=== PATIENT | female | born 1960 | race Caucasian/White ===

== ENCOUNTER 2016-04-16 19:00 | Inpatient (IN) | payer OTHER ==
[2016-04-16] MEDS ORDERED: HYDROmorphone 1 MG/ML 1 ML SYRINGE IVP STA (19:31)
[2016-04-16] MEDS ORDERED: SODIUM CHLORIDE 0.9% 1,000 ML IV STA (19:31)
[2016-04-16] MEDS ORDERED: ONDANSETRON 4 MG/2 ML VIAL IVP STA (19:31)
--- NOTE | 2016-04-16 19:43 | ED ---
Abdominal Pain HPI - General Chief Complaint: Abdominal Pain Stated Complaint: abd pain Time Seen by Provider: 04/16/16 19:10 Source: patient, RN notes reviewed, old records reviewed Mode of arrival: wheelchair Limitations: no limitations - History of Present Illness Initial Comments: Patient is a 35-year-old female with chief complaint of epigastric abdominal pain for approximately one week. Patient reports that she's had her gallbladder removed approximately year ago and since that she does have an of abdominal hernia. Patient reports that she's had multiple sets of diarrhea and a few episodes of vomiting for the past week. She states that she also has a chronic cough. She denies any fever or chills. She states that the abdominal pain became worse today which prompted her to becomes a. She is concerned she possible problem with her hernia as she relates that the pain is directly over that area. She reports that she is a type II diabetic. She states that she is supposed to have back surgery however her primary care provider will not approve her for surgery as her blood sugars are continually running high as well as she does have a increased white blood cell count. Patient states that they are unsure why her white blood cell count is elevated. Patient denies any recent fever, chills, shortness of breath, chest pain, back pain, abdominal pain , nausea vomiting, numbness or tingling, dysuria or hematuria, constipation or diarrhea, headaches or visual changes, or any other current symptoms - Related Data Home Medications Medication Instructions Recorded Confirmed Atorvastatin [Lipitor] 40 mg PO HS 05/29/15 04/16/16 Glimepiride [Amaryl] 1 mg PO [id number] 05/29/15 04/16/16 Valsartan [Diovan] 160 mg PO QAM 05/29/15 04/16/16 metFORMIN HCL 1,000 mg PO BID 05/29/15 04/16/16 DULoxetine HCL [Cymbalta] 60 mg PO DAILY 04/16/16 04/16/16 HYDROcodone/APAP 7.5-325MG [[place] 1 tab PO TID 04/16/16 04/16/16 7.5-325] Insulin Detemir [Levemir] 30 unit SQ HS 04/16/16 04/16/16 Pantoprazole Sodium [Protonix] 40 mg PO DAILY 04/16/16 04/16/16 Allergies Allergy/AdvReac Type Severity Reaction Status Date / Time morphine Allergy severe Verified 04/16/16 19:25 vomiting, severe flushing and sweating Review of Systems ROS Statement: Those systems with pertinent positive or pertinent negative responses have been documented in the HPI. ROS Other: All systems not noted in ROS Statement are negative. Past Medical History Past Medical History: COPD, Diabetes Mellitus, Eye Disorder, GERD/Reflux, Hyperlipidemia, Hypertension, Pneumonia Additional Past Medical History / Comment(s): HX CATARACTS YOSEF. LMP 2009. SL Anemia - SEES Dr Hooper. Bronchitis. Steroids in Mar 2015. EDEMA IN FEET, R/T HEAT. History of Any Multi-Drug Resistant Organisms: None Reported Past Surgical History: Cholecystectomy, Orthopedic Surgery, Tubal Ligation Additional Past Surgical History / Comment(s): ORIF RT ANKLE. EGD, COLONOSCOPY 06/03/15. Past Anesthesia/Blood Transfusion Reactions: Postoperative Nausea & Vomiting ( PONV) Past Psychological History: No Psychological Hx Reported, Depression Smoking Status: Current every day smoker Past Alcohol Use History: None Reported Additional Past Alcohol Use History / Comment(s): Quit smoking 2014, Smoked approx 15 yrs <1ppd Past Drug Use History: None Reported - Past Family History Mother Additional Family Medical History / Comment(s): chronic anemia Father Family Medical History: Myocardial Infarction ([place]) General Exam - General Exam Comments Initial Comments: Patient is a 55-year-old female. She does not appear to be in any acute distress. Limitations: no limitations General appearance: alert, in no apparent distress Head exam: Present: atraumatic, normocephalic, normal inspection Eye exam: Present: normal appearance, PERRL, EOMI. Absent: scleral icterus, conjunctival injection, periorbital swelling ENT exam: Present: normal exam, mucous membranes moist Neck exam: Present: normal inspection. Absent: tenderness, meningismus, lymphadenopathy Respiratory exam: Present: normal lung sounds bilaterally. Absent: respiratory distress, wheezes, rales, rhonchi, stridor Cardiovascular Exam: Present: regular rate, normal rhythm, normal heart sounds. Absent: systolic murmur, diastolic murmur, rubs, gallop, clicks GI/Abdominal exam: Present: soft, tenderness (Evidence of umbilical hernia. Patient is tender over the area. No evidence of erythema. The hernia is reducible.), normal bowel sounds. Absent: distended, guarding, rebound, rigid Extremities exam: Present: normal inspection, full ROM, normal capillary refill. Absent: tenderness, pedal edema, joint swelling, calf tenderness Back exam: Present: normal inspection Neurological exam: Present: alert, oriented X3, CN II-XII intact Psychiatric exam: Present: normal affect, normal mood Skin exam: Present: warm, dry, intact, normal color. Absent: rash Course Vital Signs 04/16/16 19:19 Temperature 98.1 F Pulse Rate 100 Respiratory 20 Rate Blood Pressure 141/70 O2 Sat by Pulse 96 Oximetry Medical Decision Making - Medical Decision Making Patient is a 55-year-old female with type 2 diabetes stating that she's had abdominal pain for the past week. Patient's labs were reviewed and she has an elevated lipase of 3000, 871. Patient's amylase is 511. Patient has mainly epigastric and left sided abdominal pain. She does state it didn't radiate towards her back. Patient does have evidence of a ventral hernia however it is reducible. I discussed case with Dr. Mitchell and he indicated that she treat the patient for pancreatitis with IV hydration. Patient also reports that she' s had chronic leukocytosis for the past few months and has not been cleared for her back surgery by her primary care provider. Dr. Bailey consult to the medicine physician x-ray doesn't. They will do possible CT of the abdomen and pelvis morning pending results in the meantime hydrating with fluids and pain control. - Lab Data Result diagrams: 04/16/16 19:45 04/16/16 19:45 Lab Results 04/16/16 04/16/16 Range/Units 19:45 19:45 WBC 17.1 H (3.8-10.6) k/uL RBC 4.40 (3.80-5.40) m/uL Hgb 14.4 (11.4-16.0) gm/dL Hct 41.6 (34.0-46.0) % MCV 94.6 (80.0-100.0) fL MCH 32.7 (25.0-35.0) pg MCHC 34.6 (31.0-37.0) g/dL RDW 12.9 (11.5-15.5) % Plt Count 374 (150-450) k/uL Neutrophils % 77 % Lymphocytes % 16 % Monocytes % 3 % Eosinophils % 2 % Basophils % 1 % Neutrophils # 13.2 H (1.3-7.7) k/uL Lymphocytes # 2.8 (1.0-4.8) k/uL Monocytes # 0.5 (0-1.0) k/uL Eosinophils # 0.4 (0-0.7) k/uL Basophils # 0.1 (0-0.2) k/uL Sodium 140 (137-145) mmol/L Potassium 4.3 (3.5-5.1) mmol/L Chloride 108 H (98-107) mmol/L Carbon Dioxide 19 L (22-30) mmol/L Anion Gap 13 mmol/L BUN 38 H (7-17) mg/dL Creatinine 0.91 (0.52-1.04) mg/dL Est GFR (MDRD) Af Amer >60 (>60 ml/min/1.73 sqM) Est GFR (MDRD) Non-Af >60 (>60 ml/min/1.73 sqM) Glucose 164 H (74-99) mg/dL Calcium 9.9 (8.4-10.2) mg/dL Total Bilirubin 0.5 (0.2-1.3) mg/dL AST 16 (14-36) U/L ALT 26 (9-52) U/L Alkaline Phosphatase 90 (38-126) U/L Total Protein 7.5 (6.3-8.2) g/dL Albumin 4.2 (3.5-5.0) g/dL Amylase 511 H* (30-110) U/L Lipase 3897 H (23-300) U/L Acetone, Qual Negative (Negative) - Radiology Data Radiology results: report reviewed Heart is the upper limits of normal in size. There are chronic changes without acute definite process. No evidence of bowel instruction or free intraperitoneal air. There symptoms a small air-fluid level within the colon which could represent enteritis. Correlate with possible hepatomegaly. Disposition Clinical Impression: Pancreatitis Disposition: ADMITTED IP TO THIS HOSP Condition: Stable Referrals: Jeison Miranda DO [Primary Care Provider] - 1-2 days Time of Disposition: 20:52
[2016-04-16 20:04] LABS: Basophils # (A) 0.1 k/uL (0-0.2); Basophils % (A) 1 %; CH 32.8; CHCM 34.9; Eosinophils # (A) 0.4 k/uL (0-0.7); Eosinophils % (A) 2 %; HCT 41.6 % (34.0-46.0); HDW 2.52; HGB 14.4 gm/dL (11.4-16.0); Luc # (Auto) 0.18; Luc % (Auto) 1; Lymphocytes # (A) 2.8 k/uL (1.0-4.8); Lymphocytes % (A) 16 %; MCH 32.7 pg (25.0-35.0); MCHC 34.6 g/dL (31.0-37.0); MCV 94.6 fL (80.0-100.0); Mean Platelet Volume 7.9; Monocytes # (A) 0.5 k/uL (0-1.0); Monocytes % (A) 3 %; Neutrophils # (A) 13.2 k/uL (1.3-7.7); Neutrophils % (A) 77 %; RDW 12.9 % (11.5-15.5); WBC 17.1 k/uL (3.8-10.6); WBC (Perox) 16.33
[2016-04-16 20:14] LABS: ALT 26 U/L (9-52); AST 16 U/L (14-36); Alkaline Phosphatase 90 U/L (38-126); Anion Gap 13 mmol/L; Blood Urea Nitrogen 38 mg/dL (7-17); Calcium 9.9 mg/dL (8.4-10.2); Carbon Dioxide 19 mmol/L (22-30); Chloride 108 mmol/L (98-107); Glucose 164 mg/dL (74-99); Non-African American GFR(MDRD) >60 (>60 ml/min/1.73 sqM); Potassium 4.3 mmol/L (3.5-5.1); Sodium 140 mmol/L (137-145); Total Bilirubin 0.5 mg/dL (0.2-1.3); Total Protein 7.5 g/dL (6.3-8.2)
[2016-04-16 20:24] LABS: Amylase 511 U/L (30-110)
--- NOTE | 2016-04-16 20:45 | XR ---
EXAMINATION TYPE: XR chest 2V DATE OF EXAM: 04/16/2016 8:32 PM COMPARISON: 04/21/2015 HISTORY: 55-year-old female with abdominal pain TECHNIQUE: Frontal and lateral views FINDINGS: Heart remains upper limits of normal in size. Mild interstitial prominence likely chronic, senescent change. Some slight underpenetration of the lower lungs without definite consolidation or pleural eff usion when correlated with the lateral view. IMPRESSION: Heart at the upper limits of normal in size. There are chronic changes without definite acute process .
--- NOTE | 2016-04-16 20:48 | XR ---
EXAMINATION TYPE: XR KUB DATE OF EXAM: 04/16/2016 8:32 PM CLINICAL DATA: 55-year-old female with abdominal pain, [facility] COMPARISON: None FINDINGS: Lung bases are clear. No evidence for free intraperitoneal air. Scattered foci of colonic gas is present. Some of these show air-fluid levels suggesting liquid stool . No dilated small bowel loops or significant stool burden. No suspicious calcifications seen. Liver appears enlarged measuring up to 22 cm craniocaudal. IMPRESSION: 1. No evidence of bowel obstruction or free intraperitoneal air. 2. Symptoms small air-fluid levels within the colon could represent enteritis. 3. Correlate for possible hepatomegaly.
[2016-04-16] MEDS ORDERED: KETOROLAC 30 MG/ML 1 ML VIAL IVP STA (20:54)
[2016-04-16] MEDS ORDERED: HYDROmorphone 1 MG/ML 1 ML SYRINGE IV PRN (21:11)
[2016-04-16] MEDS ORDERED: NALOXONE 0.4 MG/ML 1 ML VIAL IV PRN (21:11)
[2016-04-16 21:20] LABS: Appearance,Urine Cloudy (Clear); Bilirubin,Urine Negative (Negative); Glucose,Urine (UA) Negative (Negative); Ketones,Urine Negative (Negative); Leukocyte Esterase,Urine Negative (Negative); Mucus,Urine Few /hpf; Nitrite,Urine Negative (Negative); PH, Urine 5.5 (5.0-8.0); Particle Count 5550; Protein,Urine 1+ (Negative); Squamous Epithelial Cell,Urine 4 /hpf (0-4); UA Billing (MACRO vs. MICRO) MICRO; Urobilinogen,Urine <2.0 mg/dL (<2.0); WBC,Urine 1 /hpf (0-5)
[2016-04-16 21:34] LABS: Glucose,Whole Blood 122 mg/dL (75-99)
[2016-04-16] MEDS: KETOROLAC 30 MG/ML 1 ML VIAL IVP PRN (22:23)
[2016-04-16] MEDS: SODIUM CHLORIDE 0.9% 1,000 ML IV SCH (22:24)
[2016-04-17] MEDS: SODIUM CHLORIDE 0.9% 1,000 ML IV SCH (05:29)
[2016-04-17] MEDS: KETOROLAC 30 MG/ML 1 ML VIAL IVP PRN ×2 (05:35→10:38)
[2016-04-17 07:01] LABS: Glucose,Whole Blood 130 mg/dL (75-99)
[2016-04-17] MEDS: INSULIN LISPRO (humaLOG) 300 UNIT/3 ML VIAL SQ SCH ×4 (07:14→20:54)
[2016-04-17] MEDS: PANTOPRAZOLE 40 MG/10 ML VIAL IV SCH (07:16)
[2016-04-17] MEDS: ENOXAPARIN 40 MG/0.4 ML SYRINGE SQ SCH (07:17)
[2016-04-17] MEDS: DULoxetine HCL 60 MG CAPSULE.DR PO SCH (07:17)
[2016-04-17] MEDS: VALSARTAN 160 MG TAB PO SCH (07:17)
[2016-04-17] MEDS ORDERED: metFORMIN 500 MG TAB PO SCH (07:30)
[2016-04-17 08:29] LABS: Basophils # (A) 0.1 k/uL (0-0.2); Basophils % (A) 1 %; CH 32.6; CHCM 33.5; Eosinophils # (A) 0.4 k/uL (0-0.7); Eosinophils % (A) 4 %; HCT 39.8 % (34.0-46.0); HDW 2.42; HGB 13.1 gm/dL (11.4-16.0); Luc # (Auto) 0.14; Luc % (Auto) 1; Lymphocytes # (A) 2.7 k/uL (1.0-4.8); Lymphocytes % (A) 29 %; MCH 32.1 pg (25.0-35.0); MCHC 32.8 g/dL (31.0-37.0); MCV 97.7 fL (80.0-100.0); Mean Platelet Volume 7.1; Monocytes # (A) 0.4 k/uL (0-1.0); Monocytes % (A) 4 %; Neutrophils # (A) 5.8 k/uL (1.3-7.7); Neutrophils % (A) 61 %; RBC 4.08 m/uL (3.80-5.40); WBC 9.4 k/uL (3.8-10.6); WBC (Perox) 9.31
[2016-04-17 08:40] LABS: Anion Gap 13 mmol/L; Blood Urea Nitrogen 36 mg/dL (7-17); Calcium 8.8 mg/dL (8.4-10.2); Carbon Dioxide 17 mmol/L (22-30); Chloride 112 mmol/L (98-107); Glucose 129 mg/dL (74-99); Non-African American GFR(MDRD) 59 (>60 ml/min/1.73 sqM); Potassium 4.5 mmol/L (3.5-5.1); Sodium 142 mmol/L (137-145)
[2016-04-17 08:53] LABS: Amylase 378 U/L (30-110)
[2016-04-17 08:56] LABS: Hemoglobin A1C 8.2 % (4.2-6.1)
[2016-04-17] MEDS: LACTATED RINGERS 1,000 ML IV SCH ×2 (11:34→17:14)
[2016-04-17] MEDS: ONDANSETRON 4 MG/2 ML VIAL IVP PRN (11:37)
[2016-04-17 11:39] LABS: Glucose,Whole Blood 132 mg/dL (75-99)
--- NOTE | 2016-04-17 13:14 | HP ---
DATE OF ADMISSION: 04/16/2016 Patient is a 55-year-old female who came in with severe epigastric abdominal pain, sharp in nature. Patient has abdominal hernia ( ). There is some problem with hernia. She came to the hospital. The patient was having episodes of nausea and vomiting. She had ( ) had a few episodes of nausea, vomiting yesterday and patient had flu like symptoms and viral gastroenteritis about a couple weeks ago. Patient had a cholecystectomy about one year ago. Patient is not an alcoholic. The patient was found to have a highly elevated amylase and lipase. Lipase being 3897. Patient is admitted with pancreatitis. Patient has elevated chloride leading to low bicarbonate of 17, because of which I changed fluids from normal saline to lactated Ringer's and patient will be n.p.o. Patient had leukocytosis which is improving, etiology of pancreatitis is not clear at this point of time. I will obtain a triglyceride level as well as EMMA testing. Patient will remain n.p.o. and patient will be on Protonix and also hydromorphone and ketorolac will be discontinued. Her nausea improved a little bit. Abdominal pain continues to be the same. Home medications include: 1. Atorvastatin. 2. Glimepiride. 3. Valsartan. 4. Metformin. 5. Duloxetine. 6. Hydrocodone. 7. Acetaminophen. 8. Levemir 30 units subcutaneous at bedtime. 9. Protonix. REVIEW OF SYSTEMS: CONSTITUTIONAL: No fever, no malaise, no fatigue. HEENT: No recent visual problems or hearing problems. Denied any sore throat. CARDIOVASCULAR: No chest pain, orthopnea, PND, no palpitations, no syncope. PULMONARY: No shortness of breath, no cough, no hemoptysis. GASTROINTESTINAL: as described in the history of present illness. NEUROLOGICAL: No headaches, no weakness, no numbness. HEMATOLOGICAL: Denies any bleeding or petechiae. GENITOURINARY: Denies any burning micturition, frequency, or urgency. MUSCULOSKELETAL/RHEUMATOLOGICAL: Denies any joint pain, swelling, or any muscle pain. ENDOCRINE: Denies any polyuria or polydipsia. The rest of the 14 point review of systems is negative. Past medical history significant for COPD, diabetes mellitus, gastroesophageal reflux disease, hyperlipidemia, hypertension, Tubal ligation surgery, cholecystectomy, orthopedic surgery in the past and some kind of orthopedic surgery in the past which is ORIF of the right ankle. SOCIAL HISTORY: Patient quit smoking in 2014, smoked for 15 years, less than 1 pack per day and denied any alcohol abuse or drug abuse. FAMILY HISTORY: Father had myocardial infarction. PHYSICAL EXAMINATION: VITAL SIGNS: Temperature 97.0, pulse 61, respiratory rate of 16, blood pressure is 116/58, saturating at 96% on room air. GENERAL: The patient is alert and oriented x3, not in any acute distress. Well developed, well nourished. HEENT: Pupils are round and equally reacting to light. EOMI. No scleral icterus. No conjunctival pallor. Normocephalic, atraumatic. No pharyngeal erythema. No thyromegaly. CARDIOVASCULAR: S1 and S2 present. No murmurs, rubs, or gallops. PULMONARY: Chest is clear to auscultation, no wheezing or crackles. ABDOMEN: Patient has very minimal epigastric abdominal tenderness. Patient has a ventral hernia. Abdomen is soft. Bowel sounds are present. Patient's abdomen is soft. No rebound or rigidity. No peritoneal signs. MUSCULOSKELETAL: No joint swelling or deformity. EXTREMITIES: No cyanosis, clubbing, or pedal edema. NEUROLOGICAL: Gross neurological examination did not reveal any focal deficits. SKIN: No rashes. LABORATORY DATA: The patient's leukocytosis improved. Chloride is elevated leading to low bicarbonate of 17. Patient will be switched to lactated Ringer's. Hemoglobin A1c of 8.2. Amylase is 378 and lipase is 3514 came down a little bit compared to yesterday. ASSESSMENT AND PLAN: 1. Pancreatitis. Etiology of pancreatitis unknown. We will obtain lipid panel tomorrow. Patient probably has idiopathic pancreatitis. We will also obtain an EMMA panel. Patient had cholecystectomy in the past. 2. Diabetes mellitus. Hold off metformin. Patient will only be on sliding scale insulin as patient is going to be n.p.o. today. 3. Possibility of gastritis. 4. Diabetes mellitus. 5. Depression. 6. Hyperlipidemia. For those mentioned chronic medical problems, will go ahead and continue her home medications. These medications will be started whenever patient can tolerate oral diet, patient will remain n.p.o. Patient's primary care physician, is Dr. Jeison Miranda. We will follow the patient from tomorrow.
[2016-04-17] MEDS ORDERED: METOCLOPRAMIDE 5 MG/ML 2 ML VIAL IVP PRN (13:27)
[2016-04-17 17:15] LABS: Glucose,Whole Blood 129 mg/dL (75-99)
[2016-04-17] MEDS: ATORVASTATIN 40 MG TAB PO SCH (20:32)
[2016-04-17 20:48] LABS: Glucose,Whole Blood 94 mg/dL (75-99)
[2016-04-18] MEDS: LACTATED RINGERS 1,000 ML IV SCH ×3 (02:57→20:24)
[2016-04-18 07:11] LABS: Glucose,Whole Blood 128 mg/dL (75-99)
[2016-04-18] MEDS: INSULIN LISPRO (humaLOG) 300 UNIT/3 ML VIAL SQ SCH ×4 (07:25→22:01)
[2016-04-18] MEDS: VALSARTAN 160 MG TAB PO SCH (08:15)
[2016-04-18] MEDS: PANTOPRAZOLE 40 MG/10 ML VIAL IV SCH (08:15)
[2016-04-18] MEDS: DULoxetine HCL 60 MG CAPSULE.DR PO SCH (08:15)
[2016-04-18] MEDS: ENOXAPARIN 40 MG/0.4 ML SYRINGE SQ SCH (08:15)
[2016-04-18] MEDS: ONDANSETRON 4 MG/2 ML VIAL IVP PRN ×2 (08:48→17:19)
[2016-04-18 09:04] LABS: Basophils # (A) 0.1 k/uL (0-0.2); Basophils % (A) 1 %; CH 32.9; CHCM 33.7; Eosinophils # (A) 0.3 k/uL (0-0.7); Eosinophils % (A) 4 %; HGB 13.2 gm/dL (11.4-16.0); Luc # (Auto) 0.16; Luc % (Auto) 2; Lymphocytes # (A) 2.3 k/uL (1.0-4.8); Lymphocytes % (A) 28 %; MCH 32.3 pg (25.0-35.0); MCV 97.9 fL (80.0-100.0); Mean Platelet Volume 7.6; Monocytes # (A) 0.4 k/uL (0-1.0); Monocytes % (A) 5 %; Neutrophils # (A) 5.2 k/uL (1.3-7.7); Neutrophils % (A) 61 %; RBC 4.09 m/uL (3.80-5.40); RDW 12.9 % (11.5-15.5); WBC 8.5 k/uL (3.8-10.6); WBC (Perox) 8.62
[2016-04-18 09:27] LABS: Amylase 187 U/L (30-110); Anion Gap 11 mmol/L; Blood Urea Nitrogen 19 mg/dL (7-17); Calcium 9.3 mg/dL (8.4-10.2); Carbon Dioxide 20 mmol/L (22-30); Chloride 112 mmol/L (98-107); Glucose 145 mg/dL (74-99); Non-African American GFR(MDRD) >60 (>60 ml/min/1.73 sqM); Potassium 4.7 mmol/L (3.5-5.1); Sodium 143 mmol/L (137-145)
[2016-04-18 11:45] LABS: Glucose,Whole Blood 132 mg/dL (75-99)
[2016-04-18] MEDS ORDERED: HYDROcodone/APAP 7.5-325MG 1 EACH TAB PO PRN (11:58)
--- NOTE | 2016-04-18 12:58 | P.PN ---
Subjective Principal diagnosis: Acute pancreatitis Patient is a 55-year-old female with medical history significant for COPD, diabetes mellitus type 2, GERD, hyperlipidemia, and hypertension, admitted with complaints of epigastric pain, nausea, and vomiting 3 days found to have evidence of acute pancreatitis. No history of prior pancreatitis. No history of alcohol. Amylase and lipase improving. Patient complains of left upper quadrant "soreness" improved from yesterday. Patient currently rates pain 6 out of 10. Patient reports that she became severely nauseated after receiving Dilaudid yesterday and is requesting an alternative medication. Denies chills, fevers, shortness of breath, chest pain, diarrhea or constipation. Objective - Vital Signs Vital signs: Vital Signs Temp 98.7 F 04/18/16 07:00 Pulse 65 04/18/16 07:00 Resp 16 04/18/16 07:00 BP 132/63 04/18/16 07:00 Pulse Ox 98 04/18/16 07:00 Intake & Output 04/17/16 04/18/16 04/18/16 18:59 06:59 18:59 Other: Voiding Method Bedside Commode # Voids 3 2 - Exam GENERAL: Pt awake and alert, well-nourished, in no acute distress. HEAD: Atraumatic, normocephalic. EYES: Pupils equal and round. Sclera anicteric, conjunctiva are normal. ENT: Oropharynx clear without exudates. Moist mucous membranes. NECK: Supple without lymphadenopathy or JVD. LUNGS: Breath sounds clear to auscultation bilaterally. No wheezes, rales, or rhonchi. HEART: Heart S1, S2, no S3 or S4. Regular rate and rhythm. No murmurs, rubs or gallops. ABDOMEN: Soft, moderate left upper quadrant tenderness, nondistended, normoactive bowel sounds. No guarding, no rebound. EXTREMITIES: Palpable peripheral pulses. No edema. No calf tenderness. NEUROLOGICAL: Pt oriented x 3. No focal deficits. Strength and sensation grossly intact. PSYCH: Normal mood, normal affect. SKIN: Warm, dry, intact. Normal turgor. No rashes or lesions. - Labs CBC & Chem 7: 04/18/16 07:54 04/18/16 07:54 Labs: Abnormal Lab Results - Last 24 Hours (Table) 04/17/16 04/18/16 04/18/16 Range/Units 17:13 07:09 07:54 Chloride 112 H (98-107) mmol/L Carbon Dioxide 20 L (22-30) mmol/L BUN 19 H (7-17) mg/dL Glucose 145 H (74-99) mg/dL POC Glucose (mg/dL) 129 H 128 H (75-99) mg/dL Amylase 187 H (30-110) U/L Lipase 1346 H (23-300) U/L 04/18/16 Range/Units 11:45 Chloride (98-107) mmol/L Carbon Dioxide (22-30) mmol/L BUN (7-17) mg/dL Glucose (74-99) mg/dL POC Glucose (mg/dL) 132 H (75-99) mg/dL Amylase (30-110) U/L Lipase (23-300) U/L Assessment and Plan Plan: Impression and plan: 1. Acute pancreatitis, etiology unknown, improving. Consult has been requested for gastroenterology, recommendations pending. EMMA panel pending. Triglyceride level pending. I'll start patient on a clear liquid diet and resume oral pain medication. Continue IV hydration. 2. Diabetes mellitus, insulin requiring, uncontrolled. Hemoglobin A1c 8.2. Continue Humalog sliding scale. 3. Hyperlipidemia. Continue Lipitor. 4. COPD without acute exacerbation. 5. GERD. Continue Protonix. 6. Hypertension. Continue Diovan. 7. Depression, stable. Continue Cymbalta. 8. Nicotine dependence. 9. History of cholecystectomy. 10. DVT prophylaxis. Continue Lovenox. 11. GI prophylaxis. Continue Protonix. 12. Repeat CBC, BMP, amylase and lipase in a.m. The above impression and plan have been discussed and directed by Dr. Miranda. Michelle LEMOS-Ascencion acting as scribe for Dr. Miranda.
[2016-04-18 17:20] LABS: Glucose,Whole Blood 152 mg/dL (75-99)
--- NOTE | 2016-04-18 18:01 | CONS ---
DATE OF CONSULTATION: 04/18/2016 REQUESTING PHYSICIAN: Dr. Jeison Miranda. REASON FOR CONSULTATION: Acute. HISTORY OF PRESENT ILLNESS: The patient is a 55-year-old pleasant lady admitted to the hospital with acute onset of severe epigastric pain associated with nausea, vomiting for the last 3 days' duration. She came into the emergency room and was noted to have elevated amylase and lipase consistent with acute pancreatitis. The patient denies ever having these symptoms in the past. No prior history of pancreatitis. She had a gallbladder surgery done approximately a year ago by Dr. Arce. Today she is on clear liquid diet, tolerating well. She still has some epigastric discomfort. She has some dry heaves this morning, but no emesis. She denies being started on any new medications recently. No recent weight loss. Long-standing history of diabetes mellitus. PAST MEDICAL HISTORY: Significant for hypertension, hyperlipidemia, diabetes mellitus and gastroesophageal reflux disease. Medications at home include: 1. Atorvastatin. 2. Glimepiride. 3. Losartan. 4. Metformin. 5. Duloxetine. 6. Hydrocodone. 7. Acetaminophen. 8. Levemir. 9. Protonix. PAST SURGICAL HISTORY: Cholecystectomy. ORIF of the right ankle. SOCIAL HISTORY: No smoking. No alcohol use. FAMILY HISTORY: Unremarkable other than [place] in her father. REVIEW OF SYSTEMS: CARDIOPULMONARY: No chest pain or shortness breath. GENITOURINARY: No dysuria or hematuria. MUSCULOSKELETAL: Unremarkable. SKIN: Unremarkable. ENDOCRINE: Unremarkable. PSYCHIATRIC: Unremarkable. NEUROLOGY: Unremarkable. ENT: Vision unremarkable. CONSTITUTIONAL: No recent weight loss. No fevers, chills or night sweats. On examination, he appears comfortable in no apparent distress. Vitals as are stable. Blood is 166/69, temperature 96.4, pulse rate 69. HEENT EXAMINATION: Unremarkable. Conjunctivae pink. Sclerae anicteric. Oral cavity, no lesions. NECK: No JVD or lymph node enlargement. Chest was clear to auscultation. HEART: Regular rate and rhythm. ABDOMEN: Soft. There was mild tenderness in the epigastric area. Bowel sounds are positive. No organomegaly. EXTREMITIES: No pedal edema. SKIN: No rashes. NEUROLOGICAL: Alert and oriented times three. No focal deficits. LABS: Amylase was ( ), lipase is 3897, today amylase is down to 187, lipase is 1346. ALT, AST, T-bili and alkaline phosphatase are within normal limits. WBC is 8.3, hemoglobin 10.2, platelets are within normal limits IMPRESSION: This is a lady who presents with acute onset of severe epigastric pain associated with nausea, vomiting of 3 days' duration and was noted to have elevated amylase and lipase consistent acute pancreatitis. This is her first episode of pancreatitis. No new medications have been started recently. She denies any alcohol use. She is status post gallbladder surgery a year ago for gallbladder dyskinesia. The patient has normal serum transaminases, which makes it unlikely we are dealing with biliary pancreatitis. At this time the etiology of pancreatitis is unclear and needs to be investigated for metabolic causes and autoimmune causes. RECOMMENDATIONS: 1. Continue with symptomatic and supportive care. 2. We can continue with clear liquid diet and repeat labs in the morning and if they are improving advance diet as tolerated. 3. Labs for fasting serum triglycerides and EMMA have already been ordered and will follow the patient closely during hospital stay. Thank you for this consultation.
[2016-04-18] MEDS: ATORVASTATIN 40 MG TAB PO SCH (20:24)
[2016-04-18 21:08] LABS: Glucose,Whole Blood 156 mg/dL (75-99)
[2016-04-19] MEDS: LACTATED RINGERS 1,000 ML IV SCH ×3 (04:09→18:40)
[2016-04-19] MEDS: VALSARTAN 160 MG TAB PO SCH (07:53)
[2016-04-19] MEDS: PANTOPRAZOLE 40 MG/10 ML VIAL IV SCH (07:53)
[2016-04-19] MEDS: ENOXAPARIN 40 MG/0.4 ML SYRINGE SQ SCH (07:53)
[2016-04-19] MEDS: DULoxetine HCL 60 MG CAPSULE.DR PO SCH (07:53)
[2016-04-19] MEDS: INSULIN LISPRO (humaLOG) 300 UNIT/3 ML VIAL SQ SCH ×4 (07:54→21:47)
[2016-04-19 07:57] LABS: Glucose,Whole Blood 148 mg/dL (75-99)
[2016-04-19 08:20] LABS: Basophils # (A) 0.1 k/uL (0-0.2); Basophils % (A) 1 %; CH 32.6; CHCM 33.4; Eosinophils # (A) 0.3 k/uL (0-0.7); Eosinophils % (A) 3 %; HCT 40.6 % (34.0-46.0); HDW 2.45; HGB 13.1 gm/dL (11.4-16.0); Luc # (Auto) 0.12; Luc % (Auto) 2; Lymphocytes # (A) 2.2 k/uL (1.0-4.8); Lymphocytes % (A) 28 %; MCH 31.6 pg (25.0-35.0); MCHC 32.2 g/dL (31.0-37.0); MCV 98.1 fL (80.0-100.0); Mean Platelet Volume 7.1; Monocytes # (A) 0.3 k/uL (0-1.0); Monocytes % (A) 4 %; Neutrophils # (A) 4.8 k/uL (1.3-7.7); Neutrophils % (A) 62 %; RBC 4.14 m/uL (3.80-5.40); RDW 12.8 % (11.5-15.5); WBC 7.7 k/uL (3.8-10.6); WBC (Perox) 8.25
[2016-04-19 08:34] LABS: Amylase 80 U/L (30-110); Anion Gap 12 mmol/L; Calcium 9.3 mg/dL (8.4-10.2); Carbon Dioxide 22 mmol/L (22-30); Chloride 111 mmol/L (98-107); Glucose 131 mg/dL (74-99); Non-African American GFR(MDRD) >60 (>60 ml/min/1.73 sqM); Sodium 145 mmol/L (137-145)
[2016-04-19 08:37] LABS: Blood Urea Nitrogen 12 mg/dL (7-17); Potassium 4.4 mmol/L (3.5-5.1)
--- NOTE | 2016-04-19 09:08 | P.PN ---
Subjective Principal diagnosis: Pancreatitis 55-year-old female admitted with idiopathic pancreatitis. Feels better today. Tolerating clear liquid diet. Lipase 461. Afebrile. EMMA screen negative. Objective - Vital Signs Vital signs: Vital Signs Temp 98.4 F 04/19/16 07:00 Pulse 61 04/19/16 07:00 Resp 18 04/19/16 07:00 BP 153/93 04/19/16 07:00 Pulse Ox 97 04/19/16 07:00 Intake & Output 04/18/16 04/19/16 04/19/16 18:59 06:59 18:59 Intake Total 350 Balance 350 Intake: Oral 350 Other: Voiding Method Bedside Commode # Voids 2 2 - Exam General appearance: The patient is alert, oriented, in no acute distress. HET: Head is normocephalic and atraumatic. Pupils are equal and reactive. Oropharynx is clear without lesions. Neck: Supple without lymphadenopathy. Trachea midline. Heart: S1 S2. Regular rate and rhythm. Lungs: No crackles or wheezes are heard. Abdomen: Soft, mild midepigastric tenderness, mildly bloated, with bowel sounds. No peritoneal signs. No palpable organomegaly or masses. Extremities: Normal skin color and turgor. No cyanosis, rash, ulceration, clubbing, or edema. Radial and pedal pulses are 2/4 bilaterally. Neurological: No focal deficits. Strength and sensation are grossly intact. - Labs CBC & Chem 7: 04/19/16 07:21 04/19/16 07:21 Labs: Abnormal Lab Results - Last 24 Hours (Table) 04/18/16 04/18/16 04/18/16 Range/Units 07:54 07:54 11:45 Chloride 112 H (98-107) mmol/L Carbon Dioxide 20 L (22-30) mmol/L BUN 19 H (7-17) mg/dL Glucose 145 H (74-99) mg/dL POC Glucose (mg/dL) 132 H (75-99) mg/dL Triglycerides 198 H (<150) mg/dL Amylase 187 H (30-110) U/L Lipase 1346 H (23-300) U/L 04/18/16 04/18/16 04/19/16 Range/Units 17:18 20:50 06:48 Chloride (98-107) mmol/L Carbon Dioxide (22-30) mmol/L BUN (7-17) mg/dL Glucose (74-99) mg/dL POC Glucose (mg/dL) 152 H 156 H 148 H (75-99) mg/dL Triglycerides (<150) mg/dL Amylase (30-110) U/L Lipase (23-300) U/L 04/19/16 Range/Units 07:21 Chloride 111 H (98-107) mmol/L Carbon Dioxide (22-30) mmol/L BUN (7-17) mg/dL Glucose 131 H (74-99) mg/dL POC Glucose (mg/dL) (75-99) mg/dL Triglycerides (<150) mg/dL Amylase (30-110) U/L Lipase 461 H (23-300) U/L Assessment and Plan (1) Acute pancreatitis Narrative/Plan: Idiopathic Status: Acute Plan: 1. Advance to low-fat diet. 2. Discharge per medicine. 3. Follow up in GI office 1-2 weeks after discharge. Assessment and plan of care discussed with Dr. Hanna
[2016-04-19 12:31] LABS: Glucose,Whole Blood 110 mg/dL (75-99)
--- NOTE | 2016-04-19 14:35 | P.PN ---
Subjective Principal diagnosis: Acute pancreatitis Patient is a 55-year-old female with medical history significant for COPD, diabetes mellitus type 2, GERD, hyperlipidemia, and hypertension, admitted with complaints of epigastric pain, nausea, and vomiting 3 days found to have evidence of acute pancreatitis. No history of prior pancreatitis. No history of alcohol. Amylase and lipase improving. Patient reports improvement of left upper quadrant pain from yesterday. Denies chills, fevers, nausea, vomiting, shortness of breath, chest pain, diarrhea or constipation. Tolerating liquid diet. Objective - Vital Signs Vital signs: Vital Signs Temp 98.4 F 04/19/16 07:00 Pulse 61 04/19/16 07:00 Resp 18 04/19/16 07:00 BP 153/93 04/19/16 07:00 Pulse Ox 97 04/19/16 07:00 Intake & Output 04/18/16 04/19/16 04/19/16 18:59 06:59 18:59 Intake Total 350 800 Balance 350 800 Intake: Oral 350 800 Other: Voiding Method Bedside Commode # Voids 2 2 - Exam GENERAL: Pt awake and alert, well-nourished, in no acute distress. HEAD: Atraumatic, normocephalic. EYES: Pupils equal and round. Sclera anicteric, conjunctiva are normal. ENT: Oropharynx clear without exudates. Moist mucous membranes. NECK: Supple without lymphadenopathy or JVD. LUNGS: Breath sounds clear to auscultation bilaterally. No wheezes, rales, or rhonchi. HEART: Heart S1, S2, no S3 or S4. Regular rate and rhythm. No murmurs, rubs or gallops. ABDOMEN: Soft, mild epigastric and left upper quadrant tenderness, nondistended , normoactive bowel sounds. No guarding, no rebound. EXTREMITIES: Palpable peripheral pulses. No edema. No calf tenderness. NEUROLOGICAL: Pt oriented x 3. No focal deficits. Strength and sensation grossly intact. PSYCH: Normal mood, normal affect. SKIN: Warm, dry, intact. Normal turgor. No rashes or lesions. - Labs CBC & Chem 7: 04/19/16 07:21 04/19/16 07:21 Labs: Abnormal Lab Results - Last 24 Hours (Table) 04/18/16 04/18/16 04/19/16 Range/Units 17:18 20:50 06:48 Chloride (98-107) mmol/L Glucose (74-99) mg/dL POC Glucose (mg/dL) 152 H 156 H 148 H (75-99) mg/dL Lipase (23-300) U/L 04/19/16 04/19/16 Range/Units 07:21 12:14 Chloride 111 H (98-107) mmol/L Glucose 131 H (74-99) mg/dL POC Glucose (mg/dL) 110 H (75-99) mg/dL Lipase 461 H (23-300) U/L Assessment and Plan Plan: Impression and plan: 1. Acute pancreatitis, idiopathic, improving. Consult has been requested for gastroenterology, recommendations noted. EMMA panel negative. Triglyceride level slightly elevated. Patient has been advanced to a low-fat diet. 2. Diabetes mellitus, insulin requiring, uncontrolled. Hemoglobin A1c 8.2. Continue Humalog sliding scale. 3. Hyperlipidemia. Continue Lipitor. 4. COPD without acute exacerbation. 5. GERD. Continue Protonix. 6. Hypertension. Continue Diovan. 7. Depression, stable. Continue Cymbalta. 8. Nicotine dependence. 9. Chronic back pain. 10. History of cholecystectomy. 11. DVT prophylaxis. Continue Lovenox. 12. GI prophylaxis. Continue Protonix. 13. Repeat CBC, BMP, amylase and lipase in a.m. Expect discharge within 24 hours pending clinical course. The above impression and plan have been discussed and directed by Dr. Miranda. Michelle BROOKS acting as scribe for Dr. Miranda.
[2016-04-19 16:37] LABS: Glucose,Whole Blood 126 mg/dL (75-99)
[2016-04-19] MEDS: ATORVASTATIN 40 MG TAB PO SCH (20:26)
[2016-04-19 21:23] LABS: Glucose,Whole Blood 146 mg/dL (75-99)
[2016-04-20 00:42] VITALS: RESP 18
[2016-04-20] MEDS: LACTATED RINGERS 1,000 ML IV SCH ×2 (02:45→10:33)
[2016-04-20 07:27] LABS: Glucose,Whole Blood 169 mg/dL (75-99)
[2016-04-20] MEDS ORDERED: PANTOPRAZOLE 40 MG TABLET PO SCH (07:30)
[2016-04-20] MEDS: VALSARTAN 160 MG TAB PO SCH (07:36)
[2016-04-20] MEDS: ENOXAPARIN 40 MG/0.4 ML SYRINGE SQ SCH (07:36)
[2016-04-20] MEDS: DULoxetine HCL 60 MG CAPSULE.DR PO SCH (07:36)
[2016-04-20] MEDS: INSULIN LISPRO (humaLOG) 300 UNIT/3 ML VIAL SQ SCH ×2 (07:36→11:23)
[2016-04-20 07:58] VITALS: BP 151/81; PULSE 67; TEMP 97.3
[2016-04-20 08:22] LABS: Basophils # (A) 0.1 k/uL (0-0.2); Basophils % (A) 1 %; Eosinophils # (A) 0.4 k/uL (0-0.7); Eosinophils % (A) 4 %; HCT 38.4 % (34.0-46.0); HDW 2.49; HGB 13.2 gm/dL (11.4-16.0); Luc # (Auto) 0.08; Luc % (Auto) 1; Lymphocytes % (A) 22 %; MCH 33.5 pg (25.0-35.0); MCHC 34.4 g/dL (31.0-37.0); MCV 97.4 fL (80.0-100.0); Mean Platelet Volume 7.7; Monocytes # (A) 0.4 k/uL (0-1.0); Monocytes % (A) 4 %; Neutrophils # (A) 6.2 k/uL (1.3-7.7); Neutrophils % (A) 68 %; RBC 3.94 m/uL (3.80-5.40); RDW 12.8 % (11.5-15.5); WBC 9.2 k/uL (3.8-10.6); WBC (Perox) 9.94
[2016-04-20 08:38] LABS: Amylase 62 U/L (30-110); Anion Gap 11 mmol/L; Blood Urea Nitrogen 14 mg/dL (7-17); Calcium 9.2 mg/dL (8.4-10.2); Carbon Dioxide 27 mmol/L (22-30); Chloride 107 mmol/L (98-107); Glucose 161 mg/dL (74-99); Non-African American GFR(MDRD) >60 (>60 ml/min/1.73 sqM); Potassium 4.4 mmol/L (3.5-5.1); Sodium 145 mmol/L (137-145)
--- NOTE | 2016-04-20 09:54 | P.PN ---
Subjective Principal diagnosis: Pancreatitis 55-year-old female admitted with idiopathic pancreatitis. Feels well. Tolerating low-fat diet. Lipase 384. Afebrile. Objective - Vital Signs Vital signs: Vital Signs Temp 97.3 F L 04/20/16 07:00 Pulse 67 04/20/16 07:00 Resp 18 04/20/16 07:00 BP 151/81 04/20/16 07:00 Pulse Ox 98 04/20/16 07:00 Intake & Output 04/19/16 04/20/16 04/20/16 18:59 06:59 18:59 Intake Total 1040 1375 Balance 1040 1375 Intake: Intake, IV Titration 1375 Amount Lactated Ringers 1,000 ml 1375 @ 125 mls/hr IV .Q8H TERRY Rx#:[id number] Oral 1040 Other: Voiding Method Bedside Commode # Voids 2 2 - Exam General appearance: The patient is alert, oriented, in no acute distress. HET: Head is normocephalic and atraumatic. Pupils are equal and reactive. Oropharynx is clear without lesions. Neck: Supple without lymphadenopathy. Trachea midline. Heart: S1 S2. Regular rate and rhythm. Lungs: No crackles or wheezes are heard. Abdomen: Soft, mild midepigastric tenderness, mildly bloated, with bowel sounds. No peritoneal signs. No palpable organomegaly or masses. Extremities: Normal skin color and turgor. No cyanosis, rash, ulceration, clubbing, or edema. Radial and pedal pulses are 2/4 bilaterally. Neurological: No focal deficits. Strength and sensation are grossly intact. - Labs CBC & Chem 7: 04/20/16 08:01 04/20/16 08:01 Labs: Abnormal Lab Results - Last 24 Hours (Table) 04/19/16 04/19/16 04/19/16 Range/Units 12:14 16:29 20:46 Glucose (74-99) mg/dL POC Glucose (mg/dL) 110 H 126 H 146 H (75-99) mg/dL Lipase (23-300) U/L 04/20/16 04/20/16 Range/Units 06:40 08:01 Glucose 161 H (74-99) mg/dL POC Glucose (mg/dL) 169 H (75-99) mg/dL Lipase 384 H (23-300) U/L Assessment and Plan (1) Acute pancreatitis Narrative/Plan: Idiopathic Status: Acute Plan: 1. Discharge per medicine. Follow up in GI office 1-2 weeks. Assessment and plan of care discussed with Dr. Hanna
[2016-04-20 11:26] LABS: Glucose,Whole Blood 141 mg/dL (75-99)
--- NOTE | 2016-04-20 13:11 | P.DS ---
Providers Date of admission: 04/16/16 21:07 Expected date of discharge: 04/20/16 Attending physician: Jeison Miranda Consults: Gastrointestinal service Primary care physician: Jeison Miranda [facility] Course: Patient is a 55-year-old female with medical history significant for COPD, diabetes mellitus type 2, GERD, hyperlipidemia, and hypertension, admitted with complaints of epigastric pain, nausea, and vomiting 3 days found to have evidence of acute pancreatitis, idiopathic, with no history of prior pancreatitis. Patient was evaluated by gastrointestinal service during her hospital stay. Patient improved with IV hydration, diet restriction, supportive treatment and pain management. Patient was felt stable for discharge to home with follow-up in the outpatient setting. Discharge diagnoses: 1. Acute pancreatitis, idiopathic, improving. EMMA panel negative. Triglyceride level slightly elevated. 2. Diabetes mellitus, insulin requiring, uncontrolled. Hemoglobin A1c 8.2. 3. Hyperlipidemia. 4. COPD without acute exacerbation. 5. GERD. 6. Hypertension. 7. Depression, stable. 8. Nicotine dependence. 9. Chronic back pain. 10. History of cholecystectomy. The above impression and plan have been discussed and directed by Dr. Miranda. Michelle BROOKS acting as scribe for Dr. Miranda. Pertinent Studies: KUB x-ray; chest x-ray Patient Condition at Discharge: Good Plan - Discharge Summary New Discharge Prescriptions: HYDROcodone/APAP 7.5-325MG [[place] 7.5-325] 1 tab PO TID PRN #30 tab PRN Reason: Pain Discharge Medication List Atorvastatin [Lipitor] 40 mg PO HS 05/29/15 [History] Glimepiride [Amaryl] 4 mg PO AC-BRKFST 05/29/15 [History] Valsartan [Diovan] 160 mg PO QAM 05/29/15 [History] metFORMIN HCL 1,000 mg PO BID 05/29/15 [History] DULoxetine HCL [Cymbalta] 60 mg PO DAILY 04/16/16 [History] Insulin Detemir [Levemir] 30 unit SQ HS 04/16/16 [History] HYDROcodone/APAP 7.5-325MG [[place] 7.5-325] 1 tab PO TID PRN #30 tab 04/20/16 [Rx ] Follow up Appointment(s)/Referral(s): Jeison Miranda DO [Primary Care Provider] - 04/25/16 3:00 pm Georgie Hanna MD [STAFF PHYSICIAN] - 05/05/16 3:00 pm Patient Instructions/Handouts: Pancreatitis (DC) Activity/Diet/Wound Care/Special Instructions: Low-fat, cardiac, diabetic diet. Diabetic folder given. No smoking, cessation information provided. Discharge Disposition: HOME SELF-CARE
== END 2016-04-20 11:42 | disposition home or self-care (01) | DRG 440 ==
LOC: EC 19:00 → 4MS4W 21:07
PROVIDERS: ADMIT Family Medicine; ATTEND Family Medicine
DX: K85.00 Idiopathic acute pancreatitis without necrosis or infection (principal); I10 Essential (primary) hypertension; E11.9 Type 2 diabetes mellitus without complications; K21.9 Gastro-esophageal reflux disease without esophagitis; E78.5 Hyperlipidemia, unspecified; F32.9 Major depressive disorder, single episode, unspecified; G89.29 Other chronic pain; M54.9 Dorsalgia, unspecified; J44.9 Chronic obstructive pulmonary disease, unspecified; K43.9 Ventral hernia without obstruction or gangrene; H26.9 Unspecified cataract; Z87.891 Personal history of nicotine dependence; Z90.49 Acquired absence of other specified parts of digestive tract; Z79.4 Long term (current) use of insulin; Z79.84 Long term (current) use of oral hypoglycemic drugs; Z79.899 Other long term (current) drug therapy
CPT/HCPCS: 36415; 71020; 74000; 80048; 80053; 81001; 82009; 82150; 83036; 83690; 84478; 85025; 86038; 96361; 96374; 96375; 99285

== ENCOUNTER → 2017-03-08 | Outpatient (CLI) | payer OTHER ==
--- NOTE | 2017-03-08 14:55 | CT ---
EXAMINATION TYPE: CT abdomen pelvis w con DATE OF EXAM: 03/08/2017 COMPARISON: NONE INDICATION: Abdominal pain and Ileus DLP: 1797.10 mGycm, Automated exposure control for dose reduction was used. CONTRAST: 80 ml mL of Visipaque 320. Study performed with Oral Contrast TECHNIQUE: Axial images were obtained from above the diaphragm to the pubic rami in the axial plane a t 5 mm thick sections. Reconstructed images are reviewed on the computer in the coronal plane. FINDINGS: Limited CT sections are obtained the lung bases. The lung bases are clear. CT ABDOMEN: There is a anterior abdominal wall hernia containing mesenteric fat and: With an opening of 5.4 cm in the supraumbilical region. A periumbilical mesenteric fat containing hernia is also pres ent. Liver: There is a 2.2 cm cyst measuring 16 Hounsfield units in the anterior medial left lobe liver. Spleen: Normal Pancreas: Normal Adrenal glands: The adrenal glands are normal. Gallbladder: Normal Kidneys: No masses are evident. No hydronephrosis is present. There is a 1.8 cm cyst measuring 20 H ounsfield units on the mid posterior lateral left kidney. Some scarring or a cyst at the superior gretchen e left kidney may be present on delayed images. Delayed images were obtained through the kidneys, wh ich remain unremarkable. Aorta: Vascular calcification is within the aorta. Inferior vena cava: Normal. CT PELVIS: Loops of bowel within the abdomen and pelvis are normal. There are loops of bowel which are incom pletely distended or lack oral contrast limiting their evaluation. Appendix: Normal as visualized. Urinary bladder: Normal. Genitourinary structures: Uterus is normal. Adnexal regions are normal. Osseous structures: No suspicious lytic or sclerotic lesions. Facet degenerative changes in the lower lumbar spine. IMPRESSIONS: 1. No acute abdominal process. 2. No changes suspicious for ileus. Contrast passes through small bowel loops to the colon. 3. Anterior abdominal wall hernia containing nonobstructed colon.
== END | disposition home or self-care (01) ==
LOC: RADCTMAIN 12:40
PROVIDERS: ATTEND Family Medicine
DX: K46.9 Unspecified abdominal hernia without obstruction or gangrene (principal)
CPT/HCPCS: 82565; 84520; 74177; 36415; Q9967

== ENCOUNTER 2017-03-28 09:29 | Day surgery (SDC) | payer OTHER ==
[2017-03-27 08:58] VITALS: BMI 37.8
[~2017-03-28 09:29] MED LIST: HEPARIN SODIUM,PORCINE 5,000 UNIT/ML 1 ML VIAL SQ ONE; LIDOCAINE 1% 20 ML VIAL (10MG/ML) FOR IV START INTRADERMA PRN; SCOPOLAMINE 1.5MG/72HR PATCH TRANSDERM ONE
--- NOTE | 2017-03-28 10:17 | P.GSHP ---
History of Present Illness H&P Date: 03/28/17 Chief Complaint: Incisional hernia This is a 56-year-old female referred from Dr. Jeison Burleson. Patient has developed an incisional hernia near her umbilicus. Patient rents today for laparoscopic robotic assistance repair. Past Medical History Past Medical History: COPD, Diabetes Mellitus, Eye Disorder, GERD/Reflux, Hyperlipidemia, Hypertension Additional Past Medical History / Comment(s): SL Anemia History of Any Multi-Drug Resistant Organisms: None Reported Past Surgical History: Cholecystectomy, Orthopedic Surgery, Tubal Ligation Additional Past Surgical History / Comment(s): ORIF RT ANKLE. EGD, COLONOSCOPY ; Cataracts Past Anesthesia/Blood Transfusion Reactions: Postoperative Nausea & Vomiting ( PONV) Smoking Status: Former smoker - Past Family History Mother Additional Family Medical History / Comment(s): chronic anemia Father Family Medical History: Myocardial Infarction ([place]) Medications and Allergies Home Medications Medication Instructions Recorded Confirmed Type Atorvastatin [Lipitor] 40 mg PO HS 05/29/15 03/27/17 History Glimepiride [Amaryl] 4 mg PO AC-BRKFST 05/29/15 03/27/17 History Valsartan [Diovan] 160 mg PO QAM 05/29/15 03/27/17 History metFORMIN HCL 1,000 mg PO BID 05/29/15 03/27/17 History DULoxetine HCL [Cymbalta] 60 mg PO DAILY 04/16/16 03/27/17 History Insulin Detemir [Levemir] 32 unit SQ HS 04/16/16 03/27/17 History HYDROcodone/APAP 7.5-325MG [[place] 1 tab PO TID PRN #30 tab 04/20/16 03/27/17 Rx 7.5-325] Prochlorperazine [Compazine] 10 mg PO Q6H PRN 03/27/17 03/27/17 History Allergies Allergy/AdvReac Type Severity Reaction Status Date / Time morphine Allergy severe Verified 03/27/17 08:45 vomiting, severe flushing and sweating Surgical - Exam - General well developed, no distress - Eyes PERRL - ENT normal pinna - Neck no masses - Respiratory normal expansion - Cardiovascular Rhythm: regular - Abdomen Abdomen: soft, non tender Hernia: incisional (10 cm incarcerated incisional hernia located near umbilicus) Assessment and Plan Assessment: Incarcerated incisional hernia. We'll perform laparoscopic robotic assistance repair.
[2017-03-28] MEDS ORDERED: DEXAMETHASONE SOD PHOSPHATE 10 MG/ML 1 ML VIAL IV ONE (10:40)
[2017-03-28] MEDS ORDERED: LIDOCAINE 1% 20 ML VIAL (10MG/ML) FOR IV START INTRADERMA ONE (10:40)
[2017-03-28] MEDS: LACTATED RINGERS 1,000 ML IV SCH (10:40)
[2017-03-28] MEDS: ONDANSETRON 4 MG/2 ML VIAL IVP ONE ×2 (10:40→12:56)
[2017-03-28 10:43] LABS: Glucose,Whole Blood 143 mg/dL (75-99)
[2017-03-28] MEDS ORDERED: fentaNYL (PF) 50 MCG/ML 2 ML AMP ONE (10:43)
[2017-03-28] MEDS ORDERED: ROCURONIUM BROMIDE 10 MG/ML 10 ML VIAL IV ONE (10:43)
[2017-03-28] MEDS ORDERED: MIDAZOLAM 2 MG/2 ML VIAL ONE (10:43)
[2017-03-28] MEDS ORDERED: HYDROmorphone (PF) 1 MG/ML ONE (10:43)
[2017-03-28] MEDS ORDERED: PROPOFOL 10 MG/ML 20 ML VIAL IV ONE (10:43)
[2017-03-28] MEDS ORDERED: LIDOCAINE 1% INJ 10MG/ML (20 ML MDV) ONE (10:43)
[2017-03-28] MEDS ORDERED: PHENYLEPHRINE-0.9% NACL SYG 1 MG/10 ML SYRINGE ONE (10:43)
[2017-03-28] MEDS ORDERED: NEOSTIGMINE 1 MG/ML 10 ML VIAL ONE (10:43)
[2017-03-28] MEDS ORDERED: GLYCOPYRROLATE 0.2 MG/ML 2 ML VIAL ONE (10:43)
[2017-03-28] MEDS ORDERED: ePHEDrine SULFATE/0.9% NACL/PF 50 MG/5 ML SYRINGE IV ONE (10:43)
[2017-03-28] MEDS ORDERED: SUCCINYLCHOLINE CHLORIDE 100 MG/5 ML SYR IV ONE (10:43)
[2017-03-28] MEDS: ceFAZolin IN SWFI 2 GM/20 ML SYRINGE IVP ONE ×2 (10:43→10:44)
[2017-03-28] MEDS ORDERED: BUPIVACAINE (PF) 0.25% 30 ML VIAL SQ ONE ×2 (10:53→11:01)
[2017-03-28] MEDS ORDERED: LACTATED RINGERS 1,000 ML IV ONE (11:46)
[2017-03-28 12:15] LABS: Glucose,Whole Blood 191 mg/dL (75-99)
[2017-03-28 12:18] VITALS: TEMP 97.8
[2017-03-28] MEDS: fentaNYL (PF) 50 MCG/ML 2 ML AMP IV PRN ×4 (12:27→12:49)
[2017-03-28 12:34] VITALS: RESP 16
[2017-03-28] MEDS ORDERED: METOCLOPRAMIDE 5 MG/ML 2 ML VIAL IVP ONE (13:08)
[2017-03-28] MEDS ORDERED: SCOPOLAMINE 1.5MG/72HR PATCH TRANSDERM ONE (13:10)
--- NOTE | 2017-03-28 13:26 | P.OP ---
Date of Procedure: 03/28/17 Preoperative Diagnosis: Incarcerated incisional hernia Postoperative Diagnosis: Incarcerated incisional hernia Procedure(s) Performed: Lysis of adhesions Laparoscopic robotic Repair of incarcerated incisional hernia Anesthesia: JESUS MANUEL Surgeon: Ricardo Arce Estimated Blood Loss (ml): 10 Pathology: none sent Condition: stable Disposition: PACU Description of Procedure: The patient was placed on the operating table in the supine position. He received general anesthesia. His abdomen was prepped and draped usual fashion. Using a 5 mm optical trocar under direct visualization the peritoneal cavity was entered in the left upper quadrant. The abdomen was then insufflated. The laparoscope was placed back into the perineal cavity. Next a 8 mm robotic trocar was placed in the left lower quadrant and a 12 mm robotic trocar was placed in the left lateral position. The original 5 mm trocar was exchanged for a 8 mm robotic trocar. The patient's placed in the left side up position. And the patient was docked to the robot. There were extensive adhesions located at the incisional hernia. The adhesions were lysed using hook cautery. Prostate 15 minutes operative time used to lyse adhesions. The incarcerated fat was then reduced. The incisional hernia was visualized. Using hook cautery the peritoneum over the incisional hernia was excised. The fascial opening was repaired using 0V LOC and O Stratus thick suture suture. Next a piece of 11 cm round ventral light ST mesh was placed into the. Cavity and secured with 2 OV lock suture. The patient was undocked the robot. The needles were retrieved. The fascia of the 12 mm trocar site was closed with 0 Ethibond suture. Skin was closed interrupted 3-0 Monocryl suture. Dermabond dressings was applied. Patient tolerated procedure well and was sent to recovery room stable condition.
[2017-03-28] MEDS ORDERED: PROMETHAZINE INJ 25 MG/ML 1 ML VIAL IVPB ONE (13:43)
[2017-03-28] MEDS: LABETALOL 5 MG/ML VIAL MDV IVP ONE ×2 (14:12→14:49)
[2017-03-28 16:13] VITALS: BP 174/72; PULSE 79
== END 2017-03-28 16:36 | disposition home or self-care (01) ==
LOC: OR 09:29
PROVIDERS: ATTEND Surgery
DX: K43.0 Incisional hernia with obstruction, without gangrene (principal); K66.0 Peritoneal adhesions (postprocedural) (postinfection); K21.9 Gastro-esophageal reflux disease without esophagitis; J44.9 Chronic obstructive pulmonary disease, unspecified; E11.9 Type 2 diabetes mellitus without complications; Z79.84 Long term (current) use of oral hypoglycemic drugs; I10 Essential (primary) hypertension; E78.5 Hyperlipidemia, unspecified; Z87.891 Personal history of nicotine dependence; Z79.899 Other long term (current) drug therapy; Z88.5 Allergy status to narcotic agent
CPT/HCPCS: 49655; S2900

== ENCOUNTER 2017-04-04 13:39 | Observation (INO) | payer OTHER ==
[2017-04-04] MEDS ORDERED: RX INFO: IV CONTRAST WAS GIVEN 1 EACH MISC MISCELLANE PRN (14:29)
[2017-04-04] MEDS ORDERED: ONDANSETRON 4 MG/2 ML VIAL IVP STA (14:29)
[2017-04-04] MEDS ORDERED: HYDROmorphone 0.5 MG/0.5 ML SYRINGE IVP STA (14:29)
[2017-04-04] MEDS ORDERED: SODIUM CHLORIDE 0.9% 1,000 ML IV STA (14:29)
--- NOTE | 2017-04-04 14:31 | ED ---
General Adult HPI <Arnie Grant - Last Filed: 04/04/17 18:16> - General Source: patient, RN notes reviewed Mode of arrival: ambulatory Limitations: no limitations <Rachelle Bell - Last Filed: 04/04/17 18:31> - General Chief complaint: Abdominal Pain Stated complaint: post op vomiting Time Seen by Provider: 04/04/17 14:23 - History of Present Illness Initial comments: 56-year-old female presents to the emergency Department chief complaint of nausea vomiting and abdominal pain. Patient has been having this pain worsening and her only surgery to Dr. Feliz to 6 but she states that she has nausea vomiting before that. She does admit to history of pancreatitis. She has been passing gas and having normal bowel movements. They were concerned due to her continued pain and discomfort so they thought that they should be seen. They deny any other symptoms at this time.Patient denies any recent fever , chills, shortness of breath, chest pain, back pain, numbness or tingling, dysuria or hematuria, constipation or diarrhea, headaches or visual changes, or any other current symptoms. (Rachelle Bell) - Related Data Home Medications Medication Instructions Recorded Confirmed Atorvastatin [Lipitor] 40 mg PO HS 05/29/15 04/04/17 Glimepiride [Amaryl] 4 mg PO AC-BRKFST 05/29/15 04/04/17 Valsartan [Diovan] 160 mg PO QAM 05/29/15 04/04/17 metFORMIN HCL 1,000 mg PO BID 05/29/15 04/04/17 DULoxetine HCL [Cymbalta] 60 mg PO DAILY 04/16/16 04/04/17 Insulin Detemir [Levemir] 32 unit SQ HS 04/16/16 04/04/17 Prochlorperazine [Compazine] 10 mg PO Q6H PRN 03/27/17 04/04/17 HYDROcodone/APAP 7.5-325MG [[place] 1 tab PO Q4H PRN 04/04/17 04/04/17 7.5] Previous Rx's Medication Instructions Recorded Docusate [Colace] 100 mg PO BID #20 capsule 03/28/17 Allergies Allergy/AdvReac Type Severity Reaction Status Date / Time morphine AdvReac severe Verified 04/04/17 14:08 vomiting, severe flushing and sweating Review of Systems ROS Other: All systems not noted in ROS Statement are negative. <Arnie Grant - Last Filed: 04/04/17 18:16> ROS Other: All systems not noted in ROS Statement are negative. <Rachelle Bell - Last Filed: 04/04/17 18:31> ROS Statement: Those systems with pertinent positive or pertinent negative responses have been documented in the HPI. Past Medical History Past Medical History: COPD, Diabetes Mellitus, Eye Disorder, GERD/Reflux, Hyperlipidemia, Hypertension Additional Past Medical History / Comment(s): SL Anemia History of Any Multi-Drug Resistant Organisms: None Reported Past Surgical History: Cholecystectomy, Hernia Repair, Orthopedic Surgery, Tubal Ligation Additional Past Surgical History / Comment(s): ORIF RT ANKLE. EGD, COLONOSCOPY ; Cataracts Past Anesthesia/Blood Transfusion Reactions: Postoperative Nausea & Vomiting ( PONV) Past Psychological History: Depression Smoking Status: Former smoker Past Alcohol Use History: None Reported Past Drug Use History: None Reported - Past Family History Mother Additional Family Medical History / Comment(s): chronic anemia Father Family Medical History: Myocardial Infarction ([place]) <Rachelle Bell - Last Filed: 04/04/17 18:31> General Exam <Arnie Grant - Last Filed: 04/04/17 18:16> Limitations: no limitations <Rachelle Bell - Last Filed: 04/04/17 18:31> - General Exam Comments Initial Comments: General: The patient is awake and alert, in no distress, and does not appear acutely ill. Eye: Pupils are equal, round and reactive to light, extra-ocular movements are intact; there is normal conjunctiva bilaterally. No signs of icterus. Ears, nose, mouth and throat: There are moist mucous membranes. Neck: The neck is supple, there is no tenderness. Cardiovascular: There is a regular rate and rhythm. No murmur, rub or gallop is appreciated. Respiratory: Lungs are clear to auscultation, respirations are non-labored, breath sounds are equal. No wheezes, stridor, rales, or rhonchi. Gastrointestinal: Well-healing incision no sign of erythema or drainage, Soft, non-distended, non-tender abdomen without masses or organomegaly noted. There is no rebound or guarding present. No CVA tenderness. Bowel sounds are unremarkable. Back: There is no tenderness to palpation in the midline. There is no obvious deformity. No rashes noted. Musculoskeletal: Normal ROM, no tenderness, There is no pedal edema. There is no calf tenderness or swelling. Sensation intact. Pulses equal bilaterally 2+. Neurological: CN II-XII intact, There are no obvious motor or sensory deficits. Coordination appears grossly intact. Speech is normal. Skin: Skin is warm and dry and no rashes or lesions are noted. Psychiatric: Cooperative, appropriate mood & affect, normal judgment. (Rachelle Bell) Course <Arnie Grant - Last Filed: 04/04/17 18:16> <Rachelle Bell - Last Filed: 04/04/17 18:31> Vital Signs 04/04/17 04/04/17 13:54 15:54 Temperature 99.2 F Pulse Rate 95 81 Respiratory 20 20 Rate Blood Pressure 139/71 147/70 O2 Sat by Pulse 98 96 Oximetry - Reevaluation(s) Reevaluation #1: 04/04/17 18:16 PA supervision, I did personally do a [id number] evaluation the patient and did discuss the findings with her and her family members. He does have nausea vomiting some abdominal pain and evidence of a seroma at the surgical site. I did discuss the case both with Dr. Miranda and Dr. Arce. Patient will be admitted for IV fluids and control the nausea vomiting (Arnie Grant) Medical Decision Making - Lab Data Result diagrams: 04/04/17 14:55 04/04/17 14:55 <Arnie Grant - Last Filed: 04/04/17 18:16> - Lab Data Result diagrams: 04/04/17 14:55 04/04/17 14:55 - Radiology Data Radiology results: report reviewed, image reviewed <Rachelle Bell - Last Filed: 04/04/17 18:31> - Medical Decision Making 56-year-old female presents emergency department with abdominal pain nausea vomiting. At this time patient's CAT scan is reviewed. This time patient continues to have nausea vomiting. We will admit the patient and have her surgeon look into the hematoma. Patient is in agreement this plan. (Rachelle Bell) - Lab Data Lab Results 02/04/04/17 04/04/17 Range/Units 14:55 14:55 14:55 WBC 14.7 H (3.8-10.6) k/uL RBC 4.43 (3.80-5.40) m/uL Hgb 13.5 (11.4-16.0) gm/dL Hct 42.1 (34.0-46.0) % MCV 95.1 (80.0-100.0) fL MCH 30.6 (25.0-35.0) pg MCHC 32.1 (31.0-37.0) g/dL RDW 12.9 (11.5-15.5) % Plt Count 429 (150-450) k/uL Neutrophils % 84 % Lymphocytes % 11 % Monocytes % 2 % Eosinophils % 1 % Basophils % 0 % Neutrophils # 12.4 H (1.3-7.7) k/uL Lymphocytes # 1.6 (1.0-4.8) k/uL Monocytes # 0.4 (0-1.0) k/uL Eosinophils # 0.2 (0-0.7) k/uL Basophils # 0.1 (0-0.2) k/uL PT (9.0-12.0) sec INR (<1.2) APTT (22.0-30.0) sec Sodium 142 (137-145) mmol/L Potassium 4.9 (3.5-5.1) mmol/L Chloride 103 (98-107) mmol/L Carbon Dioxide 24 (22-30) mmol/L Anion Gap 15 mmol/L BUN 39 H (7-17) mg/dL Creatinine 1.10 H (0.52-1.04) mg/dL Est GFR (MDRD) Af Amer >60 (>60 ml/min/1.73 sqM) Est GFR (MDRD) Non-Af 51 (>60 ml/min/1.73 sqM) Glucose 176 H (74-99) mg/dL Plasma Lactic Acid Marvel 1.1 (0.7-2.0) mmol/L Calcium 10.1 (8.4-10.2) mg/dL Total Bilirubin 0.5 (0.2-1.3) mg/dL AST 19 (14-36) U/L ALT 21 (9-52) U/L Alkaline Phosphatase 112 (38-126) U/L Total Protein 7.7 (6.3-8.2) g/dL Albumin 4.4 (3.5-5.0) g/dL Amylase 58 (30-110) U/L Lipase 74 (23-300) U/L 04/04/17 Range/Units 14:55 WBC (3.8-10.6) k/uL RBC (3.80-5.40) m/uL Hgb (11.4-16.0) gm/dL Hct (34.0-46.0) % MCV (80.0-100.0) fL MCH (25.0-35.0) pg MCHC (31.0-37.0) g/dL RDW (11.5-15.5) % Plt Count (150-450) k/uL Neutrophils % % Lymphocytes % % Monocytes % % Eosinophils % % Basophils % % Neutrophils # (1.3-7.7) k/uL Lymphocytes # (1.0-4.8) k/uL Monocytes # (0-1.0) k/uL Eosinophils # (0-0.7) k/uL Basophils # (0-0.2) k/uL PT 9.5 (9.0-12.0) sec INR 1.0 (<1.2) APTT 21.3 L (22.0-30.0) sec Sodium (137-145) mmol/L Potassium (3.5-5.1) mmol/L Chloride (98-107) mmol/L Carbon Dioxide (22-30) mmol/L Anion Gap mmol/L BUN (7-17) mg/dL Creatinine (0.52-1.04) mg/dL Est GFR (MDRD) Af Amer (>60 ml/min/1.73 sqM) Est GFR (MDRD) Non-Af (>60 ml/min/1.73 sqM) Glucose (74-99) mg/dL Plasma Lactic Acid Marvel (0.7-2.0) mmol/L Calcium (8.4-10.2) mg/dL Total Bilirubin (0.2-1.3) mg/dL AST (14-36) U/L ALT (9-52) U/L Alkaline Phosphatase (38-126) U/L Total Protein (6.3-8.2) g/dL Albumin (3.5-5.0) g/dL Amylase (30-110) U/L Lipase (23-300) U/L Disposition <Arnie Grant - Last Filed: 04/04/17 18:16> Decision Date: 04/04/17 Decision Time: 18:31 <Rachelle Bell - Last Filed: 04/04/17 18:31> Clinical Impression: Intractable nausea and vomiting, Abdominal wall hematoma, Dehydration Disposition: ADMITTED IP TO THIS [facility] Condition: Stable Referrals: Jeison Miranda DO [Primary Care Provider] - 1-2 days
[2017-04-04 15:11] LABS: Basophils # (A) 0.1 k/uL (0-0.2); Basophils % (A) 0 %; Eosinophils # (A) 0.2 k/uL (0-0.7); Eosinophils % (A) 1 %; HCT 42.1 % (34.0-46.0); HGB 13.5 gm/dL (11.4-16.0); Lymphocytes # (A) 1.6 k/uL (1.0-4.8); Lymphocytes % (A) 11 %; MCH 30.6 pg (25.0-35.0); MCHC 32.1 g/dL (31.0-37.0); MCV 95.1 fL (80.0-100.0); Mean Platelet Volume 6.9; Monocytes # (A) 0.4 k/uL (0-1.0); Monocytes % (A) 2 %; Neutrophils # (A) 12.4 k/uL (1.3-7.7); Neutrophils % (A) 84 %; Platelet Count 429 k/uL (150-450); RBC 4.43 m/uL (3.80-5.40); RDW 12.9 % (11.5-15.5); WBC 14.7 k/uL (3.8-10.6)
[2017-04-04 15:20] LABS: Prothrombin Time 9.5 sec (9.0-12.0)
[2017-04-04 15:23] LABS: ALT 21 U/L (9-52); AST 19 U/L (14-36); Albumin 4.4 g/dL (3.5-5.0); Alkaline Phosphatase 112 U/L (38-126); Amylase 58 U/L (30-110); Anion Gap 15 mmol/L; Blood Urea Nitrogen 39 mg/dL (7-17); Calcium 10.1 mg/dL (8.4-10.2); Carbon Dioxide 24 mmol/L (22-30); Chloride 103 mmol/L (98-107); Glucose 176 mg/dL (74-99); Lipase 74 U/L (23-300); Potassium 4.9 mmol/L (3.5-5.1); Sodium 142 mmol/L (137-145); Total Bilirubin 0.5 mg/dL (0.2-1.3); Total Protein 7.7 g/dL (6.3-8.2)
[2017-04-04 15:31] LABS: Partial Thromboplastin Time 21.3 sec (22.0-30.0)
--- NOTE | 2017-04-04 17:01 | CT ---
EXAMINATION TYPE: CT abdomen pelvis w con DATE OF EXAM: 04/04/2017 COMPARISON: 03/08/2017 HISTORY: Generalized abd pain, nausea and vomiting post op. CT DLP: 1718 mGycm Automated exposure control for dose reduction was used. TECHNIQUE: Helical acquisition of images was performed from the lung bases through the pelvis. CONTRAST: Performed without Oral Contrast and with IV Contrast, patient injected with 80ml mL of Visipaque 320. FINDINGS: The lung bases are clear. There is no pleural effusion. There is no pericardial effusion. There is a small hiatal hernia. There is a 2 cm cyst in the anterior left lobe of the liver. Bile cyrus ts are not dilated. Gallbladder is absent. The spleen appears normal. There is no pancreatic mass. There is no adrenal mass. Kidneys have normal size. There is a 2 cm cyst in the lateral left kidney. There is no hydronephrosis. There is no retroperitoneal adenopathy. There is atherosclerotic calcific ation in the lower abdominal aorta with luminal narrowing. There is no ascites. Bladder distends smoothly. There is no sign of a pelvic mass. I see no intestina l wall thickening. There are no dilated loops. Appendix appears normal. There is narrowing of L4-5 di sc space with sclerosis and vacuum disc. I see no focal bone destruction. There is a 4.5 cm mixed den sity mass at the umbilicus that has fluid and soft tissue density and fat density. There is also a el ongated fluid density mass involving the omentum beneath the abdominal wall. IMPRESSION: MIXED DENSITY UMBILICAL MASS COULD RELATE TO HEMATOMA OR SEROMA. THERE IS REDUCTION OF THE LARGE UMBI LICAL HERNIA COMPARED TO LAST EXAM. THERE IS A 5.6 X 1.7 CM FLUID COLLECTION ALONG THE ANTERIOR ABDOM INAL WALL THAT IS CONSISTENT WITH THE OMENTAL CHRONIC HEMATOMA OR SEROMA. STABLE LEFT RENAL CYST. STABLE HEPATIC CYST. SMALL HIATAL HERNIA. THERE IS EVIDENCE OF LOWER ABDOMINAL AORTIC STENOSIS. THIS COULD BE HEMODYNAMICALLY SIGNIFICANT STENO SIS.
[2017-04-04] MEDS ORDERED: ONDANSETRON 4 MG/2 ML VIAL IVP PRN (18:31)
[2017-04-04] MEDS ORDERED: NALOXONE 0.4 MG/ML 1 ML VIAL IV PRN (18:31)
[2017-04-04] MEDS ORDERED: METOCLOPRAMIDE 5 MG/ML 2 ML VIAL IVP STA (18:32)
[2017-04-04 18:58] LABS: Amorphous Sediment,Urine Rare /hpf; Appearance,Urine Clear (Clear); Bacteria,Urine Rare /hpf; Bilirubin,Urine Negative (Negative); Blood,Urine Negative (Negative); Color,Urine Yellow; Glucose,Urine (UA) Negative (Negative); Ketones,Urine 1+ (Negative); Leukocyte Esterase,Urine Negative (Negative); Mucus,Urine Rare /hpf; Nitrite,Urine Negative (Negative); Protein,Urine 1+ (Negative); RBC,Urine <1 /hpf (0-5); Squamous Epithelial Cell,Urine 5 /hpf (0-4); Urobilinogen,Urine <2.0 mg/dL (<2.0); WBC,Urine 3 /hpf (0-5)
[2017-04-04] MEDS: SODIUM CHLORIDE 0.9% 1,000 ML IV SCH ×2 (19:04→21:13)
[2017-04-04 19:10] LABS: Specific Gravity,Urine >1.050 (1.001-1.035)
[2017-04-04] MEDS: HYDROmorphone 0.5 MG/0.5 ML SYRINGE IVP PRN (20:14)
[2017-04-04 20:33] VITALS: BMI 38.6
[2017-04-04] MEDS ORDERED: HYDROcodone/APAP 7.5-325MG 1 EACH TAB PO PRN (20:48)
[2017-04-04] MEDS ORDERED: PROCHLORPERAZINE 10 MG TAB PO PRN (20:48)
[2017-04-04] MEDS ORDERED: METOCLOPRAMIDE 5 MG/ML 2 ML VIAL IVP PRN (20:50)
[2017-04-04] MEDS: ONDANSETRON 4 MG/2 ML VIAL IVP PRN (21:13)
[2017-04-04] MEDS: ATORVASTATIN 40 MG TAB PO SCH (22:01)
[2017-04-04] MEDS: DOCUSATE 100 MG CAP PO SCH (22:01)
[2017-04-04] MEDS: metFORMIN 500 MG TAB PO SCH (22:02)
[2017-04-04] MEDS: INSULIN DETEMIR 100 UNIT/ML 10 ML VIAL SQ SCH (22:14)
[2017-04-05] MEDS: SODIUM CHLORIDE 0.9% 1,000 ML IV SCH ×2 (04:39→14:14)
[2017-04-05 06:47] LABS: Basophils # (A) 0.1 k/uL (0-0.2); Basophils % (A) 1 %; Eosinophils # (A) 0.3 k/uL (0-0.7); Eosinophils % (A) 3 %; HCT 39.6 % (34.0-46.0); HGB 12.5 gm/dL (11.4-16.0); Lymphocytes # (A) 2.1 k/uL (1.0-4.8); Lymphocytes % (A) 22 %; MCH 29.9 pg (25.0-35.0); MCHC 31.5 g/dL (31.0-37.0); Mean Platelet Volume 7.1; Monocytes # (A) 0.5 k/uL (0-1.0); Monocytes % (A) 5 %; Neutrophils # (A) 6.7 k/uL (1.3-7.7); Neutrophils % (A) 69 %; Platelet Count 402 k/uL (150-450); RBC 4.17 m/uL (3.80-5.40); RDW 12.9 % (11.5-15.5); WBC 9.7 k/uL (3.8-10.6)
[2017-04-05 06:57] LABS: Albumin 3.7 g/dL (3.5-5.0); Anion Gap 13 mmol/L; Carbon Dioxide 25 mmol/L (22-30); Chloride 107 mmol/L (98-107); Glucose 122 mg/dL (74-99); Potassium 4.2 mmol/L (3.5-5.1); Sodium 145 mmol/L (137-145); Total Protein 6.7 g/dL (6.3-8.2)
[2017-04-05 06:58] LABS: ALT 21 U/L (9-52); AST 16 U/L (14-36); Alkaline Phosphatase 93 U/L (38-126); Blood Urea Nitrogen 30 mg/dL (7-17); Calcium 9.5 mg/dL (8.4-10.2); Total Bilirubin 0.5 mg/dL (0.2-1.3)
[2017-04-05 07:58] LABS: Glucose,Whole Blood 124 mg/dL (75-99)
--- NOTE | 2017-04-05 08:13 | P.GSCN ---
History of Present Illness Consult date: 04/05/17 Reason for Consult: Abdominal pain History of present illness: This a 56-year-old female who underwent recent laparoscopic robotic-assisted repair of a large incisional hernia. Patient states that she had significant postop pain. She was using her Levasy. She then developed nausea. Patient was admitted to the hospital. She is found have a seroma at her operative site. She states her pain is improved. Her nausea is improved. She is also wanting something to drink. Review of Systems - Constitutional Reports as per HPI Past Medical History Past Medical History: COPD, Diabetes Mellitus, GERD/Reflux, Hyperlipidemia, Hypertension Additional Past Medical History / Comment(s): SL Anemia History of Any Multi-Drug Resistant Organisms: None Reported Past Surgical History: Cholecystectomy, Hernia Repair, Orthopedic Surgery, Tubal Ligation Additional Past Surgical History / Comment(s): ORIF RT ANKLE. EGD, COLONOSCOPY ; Cataracts Past Anesthesia/Blood Transfusion Reactions: Postoperative Nausea & Vomiting ( PONV) Past Psychological History: Depression Smoking Status: Former smoker Past Alcohol Use History: None Reported Additional Past Alcohol Use History / Comment(s): Quit smoking 2014, Smoked approx 15 yrs Past Drug Use History: None Reported - Past Family History Mother Additional Family Medical History / Comment(s): chronic anemia Father Family Medical History: Myocardial Infarction ([place]) Medications and Allergies Home Medications Medication Instructions Recorded Confirmed Type Atorvastatin [Lipitor] 40 mg PO HS 05/29/15 04/04/17 History Glimepiride [Amaryl] 4 mg PO AC-BRKFST 05/29/15 04/04/17 History Valsartan [Diovan] 160 mg PO QAM 05/29/15 04/04/17 History metFORMIN HCL 1,000 mg PO BID 05/29/15 04/04/17 History DULoxetine HCL [Cymbalta] 60 mg PO DAILY 04/16/16 04/04/17 History Insulin Detemir [Levemir] 32 unit SQ HS 04/16/16 04/04/17 History Prochlorperazine [Compazine] 10 mg PO Q6H PRN 03/27/17 04/04/17 History Docusate [Colace] 100 mg PO BID #20 capsule 03/28/17 04/04/17 Rx HYDROcodone/APAP 7.5-325MG [Levasy 1 tab PO Q4H PRN 04/04/17 04/04/17 History 7.5] Allergies Allergy/AdvReac Type Severity Reaction Status Date / Time morphine AdvReac severe Verified 04/04/17 14:08 vomiting, severe flushing and sweating Surgical - Exam Vital Signs Temp Pulse Resp BP Pulse Ox 99.2 F 95 20 139/71 98 04/04/17 13:54 04/04/17 13:54 04/04/17 13:54 04/04/17 13:54 04/04/17 13:54 - General well developed, no distress - Eyes PERRL - ENT normal pinna - Neck no masses - Respiratory normal expansion - Cardiovascular Rhythm: regular - Abdomen Mild periumbilical Local tenderness. There is no rebound or guarding. Abdomen: soft Results - Labs 04/05/17 05:57 04/05/17 05:57 Abnormal Lab Results - Last 24 Hours (Table) 04/04/17 04/04/17 04/04/17 Range/Units 14:55 14:55 14:55 WBC 14.7 H (3.8-10.6) k/uL Neutrophils # 12.4 H (1.3-7.7) k/uL APTT 21.3 L (22.0-30.0) sec BUN 39 H (7-17) mg/dL Creatinine 1.10 H (0.52-1.04) mg/dL Glucose 176 H (74-99) mg/dL POC Glucose (mg/dL) (75-99) mg/dL Ur Specific [place] (1.001-1.035) Urine Protein (Negative) Urine Ketones (Negative) Ur Squamous Epith Cells (0-4) /hpf Amorphous Sediment (None) /hpf Urine Bacteria (None) /hpf Urine Mucus (None) /hpf 04/04/17 04/05/17 04/05/17 Range/Units 18:38 05:57 07:52 WBC (3.8-10.6) k/uL Neutrophils # (1.3-7.7) k/uL APTT (22.0-30.0) sec BUN 30 H (7-17) mg/dL Creatinine (0.52-1.04) mg/dL Glucose 122 H (74-99) mg/dL POC Glucose (mg/dL) 124 H (75-99) mg/dL Ur Specific [place] >1.050 H (1.001-1.035) Urine Protein 1+ H (Negative) Urine Ketones 1+ H (Negative) Ur Squamous Epith Cells 5 H (0-4) /hpf Amorphous Sediment Rare H (None) /hpf Urine Bacteria Rare H (None) /hpf Urine Mucus Rare H (None) /hpf Diabetes panel 04/04/17 04/05/17 Range/Units 14:55 05:57 Sodium 142 145 (137-145) mmol/L Potassium 4.9 4.2 (3.5-5.1) mmol/L Chloride 103 107 (98-107) mmol/L Carbon Dioxide 24 25 (22-30) mmol/L BUN 39 H 30 H (7-17) mg/dL Creatinine 1.10 H 0.99 (0.52-1.04) mg/dL Glucose 176 H 122 H (74-99) mg/dL Calcium 10.1 9.5 (8.4-10.2) mg/dL AST 19 16 (14-36) U/L ALT 21 21 (9-52) U/L Alkaline Phosphatase 112 93 (38-126) U/L Total Protein 7.7 6.7 (6.3-8.2) g/dL Albumin 4.4 3.7 (3.5-5.0) g/dL Calcium panel 04/04/17 04/05/17 Range/Units 14:55 05:57 Calcium 10.1 9.5 (8.4-10.2) mg/dL Albumin 4.4 3.7 (3.5-5.0) g/dL Pituitary panel 04/04/17 04/05/17 Range/Units 14:55 05:57 Sodium 142 145 (137-145) mmol/L Potassium 4.9 4.2 (3.5-5.1) mmol/L Chloride 103 107 (98-107) mmol/L Carbon Dioxide 24 25 (22-30) mmol/L BUN 39 H 30 H (7-17) mg/dL Creatinine 1.10 H 0.99 (0.52-1.04) mg/dL Glucose 176 H 122 H (74-99) mg/dL Calcium 10.1 9.5 (8.4-10.2) mg/dL Adrenal panel 04/04/17 04/05/17 Range/Units 14:55 05:57 Sodium 142 145 (137-145) mmol/L Potassium 4.9 4.2 (3.5-5.1) mmol/L Chloride 103 107 (98-107) mmol/L Carbon Dioxide 24 25 (22-30) mmol/L BUN 39 H 30 H (7-17) mg/dL Creatinine 1.10 H 0.99 (0.52-1.04) mg/dL Glucose 176 H 122 H (74-99) mg/dL Calcium 10.1 9.5 (8.4-10.2) mg/dL Total Bilirubin 0.5 0.5 (0.2-1.3) mg/dL AST 19 16 (14-36) U/L ALT 21 21 (9-52) U/L Alkaline Phosphatase 112 93 (38-126) U/L Total Protein 7.7 6.7 (6.3-8.2) g/dL Albumin 4.4 3.7 (3.5-5.0) g/dL - Imaging CT scan - abdomen: report reviewed (5 cm seroma located in the site of her previous incisional hernia.) Assessment and Plan Assessment: Postoperative pain. Nausea related to narcotic pain medication. The patient seroma small will be observed. We will start her on clear liquids.
[2017-04-05] MEDS: INSULIN ASPART 100 UNIT/ML 1 ML 10 ML VIAL SQ SCH ×4 (08:15→21:25)
[2017-04-05] MEDS: HYDROmorphone 0.5 MG/0.5 ML SYRINGE IVP PRN (09:01)
[2017-04-05] MEDS: VALSARTAN 160 MG TAB PO SCH (09:10)
[2017-04-05] MEDS: DULoxetine HCL 60 MG CAPSULE.DR PO SCH (09:11)
[2017-04-05] MEDS: PANTOPRAZOLE 40 MG/10 ML VIAL IV SCH (09:12)
--- NOTE | 2017-04-05 09:59 | P.HPIM ---
History of Present Illness H&P Date: 04/05/17 Chief Complaint: Nausea and vomiting 56-year-old female who presented to the emergency room with a chief complaint of nausea and vomiting. Patient underwent a laparoscopic repair of incisional hernia on 03/28/2017. She was prescribed [place] at that time for pain and states she was taking them daily for significant pain. Postoperatively , the patient has developed nausea and vomiting. She states she was given antinausea medication yesterday which has helped a little bit. She reports emesis yesterday, but no episodes this morning. She is requesting something to drink. Denies chest pain or pressure. Denies shortness of breath. Denies lightheadedness or dizziness. The patient has a history of COPD, diabetes mellitus, gastroesophageal reflux disease, hyperlipidemia, and hypertension. She also has a history of depression. She is a former smoker and quit smoking cigarettes in 2014. CT of abdomen and pelvis: 5.61.7 cm fluid collection along the anterior abdominal wall that is consistent with omental chronic hematoma or seroma. Stable left renal cyst. Stable hepatic cyst. small hiatal hernia. evidence of lower abdominal aortic stenosis. Laboratory data: WBC 14.7. Hemoglobin 13.5. Platelet count 429. Sodium 142. Potassium 4.9. BUN 39. Creatinine 1.10. GFR 51. Glucose 176. Lactic acid: 1.1 Urinalysis reveals: Clear yellow urine, specific gravity greater than 1.050, 1+ proteinuria, 1+ ketonuria, negative for nitrites or leukocyte esterase The patient was admitted to the hospital under the care of Dr. Miranda. Consultations were placed to [facility]. Review of Systems GENERAL: Patient denies fever. Denies chills. EYES: Denies blurred vision. Denies vision changes. Denies eye pain. EARS, NOSE, MOUTH, & THROAT: Denies headache. Denies sore throat. Denies ear pain. RESPIRATORY: Denies cough. Denies shortness of breath. Denies sputum production. Denies hemoptysis. CARDIOVASCULAR: Denies chest pain or pressure. Denies palpitations. Denies arrhythmias. GASTROINTESTINAL: Positive for abdominal pain. Positive for nausea and vomiting. Positive for history of GERD. Denies diarrhea. Denies constipation. Denies blood in the stool. GENITOURINARY: Denies urinary frequency. Denies burning. Denies dysuria. Denies cloudy urine. Denies blood in the urine. MUSCULOSKELETAL: Denies myalgias. Denies joint swelling. Denies decreased range of motion beyond patients baseline. INTEGUMENTARY: Denies pruitis. Denies rash. PSYCHIATRIC: Positive for history of depression. Denies suicidal or homicial ideations. ENDOCRINE: Denies weight change. Denies polydipsia. Denies polyuria. HEMATOLOGIC: Denies bleeding disorders. Past Medical History Past Medical History: COPD, Diabetes Mellitus, GERD/Reflux, Hyperlipidemia, Hypertension Additional Past Medical History / Comment(s): SL Anemia History of Any Multi-Drug Resistant Organisms: None Reported Past Surgical History: Cholecystectomy, Hernia Repair, Orthopedic Surgery, Tubal Ligation Additional Past Surgical History / Comment(s): ORIF RT ANKLE. EGD, COLONOSCOPY ; Cataracts Past Anesthesia/Blood Transfusion Reactions: Postoperative Nausea & Vomiting ( PONV) Past Psychological History: Depression Smoking Status: Former smoker Past Alcohol Use History: None Reported Additional Past Alcohol Use History / Comment(s): Quit smoking 2014, Smoked approx 15 yrs Past Drug Use History: None Reported - Past Family History Mother Additional Family Medical History / Comment(s): chronic anemia Father Family Medical History: Myocardial Infarction ([place]) Medications and Allergies Home Medications Medication Instructions Recorded Confirmed Type Atorvastatin [Lipitor] 40 mg PO HS 05/29/15 04/04/17 History Glimepiride [Amaryl] 4 mg PO AC-BRKFST 05/29/15 04/04/17 History Valsartan [Diovan] 160 mg PO QAM 05/29/15 04/04/17 History metFORMIN HCL 1,000 mg PO BID 05/29/15 04/04/17 History DULoxetine HCL [Cymbalta] 60 mg PO DAILY 04/16/16 04/04/17 History Insulin Detemir [Levemir] 32 unit SQ HS 04/16/16 04/04/17 History Prochlorperazine [Compazine] 10 mg PO Q6H PRN 03/27/17 04/04/17 History Docusate [Colace] 100 mg PO BID #20 capsule 03/28/17 04/04/17 Rx HYDROcodone/APAP 7.5-325MG [[place] 1 tab PO Q4H PRN 04/04/17 04/04/17 History 7.5] Allergies Allergy/AdvReac Type Severity Reaction Status Date / Time morphine AdvReac severe Verified 04/04/17 14:08 vomiting, severe flushing and sweating Physical Exam Vitals: Vital Signs Temp Pulse Pulse Resp BP BP BP 04/05/17 08:02 97.3 F L 88 19 170/82 04/05/17 04:00 97.9 F 89 20 151/83 04/04/17 20:18 98.9 F 85 20 154/88 04/04/17 19:19 99.2 F 81 20 151/90 04/04/17 18:34 81 20 151/90 04/04/17 15:54 81 20 147/70 04/04/17 13:54 99.2 F 95 20 139/71 Pulse Ox 04/05/17 08:02 96 04/05/17 04:00 95 04/04/17 20:18 97 04/04/17 19:19 93 L 04/04/17 18:34 93 L 04/04/17 15:54 96 04/04/17 13:54 98 Intake and Output 04/04/17 04/05/17 04/05/17 22:59 06:59 14:59 Intake Total 1100 Balance 1100 Intake: Amount of Fluid Infused ( 1100 ml) Other: # Voids 1 1 Weight 102.058 kg GENERAL: This is a 56-year-old female in no apparent distress at the time of examination. Pleasant and cooperative. HEENT: Head is atraumatic, normocephalic. Pupils are equal, round, and reactive to light. Sclerae anicteric. Conjunctivae are clear. Mucus membranes of the mouth are moist. Neck is supple. RESPIRATORY: Clear to ausculation. No wheezes, rales, or rhonchi. No use of accessory muscles. Patient maintaining oxygen saturation greater than 92%. No chest wall tenderness is noted on palpation or with deep breathing. CARDIOVASCULAR: Regular rate and rhythm. S1 and S2 noted. No systolic or diastolic murmur auscultated. No JVD noted. No S3 or S4 noted. GASTROINTESTINAL: Obese. Abdomen soft and round. hypoactive bowel sounds auscultated x 4 quadrants. Minimal tenderness upon palpation of umbilical area. INTEGUMENTARY: No cyanosis. No jaundice. No rashes noted. No cellulitis noted. EXTREMITIES: 2+ peripheral pulses. No evidence of peripheral edema. No calf tenderness noted. NEUROLOGIC: Cranial nerves II-XII intact. PSYCHIATRIC: Awake, alert, and oriented X 3. Appropriate affect. Intact judgement and insight. Results CBC & Chem 7: 04/05/17 05:57 04/05/17 05:57 Labs: Abnormal Lab Results - Last 24 Hours (Table) 04/04/17 04/04/17 04/04/17 Range/Units 14:55 14:55 14:55 WBC 14.7 H (3.8-10.6) k/uL Neutrophils # 12.4 H (1.3-7.7) k/uL APTT 21.3 L (22.0-30.0) sec BUN 39 H (7-17) mg/dL Creatinine 1.10 H (0.52-1.04) mg/dL Glucose 176 H (74-99) mg/dL POC Glucose (mg/dL) (75-99) mg/dL Ur Specific [place] (1.001-1.035) Urine Protein (Negative) Urine Ketones (Negative) Ur Squamous Epith Cells (0-4) /hpf Amorphous Sediment (None) /hpf Urine Bacteria (None) /hpf Urine Mucus (None) /hpf 04/04/17 04/05/17 04/05/17 Range/Units 18:38 05:57 07:52 WBC (3.8-10.6) k/uL Neutrophils # (1.3-7.7) k/uL APTT (22.0-30.0) sec BUN 30 H (7-17) mg/dL Creatinine (0.52-1.04) mg/dL Glucose 122 H (74-99) mg/dL POC Glucose (mg/dL) 124 H (75-99) mg/dL Ur Specific [place] >1.050 H (1.001-1.035) Urine Protein 1+ H (Negative) Urine Ketones 1+ H (Negative) Ur Squamous Epith Cells 5 H (0-4) /hpf Amorphous Sediment Rare H (None) /hpf Urine Bacteria Rare H (None) /hpf Urine Mucus Rare H (None) /hpf Thrombosis Risk Factor Assmnt - Choose All That Apply Each Factor Represents 1 point: Age 41-60 years, Obesity (BMI >25) Other Risk Factors: No Other congenital or acquired thrombophilia - If yes, enter type in comment: No Thrombosis Risk Factor Assessment Total Risk Factor Score: 2 Thrombosis Risk Factor Assessment Level: Low Risk Assessment and Plan Plan: ASSESSMENT: Intractable nausea and vomiting, likely related to narcotic pain medication and recent surgery S/P laparoscopic repair of incisional hernia on 03/28/2017 Leukocytosis, may be reactive secondary to recent surgery, no evidence of sepsis , resolved Chronic obstructive pulmonary disease, no evidence of acute exacerbation Diabetes mellitus, type II, hemoglobin A1c pending Essential hypertension Hyperlipidemia Depression, unspecified Obesity: BMI 38.6 History of nicotine dependence, in remission, patient quit smoking cigarettes in 2014 PLAN: Dr. Arce on consult. Appreciate recommendations and input Begin clear liquid diet Encourage ambulation Limit narcotics Obtain hemoglobin A1c Capillary blood glucose accu-checks AC/HS NovoLog sliding scale insulin coverage AC/HS Continue IV hydration Home meds as appropriate Monitor labs GI prophylaxis: Protonix 40 mg IV Daily DVT prophylaxis: RACHAEL hose to bilateral lower extremities Monitor vital signs and address as appropriate Discharge planning: Patient to return home when stable Further recommendations pending patient's course Anticipate discharge home tomorrow if patient remains stable Nurse practitioner note has been reviewed by physician. Signing provider agrees with the documented findings, assessment, and plan of care.
[2017-04-05] MEDS: ONDANSETRON 4 MG/2 ML VIAL IVP PRN ×2 (11:08→18:31)
[2017-04-05] MEDS: GLIMEPIRIDE 4 MG TAB PO SCH (11:23)
[2017-04-05] MEDS: DOCUSATE 100 MG CAP PO SCH ×2 (11:23→21:24)
[2017-04-05] MEDS: metFORMIN 500 MG TAB PO SCH ×2 (11:23→21:05)
[2017-04-05 11:59] LABS: Glucose,Whole Blood 136 mg/dL (75-99)
[2017-04-05 14:24] LABS: Hemoglobin A1C 7.5 % (4.0-6.0)
--- NOTE | 2017-04-05 16:30 | P.PN ---
Progress Note - Text Progress Note Date: 04/05/17 The patient is stable. Her pain is improved. The patient's postoperative seroma small. Her pain is due to the suturing of her mesh. The patient was placed on a regular diet. I will be out of town. Dr. Mark will be covering me until 04/10/2017.
[2017-04-05 17:16] LABS: Glucose,Whole Blood 111 mg/dL (75-99)
[2017-04-05 20:54] LABS: Glucose,Whole Blood 120 mg/dL (75-99)
[2017-04-05] MEDS: ATORVASTATIN 40 MG TAB PO SCH (21:24)
[2017-04-05] MEDS: INSULIN DETEMIR 100 UNIT/ML 10 ML VIAL SQ SCH (21:24)
[2017-04-06] MEDS: SODIUM CHLORIDE 0.9% 1,000 ML IV SCH ×2 (00:41→10:29)
[2017-04-06 03:56] VITALS: RESP 18
[2017-04-06 07:07] LABS: Glucose,Whole Blood 98 mg/dL (75-99)
[2017-04-06] MEDS: INSULIN ASPART 100 UNIT/ML 1 ML 10 ML VIAL SQ SCH ×2 (07:22→12:24)
[2017-04-06] MEDS: metFORMIN 500 MG TAB PO SCH (07:23)
[2017-04-06] MEDS: GLIMEPIRIDE 4 MG TAB PO SCH (08:08)
[2017-04-06 08:49] VITALS: BP 150/79
[2017-04-06] MEDS: DULoxetine HCL 60 MG CAPSULE.DR PO SCH (09:07)
[2017-04-06] MEDS: DOCUSATE 100 MG CAP PO SCH (09:07)
[2017-04-06] MEDS: PANTOPRAZOLE 40 MG/10 ML VIAL IV SCH (09:07)
[2017-04-06] MEDS: VALSARTAN 160 MG TAB PO SCH (09:08)
[2017-04-06 11:13] VITALS: PULSE 84; TEMP 97.9
--- NOTE | 2017-04-06 12:04 | P.DS ---
Providers Date of admission: 04/04/17 18:17 Expected date of discharge: 04/06/17 Attending physician: Jeison Miranda Consults: 04/04/17 18:31 Consult Physician Routine Consulting Provider: Ricardo Arce Consult Reason/Comments: abdominal hematoma Do you want consulting provider notified?: Yes Primary care physician: Jeison Miranda [facility] Course: 56-year-old female who presented to the emergency room with a chief complaint of nausea and vomiting. Patient underwent a laparoscopic repair of incisional hernia on 03/28/2017. She was prescribed [place] at that time for pain and states she was taking them daily for significant pain. Postoperatively , the patient has developed nausea and vomiting. She states she was given antinausea medication yesterday which has helped a little bit. She reports emesis yesterday, but no episodes this morning. She is requesting something to drink. Denies chest pain or pressure. Denies shortness of breath. Denies lightheadedness or dizziness. The patient has a history of COPD, diabetes mellitus, gastroesophageal reflux disease, hyperlipidemia, and hypertension. She also has a history of depression. She is a former smoker and quit smoking cigarettes in 2014. CT of abdomen and pelvis: 5.61.7 cm fluid collection along the anterior abdominal wall that is consistent with omental chronic hematoma or seroma. Stable left renal cyst. Stable hepatic cyst. small hiatal hernia. evidence of lower abdominal aortic stenosis. Laboratory data: WBC 14.7. Hemoglobin 13.5. Platelet count 429. Sodium 142. Potassium 4.9. BUN 39. Creatinine 1.10. GFR 51. Glucose 176. Lactic acid: 1.1 Urinalysis reveals: Clear yellow urine, specific gravity greater than 1.050, 1+ proteinuria, 1+ ketonuria, negative for nitrites or leukocyte esterase The patient was admitted to the hospital under the care of Dr. Miranda. Consultations were placed to [facility]. The patient received IV fluids while in the hospital. She was evaluated by Dr. Arce who states her abdominal pain may be secondary to suturing of her mesh. Seroma did not require intervention per Dr. Arce. Nausea and vomiting may be secondary to narcotics. Patient was encouraged to decrease narcotic use or avoid all together. She was tolerating a clear liquid diet and was advanced as tolerated. patient was encouraged to ambulate multiple times a day and not lay in bed. Patient has not any episodes of emesis today. She was deemed stable for discharge per Dr. Miranda. DISCHARGE DIAGNOSIS: Intractable nausea and vomiting, likely related to narcotic pain medication and recent surgery, improved S/P laparoscopic repair of incisional hernia on 03/28/2017 Leukocytosis, may be reactive secondary to recent surgery, no evidence of sepsis , resolved Chronic obstructive pulmonary disease, no evidence of acute exacerbation Diabetes mellitus, type II, hemoglobin A1c 7.5% Essential hypertension Hyperlipidemia Depression, unspecified Obesity: BMI 38.6 History of nicotine dependence, in remission, patient quit smoking cigarettes in 2014 Nurse practitioner note has been reviewed by physician. Signing provider agrees with the documented findings, assessment, and plan of care. Patient Condition at Discharge: Stable Plan - Discharge Summary New Discharge Prescriptions: Continue Valsartan [Diovan] 160 mg PO QAM Glimepiride [Amaryl] 4 mg PO AC-BRKFST Atorvastatin [Lipitor] 40 mg PO HS metFORMIN HCL 1,000 mg PO BID Insulin Detemir [Levemir] 32 unit SQ HS DULoxetine HCL [Cymbalta] 60 mg PO DAILY Prochlorperazine [Compazine] 10 mg PO Q6H PRN PRN Reason: Nausea Docusate [Colace] 100 mg PO BID #20 capsule HYDROcodone/APAP 7.5-325MG [[place] 7.5-325] 1 tab PO Q4H PRN PRN Reason: Pain Discharge Medication List Atorvastatin [Lipitor] 40 mg PO HS 05/29/15 [History] Glimepiride [Amaryl] 4 mg PO AC-BRKFST 05/29/15 [History] Valsartan [Diovan] 160 mg PO QAM 05/29/15 [History] metFORMIN HCL 1,000 mg PO BID 05/29/15 [History] DULoxetine HCL [Cymbalta] 60 mg PO DAILY 04/16/16 [History] Insulin Detemir [Levemir] 32 unit SQ HS 04/16/16 [History] Prochlorperazine [Compazine] 10 mg PO Q6H PRN 03/27/17 [History] Docusate [Colace] 100 mg PO BID #20 capsule 03/28/17 [Rx] HYDROcodone/APAP 7.5-325MG [[place] 7.5-325] 1 tab PO Q4H PRN 04/04/17 [History] Follow up Appointment(s)/Referral(s): Jeison Miranda DO [Primary Care Provider] - 1 Week Ricardo Arce MD [STAFF PHYSICIAN] - 1 Week Activity/Diet/Wound Care/Special Instructions: Advance diet slowly Decrease or completely eliminate narcotic use to decrease GI upset, constipation , nausea and vomiting Walk multiple times a day to stimulate bowels Discharge Disposition: HOME SELF-CARE
[2017-04-06 12:44] LABS: Glucose,Whole Blood 82 mg/dL (75-99)
== END 2017-04-06 16:00 | disposition home or self-care (01) ==
LOC: EC 13:39 → 6PED 18:17
PROVIDERS: ADMIT Family Medicine; ATTEND Family Medicine
DX: R11.2 Nausea with vomiting, unspecified (principal); D72.829 Elevated white blood cell count, unspecified; J44.9 Chronic obstructive pulmonary disease, unspecified; E11.9 Type 2 diabetes mellitus without complications; I10 Essential (primary) hypertension; E78.5 Hyperlipidemia, unspecified; F32.9 Major depressive disorder, single episode, unspecified; E86.0 Dehydration; E66.9 Obesity, unspecified; Z68.38 Body mass index [BMI] 38.0-38.9, adult; G89.18 Other acute postprocedural pain; Z87.891 Personal history of nicotine dependence; L76.34 Postprocedural seroma of skin and subcutaneous tissue following other procedure; R10.9 Unspecified abdominal pain; K21.9 Gastro-esophageal reflux disease without esophagitis; N28.1 Cyst of kidney, acquired; K76.89 Other specified diseases of liver; K44.9 Diaphragmatic hernia without obstruction or gangrene; I35.0 Nonrheumatic aortic (valve) stenosis; Z79.4 Long term (current) use of insulin; Z79.84 Long term (current) use of oral hypoglycemic drugs; Z79.899 Other long term (current) drug therapy; Z82.49 Family history of ischemic heart disease and other diseases of the circulatory system; Z88.5 Allergy status to narcotic agent
CPT/HCPCS: 36415; 74177; 80053; 81001; 82150; 83036; 83605; 83690; 85025; 85610; 85730; 87040; 96361; 96374; 96375; 96376; 99285

== ENCOUNTER 2017-04-21 07:59 | Day surgery (SDC) | payer OTHER ==
[2017-04-19 12:05] VITALS: BMI 36.0
[~2017-04-21 07:59] MED LIST changes: -HEPARIN SODIUM,PORCINE 5,000 UNIT/ML 1 ML VIAL SQ ONE; +LACTATED RINGERS 1,000 ML IV SCH; -SCOPOLAMINE 1.5MG/72HR PATCH TRANSDERM ONE
[2017-04-21 08:35] VITALS: RESP 16; TEMP 98.8
[2017-04-21 08:50] LABS: Glucose,Whole Blood 153 mg/dL (75-99)
[2017-04-21] MEDS ORDERED: GLYCOPYRROLATE 0.2 MG/ML 2 ML VIAL ONE (08:50)
[2017-04-21] MEDS ORDERED: ONDANSETRON 4 MG/2 ML VIAL ONE (08:50)
[2017-04-21] MEDS ORDERED: fentaNYL (PF) 50 MCG/ML 2 ML AMP ONE (08:50)
[2017-04-21] MEDS ORDERED: PROPOFOL 10 MG/ML 20 ML VIAL IV ONE (08:50)
[2017-04-21] MEDS ORDERED: LIDOCAINE 1% INJ 10MG/ML (20 ML MDV) ONE (08:50)
--- NOTE | 2017-04-21 08:55 | P.GSHP ---
History of Present Illness H&P Date: 04/21/17 Chief Complaint: Nausea, epigastric pain This a 56-year-old female sigmoid some nausea and epigastric pain. She feels today for EGD. - Constitutional Constitutional: Reports as per HPI Past Medical History Past Medical History: COPD, Diabetes Mellitus, GERD/Reflux, Hyperlipidemia, Hypertension Additional Past Medical History / Comment(s): SL Anemia History of Any Multi-Drug Resistant Organisms: None Reported Past Surgical History: Cholecystectomy, Hernia Repair, Orthopedic Surgery, Tubal Ligation Additional Past Surgical History / Comment(s): ORIF RT ANKLE. EGD, COLONOSCOPY ; Cataracts Past Anesthesia/Blood Transfusion Reactions: Postoperative Nausea & Vomiting ( PONV) Smoking Status: Former smoker - Past Family History Mother Additional Family Medical History / Comment(s): chronic anemia Father Family Medical History: Myocardial Infarction ([place]) Medications and Allergies Home Medications Medication Instructions Recorded Confirmed Type Atorvastatin [Lipitor] 40 mg PO HS 05/29/15 04/21/17 History Glimepiride [Amaryl] 4 mg PO AC-BRKFST 05/29/15 04/21/17 History Valsartan [Diovan] 160 mg PO QAM 05/29/15 04/21/17 History metFORMIN HCL 1,000 mg PO BID 05/29/15 04/21/17 History DULoxetine HCL [Cymbalta] 60 mg PO DAILY 04/16/16 04/21/17 History Insulin Detemir [Levemir] 32 unit SQ HS 04/16/16 04/21/17 History Prochlorperazine [Compazine] 10 mg PO Q6H PRN 03/27/17 04/21/17 History Docusate [Colace] 100 mg PO BID #20 capsule 03/28/17 04/21/17 Rx fentaNYL 50MCG/HR PATCH [Duragesic 1 patch TOPICAL Q3D 04/19/17 04/21/17 History 50MCG/HR] Allergies Allergy/AdvReac Type Severity Reaction Status Date / Time morphine AdvReac severe Verified 04/21/17 08:35 vomiting, severe flushing and sweating Surgical - Exam Vital Signs Temp Pulse Resp BP Pulse Ox 98.8 F 79 16 153/82 96 04/21/17 08:34 04/21/17 08:34 04/21/17 08:34 04/21/17 08:34 04/21/17 08:34 - General well developed, no distress - Eyes PERRL - ENT normal pinna - Neck no masses - Respiratory normal expansion - Cardiovascular Rhythm: regular - Abdomen Abdomen: soft, non tender Results - Labs Abnormal Lab Results - Last 24 Hours (Table) 04/21/17 Range/Units 08:48 POC Glucose (mg/dL) 153 H (75-99) mg/dL Assessment and Plan Assessment: Chronic nausea, epigastric dull pain. We'll perform EGD.
--- NOTE | 2017-04-21 09:05 | P.OP ---
Date of Procedure: 04/21/17 Preoperative Diagnosis: GERD Postoperative Diagnosis: Antral gastritis Hiatal hernia Esophagitis Procedure(s) Performed: EGD Anesthesia: MAC Surgeon: Ricardo Arce Pathology: other (Antrum, esophagus) Condition: stable Disposition: PACU Description of Procedure: The patient's placed on the endoscopy table lateral position. She received IV sedation. The gastroscope placed oropharynx passed into the esophagus and into the stomach. The scope was then placed through the pylorus. The first and second portion of the duodenum appeared normal. The scope was then brought back the antrum this. Mildly inflamed. A biopsies performed. The scope was retroflexed and the remainder stomach appeared normal. There was a sliding hiatal hernia. The GE junction was at 38 cm. The distal esophagus appeared inflamed this area is biopsied. The proximal esophagus appeared normal. Scope was withdrawn for patient.
[2017-04-21 09:32] VITALS: BP 156/70; PULSE 79
== END 2017-04-21 09:34 | disposition home or self-care (01) ==
LOC: ORWHC2ENDO 07:59
PROVIDERS: ATTEND Surgery
DX: K29.60 Other gastritis without bleeding (principal); K44.9 Diaphragmatic hernia without obstruction or gangrene; K20.0 Eosinophilic esophagitis; K21.9 Gastro-esophageal reflux disease without esophagitis; I10 Essential (primary) hypertension; E78.5 Hyperlipidemia, unspecified; J44.9 Chronic obstructive pulmonary disease, unspecified; Z87.891 Personal history of nicotine dependence; E11.9 Type 2 diabetes mellitus without complications; Z79.4 Long term (current) use of insulin; Z79.891 Long term (current) use of opiate analgesic; Z79.899 Other long term (current) drug therapy; Z88.5 Allergy status to narcotic agent
CPT/HCPCS: 88305; 43239; J2405; J2001; J3010; J2704

== ENCOUNTER 2017-05-04 07:35 | Observation (INO) | payer OTHER ==
[2017-05-03 08:33] VITALS: BMI 37.8
[~2017-05-04 07:35] MED LIST changes: +DEXAMETHASONE SOD PHOSPHATE 10 MG/ML 1 ML VIAL IV ONE; +HEPARIN SODIUM,PORCINE 5,000 UNIT/ML 1 ML VIAL SQ ONE; -LACTATED RINGERS 1,000 ML IV SCH; -LIDOCAINE 1% 20 ML VIAL (10MG/ML) FOR IV START INTRADERMA PRN; +ONDANSETRON 4 MG/2 ML VIAL IVP ONE; +ceFAZolin IN SWFI 2 GM/20 ML SYRINGE IVP ONE
[2017-05-04 08:32] LABS: Glucose,Whole Blood 159 mg/dL (75-99)
[2017-05-04] MEDS ORDERED: LIDOCAINE 1% 20 ML VIAL (10MG/ML) FOR IV START INTRADERMA ONE (08:36)
[2017-05-04] MEDS: LACTATED RINGERS 1,000 ML IV SCH (08:38)
--- NOTE | 2017-05-04 11:29 | P.GSHP ---
History of Present Illness H&P Date: 05/04/17 Chief Complaint: GERD This is a 56-year-old female for from Dr. Jeison Miranda.The patient has had long- standing problems with reflux esophagitis. The patient underwent recent EGD is found have evidence of esophagitis. Patient has been well informed on the procedure of laparoscopic Yumi fundoplication. The patient is aware the risk of the conversion to the open procedure, risk of injury to the stomach, liver and spleen. The patient is also a risk of recurrent GERD and dysphagia symptoms. The patient understands there is a postoperative diet of full liquids for 2 weeks after surgery. Past Medical History Past Medical History: COPD, Diabetes Mellitus, GERD/Reflux, Hyperlipidemia, Hypertension Additional Past Medical History / Comment(s): SL Anemia History of Any Multi-Drug Resistant Organisms: None Reported Past Surgical History: Cholecystectomy, Hernia Repair, Orthopedic Surgery, Tubal Ligation Additional Past Surgical History / Comment(s): ORIF RT ANKLE. EGD, COLONOSCOPY ; Cataracts Past Anesthesia/Blood Transfusion Reactions: Postoperative Nausea & Vomiting ( PONV) Smoking Status: Former smoker - Past Family History Mother Additional Family Medical History / Comment(s): chronic anemia Father Family Medical History: Myocardial Infarction ([place]) Medications and Allergies Home Medications Medication Instructions Recorded Confirmed Type Atorvastatin [Lipitor] 40 mg PO HS 05/29/15 05/04/17 History Glimepiride [Amaryl] 4 mg PO AC-BRKFST 05/29/15 05/04/17 History Valsartan [Diovan] 160 mg PO QAM 05/29/15 05/04/17 History metFORMIN HCL 1,000 mg PO BID 05/29/15 05/04/17 History DULoxetine HCL [Cymbalta] 60 mg PO DAILY 04/16/16 05/04/17 History Insulin Detemir [Levemir] 32 unit SQ HS 04/16/16 05/04/17 History Prochlorperazine [Compazine] 10 mg PO Q6H PRN 03/27/17 05/04/17 History Docusate [Colace] 100 mg PO BID #20 capsule 03/28/17 05/04/17 Rx fentaNYL 50MCG/HR PATCH [Duragesic 1 patch TOPICAL Q3D 04/19/17 05/04/17 History 50MCG/HR] Omeprazole 40 mg PO DAILY #60 capsule. 04/21/17 05/04/17 Rx Allergies Allergy/AdvReac Type Severity Reaction Status Date / Time morphine AdvReac severe Verified 05/04/17 08:15 vomiting, severe flushing and sweating Surgical - Exam Vital Signs Temp Pulse Resp BP Pulse Ox 97.1 F L 70 16 167/74 96 05/04/17 08:36 05/04/17 08:36 05/04/17 08:36 05/04/17 08:36 05/04/17 08:36 - General well developed, no distress - Eyes PERRL - ENT normal pinna - Neck no masses - Respiratory normal expansion - Cardiovascular Rhythm: regular - Abdomen Abdomen: soft, non tender Results - Labs Abnormal Lab Results - Last 24 Hours (Table) 05/04/17 Range/Units 08:28 POC Glucose (mg/dL) 159 H (75-99) mg/dL Assessment and Plan Assessment: GERD. We'll perform EGD.
[2017-05-04] MEDS ORDERED: ROCURONIUM BROMIDE 10 MG/ML 10 ML VIAL IV ONE (11:39)
[2017-05-04] MEDS ORDERED: LIDOCAINE 1% INJ 10MG/ML (20 ML MDV) ONE (11:39)
[2017-05-04] MEDS ORDERED: SUCCINYLCHOLINE CHLORIDE 100 MG/5 ML SYR IV ONE (11:39)
[2017-05-04] MEDS ORDERED: MIDAZOLAM 2 MG/2 ML VIAL ONE (11:39)
[2017-05-04] MEDS ORDERED: PROPOFOL 10 MG/ML 20 ML VIAL IV ONE (11:39)
[2017-05-04] MEDS ORDERED: fentaNYL (PF) 50 MCG/ML 2 ML AMP ONE (11:39)
[2017-05-04] MEDS ORDERED: GLYCOPYRROLATE 0.2 MG/ML 2 ML VIAL ONE (11:39)
[2017-05-04] MEDS ORDERED: NEOSTIGMINE 1 MG/ML 10 ML VIAL ONE (11:39)
[2017-05-04] MEDS ORDERED: BUPIVACAINE (PF) 0.25% 30 ML VIAL SQ ONE (12:13)
--- NOTE | 2017-05-04 12:40 | P.OP ---
Date of Procedure: 05/04/17 Preoperative Diagnosis: GERD Postoperative Diagnosis: GERD Procedure(s) Performed: Laparoscopic Yumi fundoplication Anesthesia: JESUS MANUEL Surgeon: Ricardo Arce Estimated Blood Loss (ml): 5 Pathology: none sent Condition: stable Disposition: PACU Description of Procedure: Lexiehe patient was placed on the operating table in the supine position. The patient received general anesthesia. And was placed in dorsal lithotomy position. The patient was prepped and draped in the usual sterile fashion. The skin incision sites were anesthetized with 1% local Xylocaine. The skin was incised in the left periumbilical area and then using a blade less 5 mm trocar under direct visualization panel cavity was entered. After adequate insufflation the laparoscope was then placed into the peritoneal cavity. Next a 5 mm trochars placed in the right epigastric position. Another 5 millimeter trocar the right lateral position. Another 5 millimeter trocar in the left lateral position a 5 mm trocar is placed in the left epigastric position. And then the initial 5 mm trocar was exchanged for a 10 mm trocar. The left lateral lobe liver was retracted. The hernia was seen. The crural defect was then dissected using the Harmonic scissors device. A 360 crural dissection was performed the esophagus stomach was reduced back into the peritoneal Cavity. The crural defect was then closed using 2-0 Ethibond suture. Next the fundus of the stomach was mobilized using the Porter scissors device. and then a 58-Urdu bougie dilator was placed oropharynx passed into the esophagus and stomach the fundal plication wrap was then performed by grasping the fundus posteriorly and bringing it around the esophagus and stomach fundoplication was then performed using 2-0 Ethibond suture. Care was taken that the fundal location rested over top of the intra-abdominal esophagus. There was no injury seen to the stomach or esophagus. The dilator was then withdrawn. The abdomen was irrigated there is no bleeding seen. The trochars were then withdrawn and then skin incision sites were closed using 3-0 Monocryl suture Steri-Strips are applied. Patient thought procedure well and sent to recovery room in stable condition.
[2017-05-04] MEDS ORDERED: D5-0.45% NACL WITH KCL 20MEQ/L 1,000 ML IV SCH (12:45)
[2017-05-04] MEDS: fentaNYL (PF) 50 MCG/ML 2 ML AMP IV PRN ×2 (13:05→13:13)
[2017-05-04] MEDS ORDERED: LABETALOL SYRINGE 5 MG/ML IVP ONE (13:05)
[2017-05-04] MEDS ORDERED: KETOROLAC 30 MG/ML 1 ML VIAL IVP ONE (13:10)
[2017-05-04] MEDS ORDERED: diphenhydrAMINE 50 MG/ML 1 ML VIAL IVP ONE (13:11)
[2017-05-04 13:42] LABS: Glucose,Whole Blood 275 mg/dL (75-99)
[2017-05-04] MEDS ORDERED: INSULIN ASPART 100 UNIT/ML 1 ML 10 ML VIAL SQ ONE (13:44)
[2017-05-04] MEDS ORDERED: diphenhydrAMINE 50 MG/ML 1 ML VIAL IVP PRN (15:17)
[2017-05-04] MEDS: ONDANSETRON 4 MG/2 ML VIAL IVP PRN ×2 (16:26→22:40)
[2017-05-04] MEDS: MORPHINE SULFATE 4 MG/ML SYRINGE IVP PRN ×2 (16:49→22:40)
[2017-05-04 17:04] LABS: Glucose,Whole Blood 232 mg/dL (75-99)
[2017-05-04 20:18] LABS: Glucose,Whole Blood 246 mg/dL (75-99)
[2017-05-04] MEDS: 0.9% NACL WITH KCL 20 MEQ/L 1,000 ML IV SCH (20:20)
[2017-05-04] MEDS ORDERED: INSULIN DETEMIR 100 UNIT/ML 10 ML VIAL SQ SCH (21:15)
[2017-05-04] MEDS: INSULIN ASPART 100 UNIT/ML 1 ML 10 ML VIAL SQ SCH (21:36)
[2017-05-04 21:51] LABS: Glucose,Whole Blood 205 mg/dL (75-99)
--- NOTE | 2017-05-05 00:09 | P.CONS ---
History of Present Illness - Reason for Consult Consult date: 05/04/17 Medical management of hypertension and diabetes type 2 - Chief Complaint Admitted for elective surgery - History of Present Illness Patient is a 56-year-old female with a known history of COPD, hypertension, diabetes type 2, GERD and hyperlipidemia was admitted to hospital for elective laparoscopic fundoplication surgery. Patient tolerated the procedure very well. Currently denied any complaints of chest pain or shortness of breath. No nausea vomiting or abdominal pain. No headache or dizziness or lightheadedness. Review of Systems Constitutional: Patient denies any fever or chills . No generalized weakness or weight loss. Abdomen: Patient denied nausea vomiting and diarrhea and abdominal pain. Cardiovascular: Patient denies any chest pain or short of breath no palpitations. Respiratory: patient denied any cough is from production. No shortness of breath Neurologic: Patient denied any numbness or tingling headache. Musculoskeletal: Patient denies any complaints of joint swelling or deformity. Skin: Negative Psychiatric: Negative Endocrine: No heat or cold intolerance. No recent weight gain. Genitourinary: No dysuria or hematuria. All other 14 point ROS negative except the above Past Medical History Past Medical History: COPD, Diabetes Mellitus, GERD/Reflux, Hyperlipidemia, Hypertension Additional Past Medical History / Comment(s): SL Anemia History of Any Multi-Drug Resistant Organisms: None Reported Past Surgical History: Cholecystectomy, Hernia Repair, Orthopedic Surgery, Tubal Ligation Additional Past Surgical History / Comment(s): ORIF RT ANKLE. EGD, COLONOSCOPY ; Cataracts Past Anesthesia/Blood Transfusion Reactions: Postoperative Nausea & Vomiting ( PONV) Smoking Status: Former smoker - Past Family History Mother Additional Family Medical History / Comment(s): chronic anemia Father Family Medical History: Myocardial Infarction ([place]) Medications and Allergies Home Medications Medication Instructions Recorded Confirmed Type Atorvastatin [Lipitor] 40 mg PO HS 05/29/15 05/04/17 History Glimepiride [Amaryl] 4 mg PO AC-BRKFST 05/29/15 05/04/17 History Valsartan [Diovan] 160 mg PO QAM 05/29/15 05/04/17 History metFORMIN HCL 1,000 mg PO BID 05/29/15 05/04/17 History DULoxetine HCL [Cymbalta] 60 mg PO DAILY 04/16/16 05/04/17 History Insulin Detemir [Levemir] 32 unit SQ HS 04/16/16 05/04/17 History Prochlorperazine [Compazine] 10 mg PO Q6H PRN 03/27/17 05/04/17 History Docusate [Colace] 100 mg PO BID #20 capsule 03/28/17 05/04/17 Rx fentaNYL 50MCG/HR PATCH [Duragesic 1 patch TOPICAL Q3D 04/19/17 05/04/17 History 50MCG/HR] Omeprazole 40 mg PO DAILY #60 capsule. 04/21/17 05/04/17 Rx Allergies Allergy/AdvReac Type Severity Reaction Status Date / Time Iodinated Contrast- Oral and AdvReac Nausea & Verified 05/04/17 14:53 IV Dye Vomiting morphine AdvReac severe Verified 05/04/17 08:15 vomiting, severe flushing and sweating Physical Exam Vitals: Vital Signs Temp Pulse Pulse Resp BP Pulse Ox 05/04/17 13:46 68 18 161/74 98 05/04/17 13:30 67 20 175/75 95 05/04/17 13:15 70 18 197/80 99 05/04/17 13:01 66 18 187/76 99 05/04/17 12:51 97.9 F 75 18 188/81 99 05/04/17 08:36 97.1 F L 70 16 167/74 96 Intake and Output 05/04/17 05/04/17 05/04/17 06:59 14:59 22:59 Intake Total 550 Output Total 10 Balance 540 Intake: IV 550 Output: Estimated Blood Loss 10 Other: Weight 99.79 kg PHYSICAL EXAMINATION: Patient is lying in the bed comfortably, no acute distress, awake alert and oriented.. HEENT: Normocephalic. Neck is supple. Pupils reactive. Nostrils clear. Oral cavity is moist. Ears reveal no drainage. Neck reveals no JVD, carotid bruits, or thyromegaly. CHEST EXAMINATION: Trachea is central. Symmetrical expansion. Lung davila clear to auscultation and percussion. CARDIAC: Normal S1, S2 with no gallops. No murmurs ABDOMEN: Soft. Bowel sounds normal. No organomegaly. No abdominal bruits. Extremities: reveal no edema. No clubbing or cyanosis Neurologically awake, alert, oriented x3 with well-coordinated movements. No focal deficits noted Skin: No rash or skin lesions. Psychiatric: Coperative. Nonsuicidal Musculoskeletal: No joint swelling or deformity. Normal range of motion. Results Labs: Abnormal Lab Results - Last 24 Hours (Table) 05/04/17 05/04/17 Range/Units 08:28 13:40 POC Glucose (mg/dL) 159 H 275 H (75-99) mg/dL Assessment and Plan Assessment: Status post Yumi fundoplication on 05/04/2017 GERD Hypertension Diabetes type 2 hyperlipidemia COPD stable Previous history of smoking History of right ankle ORIF DVT prophylaxis Plan: Patient will be continued on IV fluids and pain medications. Encourage ambulation and incentive spirometry. Patient be continued on Levemir 32 units daily at bedtime along with insulin sliding scale. We will check his B A1c level. Otherwise continue the current management and home medications and follow closely. Further conditions based on the clinical course Thank you for your consult Time with Patient: Greater than 30
[2017-05-05] MEDS: LACTATED RINGERS 1,000 ML IV SCH (04:10)
[2017-05-05] MEDS: 0.9% NACL WITH KCL 20 MEQ/L 1,000 ML IV SCH (05:23)
[2017-05-05 07:09] LABS: Glucose,Whole Blood 139 mg/dL (75-99)
[2017-05-05] MEDS ORDERED: INSULIN ASPART 100 UNIT/ML 1 ML 10 ML VIAL SQ SCH (07:30)
[2017-05-05 07:35] LABS: Basophils % (A) 0 %; Eosinophils # (A) 0.1 k/uL (0-0.7); Eosinophils % (A) 0 %; HCT 36.1 % (34.0-46.0); Lymphocytes # (A) 2.3 k/uL (1.0-4.8); Lymphocytes % (A) 18 %; MCH 30.3 pg (25.0-35.0); MCHC 33.4 g/dL (31.0-37.0); MCV 90.8 fL (80.0-100.0); Mean Platelet Volume 6.8; Monocytes # (A) 0.5 k/uL (0-1.0); Monocytes % (A) 4 %; Neutrophils # (A) 9.7 k/uL (1.3-7.7); Neutrophils % (A) 77 %; Platelet Count 352 k/uL (150-450); RBC 3.97 m/uL (3.80-5.40); RDW 13.3 % (11.5-15.5); WBC 12.7 k/uL (3.8-10.6)
[2017-05-05 07:43] VITALS: PULSE 82; RESP 14; TEMP 98.2
[2017-05-05] MEDS: INSULIN ASPART 100 UNIT/ML 1 ML 10 ML VIAL SQ SCH (07:55)
[2017-05-05 07:59] LABS: Calcium 9.4 mg/dL (8.4-10.2); Potassium 4.9 mmol/L (3.5-5.1)
--- NOTE | 2017-05-05 08:49 | P.DS ---
Providers Date of admission: 05/05/17 01:23 Expected date of discharge: 05/05/17 Attending physician: Ricardo Arce Consults: 05/04/17 12:41 Consult Physician Routine Consulting Provider: Law Quarles Consult Reason/Comments: Medical management for Dr. Miranda Do you want consulting provider notified?: Yes Primary care physician: Jeison Miranda [facility] Course: 56-year-old female admitted on an elective admission to undergo laparoscopic Yumi fundoplication for symptomatic esophageal reflux esophagitis. Patient underwent procedure on May 04. Tolerating diet. No nausea no vomiting. Was felt to be appropriate to be discharged home Impression discharge diagnosis Chronic reflux esophagitis A recent EGD showing evidence of esophagitis Postop May 04 laparoscopic Yumi fundoplication The above impression and plan of care have been discussed and directed by signing physician. Martine Echols nurse practitioner acting as scribe for signing physician. Plan - Discharge Summary Discharge Rx Participant: Yes New Discharge Prescriptions: Continue Valsartan [Diovan] 160 mg PO QAM Glimepiride [Amaryl] 4 mg PO AC-BRKFST Atorvastatin [Lipitor] 40 mg PO HS metFORMIN HCL 1,000 mg PO BID Insulin Detemir [Levemir] 32 unit SQ HS DULoxetine HCL [Cymbalta] 60 mg PO DAILY Prochlorperazine [Compazine] 10 mg PO Q6H PRN PRN Reason: Nausea Docusate [Colace] 100 mg PO BID #20 capsule fentaNYL 50MCG/HR PATCH [Duragesic 50MCG/HR] 1 patch TOPICAL Q3D Discontinued Omeprazole 40 mg PO DAILY #60 capsule.dr Discharge Medication List Atorvastatin [Lipitor] 40 mg PO HS 05/29/15 [History] Glimepiride [Amaryl] 4 mg PO AC-BRKFST 05/29/15 [History] Valsartan [Diovan] 160 mg PO QAM 05/29/15 [History] metFORMIN HCL 1,000 mg PO BID 05/29/15 [History] DULoxetine HCL [Cymbalta] 60 mg PO DAILY 04/16/16 [History] Insulin Detemir [Levemir] 32 unit SQ HS 04/16/16 [History] Prochlorperazine [Compazine] 10 mg PO Q6H PRN 03/27/17 [History] Docusate [Colace] 100 mg PO BID #20 capsule 03/28/17 [Rx] fentaNYL 50MCG/HR PATCH [Duragesic 50MCG/HR] 1 patch TOPICAL Q3D 04/19/17 [ History] Follow up Appointment(s)/Referral(s): Ricardo Arce MD [STAFF PHYSICIAN] - 1 Week Activity/Diet/Wound Care/Special Instructions: No tub bath for six weeks. Shower daily. No lifting over 10 pounds for the next 6 weeks. May use ice packs to surgical site. No driving while taking narcotic for pain. Liquid diet for 2 weeks after surgery Discharge Disposition: HOME SELF-CARE
[2017-05-05] MEDS ORDERED: ENOXAPARIN 40 MG/0.4 ML SYRINGE SQ SCH (09:00)
[2017-05-05] MEDS ORDERED: metFORMIN 500 MG TAB PO SCH (09:00)
--- NOTE | 2017-05-05 09:55 | FL ---
EXAMINATION TYPE: FL esophagus cervic/pharynx DATE OF EXAM: 05/05/2017 HISTORY: Post Yumi fundoplication one day prior. COMPARISON: NONE TECHNIQUE: A single contrast esophagram is performed utilizing barium. 47 seconds of fluoroscopy michael e was utilized with 10 images saved. FINDINGS: The esophagus shows normal motility and mild delay at the gastroesophageal junction. No evidence of hiatal hernia or stricture noted. No significant gastroesophageal reflux was seen during real time pe rformance of this study. No contrast extravasation was seen during the examination. IMPRESSION: Mild delay at the gastroesophageal junction representing postoperative edema with no alfonzo dence of stricture, hiatal hernia, or contrast extravasation to suggest leak.
[2017-05-05 10:28] VITALS: BP 154/82
--- NOTE | 2017-05-05 20:28 | PN ---
PROGRESS NOTE DATE OF SERVICE: 05/05/2017 This 56-year-old woman was admitted after Yumi fundoplication is being closely monitored. No chest pain. No palpitations. No fever. EXAM: Alert and oriented x3. Pulse 82, blood pressure 180/90, respiration 14, temperature 98.2, pulse ox 94% room air. HEENT: Conjunctivae normal. NECK: No jugular venous distention. CARDIOVASCULAR: S1, S2. RESPIRATORY: Breath sounds diminished in the bases. No rhonchi, no crackles. ABDOMEN: Soft, status post surgery. LEGS: No edema, no swelling. NERVOUS SYSTEM: No focal deficit. LAB STUDIES: WBC 12.7, other labs are noted. ASSESSMENT: 1. Status post Yumi fundoplication for gastroesophageal reflux disease. 2. Hypertension. 3. Diabetes mellitus type 2. 4. Hyperlipidemia. 5. Stable chronic obstructive pulmonary disease. 6. History of right ankle open reduction internal fixation. RECOMMENDATIONS AND DISCUSSION: I recommend to continue current management and symptomatic treatment. Incentive spirometry. Resume the home medications. Closely follow with primary physician in the outpatient setting. Further recommendations to follow. MMODL / IJN: [id number] /
== END 2017-05-05 11:30 | disposition home or self-care (01) ==
LOC: OR 07:35 → EDSTATUS 10:30 → 3SUR 12:52 → OR 05-05 01:23 → 3SUR 05-05 01:23
PROVIDERS: ADMIT Surgery; ATTEND Surgery
DX: K21.0 Gastro-esophageal reflux disease with esophagitis (principal); J44.9 Chronic obstructive pulmonary disease, unspecified; E11.9 Type 2 diabetes mellitus without complications; E78.5 Hyperlipidemia, unspecified; I10 Essential (primary) hypertension; Z87.891 Personal history of nicotine dependence; Z82.49 Family history of ischemic heart disease and other diseases of the circulatory system; Z79.899 Other long term (current) drug therapy; Z79.84 Long term (current) use of oral hypoglycemic drugs; Z79.4 Long term (current) use of insulin; Z88.5 Allergy status to narcotic agent; Z79.891 Long term (current) use of opiate analgesic
CPT/HCPCS: 43280; 80048; 85025; 74210; G0378; J2270; J1200; J1644; J1100; J2405; J1650; J3010; J1885

== ENCOUNTER → 2017-05-25 | Outpatient (CLI) | payer OTHER ==
[2017-05-25 10:23] LABS: Albumin 4.4 g/dL (3.5-5.0); Potassium 5.1 mmol/L (3.5-5.1); Total Bilirubin 0.5 mg/dL (0.2-1.3); Total Protein 7.3 g/dL (6.3-8.2)
[2017-05-25 18:26] LABS: Hemoglobin A1C 7.4 % (4.0-6.0)
== END | disposition home or self-care (01) ==
LOC: LABWHC1 09:26
PROVIDERS: ATTEND Internal Medicine Endocrinology, Diabetes & Metabolism
DX: E11.65 Type 2 diabetes mellitus with hyperglycemia (principal)
CPT/HCPCS: 36415; 80053; 80061; 82043; 82570; 83036

== ENCOUNTER → 2017-07-21 | Outpatient (CLI) | payer OTHER ==
--- NOTE | 2017-07-21 09:17 | CT ---
EXAMINATION TYPE: CT lumbar spine wo con DATE OF EXAM: 07/21/2017 7:14 AM COMPARISON: NONE HISTORY: Low back pain CT DLP: 1233.8 mGycm Automated exposure control for dose reduction was used. TECHNIQUE: Unenhanced CT of the lumbar spine was performed. Bone and soft tissue window settings are submitted as well as coronal and sagittal reconstructions. Osseous findings: There is slight (grade 1) retrolisthesis of L4 on L5. Extensive degenerative change s are seen at L4-L5 with intervertebral disc space narrowing, vacuum disc disease, endplate sclerosis , anterior osteophytes, and posterior osteophytes. Facet arthropathy is also noted at this level. The re are small marginal osteophytes with remainder the lumbar spine. No evidence of compression deformi ty. No acute fracture. There appears to be significant stenosis from atheromatous plaquing or chronic dissection flap within the nonaneurysmal infrarenal abdominal aorta on series 3 image 44. This could be further assessed with enhanced CT. L1-L2: Normal disc space height. No disc herniation protrusion or central stenosis. No facet joint arthropathy. No evidence for foraminal encroachment. L2-L3: Normal disc space height. No disc herniation protrusion or central stenosis. No facet joint arthropathy. No evidence for foraminal encroachment. L3-L4: There is a broad-based disc bulge and minimal ligamentum flavum buckling creating mild to mode rate spinal canal stenosis and bilateral mild neural foraminal narrowing. L4-L5: There are bilateral laminectomy defects and resection of the spinous process. No spinal canal stenosis, however there is moderate bilateral neural foraminal narrowing from posterior osteophytes a nd facet arthropathy. L5-S1: There is a broad-based disc bulge and bilateral laminectomy defects. Posterior disc bulge and posterior projecting osteophytes examination with facet arthropathy result in moderate bilateral neur al foraminal narrowing is seen with no spinal canal stenosis. IMPRESSION: 1. Mild spinal canal stenosis at level above the surgical site as a result of a broad-based disc bulg e at L3-L4. There is also mild neural foraminal narrowing at this level. 2. Extensive degenerative changes at L4-L5 with grade 1 retrolisthesis and posterior disc osteophyte as well as facet arthropathy creating moderate bilateral neural foraminal narrowing. 3. Broad-based disc bulge, posterior disc osteophytes and facet arthropathy creating bilateral neural foraminal narrowing L5-S1. 4. 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 Further characterization with CTA and pelvis could be performed.
== END | disposition home or self-care (01) ==
LOC: RADCTMAIN 06:51
PROVIDERS: ATTEND Specialist
DX: M99.73 Connective tissue and disc stenosis of intervertebral foramina of lumbar region (principal); M48.061 Spinal stenosis, lumbar region without neurogenic claudication; M51.26 Other intervertebral disc displacement, lumbar region; M47.816 Spondylosis without myelopathy or radiculopathy, lumbar region; M46.96 Unspecified inflammatory spondylopathy, lumbar region; I70.0 Atherosclerosis of aorta
CPT/HCPCS: 72131

== ENCOUNTER → 2017-09-12 | Outpatient (CLI) | payer OTHER ==
--- NOTE | 2017-09-12 14:57 | XR ---
EXAMINATION TYPE: XR chest 2V DATE OF EXAM: 09/12/2017 COMPARISON: 04/16/2016 HISTORY: Preoperative evaluation. TECHNIQUE: Frontal and lateral views of the chest are obtained. FINDINGS: There is no focal air space opacity, pleural effusion, or pneumothorax seen. The cardiac silhouette size is within normal limits. The osseous structures are intact. Multilevel degenerative changes of the thoracic spine are seen. IMPRESSION: No acute cardiopulmonary process.
[2017-09-12 15:18] LABS: Bacteria,Urine Rare /hpf; Mucus,Urine Rare /hpf; RBC,Urine 1 /hpf (0-5); Squamous Epithelial Cell,Urine 1 /hpf (0-4); WBC,Urine 4 /hpf (0-5)
[2017-09-12 15:23] LABS: Albumin 4.6 g/dL (3.5-5.0); Calcium 9.6 mg/dL (8.4-10.2); Potassium 5.1 mmol/L (3.5-5.1); Total Bilirubin 0.4 mg/dL (0.2-1.3); Total Protein 7.2 g/dL (6.3-8.2)
[2017-09-12 15:47] LABS: HCT 39.1 % (34.0-46.0); HGB 13.5 gm/dL (11.4-16.0); MCH 32.7 pg (25.0-35.0); MCHC 34.6 g/dL (31.0-37.0); MCV 94.6 fL (80.0-100.0); Mean Platelet Volume 7.4; Platelet Count 318 k/uL (150-450); Prothrombin Time 9.6 sec (9.0-12.0); RBC 4.14 m/uL (3.80-5.40); RDW 13.3 % (11.5-15.5); WBC 13.8 k/uL (3.8-10.6)
[2017-09-12 15:49] LABS: Partial Thromboplastin Time 21.5 sec (22.0-30.0)
[2017-09-12 16:03] LABS: Appearance,Urine Cloudy (Clear); Bilirubin,Urine Negative (Negative); Blood,Urine Negative (Negative); Color,Urine Yellow; Glucose,Urine (UA) Negative (Negative); Ketones,Urine Negative (Negative); Leukocyte Esterase,Urine Negative (Negative); Nitrite,Urine Negative (Negative); PH, Urine 5.5 (5.0-8.0); Protein,Urine 1+ (Negative); Specific Gravity,Urine 1.017 (1.001-1.035)
== END | disposition home or self-care (01) ==
LOC: RADXRMAIN 14:34
PROVIDERS: ATTEND Specialist
DX: M47.26 Other spondylosis with radiculopathy, lumbar region (principal)
CPT/HCPCS: 36415; 71046; 80053; 81001; 85027; 85610; 85730

== ENCOUNTER → 2018-05-25 | Outpatient (CLI) | payer OTHER ==
[2018-05-25 16:00] LABS: Albumin 4.3 g/dL (3.80-4.90); Albumin/Globulin Ratio 2.26 (1.60-3.17); Anion Gap 8.6 mmol/L (4.00-12.00); Calcium 9.3 mg/dL (8.7-10.3); Carbon Dioxide 25.4 mmol/L (21.6-31.8); Globulin 1.9 g/dL (1.6-3.3); LDL Cholesterol,Calculated 122.8 mg/dL (0.0-131.0); Total Bilirubin 0.3 mg/dL (0.2-1.2); Total Protein 6.2 g/dL (6.2-8.2); VLDL Calculation 34.2 mg/dL (5.00-40.00)
[2018-05-25 18:07] LABS: Hemoglobin A1C 7.3 % (4.0-6.0)
== END ==
LOC: LABWHC1 08:45
PROVIDERS: ATTEND Internal Medicine Endocrinology, Diabetes & Metabolism
DX: E11.65 Type 2 diabetes mellitus with hyperglycemia (principal)
CPT/HCPCS: 36415; 80053; 80061; 82043; 82570; 83036; 84443

== ENCOUNTER → 2018-09-14 | Outpatient (CLI) | payer OTHER ==
[2018-09-14 17:44] LABS: African American GFR (CKD) 63.2 (60.0-200.0); Albumin 4.4 g/dL (3.80-4.90); Albumin/Globulin Ratio 2.32 (1.60-3.17); Anion Gap 8.7 mmol/L (4.00-12.00); BUN/Creat Ratio 13.64 Ratio (12.00-20.00); Calcium 9.4 mg/dL (8.7-10.3); Carbon Dioxide 27.3 mmol/L (21.6-31.8); Globulin 1.9 g/dL (1.6-3.3); LDL Cholesterol,Calculated 129.6 mg/dL (0.0-131.0); Potassium 5.6 mmol/L (3.5-5.5); Total Bilirubin 0.2 mg/dL (0.2-1.2); Total Protein 6.3 g/dL (6.2-8.2); VLDL Calculation 49.4 mg/dL (5.00-40.00)
[2018-09-14 20:35] LABS: Hemoglobin A1C 8.2 % (4.0-6.0)
== END | disposition home or self-care (01) ==
LOC: LABWHC1 08:17
PROVIDERS: ATTEND Internal Medicine Endocrinology, Diabetes & Metabolism
DX: E11.65 Type 2 diabetes mellitus with hyperglycemia (principal)
CPT/HCPCS: 36415; 80053; 80061; 83036; 84443

== ENCOUNTER → 2019-02-15 | Outpatient (CLI) | payer OTHER ==
[2019-02-15 16:37] LABS: African American GFR (CKD) 70.9 (60.0-200.0); Albumin 4.2 g/dL (3.80-4.90); Albumin/Globulin Ratio 2.33 (1.60-3.17); Anion Gap 5.1 mmol/L (4.00-12.00); Calcium 9.1 mg/dL (8.7-10.3); Carbon Dioxide 27.9 mmol/L (21.6-31.8); Chol/HDL Ratio 4.14; Globulin 1.8 g/dL (1.6-3.3); LDL Cholesterol,Calculated 84.4 mg/dL (0.0-131.0); Non-African American GFR(CKD) 61.2 (60.0-200.0); Potassium 4.9 mmol/L (3.5-5.5); Total Bilirubin 0.3 mg/dL (0.2-1.2); VLDL Calculation 31.6 mg/dL (5.00-40.00)
[2019-02-15 17:02] LABS: Hemoglobin A1C 8.9 % (4.0-6.0)
== END | disposition home or self-care (01) ==
LOC: LABWHC1 08:56
PROVIDERS: ATTEND Internal Medicine Endocrinology, Diabetes & Metabolism
DX: E11.65 Type 2 diabetes mellitus with hyperglycemia (principal)
CPT/HCPCS: 36415; 80053; 80061; 82043; 82570; 83036; 84443

== ENCOUNTER → 2019-09-17 | Outpatient (CLI) | payer OTHER ==
[2019-09-17 13:34] LABS: African American GFR (CKD) 62.8 (60.0-200.0); Albumin 4.5 g/dL (3.80-4.90); Albumin/Globulin Ratio 2.14 (1.60-3.17); Anion Gap 8.3 mmol/L (4.00-12.00); BUN/Creat Ratio 36.36 Ratio (12.00-20.00); Calcium 9.5 mg/dL (8.7-10.3); Carbon Dioxide 23.7 mmol/L (21.6-31.8); Chol/HDL Ratio 4.61; Globulin 2.1 g/dL (1.6-3.3); Non-African American GFR(CKD) 54.1 (60.0-200.0); Potassium 4.6 mmol/L (3.5-5.5); Total Bilirubin 0.3 mg/dL (0.3-1.2); Total Protein 6.6 g/dL (6.2-8.2)
[2019-09-17 15:22] LABS: Hemoglobin A1C 8.1 % (4.0-6.0)
== END | disposition home or self-care (01) ==
LOC: LABWHC1 07:21
PROVIDERS: ATTEND Family Medicine
DX: I10 Essential (primary) hypertension (principal); E11.9 Type 2 diabetes mellitus without complications
CPT/HCPCS: 36415; 80053; 80061; 83036; 84439; 84443

== ENCOUNTER → 2020-03-05 | Outpatient (CLI) | payer OTHER | LOC: LABWHC1 11:50 | PROVIDERS: ATTEND Family Medicine | DX: Z03.818 Encounter for observation for suspected exposure to other biological agents ruled out (principal); Z20.822 Contact with and (suspected) exposure to COVID-19 | CPT/HCPCS: U0003; C9803; U0005 ==

== ENCOUNTER 2020-03-17 10:20 | Observation (INO) | payer OTHER ==
[2020-03-17] MEDS ORDERED: ACETAMINOPHEN TAB 325 MG TAB PO STA (10:42)
--- NOTE | 2020-03-17 10:49 | ED ---
Weakness HPI - General Chief complaint: Weakness Stated complaint: Sugar Issue, Cough Time Seen by Provider: 03/17/20 10:31 Source: patient Mode of arrival: wheelchair Limitations: physical limitation - History of Present Illness Initial comments: Patient is 59-year-old female presenting to the emergency department complaining of generalized whole-body pain, weakness. She noted that she recently went to her primary care doctor diagnosed the bilaterally infection took antibiotics for. She reported that she thinks antibiotics will cause for generalized muscle pain and weakness. Patient appeared in moderate distress. Patient was sobbing in complaining of pain all over but couldn't pinpoint any specific areas. She stated pain as a 7 on a 10 constant achy. She said nothing has helped reduce pain nothing makes the pain worse. She also reported a 2 week history of diarrhea, but no other all issues. She denied any chest pain, shortness of br eath, headache, nausea, vomiting, constipation, chills, fever, fatigue, and night sweats. - Related Data Home Medications Medication Instructions Recorded Confirmed Atorvastatin [Lipitor] 40 mg PO HS 05/29/15 03/17/20 metFORMIN HCL 1,000 mg PO AC-BID 05/29/15 03/17/20 DULoxetine HCL [Cymbalta] 60 mg PO DAILY 04/16/16 03/17/20 Insulin Detemir [Levemir Flextouch] 54 units SQ HS 03/17/20 03/17/20 Losartan Potassium [Cozaar] 100 mg PO DAILY 03/17/20 03/17/20 Allergies Allergy/AdvReac Type Severity Reaction Status Date / Time Iodinated Contrast Media AdvReac Nausea & Verified 03/17/20 11:34 [Iodinated Contrast- Oral Vomiting and IV Dye] morphine AdvReac severe Verified 03/17/20 11:34 vomiting, severe flushing and sweating Review of Systems ROS Statement: Those systems with pertinent positive or pertinent negative responses have been documented in the HPI. ROS Other: All systems not noted in ROS Statement are negative. Past Medical History Past Medical History: COPD, Diabetes Mellitus, GERD/Reflux, Hyperlipidemia, Hypertension Additional Past Medical History / Comment(s): SL Anemia History of Any Multi-Drug Resistant Organisms: None Reported Past Surgical History: Cholecystectomy, Hernia Repair, Orthopedic Surgery, Tubal Ligation Additional Past Surgical History / Comment(s): ORIF RT ANKLE. EGD, COLONOSCOPY; Cataracts Past Anesthesia/Blood Transfusion Reactions: Postoperative Nausea & Vomiting (PONV) Past Psychological History: Depression Smoking Status: Never smoker Past Alcohol Use History: None Reported Past Drug Use History: None Reported - Past Family History Mother Additional Family Medical History / Comment(s): chronic anemia Father Family Medical History: Myocardial Infarction ([place]) General Exam Limitations: physical limitation General appearance: alert, in no apparent distress Head exam: Present: atraumatic, normocephalic, normal inspection Eye exam: Present: normal appearance, PERRL, EOMI. Absent: scleral icterus, conjunctival injection, periorbital swelling ENT exam: Present: normal exam, mucous membranes moist, TM's normal bilaterally Neck exam: Present: normal inspection. Absent: tenderness, meningismus, lymphadenopathy Respiratory exam: Present: normal lung sounds bilaterally. Absent: respiratory distress, wheezes, rales, rhonchi, stridor Cardiovascular Exam: Present: regular rate, normal rhythm, normal heart sounds. Absent: systolic murmur, diastolic murmur, rubs, gallop, clicks GI/Abdominal exam: Present: soft, normal bowel sounds. Absent: distended, tende rness, guarding, rebound, rigid Extremities exam: Present: normal inspection, full ROM, tenderness (Over alglucerase shoulders hips knees calves, reaction was not proportional to pressure of palpation), normal capillary refill. Absent: pedal edema, joint swelling, calf tenderness Back exam: Present: normal inspection Neurological exam: Present: alert, oriented X3, CN II-XII intact Psychiatric exam: Present: anxious, other (Patient was sobbing in bed, patient had moments of clarity without crying all trying to think of answers to exam and interview questions.) Skin exam: Present: warm, dry, intact, normal color. Absent: rash Course Vital Signs 03/17/20 03/17/20 03/17/20 10:25 11:28 12:50 Temperature 99.2 F 98.5 F Pulse Rate 100 88 74 Respiratory 20 18 18 Rate Blood Pressure 199/78 127/56 167/91 O2 Sat by Pulse 99 98 97 Oximetry Medical Decision Making - Medical Decision Making 59-year-old female complaining of generalized total body aches and weakness. Upon reevaluation patient noted that she was feeling much better, after receiving fluids and some Tylenol. Discussed case with Dr. Lora. Lactic acid 3.4 white blood cells 15.0 rest of labs are grossly normal. Follow- up lactic acid dropped to 2.2. Patient was a little dry started an IV with 1 L bolus of normal saline History Of the Dr. Lora - Lab Data Result diagrams: 03/17/20 10:55 03/17/20 10:55 Lab Results 03/17/20 03/17/20 03/17/20 Range/Units 10:55 10:55 10:55 WBC 15.0 H (3.8-10.6) k/uL RBC 4.78 (3.80-5.40) m/uL Hgb 15.3 (11.4-16.0) gm/dL Hct 45.3 (34.0-46.0) % MCV 94.8 (80.0-100.0) fL MCH 32.1 (25.0-35.0) pg MCHC 33.9 (31.0-37.0) g/dL RDW 13.1 (11.5-15.5) % Plt Count 383 (150-450) k/uL MPV 7.7 Neutrophils % 72 % Lymphocytes % 20 % Monocytes % 4 % Eosinophils % 2 % Basophils % 1 % Neutrophils # 10.8 H (1.3-7.7) k/uL Lymphocytes # 3.0 (1.0-4.8) k/uL Monocytes # 0.5 (0-1.0) k/uL Eosinophils # 0.4 (0-0.7) k/uL Basophils # 0.2 (0-0.2) k/uL Sodium 138 (137-145) mmol/L Potassium 4.7 (3.5-5.1) mmol/L Chloride 105 (98-107) mmol/L Carbon Dioxide 19 L (22-30) mmol/L Anion Gap 14 mmol/L BUN 22 H (7-17) mg/dL Creatinine 1.18 H (0.52-1.04) mg/dL Est GFR (CKD-EPI)AfAm 58 (>60 ml/min/1.73 sqM) Est GFR (CKD-EPI)NonAf 50 (>60 ml/min/1.73 sqM) Glucose 234 H (74-99) mg/dL Lactic Ac Sepsis Rflx Plasma Lactic Acid Marvel 3.4 H* (0.7-2.0) mmol/L Calcium 10.2 (8.4-10.2) mg/dL Total Bilirubin 0.8 (0.2-1.3) mg/dL AST 28 (14-36) U/L ALT 22 (4-34) U/L Alkaline Phosphatase 98 (38-126) U/L Total Protein 7.5 (6.3-8.2) g/dL Albumin 4.5 (3.5-5.0) g/dL Urine Color Urine Appearance (Clear) Urine pH (5.0-8.0) Ur Specific [place] (1.001-1.035) Urine Protein (Negative) Urine Glucose (UA) (Negative) Urine Ketones (Negative) Urine Blood (Negative) Urine Nitrite (Negative) Urine Bilirubin (Negative) Urine Urobilinogen (<2.0) mg/dL Ur Leukocyte Esterase (Negative) Urine RBC (0-5) /hpf Urine WBC (0-5) /hpf Ur Squamous Epith Cells (0-4) /hpf Urine Bacteria (None) /hpf Hyaline Casts (0-2) /lpf Urine Mucus (None) /hpf 03/17/20 03/17/20 03/17/20 Range/Units 11:23 11:24 12:51 WBC (3.8-10.6) k/uL RBC (3.80-5.40) m/uL Hgb (11.4-16.0) gm/dL Hct (34.0-46.0) % MCV (80.0-100.0) fL MCH (25.0-35.0) pg MCHC (31.0-37.0) g/dL RDW (11.5-15.5) % Plt Count (150-450) k/uL MPV Neutrophils % % Lymphocytes % % Monocytes % % Eosinophils % % Basophils % % Neutrophils # (1.3-7.7) k/uL Lymphocytes # (1.0-4.8) k/uL Monocytes # (0-1.0) k/uL Eosinophils # (0-0.7) k/uL Basophils # (0-0.2) k/uL Sodium (137-145) mmol/L Potassium (3.5-5.1) mmol/L Chloride (98-107) mmol/L Carbon Dioxide (22-30) mmol/L Anion Gap mmol/L BUN (7-17) mg/dL Creatinine (0.52-1.04) mg/dL Est GFR (CKD-EPI)AfAm (>60 ml/min/1.73 sqM) Est GFR (CKD-EPI)NonAf (>60 ml/min/1.73 sqM) Glucose (74-99) mg/dL Lactic Ac Sepsis Rflx Y Plasma Lactic Acid Marvel 2.2 H* (0.7-2.0) mmol/L Calcium (8.4-10.2) mg/dL Total Bilirubin (0.2-1.3) mg/dL AST (14-36) U/L ALT (4-34) U/L Alkaline Phosphatase (38-126) U/L Total Protein (6.3-8.2) g/dL Albumin (3.5-5.0) g/dL Urine Color Yellow Urine Appearance Cloudy H (Clear) Urine pH 5.5 (5.0-8.0) Ur Specific [place] 1.028 (1.001-1.035) Urine Protein 2+ H (Negative) Urine Glucose (UA) Negative (Negative) Urine Ketones Trace H (Negative) Urine Blood Negative (Negative) Urine Nitrite Negative (Negative) Urine Bilirubin Negative (Negative) Urine Urobilinogen 3.0 (<2.0) mg/dL Ur Leukocyte Esterase Trace H (Negative) Urine RBC 1 (0-5) /hpf Urine WBC 4 (0-5) /hpf Ur Squamous Epith Cells 14 H (0-4) /hpf Urine Bacteria Rare H (None) /hpf Hyaline Casts 49 H (0-2) /lpf Urine Mucus Occasional H (None) /hpf - EKG Data -: EKG Interpreted by Tn EKG shows normal: sinus rhythm Rate: normal EKG Comments: 91 bpm, VT interval 148 ms, QRS duration 146 ms, QT/QTc 406/499 ms, PRT axes 63/-41/26 Normal sinus rhythm, left axis deviation, right bundle branch block - Radiology Data Radiology results: report reviewed, image reviewed Scattered senescent parenchymal changes noted. Hyperinflation compatible COPD. No evidence for infiltrate. No evidence for atelectasis. Heart size is stable mediastinal structures are stable and grossly unremarkable. No evidence for sore prominence. No evidence for acute pulmonary disease. Disposition Clinical Impression: Weakness, Malaise Disposition: ADMITTED IP TO THIS [facility] Condition: Stable Instructions (If sedation given, give patient instructions): Dehydration (ED), Weakness (ED) Additional Instructions: Please return to the Emergency Department if symptoms worsen or any other concerns. Case discussed with Dr. Lora it was decided to admit patient to hospital. Is patient prescribed a controlled substance at d/c from ED?: No Referrals: Jeison Miranda DO [Primary Care Provider] - 1-2 days Decision Time: 14:07
[2020-03-17 11:05] LABS: Basophils # (A) 0.2 k/uL (0-0.2); Basophils % (A) 1 %; Eosinophils # (A) 0.4 k/uL (0-0.7); Eosinophils % (A) 2 %; HCT 45.3 % (34.0-46.0); HGB 15.3 gm/dL (11.4-16.0); Lymphocytes % (A) 20 %; MCH 32.1 pg (25.0-35.0); MCHC 33.9 g/dL (31.0-37.0); MCV 94.8 fL (80.0-100.0); Mean Platelet Volume 7.7; Monocytes # (A) 0.5 k/uL (0-1.0); Monocytes % (A) 4 %; Neutrophils # (A) 10.8 k/uL (1.3-7.7); Neutrophils % (A) 72 %; Platelet Count 383 k/uL (150-450); RBC 4.78 m/uL (3.80-5.40); RDW 13.1 % (11.5-15.5)
[2020-03-17 11:16] LABS: Albumin 4.5 g/dL (3.5-5.0); Calcium 10.2 mg/dL (8.4-10.2); Potassium 4.7 mmol/L (3.5-5.1); Total Bilirubin 0.8 mg/dL (0.2-1.3); Total Protein 7.5 g/dL (6.3-8.2)
--- NOTE | 2020-03-17 11:16 | XR ---
EXAMINATION TYPE: XR chest 2V DATE OF EXAM: 03/17/2020 COMPARISON: 09/12/2017 HISTORY: Shortness of breath TECHNIQUE: Frontal and lateral views of the chest are obtained. FINDINGS: Scattered senescent parenchymal changes noted. Hyperinflation compatible with COPD. No evidence for infiltrate. No evidence for atelectasis. Heart size is stable. Mediastinal structures are stable and grossly unremarkable. No evidence for hilar prominence. Degenerative changes dorsal spine. IMPRESSION: 1. No evidence for acute pulmonary disease.
[2020-03-17 11:39] LABS: Appearance,Urine Cloudy (Clear); Bacteria,Urine Rare /hpf; Bilirubin,Urine Negative (Negative); Blood,Urine Negative (Negative); Color,Urine Yellow; Glucose,Urine (UA) Negative (Negative); Hyaline Casts,Urine 49 /lpf (0-2); Ketones,Urine Trace (Negative); Leukocyte Esterase,Urine Trace (Negative); Mucus,Urine Occasional /hpf; Nitrite,Urine Negative (Negative); PH, Urine 5.5 (5.0-8.0); Protein,Urine 2+ (Negative); RBC,Urine 1 /hpf (0-5); Specific Gravity,Urine 1.028 (1.001-1.035); Squamous Epithelial Cell,Urine 14 /hpf (0-4); WBC,Urine 4 /hpf (0-5)
[2020-03-17] MEDS ORDERED: ACETAMINOPHEN TAB 325 MG TAB PO PRN (14:08)
[2020-03-17] MEDS ORDERED: traMADol 50 MG TAB PO PRN (14:08)
[2020-03-17] MEDS ORDERED: ONDANSETRON 4 MG/2 ML VIAL IVP PRN (14:08)
[2020-03-17] MEDS ORDERED: LORazepam 2 MG/ML INJ IV PRN (14:08)
[2020-03-17] MEDS ORDERED: NALOXONE 0.4 MG/ML 1 ML VIAL IV PRN (14:08)
[2020-03-17 14:45] LABS: Creatine Kinase 135 U/L (30-135)
[2020-03-17 14:57] LABS: Creatine Kinase MB 2.2 ng/mL (0.0-2.4); Troponin I <0.012 ng/mL (0.000-0.034)
[2020-03-17] MEDS: SODIUM CHLORIDE 0.9% 1,000 ML IV SCH (15:09)
[2020-03-17 17:03] LABS: Glucose,Whole Blood 170 mg/dL (75-99)
[2020-03-17] MEDS: DULoxetine HCL 60 MG CAPSULE.DR PO SCH (17:58)
[2020-03-17] MEDS: INSULIN ASPART (NovoLOG) 100 UNIT/ML VIAL SQ SCH ×2 (17:58→20:20)
[2020-03-17 19:30] LABS: Glucose,Whole Blood 198 mg/dL (75-99)
[2020-03-17] MEDS: INSULIN DETEMIR (LEVEMIR) 100 UNIT/ML SYR SQ SCH (20:20)
[2020-03-17] MEDS: ATORVASTATIN 40 MG TAB PO SCH (20:21)
[2020-03-18 04:38] LABS: Basophils # (A) 0.1 k/uL (0-0.2); Basophils % (A) 1 %; Eosinophils # (A) 0.5 k/uL (0-0.7); Eosinophils % (A) 5 %; HCT 39.4 % (34.0-46.0); HGB 13.3 gm/dL (11.4-16.0); Lymphocytes # (A) 2.9 k/uL (1.0-4.8); Lymphocytes % (A) 29 %; MCH 32.3 pg (25.0-35.0); MCHC 33.7 g/dL (31.0-37.0); MCV 95.8 fL (80.0-100.0); Mean Platelet Volume 7.4; Monocytes # (A) 0.6 k/uL (0-1.0); Monocytes % (A) 6 %; Neutrophils # (A) 5.9 k/uL (1.3-7.7); Neutrophils % (A) 59 %; Platelet Count 292 k/uL (150-450); RBC 4.11 m/uL (3.80-5.40)
[2020-03-18] MEDS: SODIUM CHLORIDE 0.9% 1,000 ML IV SCH ×2 (05:15→21:59)
[2020-03-18 07:05] LABS: Glucose,Whole Blood 79 mg/dL (75-99)
[2020-03-18] MEDS: INSULIN ASPART (NovoLOG) 100 UNIT/ML VIAL SQ SCH ×4 (07:37→20:17)
[2020-03-18] MEDS: DULoxetine HCL 60 MG CAPSULE.DR PO SCH (08:36)
[2020-03-18 09:56] LABS: Anion Gap 13.9 mmol/L (4.00-12.00); BUN/Creat Ratio 24.44 Ratio (12.00-20.00); Carbon Dioxide 25.1 mmol/L (21.6-31.8); Potassium 3.9 mmol/L (3.5-5.5)
[2020-03-18 11:42] LABS: Glucose,Whole Blood 195 mg/dL (75-99)
--- NOTE | 2020-03-18 13:14 | P.HPIM ---
History of Present Illness Patient is a very pleasant 59-year-old female came to the emergency department with complaints of generalized weakness. Patient denied any dysuria fever patient the was taking antibiotics for for some infection. She had a chest x-r ay which did not show any significant abnormality years bit abnormal but not really impressive for UTI and it's a contaminated urine sample and patient doesn't have any symptoms of urinary tract infection. She and is negative for cold with 19. Patient main complaint is generalized weakness and fatigue because of which obtained a TSH. Patient the appears to be bit winded but clinically patient doesn't have any pulmonary edema or COPD because of which are not up repeat a chest x-ray today. Patient admits to severe depression patient takes Cymbalta for depression. Patient fatigue and the generalized weakness appears to be secondary to major depression. Patient has significant life events and lost 4 family members in less than a month and it appears to be undergoing bereavement. Patient is tearful. Review of Systems REVIEW OF SYSTEMS: CONSTITUTIONAL: As mentioned in HPI HEENT: No recent visual problems or hearing problems. Denied any sore throat. CARDIOVASCULAR: No chest pain, orthopnea, PND, no palpitations, no syncope. PULMONARY: No shortness of breath, no cough, no hemoptysis. GASTROINTESTINAL: No diarrhea, no nausea, no vomiting, no abdominal pain. NEUROLOGICAL: No headaches, no weakness, no numbness. HEMATOLOGICAL: Denies any bleeding or petechiae. GENITOURINARY: Denies any burning micturition, frequency, or urgency. MUSCULOSKELETAL/RHEUMATOLOGICAL: Denies any joint pain, swelling, or any muscle pain. ENDOCRINE: Denies any polyuria or polydipsia. The rest of the 14-point review of systems is negative. Past Medical History Past Medical History: Chest Pain / Angina, COPD, Diabetes Mellitus, GERD/Reflux, Hyperlipidemia, Hypertension Additional Past Medical History / Comment(s): Recent bilateral ear infections treated with ABX, pt states she was treated in past for blood infection with home IV antibiotics, IDDM type II, neuropathy bilateral legs/feet, bronchitis, slight anemia, pancreatitis, chronic low back pain, murmur, frequent diarrhea. History of Any Multi-Drug Resistant Organisms: None Reported Past Surgical History: Adenoidectomy, Back Surgery, Cholecystectomy, Hernia Repair, Orthopedic Surgery, Tonsillectomy, Tubal Ligation Additional Past Surgical History / Comment(s): EGD, colonoscopy, lap zulema fundoplasty, incisional hernia repair, multiple bilateral foot surgeries for "pressure pelts", low back surgery x2, ORIF R ankle, bilateral cataract removals/lens implants. Past Anesthesia/Blood Transfusion Reactions: Postoperative Nausea & Vomiting (PONV) Smoking Status: Former smoker - Past Family History Mother Family Medical History: Blood Disorder Additional Family Medical History / Comment(s): Mother had chronic anemia Father Family Medical History: Myocardial Infarction ([place]) Additional Family Medical History / Comment(s): Father of a HI at the age of 54 yrs Medications and Allergies Home Medications Medication Instructions Recorded Confirmed Type Atorvastatin [Lipitor] 40 mg PO HS 05/29/15 03/17/20 History metFORMIN HCL 1,000 mg PO AC-BID 05/29/15 03/17/20 History DULoxetine HCL [Cymbalta] 60 mg PO DAILY 04/16/16 03/17/20 History Insulin Detemir [Levemir Flextouch] 54 units SQ HS 03/17/20 03/17/20 History Losartan Potassium [Cozaar] 100 mg PO DAILY 03/17/20 03/17/20 History Allergies Allergy/AdvReac Type Severity Reaction Status Date / Time Iodinated Contrast Media AdvReac Nausea & Verified 03/17/20 11:34 [Iodinated Contrast- Oral Vomiting and IV Dye] morphine AdvReac severe Verified 03/17/20 11:34 vomiting, severe flushing and sweating Physical Exam Vitals: Vital Signs Temp Pulse Pulse Resp BP BP Pulse Ox 03/18/20 07:47 98 F 74 16 140/72 95 03/18/20 01:10 98.2 F 65 16 142/72 97 03/17/20 20:00 98.3 F 73 16 152/83 96 03/17/20 15:10 87 18 142/81 96 03/17/20 14:10 82 18 173/81 96 Intake and Output 03/17/20 03/18/20 03/18/20 22:59 06:59 14:59 Intake Total 1140 Balance 1140 Intake: Intake, IV Titration 150 Amount Sodium Chloride 0.9% 1, 150 000 ml @ 75 mls/hr IV . [id number] TERRY Rx#:[id number] Oral 990 Other: Voiding Method Toilet Toilet # Voids 1 2 PHYSICAL EXAMINATION: GENERAL: The patient is alert and oriented x3, not in any acute distress. Well developed, well nourished. HEENT: Pupils are round and equally reacting to light. EOMI. No scleral icterus. No conjunctival pallor. Normocephalic, atraumatic. No pharyngeal erythema. No thyromegaly. CARDIOVASCULAR: S1 and S2 present. No murmurs, rubs, or gallops. PULMONARY: Chest is clear to auscultation, no wheezing or crackles. ABDOMEN: Soft, nontender, nondistended, normoactive bowel sounds. No palpable organomegaly. MUSCULOSKELETAL: No joint swelling or deformity. EXTREMITIES: No cyanosis, clubbing, or pedal edema. NEUROLOGICAL: Gross neurological examination did not reveal any focal deficits. SKIN: No rashes. Results CBC & Chem 7: 03/18/20 04:04 03/18/20 04:04 Labs: Abnormal Lab Results - Last 24 Hours (Table) 03/17/20 03/17/20 03/17/20 Range/Units 12:51 17:00 19:28 Anion Gap (4.00-12.00) mmol/L BUN/Creatinine Ratio (12.00-20.00) Ratio POC Glucose (mg/dL) 170 H 198 H (75-99) mg/dL Plasma Lactic Acid Marvel 2.2 H* (0.7-2.0) mmol/L 03/18/20 03/18/20 Range/Units 04:04 11:40 Anion Gap 13.90 H (4.00-12.00) mmol/L BUN/Creatinine Ratio 24.44 H (12.00-20.00) Ratio POC Glucose (mg/dL) 195 H (75-99) mg/dL Plasma Lactic Acid Marvel (0.7-2.0) mmol/L Thrombosis Risk Factor Assmnt - Choose All That Apply Any of the Below Risk Factors Present?: Yes Each Factor Represents 1 point: Abnormal pulmonary function (COPD), Obesity (BMI >25) Other Risk Factors: Yes Each Risk Factor Represents 2 Points: Age 61-74 years Other congenital or acquired thrombophilia - If yes, enter type in comment: No Thrombosis Risk Factor Assessment Total Risk Factor Score: 4 Thrombosis Risk Factor Assessment Level: Moderate Risk Assessment and Plan Plan: -Fatigue and generalized weakness: Probably secondary to depression psychiatry will be consulted patient home medication of Cymbalta will be resumed. Patient is not anemic no evidence of infection TSH within normal limits. Patient was bit dehydrated on admission although was receiving IV fluids with improvement of her serum creatinine. Patient had leukocytosis which appeared to be reactive which improved now. Patient probably can be discharged tomorrow after psychiatry evaluation. Patient will not need any antibiotics. -Type 2 diabetes mellitus next and #2 gastroesophageal reflux disease -Hypertension -COPD without any acute exacerbation -DVT prophylaxis early ambulation
[2020-03-18 13:39] VITALS: BMI 35.2
--- NOTE | 2020-03-18 13:39 | P.CN ---
Psychiatric Consult - . Consult date: 03/18/20 Consult:: 03/18/20 13:32 IDENTIFYING DATA: This patient is a 59-year-old female who is currently lives with her kids and grandchildren in a house and is currently unemployed and being supported by her family. REASON FOR REFERRAL: Psychiatry was consulted for depression/stress HISTORY OF PRESENT ILLNESS: The patient presented to the hospital with complaints of generalized body pain and weakness. As per ER report she stated that she's been taking antibiotic and believes that that may have caused her pain and weakness. She was claiming in the ER that nothing was helping to reduce her pain. Patient was admitted medically for dehydration and weakness. Nursing interpretation states that patient has been endorsing several stressors including several recent deaths in the family however has not been endorsing ram icidal thoughts. Patient was seen at the side of the bed sitting in the chair and agreeable to speak to communications writer. She was for the most part fairly cooperative with communications writer and attempting to answer questions appropriately that she could. She states that she has been dealing with several stressors recently including the of 4 people in her family in the past 2-1/2 months. She states that she misses them a lot. She spoke about the stress of taking care of "5 people in the house" and states that "it was a combination of everything" that made her feel stressed enough to come to the hospital. She claims that she is dealing with anxiety. She states that her mood has been depressed mildly however states that she has been on Cymbalta and being treated for depression for 10 years. She states that she sleeps approximately 4-5 hours a night. Claims that her blood sugars and blood pressure were "out of whack". At this time patient denies any suicidal or homical ideations, intent or plan. Patient denies any auditory, visual hallucinations and denies any paranoia or delusions. Patients admits to using no recreational drugs or cigarettes. She states that she wants to live for her family and because she is taoist and believes in God. PAST PSYCHIATRIC HISTORY: Patient has a a history of depression. She is currently on 60 mg of Cymbalta daily for mood. She denies any history of psychiatric hospitalizations. Patient denies any psychiatric outpatient follow- up. Patient denies any history of suicide attempts in the past. PAST MEDICAL HISTORY: Hyperlipidemia, diabetes mellitus, hypertension, COPD, GERD. ALLERGIES: as per EMR. CHEMICAL DEPENDENCY HISTORY: as per HPI. FAMILY PSYCHIATRIC/SUBSTANCE USE HISTORY: denies SOCIAL HISTORY: Patient was born and raised in [facility] and states that she completed up to the 11th grade in school and then dropped out to have her children. 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 She denies any legal history. MENTAL STATUS EXAM: General Appearance: Patient appears to be overweight, stated age is alert, directable, and cooperative. Patient appears to have fair hygiene and grooming wearing hospital gown with fair eye contact. Behavior: Patient is calmly lying in bed without any agitated behavior. Speech: Patient's speech is fluent and nonpressured. Mood/Affect: Patient reports their mood is "depressed", affect is congruent Suicidality/Homicidality: Patient denies having any suicidal or homicidal ideation intent or plan. Perceptions: Patient denies any visual hallucinations and denies any auditory hallucinations Though content/process: There is no evidence of any delusional thought content and thought process is linear and goal-directed. Memory and concentration: AOX3, grossly intact for the purposes of this session. Can spell "WORLD" backwards Judgment and insight: Fair IMPRESSIONS: Major depressive disorder, mild PLAN: -At this time patient DOES NOT meet criteria for inpatient psychiatric admission. -Would recommend the following medication changes/additions: Patient was agreeable to have her Cymbalta increased to 90 mg and this will be switched to nighttime dosing as she claims that it could help her more with sleep. Offered patient melatonin however she declined at this time. -easement worker to provide patient with outpatient mental health/psychiatry resources for appropriate follow up upon discharge. I informed patient that she would benefit greatly from engaging in individual therapy to help with stress m anagement and grief. -Communicated plan to patient's nurse -Psychiatry will sign off at this time -Please contact with any questions.
[2020-03-18 16:50] LABS: Glucose,Whole Blood 173 mg/dL (75-99)
[2020-03-18 19:48] LABS: Glucose,Whole Blood 195 mg/dL (75-99)
[2020-03-18] MEDS: ATORVASTATIN 40 MG TAB PO SCH (20:17)
[2020-03-18] MEDS: INSULIN DETEMIR (LEVEMIR) 100 UNIT/ML SYR SQ SCH (20:18)
[2020-03-18] MEDS ORDERED: DULoxetine HCL 30 MG CAPSULE.DR PO SCH (21:00)
[2020-03-19 07:28] LABS: Glucose,Whole Blood 97 mg/dL (75-99)
[2020-03-19 07:42] VITALS: BP 157/80; PULSE 67; RESP 16; TEMP 98.3
[2020-03-19] MEDS: INSULIN ASPART (NovoLOG) 100 UNIT/ML VIAL SQ SCH (07:42)
[2020-03-19] MEDS ORDERED: LOSARTAN 50 MG TAB PO SCH (09:00)
[2020-03-19 09:30] LABS: African American GFR (CKD) 70.4 (60.0-200.0); Anion Gap 4.9 mmol/L (4.00-12.00); Calcium 8.8 mg/dL (8.7-10.3); Carbon Dioxide 26.1 mmol/L (21.6-31.8); Non-African American GFR(CKD) 60.8 (60.0-200.0); Potassium 4.3 mmol/L (3.5-5.5)
--- NOTE | 2020-03-19 13:43 | P.DS ---
Providers Date of admission: 03/17/20 14:21 Expected date of discharge: 03/19/20 Attending physician: Jeison Miranda Consults: 03/18/20 10:53 Consult Physician Routine Consulting Provider: Sourav Ceballos Consult Reason/Comments: depression/stress Do you want consulting provider notified?: Yes Primary care physician: Jeison Miranda [facility] Course: Final Diagnoses: Fatigue accompanied by generalized weakness secondary to depression and dehydration, in a patient with history of depression. Anxiety Acute renal failure secondary to dehydration, resolved with IV fluid hydration Leukocytosis, suspected to be reactive, resolved Diabetes mellitus type 2 Gastroesophageal reflux disease Hypertension COPD, stable Obesity, BMI 35.2 This is 59-year-old female admitted with fatigue, accompanied by generalized weakness secondary to depression and mild dehydration. Evaluated by psychiatry, recommending Cymbalta be increased. Significant clinical improvement. Provide patient with outpatient mental health/psychiatry resources for appropriate follow up. Cleared by psychiatry for discharge. Patient will be discharged home in a stable condition with guarded prognosis. The impression and plan of care has been dictated as directed. : I performed a history and examination of this patient, discussed the same with the dictator. I agree with the dictator's note ,documented as a scribe. Any additional findings or plans will be noted. Patient Condition at Discharge: Stable Plan - Discharge Summary Discharge Rx Participant: No New Discharge Prescriptions: New DULoxetine HCL [Cymbalta] 90 mg PO HS #90 capsule.dr Lakhani Atorvastatin [Lipitor] 40 mg PO HS metFORMIN HCL 1,000 mg PO AC-BID Losartan Potassium [Cozaar] 100 mg PO DAILY Insulin Detemir [Levemir Flextouch] 54 units SQ HS Discontinued DULoxetine HCL [Cymbalta] 60 mg PO DAILY Discharge Medication List Atorvastatin [Lipitor] 40 mg PO HS 05/29/15 [History] metFORMIN HCL 1,000 mg PO AC-BID 05/29/15 [History] Insulin Detemir [Levemir Flextouch] 54 units SQ HS 03/17/20 [History] Losartan Potassium [Cozaar] 100 mg PO DAILY 03/17/20 [History] DULoxetine HCL [Cymbalta] 90 mg PO HS #90 capsule. 03/19/20 [Rx] Follow up Appointment(s)/Referral(s): [facility], Psychiatry [Other] - 1 Week Jeison Miranda DO [Primary Care Provider] - 03/23/20 11:20 am (will be seen by Chanelle LEMOS) Patient Instructions/Handouts: Dehydration (ED), Weakness (ED) Activity/Diet/Wound Care/Special Instructions: Provide patient with outpatient mental health/psychiatry resources for appropriate follow up upon discharge.
== END 2020-03-19 11:35 ==
LOC: EC 10:20 → 6NMEDSUR 14:21
PROVIDERS: ADMIT Family Medicine; ATTEND Family Medicine
DX: E86.0 Dehydration (principal); N17.9 Acute kidney failure, unspecified; F32.9 Major depressive disorder, single episode, unspecified; E11.42 Type 2 diabetes mellitus with diabetic polyneuropathy; E78.5 Hyperlipidemia, unspecified; I10 Essential (primary) hypertension; J44.9 Chronic obstructive pulmonary disease, unspecified; K21.9 Gastro-esophageal reflux disease without esophagitis; D72.829 Elevated white blood cell count, unspecified; F41.9 Anxiety disorder, unspecified; E66.9 Obesity, unspecified; Z68.35 Body mass index [BMI] 35.0-35.9, adult; R53.81 Other malaise; D64.9 Anemia, unspecified; M54.5 Low back pain; G89.29 Other chronic pain; Z79.899 Other long term (current) drug therapy; Z79.4 Long term (current) use of insulin; Z88.5 Allergy status to narcotic agent; Z91.041 Radiographic dye allergy status; Z87.19 Personal history of other diseases of the digestive system; Z90.49 Acquired absence of other specified parts of digestive tract; Z98.51 Tubal ligation status; Z20.828 Contact with and (suspected) exposure to other viral communicable diseases; Z86.19 Personal history of other infectious and parasitic diseases; Z96.1 Presence of intraocular lens; Z98.42 Cataract extraction status, left eye; Z98.41 Cataract extraction status, right eye; Z87.891 Personal history of nicotine dependence; Z82.49 Family history of ischemic heart disease and other diseases of the circulatory system; Z83.2 Family history of diseases of the blood and blood-forming organs and certain disorders involving the immune mechanism
CPT/HCPCS: 96360; 99285; 36415; 93005; 97530; 97162; 97166; 80053; 80048 ×2; 82550; 82553; 83605; 84443; 84484; 85025 ×2; 86140; 81001; 87040; 87635; 71046; G0378 ×3

== ENCOUNTER 2020-09-28 09:53 | Inpatient (IN) | payer OTHER ==
[2020-09-28] MEDS ORDERED: diphenhydrAMINE 50 MG/ML 1 ML VIAL IVP STA (10:36)
[2020-09-28] MEDS ORDERED: METOCLOPRAMIDE 5 MG/ML 2 ML VIAL IVP STA (10:36)
[2020-09-28] MEDS ORDERED: SODIUM CHLORIDE 0.9% 1,000 ML IV STA (10:36)
--- NOTE | 2020-09-28 10:38 | ED ---
General Adult HPI - General Chief complaint: Nausea/Vomiting/Diarrhea Stated complaint: Nausea/weak Time Seen by Provider: 09/28/20 10:05 Source: patient, EMS Mode of arrival: EMS Limitations: no limitations - History of Present Illness Initial comments: 60-year-old female with a past medical history of diabetes mellitus, GERD, hyperlipidemia, hypertension, COPD resents to the emergency room for a chief complaint of nausea vomiting. Patient reports that she has had nausea vomiting since Monday. Patient states she has also been weak and lightheaded when standing. She had 2 days of diarrhea. She has not had any fevers. She has not any abdominal pain or chest pain.Patient has no other complaints at this time including shortness of breath, chest pain, abdominal pain,headache, or visual changes. - Related Data Home Medications Medication Instructions Recorded Confirmed Atorvastatin [Lipitor] 40 mg PO HS 05/29/15 09/28/20 metFORMIN HCL [Glucophage] 1,000 mg PO AC-BID 05/29/15 09/28/20 Insulin Detemir [Levemir Flextouch] 54 units SQ HS 03/17/20 09/28/20 Losartan Potassium [Cozaar] 100 mg PO DAILY 03/17/20 09/28/20 glipiZIDE [Glucotrol] 10 mg PO AC-BID 09/28/20 09/28/20 Previous Rx's Medication Instructions Recorded DULoxetine HCL [Cymbalta] 90 mg PO HS #90 capsule. 03/19/20 Allergies Allergy/AdvReac Type Severity Reaction Status Date / Time Iodinated Contrast Media AdvReac Nausea & Verified 09/28/20 12:24 [Iodinated Contrast- Oral Vomiting and IV Dye] morphine AdvReac severe Verified 09/28/20 12:24 vomiting, severe flushing and sweating Review of Systems ROS Statement: Those systems with pertinent positive or pertinent negative responses have been documented in the HPI. ROS Other: All systems not noted in ROS Statement are negative. Past Medical History Past Medical History: Chest Pain / Angina, COPD, Diabetes Mellitus, GERD/Reflux, Hyperlipidemia, Hypertension Additional Past Medical History / Comment(s): Recent bilateral ear infections treated with ABX, pt states she was treated in past for blood infection with home IV antibiotics, IDDM type II, neuropathy bilateral legs/feet, bronchitis, slight anemia, pancreatitis, chronic low back pain, murmur, frequent diarrhea. History of Any Multi-Drug Resistant Organisms: None Reported Past Surgical History: Adenoidectomy, Back Surgery, Cholecystectomy, Hernia Repair, Orthopedic Surgery, Tonsillectomy, Tubal Ligation Additional Past Surgical History / Comment(s): EGD, colonoscopy, lap zulema fundoplasty, incisional hernia repair, multiple bilateral foot surgeries for "pressure pelts", low back surgery x2, ORIF R ankle, bilateral cataract removals/lens implants. Past Anesthesia/Blood Transfusion Reactions: Postoperative Nausea & Vomiting (PONV) Past Psychological History: Depression Smoking Status: Former smoker Past Alcohol Use History: None Reported Past Drug Use History: None Reported - Past Family History Mother Family Medical History: Blood Disorder Additional Family Medical History / Comment(s): Mother had chronic anemia Father Family Medical History: Myocardial Infarction (HI) Additional Family Medical History / Comment(s): Father of a HI at the age of 54 yrs General Exam Limitations: no limitations General appearance: alert, in no apparent distress Head exam: Present: atraumatic, normocephalic, normal inspection Eye exam: Present: normal appearance, PERRL, EOMI. Absent: scleral icterus, conjunctival injection, periorbital swelling ENT exam: Present: normal exam Neck exam: Present: normal inspection, full ROM. Absent: tenderness, meningis mus, lymphadenopathy Respiratory exam: Present: normal lung sounds bilaterally. Absent: respiratory distress, wheezes, rales, rhonchi, stridor Cardiovascular Exam: Present: regular rate, normal rhythm, normal heart sounds. Absent: systolic murmur, diastolic murmur, rubs, gallop, clicks GI/Abdominal exam: Present: soft, normal bowel sounds. Absent: distended, tenderness, guarding, rebound, rigid Neurological exam: Present: alert Course Vital Signs 09/28/20 09/28/20 09/28/20 09:55 11:10 12:00 Temperature 97.3 F L 98.5 F Pulse Rate 77 85 85 Pulse Rate [ Pulse Oximetery ] Respiratory 18 20 20 Rate Blood Pressure 169/89 176/89 167/63 Blood Pressure [Left Arm Sitting] Blood Pressure [Left Arm Supine] O2 Sat by Pulse 99 99 99 Oximetry 09/28/20 09/28/20 09/28/20 12:43 13:25 13:26 Temperature Pulse Rate 74 Pulse Rate [ 77 86 Pulse Oximetery ] Respiratory 20 18 18 Rate Blood Pressure 164/63 Blood Pressure 162/65 [Left Arm Sitting] Blood Pressure 158/70 [Left Arm Supine] O2 Sat by Pulse 100 95 100 Oximetry Medical Decision Making - Medical Decision Making Vitals are stable. HPI and physical exam as documented. Laboratory evaluation does show leukocytosis which could be from vomiting. CMP unremarkable. Urinalysis does show 2+ ketones likely related to dehydration. EKG is nonischemic with a right bundle similar to previous EKG. Chest x-ray shows no acute process or pneumonia. I did attempt to ambulate patient and she states that the room started spinning and she got dizzy. States this has been ongoing on and off. Therefore CT brain was ordered. This showed no acute cranial hemorrhage midline shift or herniation. However there are a couple separate areas of hypodensity in the posterior left cerebellum measuring up to 1.7 centimeters. Underlying masses or subacute infarcts or possible with the latter being favored. MRI recommended. Case was discussed with Dr. Miranda, will admit patient. Will have neurology see. - Lab Data Result diagrams: 09/28/20 10:49 09/28/20 10:49 Lab Results 09/28/20 09/28/20 09/28/20 Range/Units 10:49 10:49 10:49 WBC 15.4 H (3.8-10.6) k/uL RBC 4.51 (3.80-5.40) m/uL Hgb 15.2 (11.4-16.0) gm/dL Hct 44.3 (34.0-46.0) % MCV 98.1 (80.0-100.0) fL MCH 33.7 (25.0-35.0) pg MCHC 34.4 (31.0-37.0) g/dL RDW 13.2 (11.5-15.5) % Plt Count 475 H (150-450) k/uL MPV 7.9 Neutrophils % 77 % Lymphocytes % 17 % Monocytes % 4 % Eosinophils % 1 % Basophils % 0 % Neutrophils # 11.9 H (1.3-7.7) k/uL Lymphocytes # 2.6 (1.0-4.8) k/uL Monocytes # 0.7 (0-1.0) k/uL Eosinophils # 0.1 (0-0.7) k/uL Basophils # 0.1 (0-0.2) k/uL Sodium 141 (137-145) mmol/L Potassium 4.4 (3.5-5.1) mmol/L Chloride 106 (98-107) mmol/L Carbon Dioxide 20 L (22-30) mmol/L Anion Gap 15 mmol/L BUN 31 H (7-17) mg/dL Creatinine 1.09 H (0.52-1.04) mg/dL Est GFR (CKD-EPI)AfAm 63 (>60 ml/min/1.73 sqM) Est GFR (CKD-EPI)NonAf 55 (>60 ml/min/1.73 sqM) Glucose 208 H (74-99) mg/dL Plasma Lactic Acid Marvel (0.7-2.0) mmol/L Calcium 9.9 (8.4-10.2) mg/dL Total Bilirubin 0.6 (0.2-1.3) mg/dL AST 24 (14-36) U/L ALT 17 (4-34) U/L Alkaline Phosphatase 110 (38-126) U/L Troponin I (0.000-0.034) ng/mL Total Protein 7.2 (6.3-8.2) g/dL Albumin 4.5 (3.5-5.0) g/dL Amylase 78 (30-110) U/L Lipase 95 (23-300) U/L Urine Color Yellow Urine Appearance Cloudy H (Clear) Urine pH 6.0 (5.0-8.0) Ur Specific [place] 1.027 (1.001-1.035) Urine Protein 2+ H (Negative) Urine Glucose (UA) Negative (Negative) Urine Ketones 2+ H (Negative) Urine Blood Trace H (Negative) Urine Nitrite Negative (Negative) Urine Bilirubin Negative (Negative) Urine Urobilinogen 2.0 (<2.0) mg/dL Ur Leukocyte Esterase Trace H (Negative) Urine RBC 1 (0-5) /hpf Urine WBC 2 (0-5) /hpf Ur Squamous Epith Cells 4 (0-4) /hpf Urine Bacteria Rare H (None) /hpf Hyaline Casts 3 H (0-2) /lpf Urine Mucus Occasional H (None) /hpf 09/28/20 09/28/20 Range/Units 10:49 10:49 WBC (3.8-10.6) k/uL RBC (3.80-5.40) m/uL Hgb (11.4-16.0) gm/dL Hct (34.0-46.0) % MCV (80.0-100.0) fL MCH (25.0-35.0) pg MCHC (31.0-37.0) g/dL RDW (11.5-15.5) % Plt Count (150-450) k/uL MPV Neutrophils % % Lymphocytes % % Monocytes % % Eosinophils % % Basophils % % Neutrophils # (1.3-7.7) k/uL Lymphocytes # (1.0-4.8) k/uL Monocytes # (0-1.0) k/uL Eosinophils # (0-0.7) k/uL Basophils # (0-0.2) k/uL Sodium (137-145) mmol/L Potassium (3.5-5.1) mmol/L Chloride (98-107) mmol/L Carbon Dioxide (22-30) mmol/L Anion Gap mmol/L BUN (7-17) mg/dL Creatinine (0.52-1.04) mg/dL Est GFR (CKD-EPI)AfAm (>60 ml/min/1.73 sqM) Est GFR (CKD-EPI)NonAf (>60 ml/min/1.73 sqM) Glucose (74-99) mg/dL Plasma Lactic Acid Marvel 1.8 (0.7-2.0) mmol/L Calcium (8.4-10.2) mg/dL Total Bilirubin (0.2-1.3) mg/dL AST (14-36) U/L ALT (4-34) U/L Alkaline Phosphatase (38-126) U/L Troponin I <0.012 (0.000-0.034) ng/mL Total Protein (6.3-8.2) g/dL Albumin (3.5-5.0) g/dL Amylase (30-110) U/L Lipase (23-300) U/L Urine Color Urine Appearance (Clear) Urine pH (5.0-8.0) Ur Specific [place] (1.001-1.035) Urine Protein (Negative) Urine Glucose (UA) (Negative) Urine Ketones (Negative) Urine Blood (Negative) Urine Nitrite (Negative) Urine Bilirubin (Negative) Urine Urobilinogen (<2.0) mg/dL Ur Leukocyte Esterase (Negative) Urine RBC (0-5) /hpf Urine WBC (0-5) /hpf Ur Squamous Epith Cells (0-4) /hpf Urine Bacteria (None) /hpf Hyaline Casts (0-2) /lpf Urine Mucus (None) /hpf Disposition Clinical Impression: Weakness, Malaise, Intractable nausea and vomiting, Dizziness Disposition: ADMITTED IP TO THIS HOSP Is patient prescribed a controlled substance at d/c from ED?: No Referrals: Jeison Miranda DO [Primary Care Provider] - 1-2 days Time of Disposition: 14:19
[2020-09-28 11:15] LABS: Basophils # (A) 0.1 k/uL (0-0.2); Basophils % (A) 0 %; Eosinophils # (A) 0.1 k/uL (0-0.7); Eosinophils % (A) 1 %; HCT 44.3 % (34.0-46.0); HGB 15.2 gm/dL (11.4-16.0); Lymphocytes # (A) 2.6 k/uL (1.0-4.8); Lymphocytes % (A) 17 %; MCH 33.7 pg (25.0-35.0); MCHC 34.4 g/dL (31.0-37.0); MCV 98.1 fL (80.0-100.0); Mean Platelet Volume 7.9; Monocytes # (A) 0.7 k/uL (0-1.0); Monocytes % (A) 4 %; Neutrophils # (A) 11.9 k/uL (1.3-7.7); Neutrophils % (A) 77 %; Platelet Count 475 k/uL (150-450); RBC 4.51 m/uL (3.80-5.40); RDW 13.2 % (11.5-15.5); WBC 15.4 k/uL (3.8-10.6)
[2020-09-28 11:33] LABS: Albumin 4.5 g/dL (3.5-5.0); Calcium 9.9 mg/dL (8.4-10.2); Potassium 4.4 mmol/L (3.5-5.1); Total Bilirubin 0.6 mg/dL (0.2-1.3); Total Protein 7.2 g/dL (6.3-8.2)
[2020-09-28 11:42] LABS: Appearance,Urine Cloudy (Clear); Bacteria,Urine Rare /hpf; Bilirubin,Urine Negative (Negative); Blood,Urine Trace (Negative); Color,Urine Yellow; Glucose,Urine (UA) Negative (Negative); Hyaline Casts,Urine 3 /lpf (0-2); Ketones,Urine 2+ (Negative); Leukocyte Esterase,Urine Trace (Negative); Mucus,Urine Occasional /hpf; Nitrite,Urine Negative (Negative); Protein,Urine 2+ (Negative); RBC,Urine 1 /hpf (0-5); Specific Gravity,Urine 1.027 (1.001-1.035); Squamous Epithelial Cell,Urine 4 /hpf (0-4); WBC,Urine 2 /hpf (0-5)
--- NOTE | 2020-09-28 11:45 | XR ---
EXAMINATION TYPE: XR chest 2V DATE OF EXAM: 09/28/2020 COMPARISON: 03/17/2020 INDICATION: Abdomen pain, vomiting TECHNIQUE: Frontal and lateral views of the chest are obtained. FINDINGS: The heart size is normal. The pulmonary vasculature is normal. The lungs are clear. IMPRESSION: 1. No acute pulmonary process.
--- NOTE | 2020-09-28 13:48 | CT ---
EXAMINATION TYPE: CT brain wo con DATE OF EXAM: 09/28/2020 COMPARISON: None HISTORY: 60-year-old female Headache TECHNIQUE: Examination was done in axial plane without intravenous contrast. Coronal and sagittal r econstructions performed. CT DLP: 1094.4 mGycm Automated exposure control for dose reduction was used. FINDINGS: 1.7 and 1.5 cm separate areas of hypodensity within the posterior left cerebellum, axial image 11 and 6. No ventricular effacement or definite midline shift. Evidence for acute intracranial hemorrhage, mass effect, midline shift, or extra-axial fluid collecti on. No hydrocephalus. No effacement of basal subarachnoid cisterns. Rightward nasal septal deviation. Mild mucosal thickening left maxillary sinus and bilateral ethmoid air cells. Small amount of fluid within the left mastoid air cells. Orbits and globes are intact. IMPRESSION: 1. A couple separate areas of hypodensity in the posterior left cerebellum measuring up to 1.7 cm. Un derlying masses or subacute infarcts are possible, the latter being favored. MRI brain without and wi th contrast follow-up recommended. 2. No acute intracranial hemorrhage, midline shift, or herniation.
[2020-09-28] MEDS ORDERED: ONDANSETRON 4 MG/2 ML VIAL IVP PRN (14:20)
[2020-09-28] MEDS ORDERED: NALOXONE 0.4 MG/ML 1 ML VIAL IV PRN (14:20)
[2020-09-28] MEDS ORDERED: ASPIRIN 81 MG PO STA (17:16)
[2020-09-28 17:36] LABS: Glucose,Whole Blood 195 mg/dL (75-99)
[2020-09-28] MEDS: INSULIN ASPART (NovoLOG) 100 UNIT/ML VIAL SQ SCH ×2 (17:38→20:44)
[2020-09-28] MEDS: glipiZIDE 10 MG TAB PO SCH (17:38)
[2020-09-28] MEDS: ATORVASTATIN 40 MG TAB PO SCH (17:38)
[2020-09-28] MEDS: CLOPIDOGREL 75 MG TAB PO SCH (17:38)
--- NOTE | 2020-09-28 19:43 | P.CNNES ---
History of Present Illness Consult date: 09/28/20 Requesting physician: Kwame Eddy Reason for Consult: Dizziness, subacute infarcts versus cerebellar masses. History of Present Illness: Patient is a 60-year-old right-handed female came to the hospital this morning at 9:50 AM by ambulance for persistent nausea vomiting and generalized weakness. As per EMS flow sheet when they arrived, patient was alert and oriented 4 leaning forward with the couch supporting her. Patient has mentioned that she has been feeling sick and weak since the evening of of last week (09/24/2020) with nausea vomiting within the last day and a half. Patient has not been able to eat or take her medications since the vomiting started. Patient felt as if she wanted to vomit during the transport. Denied any chest pain or shortness of breath. Patient's blood pressure at the scene was 159/87, pulse rate 111, respiration 18 saturation 98%. GCS 15. Patient denies any history of head or neck trauma. Denies any slurred speech or facial droop. She feels her balance is off. When she gets up, she starts feeling shaky, couldn't get dressed this morning therefore has to call the ambulance. She does not see chiropractors. Shee has not gone to hairdressers. Patient states she has history of low back surgery 4 years ago and after the surgery she developed stomach infection with severe nausea and vomiting that lasted for a few weeks. Patient felt she was having recurrence of the same stomach infection, therefore did not seek medical attention for so many days. She sometimes sees black dots in the vision. No visual loss. Patient does have mild headache but not too bad. She feels weak all over. No numbness tingling or diplopia. Patient does not take any antiplatelet medication. She has smoked half pack per day for 20 years, quit 3 years ago. She has diabetes for 5-6 years also has hypertension and hyperlipidemia. No previously of strokes TIA. Patient's vital signs on arrival blood pressure 169/89, pulse rate 77 temperature 97.3. Patient underwent computed tomography scan of the head, which revealed a couple separate areas of hypodensity in the posterior left cerebellum measuring up to 1.7 cm. Underlying masses or subacute infarcts are possible, later being favored. MRI brain with and without contrast follow-up recommended. No acute intracranial hemorrhage midline shift or herniation. Chest x-ray showed no acute pulmonary process. Patient's blood test showed WBC 15.4 hemoglobin 15.2, platelets 475. Electrolytes are normal, BUN 31 creatinine 1.09. Hepatic panel normal. Troponin negative, UA shows 2+ protein, 2+ ketones. Nitrite negative. Patient's last hemoglobin A1c 8.1 on 09/17/2019. Review of Systems As above in detail. Denies any double vision or loss of vision. Denies any chest pain or shortness of breath. She feels generalized weak. Complains of nausea vomiting. No diarrhea. No fever or chills. No cough. Past Medical History Past Medical History: Chest Pain / Angina, COPD, Diabetes Mellitus, GERD/Reflux, Hyperlipidemia, Hypertension Additional Past Medical History / Comment(s): Recent bilateral ear infections treated with ABX, pt states she was treated in past for blood infection with home IV antibiotics, IDDM type II, neuropathy bilateral legs/feet, bronchitis, slight anemia, pancreatitis, chronic low back pain, murmur, frequent diarrhea. History of Any Multi-Drug Resistant Organisms: None Reported Past Surgical History: Adenoidectomy, Back Surgery, Cholecystectomy, Hernia Repair, Orthopedic Surgery, Tonsillectomy, Tubal Ligation Additional Past Surgical History / Comment(s): EGD, colonoscopy, lap zulema fundoplasty, incisional hernia repair, multiple bilateral foot surgeries for "pressure pelts", low back surgery x2, ORIF R ankle, bilateral cataract removals/lens implants. Past Anesthesia/Blood Transfusion Reactions: Postoperative Nausea & Vomiting (PONV) Past Psychological History: Depression Smoking Status: Former smoker Past Alcohol Use History: None Reported Past Drug Use History: None Reported - Past Family History Mother Family Medical History: Blood Disorder Additional Family Medical History / Comment(s): Mother had chronic anemia Father Family Medical History: Myocardial Infarction (PR) Additional Family Medical History / Comment(s): Father of a PR at the age of 54 yrs Medications and Allergies Home Medications Medication Instructions Recorded Confirmed Type Atorvastatin [Lipitor] 40 mg PO HS 05/29/15 09/28/20 History metFORMIN HCL [Glucophage] 1,000 mg PO AC-BID 05/29/15 09/28/20 History Insulin Detemir [Levemir Flextouch] 54 units SQ HS 03/17/20 09/28/20 History Losartan Potassium [Cozaar] 100 mg PO DAILY 03/17/20 09/28/20 History DULoxetine HCL [Cymbalta] 90 mg PO HS #90 capsule. 03/19/20 09/28/20 Rx glipiZIDE [Glucotrol] 10 mg PO AC-BID 09/28/20 09/28/20 History Allergies Allergy/AdvReac Type Severity Reaction Status Date / Time Iodinated Contrast Media AdvReac Nausea & Verified 09/28/20 12:24 [Iodinated Contrast- Oral Vomiting and IV Dye] morphine AdvReac severe Verified 09/28/20 12:24 vomiting, severe flushing and sweating Physical Examination - Vital Signs Vital Signs: Vital Signs Temp Pulse Pulse Resp BP BP BP 09/28/20 14:25 98.7 F 92 18 176/89 09/28/20 13:26 86 18 162/65 09/28/20 13:25 77 18 158/70 09/28/20 12:43 74 20 164/63 09/28/20 12:00 98.5 F 85 20 167/63 09/28/20 11:10 85 20 176/89 09/28/20 09:55 97.3 F L 77 18 169/89 Pulse Ox 09/28/20 14:25 98 09/28/20 13:26 100 09/28/20 13:25 95 09/28/20 12:43 100 09/28/20 12:00 99 09/28/20 11:10 99 09/28/20 09:55 99 Intake and Output 09/28/20 09/28/20 09/28/20 06:59 14:59 22:59 Other: Weight 95.254 kg Patient is an late middle aged female, who appears to be in slight distress, has a bucket present in front of her. She is not vomiting at this time. States feeling better with Zofran. Patient is alert awake oriented to time place and person. Speech and language functions are normal. Attention, concentration and fund of knowledge is adequate. No aphasia or dysarthria. On cranial examination, pupils are equal, round and reacting to light, visual davila are full on confrontation, extraocular muscles are intact with no nystagmus. Face is symmetric, tongue protrudes to the midline. Palatal elevation and sensation normal, hearing and shoulder shrug normal, facial sensation normal. On muscle strength testing, there is no pronator drift and the strength is nor mal in arms and legs distally and proximally. Deep tendon reflexes are 2 in the upper limbs, 1 in the lower limbs and plantars downgoing bilaterally. Sensory to touch is equal with no neglect on double simultaneous stimulation. Cerebellar function showed no ataxia for [id number]-[id number] testing, although patient is shaky for gsxfsn-rr-wcnz bilaterally left more than right. No dysdiadochokinesia. Tone and bulk of muscles normal. No definitive ataxia for womk-ip-fret testing. Gait not checked. On general examination, there is no carotid bruit or murmur, S1-S2 audible. Abdomen is soft nontender. Chest is clear. Peripheral pulses are present. No edema. Results - Laboratory Findings CBC and BMP: 09/28/20 10:49 09/28/20 10:49 Abnormal Lab Findings: Abnormal Labs 09/28/20 09/28/20 09/28/20 10:49 10:49 10:49 WBC 15.4 H Plt Count 475 H Neutrophils # 11.9 H Carbon Dioxide 20 L BUN 31 H Creatinine 1.09 H Glucose 208 H Urine Appearance Cloudy H Urine Protein 2+ H Urine Ketones 2+ H Urine Blood Trace H Ur Leukocyte Esterase Trace H Urine Bacteria Rare H Hyaline Casts 3 H Urine Mucus Occasional H Assessment and Plan Assessment: * Acute ischemic stroke, involving the left cerebellum. Exact cause is uncertain. Possible atherothrombosis with artery to distal embolism, much less likely vertebral dissection. * Hypertension * Hyperlipidemia * Diabetes * Obesity * X tobacco use * Iodinated contrast media ALLERGY. Plan: * Patient will undergo MRI of the brain, MRA of the head to evaluate for CVA, rule out mass, or other structural abnormality. Patient has ALLERGY to iodinated dye, gets very serious reactions. We will hold off on MRI with contrast and MRA of the carotids at this time. * Carotid Doppler * 2-D echo with bubble study * Fasting a.m. lipid panel and hemoglobin A1c * Patient to be started on dual antiplatelet medication with aspirin 81 mg and Plavix 75 mg for 21 days, then maintain on aspirin 81 mg daily indefinitely. Patient was not on any antiplatelet medication at home prior to arrival. * Telemetry monitoring, rule out arrhythmia. * Continue neuro checks. * Please report any changes in neuro status. * Continues Zofran as needed for nausea. * We will follow.
[2020-09-28 20:40] LABS: Glucose,Whole Blood 214 mg/dL (75-99)
[2020-09-28] MEDS: DULoxetine HCL 30 MG CAPSULE.DR PO SCH (20:45)
--- NOTE | 2020-09-28 23:40 | US ---
EXAMINATION TYPE: US carotid duplex BILAT DATE OF EXAM: 09/28/2020 COMPARISON: CT brain. CLINICAL HISTORY: CVA. CVA per order. Smoker. EXAM MEASUREMENTS: RIGHT: Peak Systolic Velocity (PSV) cm/sec ----- Right CCA: 88.4 ----- Right ICA: 166.1 ----- Right ECA: 187.6 ICA/CCA ratio: 1.9 RIGHT: End Diastole cm/sec ----- Right CCA: 19.8 ----- Right ICA: 32.3 ----- Right ECA: 20.3 LEFT: Peak Systolic Velocity (PSV) cm/sec ----- Left CCA: 83.2 ----- Left ICA: 90.1 ----- Left ECA: 170.8 ICA/CCA ratio: 1.1 LEFT: End Diastole cm/sec ----- Left CCA: 18.5 ----- Left ICA: 24.1 ----- Left ECA: 26.9 VERTEBRALS (direction of flow): Right Vertebral: Antegrade Left Vertebral: Antegrade Rhythm: Normal Intimal thickening seen bilaterally. Right distal ICA dives quickly posterior. Elevated velocity with in right ICA, right ECA, and left ECA. IMPRESSION: There is antegrade flow in the vertebral arteries. There is elevated velocity in the right internal c arotid arteries suggestive of 50-70% stenosis. There is estimated 25% stenosis in the left internal c arotid artery. NASCET criteria was used in interpretation of this exam? Criteria for Assigning % of Stenosis / Diameter reduction (Estimation based on the indirect measurements of the internal carotid artery velocities (ICA PSV). 1. Normal (no stenosis)=ICA PSV < 125 cm/s: ratio < 2.0: ICA EDV<40 cm/s. 2. Less than 50% stenosis=ICA PSV < 125 cm/s: ratio < 2.0: ICA EDV<40 cm/s. 3. 50 to 69% stenosis=ICA PSV of 125 to 230 cm/s: ration 2.0 ? 4.0: ICA EDV 40-100 cm/s. 4. Greater than 70% stenosis to near occlusion= ICA PSV > 230 cm/s: ratio > 4.0: ICA EDV > 100 cm/s. 5. Near occlusion= ICA PSV velocities may be low or undetectable: variable ratio and ICA EDV. 6. Total occlusion=unable to detect flow.
[2020-09-29 03:25] LABS: Hemoglobin A1C 7.6 % (4.0-6.0)
[2020-09-29 06:03] LABS: Glucose,Whole Blood 181 mg/dL (75-99)
[2020-09-29] MEDS: INSULIN ASPART (NovoLOG) 100 UNIT/ML VIAL SQ SCH ×4 (06:23→20:35)
[2020-09-29] MEDS: glipiZIDE 10 MG TAB PO SCH ×2 (06:23→17:10)
[2020-09-29] MEDS: ASPIRIN 81 MG PO SCH (07:56)
[2020-09-29] MEDS: LOSARTAN 50 MG TAB PO SCH (07:56)
[2020-09-29] MEDS: CLOPIDOGREL 75 MG TAB PO SCH (07:56)
--- NOTE | 2020-09-29 09:15 | MR ---
EXAMINATION TYPE: MR angio head wo con DATE OF EXAM: 09/29/2020 COMPARISON: None HISTORY: Acute stroke, Weakness CONTRAST: None TECHNIQUE: Multiplanar multiecho imaging on a 3.0 Lindsay magnet is performed through the [place]. 3-D mxyi-ni-ciiltf imaging is performed. Source images are reviewed on the computer in the axi al plane. Reconstructed images rotating on the computer are reviewed. FINDINGS: The internal carotid arteries bifurcate normally into A1 and M1 segments. The A2 segments are normal. Middle cerebral artery branches are normal. Anterior communicating artery is patent. The right posterior communicating artery is small but patent. The left posterior communicating artery is small but patent. Vertebrobasilar arteries within the bggwm-ys-vegn are normal. Posterior cerebral vasculature is norm al. No suspicious aneurysm or aneurysmal dilatation is evident. No obstructions are identified. No significant flow-limiting stenosis is evident. IMPRESSIONS: 1. NORMAL MRA [place].
--- NOTE | 2020-09-29 09:20 | MR ---
MR brain without contrast HISTORY: Acute stroke, weakness, headache Multiplanar multisequence imaging through the brain correlated to CT brain 09/28/2020 Fast brain protocol was utilized due to patient's claustrophobia Multiple foci of restricted diffusion are present within the left cerebellar hemisphere, there is silver e corresponding intermediate signal on T1, increased signal on T2-weighted sequences and inversion re covery sequences, findings corresponding to CT finding. Hyperintensity also present and inversion rec overy T2-weighted sequences within the johnathan. Inflammatory changes are present in the bilateral mastoi d air cells. Scattered hyperintensities are present on inversion recovery and T2-weighted sequences w ithin the periventricular, pericallosal and subcortical white matter, approximately 5-10 lesions are present. Cortical atrophy is noted. No evident hemorrhage or hydrocephalus. There are normal vascular flow voids. The orbits show symmetric appearance. Some mild inflammatory change present within the m axillary sinuses, ethmoid air cells. IMPRESSION: Findings compatible subacute infarcts left cerebellar hemisphere. Sinus disease, correlat e for mastoiditis. Age-related changes of atrophy and probable chronic small vessel ischemia.
--- NOTE | 2020-09-29 09:57 | ECHOF ---
Referral Reason:CVA MEASUREMENTS -------- HEIGHT: 162.6 cm WEIGHT: 87.1 kg BP: 189/75 RVIDd: 2.0 cm (< 3.3) IVSd: 1.4 cm (0.6 - 1.1) LVIDd: 2.9 cm (3.9 - 5.3) LVPWd: 1.7 cm (0.6 - 1.1) IVSs: 2.0 cm LVIDs: 1.3 cm LVPWs: 2.1 cm LAESV Index (A-L): 16.54 ml/m Ao Diam: 3.3 cm (2.0 - 3.7) AV Cusp: 1.6 cm (1.5 - 2.6) LA Diam: 2.3 cm (2.7 - 3.8) MV EXCURSION: 11.106 mm (> 18.000) MV EF SLOPE: 62 mm/s (70 - 150) EPSS: 0.8 cm MV E Tenzin: 0.66 m/s MV DecT: 207 ms MV A Tenzin: 0.85 m/s MV E/A Ratio: 0.77 AR PHT: 1225 ms RAP: 5.00 mmHg RVSP: 17.27 mmHg FINDINGS -------- This was a technically good study. The left ventricular size is normal. There is severe concentric left ventricular hypertrophy. Ove rall left ventricular systolic function is normal with, an EF between 55 - 60 %. The diastolic fill ing pattern is normal for the age of the patient 11.05. The right ventricle is normal in size. The left atrial size is normal. Normal LA size by volume 22+/-6 ml/m2. The right atrial size is normal. Contrast study was performed with 2 iv injections of 8 ccs of agitated normal saline, at rest, and wi th cough. Interatrial and interventricular septum intact. The aortic valve is trileaflet and appears structurally normal. There is mild aortic regurgitation. The mitral valve is normal. There is trace mitral regurgitation. The tricuspid valve appears structurally normal. Trace tricuspid regurgitation present. Right clark tricular systolic pressure is normal at < 35 mmHg. There is no pulmonic regurgitation present. The aortic root size is normal. Normal inferior vena cava with normal inspiratory collapse consistent with estimated right atrial pre ssure of 5 mmHg. There is no pericardial effusion. CONCLUSIONS -------- 1. The left ventricular size is normal. 2. There is severe concentric left ventricular hypertrophy. 3. Overall left ventricular systolic function is normal with, an EF between 55 - 60 %. 4. The diastolic filling pattern is normal for the age of the patient 11.05 5. Contrast study was performed with 2 iv injections of 8 ccs of agitated normal saline, at rest, and with cough. 6. Interatrial and interventricular septum intact. 7. There is mild aortic regurgitation. 8. There is trace mitral regurgitation. 9. Trace tricuspid regurgitation present. 10. There is no pericardial effusion. [employer]ASS TECHNICIAN: Gretchen Shankar RDCS
[2020-09-29 11:44] LABS: Glucose,Whole Blood 142 mg/dL (75-99)
[2020-09-29 12:37] LABS: Chol/HDL Ratio 4.29; LDL Cholesterol,Calculated 65.6 mg/dL (0.0-131.0); VLDL Calculation 26.4 mg/dL (5.00-40.00)
--- NOTE | 2020-09-29 16:20 | P.HPIM ---
History of Present Illness H&P Date: 09/29/20 This is a 60-year-old female with past medical history of angina, COPD, diabetes mellitus, hypertension, prior nicotine dependence, obesity by into the hospital via EMS related to ongoing nausea, vomiting and diarrhea worsening since accompanied by increasing fatigue weakness, exertional li ghtheadedness/dizziness and diaphoresis. Denies abdominal pain. Reports she has been unable to take her medications secondary to significant nausea and vomiting. Denies fevers or chills. No congestion. Denies headache or focal deficits. Denies facial droop.denied difficulty speaking .GCS score on admission 15. Denies any chest pain, palpitations or shortness of breath. No further diarrhea since admission. Brain CT reported a couple separate areas of hypodensity in the posterior left cerebellum measuring up to 1.7 cm. Underlying masses or subacute infarcts are possible, later being favored, No acute intracranial hemorrhage midline shift or herniation. MRI pending. Chest x-ray reported no acute pulmonary process. Carotid Doppler reported elevated velocity in the right internal carotid artery suggestive of 50-70% stenosis, estimated 25% stenosis in the left internal carotid artery WBC 15.4 hemoglobin 15.2, platelets 475. Electrolytes WNL, BUN 31 creatinine 1.09. Hemoglobin A1c 7.6. Troponin negative, UA shows 2+ protein, 2+ ketones. Review of Systems ROS Statement: Those systems with pertinent positive or pertinent negative responses have been documented in the HPI. ROS Other: All systems not noted in ROS Statement are negative. Past Medical History Past Medical History: Chest Pain / Angina, COPD, Diabetes Mellitus, GERD/Reflux, Hyperlipidemia, Hypertension Additional Past Medical History / Comment(s): Recent bilateral ear infections treated with ABX, pt states she was treated in past for blood infection with home IV antibiotics, IDDM type II, neuropathy bilateral legs/feet, bronchitis, slight anemia, pancreatitis, chronic low back pain, murmur, frequent diarrhea. History of Any Multi-Drug Resistant Organisms: None Reported Past Surgical History: Adenoidectomy, Back Surgery, Cholecystectomy, Hernia Repair, Orthopedic Surgery, Tonsillectomy, Tubal Ligation Additional Past Surgical History / Comment(s): EGD, colonoscopy, lap zulema fund oplasty, incisional hernia repair, multiple bilateral foot surgeries for "pressure pelts", low back surgery x2, ORIF R ankle, bilateral cataract removals/lens implants. Past Anesthesia/Blood Transfusion Reactions: Postoperative Nausea & Vomiting (PONV) Past Psychological History: Depression Smoking Status: Former smoker Past Alcohol Use History: None Reported Past Drug Use History: None Reported - Past Family History Mother Family Medical History: Blood Disorder Additional Family Medical History / Comment(s): Mother had chronic anemia Father Family Medical History: Myocardial Infarction ([place]) Additional Family Medical History / Comment(s): Father of a PR at the age of 54 yrs Medications and Allergies Home Medications Medication Instructions Recorded Confirmed Type Atorvastatin [Lipitor] 40 mg PO HS 05/29/15 09/28/20 History metFORMIN HCL [Glucophage] 1,000 mg PO AC-BID 05/29/15 09/28/20 History Insulin Detemir [Levemir Flextouch] 54 units SQ HS 03/17/20 09/28/20 History Losartan Potassium [Cozaar] 100 mg PO DAILY 03/17/20 09/28/20 History DULoxetine HCL [Cymbalta] 90 mg PO HS #90 capsule. 03/19/20 09/28/20 Rx glipiZIDE [Glucotrol] 10 mg PO AC-BID 09/28/20 09/28/20 History Allergies Allergy/AdvReac Type Severity Reaction Status Date / Time Iodinated Contrast Media AdvReac Nausea & Verified 09/28/20 12:24 [Iodinated Contrast- Oral Vomiting and IV Dye] morphine AdvReac severe Verified 09/28/20 12:24 vomiting, severe flushing and sweating Physical Exam Vitals: Vital Signs Temp Pulse Pulse Resp BP BP BP 09/29/20 08:00 98.0 F 93 18 09/29/20 04:00 97.7 F 88 18 09/29/20 00:00 85 18 09/28/20 19:56 99.1 F 88 18 09/28/20 18:11 97.7 F 87 20 09/28/20 17:40 98.2 F 77 18 158/62 09/28/20 16:04 84 20 165/86 09/28/20 14:25 98.7 F 92 18 176/89 09/28/20 13:26 86 18 162/65 09/28/20 13:25 77 18 158/70 09/28/20 12:43 74 20 164/63 09/28/20 12:00 98.5 F 85 20 167/63 09/28/20 11:10 85 20 176/89 BP Pulse Ox 09/29/20 08:00 150/83 96 09/29/20 04:00 189/75 96 09/29/20 00:00 188/84 95 09/28/20 19:56 149/83 97 09/28/20 18:11 165/81 94 L 09/28/20 17:40 97 09/28/20 16:04 96 09/28/20 14:25 98 09/28/20 13:26 100 09/28/20 13:25 95 09/28/20 12:43 100 09/28/20 12:00 99 09/28/20 11:10 99 Intake and Output 09/28/20 09/29/20 09/29/20 22:59 06:59 14:59 Intake Total 240 Balance 240 Intake: Oral 240 Other: # Voids 1 1 Weight 95.254 kg 87.5 kg PHYSICAL EXAMINATION: GENERAL: The patient is alert and oriented x3, no acute distress. Well developed, well nourished. HEENT: Pupils are round and equally reacting to light. EOMI. No scleral icterus. No conjunctival pallor. Normocephalic, atraumatic. No pharyngeal erythema. No thyromegaly. CARDIOVASCULAR: S1 and S2 present. No murmurs, rubs, or gallops. PULMONARY: Chest is clear to auscultation, no wheezing or crackles. ABDOMEN: Soft, nontender, nondistended, normoactive bowel sounds. No palpable organomegaly. EXTREMITIES: No cyanosis, clubbing, or pedal edema. NEUROLOGICAL: Gross neurological examination did not reveal any focal deficits. Strength and sensation grossly intact SKIN: No rashes. Results CBC & Chem 7: 09/28/20 10:49 09/28/20 10:49 Labs: Abnormal Lab Results - Last 24 Hours (Table) 09/28/20 09/28/20 09/28/20 Range/Units 10:49 10:49 10:49 WBC 15.4 H (3.8-10.6) k/uL Plt Count 475 H (150-450) k/uL Neutrophils # 11.9 H (1.3-7.7) k/uL Carbon Dioxide 20 L (22-30) mmol/L BUN 31 H (7-17) mg/dL Creatinine 1.09 H (0.52-1.04) mg/dL Glucose 208 H (74-99) mg/dL POC Glucose (mg/dL) (75-99) mg/dL Hemoglobin A1c (4.0-6.0) % Urine Appearance Cloudy H (Clear) Urine Protein 2+ H (Negative) Urine Ketones 2+ H (Negative) Urine Blood Trace H (Negative) Ur Leukocyte Esterase Trace H (Negative) Urine Bacteria Rare H (None) /hpf Hyaline Casts 3 H (0-2) /lpf Urine Mucus Occasional H (None) /hpf 09/28/20 09/28/20 09/28/20 Range/Units 10:49 17:25 20:39 WBC (3.8-10.6) k/uL Plt Count (150-450) k/uL Neutrophils # (1.3-7.7) k/uL Carbon Dioxide (22-30) mmol/L BUN (7-17) mg/dL Creatinine (0.52-1.04) mg/dL Glucose (74-99) mg/dL POC Glucose (mg/dL) 195 H 214 H (75-99) mg/dL Hemoglobin A1c 7.6 H (4.0-6.0) % Urine Appearance (Clear) Urine Protein (Negative) Urine Ketones (Negative) Urine Blood (Negative) Ur Leukocyte Esterase (Negative) Urine Bacteria (None) /hpf Hyaline Casts (0-2) /lpf Urine Mucus (None) /hpf 09/29/20 Range/Units 06:02 WBC (3.8-10.6) k/uL Plt Count (150-450) k/uL Neutrophils # (1.3-7.7) k/uL Carbon Dioxide (22-30) mmol/L BUN (7-17) mg/dL Creatinine (0.52-1.04) mg/dL Glucose (74-99) mg/dL POC Glucose (mg/dL) 181 H (75-99) mg/dL Hemoglobin A1c (4.0-6.0) % Urine Appearance (Clear) Urine Protein (Negative) Urine Ketones (Negative) Urine Blood (Negative) Ur Leukocyte Esterase (Negative) Urine Bacteria (None) /hpf Hyaline Casts (0-2) /lpf Urine Mucus (None) /hpf Thrombosis Risk Factor Assmnt - Choose All That Apply Each Risk Factor Represents 2 Points: Age 61-74 years Thrombosis Risk Factor Assessment Total Risk Factor Score: 2 Thrombosis Risk Factor Assessment Level: Low Risk Assessment and Plan Assessment: 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 Continue on dual antiplatelet tx. Neurology workup in progress- scheduled for MRI, MRA 2-D echo. Vascular surgery consulted regarding carotid artery stenosis.Follow closely with neurology. Prognosis guarded given multiple complex medical issues. The impression and plan of care has been dictated as directed. : I performed a history and examination of this patient, discussed the same with the dictator. I agree with the dictator's note ,documented as a scribe. Any ad ditional findings or plans will be noted.
[2020-09-29 16:34] LABS: Glucose,Whole Blood 155 mg/dL (75-99)
--- NOTE | 2020-09-29 18:17 | P.GSCN ---
History of Present Illness Consult date: 09/29/20 History of present illness: Patient is a 60-year-old right-handed female admitted to the hospital for persistent nausea vomiting and generalized weakness. Patient states feeling weak and sick since last week. States the nausea vomiting has been ongoing over the last couple of days. Currently she is feeling better and denies any slurred speech or unilateral weakness. She feels her balance is off when she gets up and feels like she is going to fall over. Per family she has fallen a couple times over the last couple of months. Patient states she has history of low back surgery 4 years ago and since that time she has pain with ambulation after 50 or so feet. Usually the discomfort stems from her back and extends down the posterior aspect of her leg. She sometimes sees black dots in the vision but denies any visual loss. Patient does have mild headaches and usually has a lump which she calls a stress lump. Review of Systems All systems: negative (for what is mentioned in the HPI or PMH) Past Medical History Past Medical History: Chest Pain / Angina, COPD, Diabetes Mellitus, GERD/Reflux, Hyperlipidemia, Hypertension Additional Past Medical History / Comment(s): Recent bilateral ear infections treated with ABX, pt states she was treated in past for blood infection with home IV antibiotics, IDDM type II, neuropathy bilateral legs/feet, bronchitis, slight anemia, pancreatitis, chronic low back pain, murmur, frequent diarrhea. History of Any Multi-Drug Resistant Organisms: None Reported Past Surgical History: Adenoidectomy, Back Surgery, Cholecystectomy, Hernia Repair, Orthopedic Surgery, Tonsillectomy, Tubal Ligation Additional Past Surgical History / Comment(s): EGD, colonoscopy, lap zulema fundoplasty, incisional hernia repair, multiple bilateral foot surgeries for "pressure pelts", low back surgery x2, ORIF R ankle, bilateral cataract removals/lens implants. Past Anesthesia/Blood Transfusion Reactions: Postoperative Nausea & Vomiting (PONV) Past Psychological History: Depression Smoking Status: Former smoker Past Alcohol Use History: None Reported Past Drug Use History: None Reported - Past Family History Mother Family Medical History: Blood Disorder Additional Family Medical History / Comment(s): Mother had chronic anemia Father Family Medical History: Myocardial Infarction ([place]) Additional Family Medical History / Comment(s): Father of a [place] at the age of 54 yrs Medications and Allergies Home Medications Medication Instructions Recorded Confirmed Type Atorvastatin [Lipitor] 40 mg PO HS 05/29/15 09/28/20 History metFORMIN HCL [Glucophage] 1,000 mg PO AC-BID 05/29/15 09/28/20 History Insulin Detemir [Levemir Flextouch] 54 units SQ HS 03/17/20 09/28/20 History Losartan Potassium [Cozaar] 100 mg PO DAILY 03/17/20 09/28/20 History DULoxetine HCL [Cymbalta] 90 mg PO HS #90 capsule. 03/19/20 09/28/20 Rx glipiZIDE [Glucotrol] 10 mg PO AC-BID 09/28/20 09/28/20 History Allergies Allergy/AdvReac Type Severity Reaction Status Date / Time Iodinated Contrast Media AdvReac Nausea & Verified 09/28/20 12:24 [Iodinated Contrast- Oral Vomiting and IV Dye] morphine AdvReac severe Verified 09/28/20 12:24 vomiting, severe flushing and sweating Surgical - Exam Vital Signs Temp Pulse Resp BP Pulse Ox 97.3 F L 77 18 169/89 99 09/28/20 09:55 09/28/20 09:55 09/28/20 09:55 09/28/20 09:55 09/28/20 09:55 palpable dp,pt and popliteal pulses bilaterally. good capillary refill. no wounds - General well developed, well nourished, no distress - Eyes PERRL, normal ocular movement - ENT normal pinna, normal nares - Neck no masses, no lymphadectomy - Respiratory normal expansion, normal respiratory effort - Cardiovascular Rhythm: regular - Abdomen Abdomen: soft, non tender - Neurologic normal sensation - Psychiatric oriented to time, oriented to person, oriented to place, speech is normal Results - Labs 09/28/20 10:49 09/28/20 10:49 Abnormal Lab Results - Last 24 Hours (Table) 09/28/20 09/28/20 09/28/20 Range/Units 10:49 10:49 20:39 POC Glucose (mg/dL) 214 H (75-99) mg/dL Hemoglobin A1c 7.6 H (4.0-6.0) % HDL Cholesterol 28.0 L (40.0-60.0) mg/dL 09/29/20 09/29/20 09/29/20 Range/Units 06:02 11:43 16:33 POC Glucose (mg/dL) 181 H 142 H 155 H (75-99) mg/dL Hemoglobin A1c (4.0-6.0) % HDL Cholesterol (40.0-60.0) mg/dL Diabetes panel 09/28/20 09/28/20 Range/Units 10:49 10:49 Hemoglobin A1c 7.6 H (4.0-6.0) % Triglycerides 132.0 (0.0-149.0) mg/dL HDL Cholesterol 28.0 L (40.0-60.0) mg/dL Assessment and Plan Assessment: 1. Acute infarct within cerebellum 2. Right Internal Carotid stenosis 50-69% 3. Type II Diabetes 4. GERD 5. HTN 6. Hyperlipidemia Plan: Reviewed carotid doppler with patient and family. No surgical intervention at t his time. Recommend antiplatelet and statin. Discussed with neurology and carotid disease is unlikely causing patients symptoms but due to the degree of stenosis seen she will need follow up as outp atient. Thank you for the consultation and if there are any questions please contact us.
[2020-09-29 20:29] LABS: Glucose,Whole Blood 221 mg/dL (75-99)
[2020-09-29] MEDS: DULoxetine HCL 30 MG CAPSULE.DR PO SCH (20:35)
[2020-09-29] MEDS: ATORVASTATIN 40 MG TAB PO SCH (20:35)
[2020-09-30 06:33] LABS: Glucose,Whole Blood 188 mg/dL (75-99)
[2020-09-30] MEDS: glipiZIDE 10 MG TAB PO SCH (06:44)
[2020-09-30] MEDS: INSULIN ASPART (NovoLOG) 100 UNIT/ML VIAL SQ SCH ×2 (06:44→11:45)
[2020-09-30 08:22] LABS: Basophils # (A) 0.2 k/uL (0-0.2); Basophils % (A) 1 %; Eosinophils # (A) 0.6 k/uL (0-0.7); Eosinophils % (A) 4 %; HCT 46.5 % (34.0-46.0); HGB 15.6 gm/dL (11.4-16.0); Lymphocytes # (A) 2.7 k/uL (1.0-4.8); Lymphocytes % (A) 20 %; MCH 33.3 pg (25.0-35.0); MCHC 33.4 g/dL (31.0-37.0); MCV 99.5 fL (80.0-100.0); Monocytes # (A) 0.6 k/uL (0-1.0); Monocytes % (A) 5 %; Neutrophils # (A) 9.3 k/uL (1.3-7.7); Neutrophils % (A) 69 %; Platelet Count 379 k/uL (150-450); RBC 4.67 m/uL (3.80-5.40); RDW 12.4 % (11.5-15.5); WBC 13.5 k/uL (3.8-10.6)
[2020-09-30 08:33] LABS: Calcium 9.5 mg/dL (8.4-10.2); Potassium 4.1 mmol/L (3.5-5.1)
[2020-09-30] MEDS: ASPIRIN 81 MG PO SCH (08:50)
[2020-09-30] MEDS: CLOPIDOGREL 75 MG TAB PO SCH (08:50)
[2020-09-30] MEDS: LOSARTAN 50 MG TAB PO SCH (08:50)
[2020-09-30 09:03] VITALS: RESP 18
--- NOTE | 2020-09-30 10:11 | P.PN ---
Subjective Progress Note Date: 09/29/20 Patient was seen for a follow-up. Patient is a left-handed female. Patient states, she is feeling much better. Offers no new complaints. Her nausea vomiting has improved. Her dizziness has also improved. Balance also better. Telemetry monitoring showing sinus rhythm with some PVCs. No atrial fibri llation. Objective - Vital Signs Vital signs: Vital Signs Temp 98.2 F 09/29/20 16:00 Pulse 69 09/29/20 16:00 Resp 18 09/29/20 16:00 BP 176/77 09/29/20 16:00 Pulse Ox 95 09/29/20 16:00 Intake & Output 09/28/20 09/29/20 09/29/20 18:59 06:59 18:59 Intake Total 480 Balance 480 Weight 95.254 kg 87.5 kg Intake: Oral 480 Other: # Voids 1 1 - Exam Patient's mental status, speech and language functions are normal. Cranial nerves revealed slightly unequal palpebral fissure, with left-sided larger, which patient states is her baseline. Patient was born with "lazy eye". Muscle strength is normal. Cranial nerves otherwise normal. Patient still has some ataxia/tremulousness for peqjxi-ah-ldey testing on the left side. - Labs CBC & Chem 7: 09/30/20 07:36 09/30/20 07:36 Labs: Abnormal Lab Results - Last 24 Hours (Table) 09/28/20 09/28/20 09/28/20 Range/Units 10:49 10:49 20:39 POC Glucose (mg/dL) 214 H (75-99) mg/dL Hemoglobin A1c 7.6 H (4.0-6.0) % HDL Cholesterol 28.0 L (40.0-60.0) mg/dL 09/29/20 09/29/20 09/29/20 Range/Units 06:02 11:43 16:33 POC Glucose (mg/dL) 181 H 142 H 155 H (75-99) mg/dL Hemoglobin A1c (4.0-6.0) % HDL Cholesterol (40.0-60.0) mg/dL Assessment and Plan Assessment: * Acute ischemic stroke, involving the left cerebellum. Exact cause is uncertain. Possible atherothrombosis with artery to distal embolism, much less likely vertebral dissection. Rule out cardiac cause. * Hypertension * Hyperlipidemia * Diabetes * Obesity * X tobacco use * Iodinated contrast media ALLERGY. Plan: * MRI of the brain showed findings compatible with subacute infarcts left cerebellar hemisphere. Sinus disease, correlate for mastoiditis. Age related changes of atrophy and probable chronic small vessel ischemia. * MRA of [place] is normal. No aneurysm. * Carotid Doppler revealed antegrade flow in the vertebral arteries. There is elevated velocity in the right ICA suggestive of 50-70% stenosis. There is estimated 25% stenosis in the left ICA. * 2-D echo with bubble study revealed normal left-ventricular size. Severe concentric LVH. EF is between 55-60%. Agitated saline documented no interatrial or interventricular septal defect. * Fasting a.m. lipid panel with cholesterol 120, LDL 65.6, HDL 28, triglycerides 132. Continue Lipitor 40 mg. Lipids are well controlled. * Hemoglobin A1c 7.6. Tried to optimize diabetes to A1c <7.0. * Continue dual antiplatelet medication with aspirin 81 mg and Plavix 75 mg for 21 days, then maintain on aspirin 81 mg daily indefinitely. Patient was not on any antiplatelet medication at home prior to arrival. * Telemetry monitoring, showed sinus rhythm, no A. fib. * Vascular surgery seen the patient, recommending medical management. * Optimize control of blood pressure at this time. * PT OT, especially for left upper extremity.
[2020-09-30 11:09] LABS: Glucose,Whole Blood 202 mg/dL (75-99)
[2020-09-30 11:17] VITALS: BP 144/76; PULSE 68; TEMP 98
--- NOTE | 2020-09-30 12:39 | P.PN ---
Subjective Progress Note Date: 09/30/20 Principal diagnosis: Carotid stenosis Patient is seen and examined sitting up at the bedside. No acute changes through the night. She denies any focal deficits. Plan is for discharge home today. Objective - Vital Signs Vital signs: Vital Signs Temp 98.5 F 09/30/20 08:00 Pulse 92 09/30/20 08:00 Resp 18 09/30/20 08:00 BP 132/85 09/30/20 08:00 Pulse Ox 96 09/30/20 08:00 Intake & Output 09/29/20 09/30/20 09/30/20 18:59 06:59 18:59 Intake Total 480 550 400 Balance 480 550 400 Weight 87.5 kg Intake: Oral 480 550 400 Other: # Voids 1 2 - Exam General appearance: The patient is alert, oriented, in no acute distress. HET: Head is normocephalic and atraumatic. Pupils are equal and reactive. Oropharynx is clear without lesions. Neck: Supple without lymphadenopathy. Trachea midline. Heart: S1 S2. Regular rate and rhythm. Lungs: Clear to auscultation. Extremities: Normal skin color and turgor. No pedal edema. Neurological: No focal deficits. Strength and sensation are grossly intact. - Labs CBC & Chem 7: 09/30/20 07:36 09/30/20 07:36 Labs: Abnormal Lab Results - Last 24 Hours (Table) 09/28/20 09/29/20 09/29/20 Range/Units 10:49 11:43 16:33 WBC (3.8-10.6) k/uL Hct (34.0-46.0) % Neutrophils # (1.3-7.7) k/uL BUN (7-17) mg/dL Glucose (74-99) mg/dL POC Glucose (mg/dL) 142 H 155 H (75-99) mg/dL HDL Cholesterol 28.0 L (40.0-60.0) mg/dL 09/29/20 09/30/20 09/30/20 Range/Units 20:29 06:32 07:36 WBC 13.5 H (3.8-10.6) k/uL Hct 46.5 H (34.0-46.0) % Neutrophils # 9.3 H (1.3-7.7) k/uL BUN (7-17) mg/dL Glucose (74-99) mg/dL POC Glucose (mg/dL) 221 H 188 H (75-99) mg/dL HDL Cholesterol (40.0-60.0) mg/dL 09/30/20 Range/Units 07:36 WBC (3.8-10.6) k/uL Hct (34.0-46.0) % Neutrophils # (1.3-7.7) k/uL BUN 22 H (7-17) mg/dL Glucose 192 H (74-99) mg/dL POC Glucose (mg/dL) (75-99) mg/dL HDL Cholesterol (40.0-60.0) mg/dL Assessment and Plan Assessment: 1. Acute infarct within cerebellum 2. Right internal carotid stenosis 50-69% 3. Type 2 diabetes 4. GERD 5. Hypertension 6. Hyperlipidemia Plan: No plans on surgical intervention at this time. Continue antiplatelet and statin therapy. Care was discussed with neurology and carotid disease unlikely causing patient symptoms but due to degree of stenosis patient will follow up as an outpatient with Dr. Robertson. Patient is cleared for discharge from vascular surgery. Thank you for this consultation and allowing us take part in the plan of care of your patient during her hospital stay. The impression and plan of care has been dictated as directed. Dr. Allen I performed a history and examination of this patient, discussed the same with the dictator. I agree with the dictator's note ,documented as a scribe. Any additional findings or plans will be noted.
--- NOTE | 2020-09-30 13:06 | P.DS ---
Providers Date of admission: 09/28/20 13:59 Expected date of discharge: 09/30/20 Attending physician: Jeison Miranda Consults: 09/28/20 14:20 Consult Physician Routine Consulting Provider: Will Schuler Consult Reason/Comments: Dizziness, subacute infarcts versus cerebellar masses Do you want consulting provider notified?: Yes 09/29/20 14:30 Consult Physician Routine Consulting Provider: Ruben Desai Consult Reason/Comments: carotid stenosis Do you want consulting provider notified?: Yes Primary care physician: Jeison Miranda Hospital Course: Final Diagnoses: Acute left cerebellar ischemic CVA, etiology unclear. Right internal carotid artery stenosis Acute renal failure secondary to dehydration, resolved with IV fluid hydration Leukocytosis, suspected to be reactive Diabetes mellitus type 2, uncontrolled, hyperglycemic, hemoglobin A1c 7.6 Gastroesophageal reflux disease Hypertension Hyperlipidemia COPD, stable Obesity, BMI 33.1 Anxiety, depression Former nicotine dependence Hospital course:This is a 60-year-old female with past medical history of angina, COPD, diabetes mellitus, hypertension, prior nicotine dependence, obesity by into the hospital via EMS related to ongoing nausea, vomiting and diarrhea worsening since accompanied by increasing fatigue weakness, exertional lightheadedness/dizziness and diaphoresis. Denies abdominal pain. Rep orts she has been unable to take her medications secondary to significant nausea and vomiting. Denies fevers or chills. No congestion. Denies headache or focal deficits. Denies facial droop.denied difficulty speaking .GCS score on admission 15. Denies any chest pain, palpitations or shortness of breath. No further diarrhea since admission. Brain CT reported a couple separate areas of hypodensity in the posterior left cerebellum measuring up to 1.7 cm. Underlying masses or subacute infarcts are possible, later being favored, No acute intracranial hemorrhage midline shift or herniation. MRI pending. Chest x-ray reported no acute pulmonary process. Carotid Doppler reported elevated velocity in the right internal carotid artery suggestive of 50-70% stenosis, estimated 25% stenosis in the left internal carotid artery WBC 15.4 hemoglobin 15.2, platelets 475. Electrolytes WNL, BUN 31 creatinine 1.09. Hemoglobin A1c 7.6.Troponin negative, UA shows 2+ protein, 2+ ketones. Evaluated by neurology. Neuro workup completed ;MRA of [place] normal. MRI of the brain reported findings compatible with subacute infarcts left cerebellar hemisphere. 2-D echo post study reported normal LV size, severe concentric LVH, EF between 55-60%, intra-atrial and intraventricular septum intact.Evaluated by vascular surgery regarding carotid stenosis with no surgical intervention recommended at this time, further follow-up outpatient recommended. Due to the degree of stenosis, not felt to have caused patient's symptoms as per vascular and neurology. Maintained on dual antiplatelet in addition to statin. Tight blood sugar control. Cleared by both neurology and vascular surgery for discharge. Patient will be discharged home in stable condition with guarded prognosis. The impression and plan of care has been dictated as directed. : I performed a history and examination of this patient, discussed the same with the dictator. I agree with the dictator's note ,documented as a scribe. Any additional findings or plans will be noted. Patient Condition at Discharge: Stable Plan - Discharge Summary Discharge Rx Participant: No New Discharge Prescriptions: New Clopidogrel [Plavix] 75 mg PO DAILY #21 tab Aspirin EC [Ecotrin Low Dose] 81 mg PO DAILY #30 tab Pantoprazole Sodium [Protonix] 40 mg PO DAILY #30 tablet. Continue Atorvastatin [Lipitor] 40 mg PO HS metFORMIN HCL [Glucophage] 1,000 mg PO AC-BID Losartan Potassium [Cozaar] 100 mg PO DAILY Insulin Detemir [Levemir Flextouch] 54 units SQ HS DULoxetine HCL [Cymbalta] 90 mg PO HS #90 capsule. glipiZIDE [Glucotrol] 10 mg PO AC-BID Discharge Medication List Atorvastatin [Lipitor] 40 mg PO HS 05/29/15 [History] metFORMIN HCL [Glucophage] 1,000 mg PO AC-BID 05/29/15 [History] Insulin Detemir [Levemir Flextouch] 54 units SQ HS 03/17/20 [History] Losartan Potassium [Cozaar] 100 mg PO DAILY 03/17/20 [History] DULoxetine HCL [Cymbalta] 90 mg PO HS #90 capsule. 03/19/20 [Rx] glipiZIDE [Glucotrol] 10 mg PO AC-BID 09/28/20 [History] Aspirin EC [Ecotrin Low Dose] 81 mg PO DAILY #30 tab 09/30/20 [Rx] Clopidogrel [Plavix] 75 mg PO DAILY #21 tab 09/30/20 [Rx] Pantoprazole Sodium [Protonix] 40 mg PO DAILY #30 tablet. 09/30/20 [Rx] Follow up Appointment(s)/Referral(s): Jeison Miranda DO [Primary Care Provider] - 3 Days Tim Robertson DO [STAFF PHYSICIAN] - 2 Weeks Activity/Diet/Wound Care/Special Instructions: Talk to Dr. Miranda at your follow up appointment regarding setting up outpatient physical and occupational therapy PT/OT Consistent carb diet
--- NOTE | 2020-09-30 15:06 | XR ---
EXAMINATION TYPE: XR chest 2V DATE OF EXAM: 09/30/2020 COMPARISON: 09/28/2020 INDICATION: Worsening cough TECHNIQUE: Frontal and lateral views of the chest are obtained. FINDINGS: The heart size is normal. The pulmonary vasculature is normal. The lungs are clear. IMPRESSION: 1. No acute pulmonary process.
== END 2020-09-30 16:03 | disposition home or self-care (01) | DRG 65 ==
LOC: EC 09:53 → 3SCARD 13:59
PROVIDERS: ADMIT Family Medicine; ATTEND Family Medicine
DX: I63.342 Cerebral infarction due to thrombosis of left cerebellar artery (principal); N17.9 Acute kidney failure, unspecified; E11.65 Type 2 diabetes mellitus with hyperglycemia; K21.9 Gastro-esophageal reflux disease without esophagitis; E78.5 Hyperlipidemia, unspecified; I10 Essential (primary) hypertension; J44.9 Chronic obstructive pulmonary disease, unspecified; Z79.4 Long term (current) use of insulin; Z87.891 Personal history of nicotine dependence; F32.9 Major depressive disorder, single episode, unspecified; E86.0 Dehydration; Z96.1 Presence of intraocular lens; Z82.49 Family history of ischemic heart disease and other diseases of the circulatory system; I65.21 Occlusion and stenosis of right carotid artery; E66.9 Obesity, unspecified; Z68.33 Body mass index [BMI] 33.0-33.9, adult; F41.9 Anxiety disorder, unspecified; Z91.041 Radiographic dye allergy status; Z79.899 Other long term (current) drug therapy; I49.3 Ventricular premature depolarization; D72.829 Elevated white blood cell count, unspecified; E11.41 Type 2 diabetes mellitus with diabetic mononeuropathy
CPT/HCPCS: 36415; 70450; 70544; 70551; 71046; 80048; 80053; 80061; 81001; 82150; 83036; 83605; 83690; 84484; 85025; 93005; 93306; 93880; 96361; 96374; 96375; 99285

== ENCOUNTER 2020-11-07 10:55 | Emergency (ER) | payer OTHER ==
[2020-11-07 11:10] VITALS: TEMP 98
--- NOTE | 2020-11-07 11:53 | ED ---
General Adult HPI - General Chief complaint: Dizziness Stated complaint: recent stroke, dizziness Time Seen by Provider: 11/07/20 11:35 Source: patient, RN notes reviewed Mode of arrival: ambulatory Limitations: no limitations - History of Present Illness Initial comments: 60-year-old female with a past medical history of COPD, diabetes mellitus, GERD, hyperlipidemia, hypertension presents to the emergency room for a chief complaint of dizziness. Patient reports that she became dizzy last night. States that it persisted through today. Patient states she is nauseous as well. Patient recently was diagnosed with subacute cerebellar infarcts and admitted to the hospital. Patient reports that she has felt fine since being home but has had some slight dizziness on and off. Patient states that this time the dizziness worsens with movement and getting up. She also has a slight headache. Patient has no other complaints at this time including shortness of breath, chest pain, abdominal pain, vomiting, or visual changes. - Related Data Home Medications Medication Instructions Recorded Confirmed Atorvastatin [Lipitor] 40 mg PO HS 05/29/15 11/07/20 metFORMIN HCL [Glucophage] 1,000 mg PO AC-BID 05/29/15 11/07/20 Insulin Detemir [Levemir Flextouch 48 units SQ HS 03/17/20 11/07/20 Pen] glipiZIDE [Glucotrol] 10 mg PO AC-BID 09/28/20 11/07/20 Previous Rx's Medication Instructions Recorded DULoxetine HCL [Cymbalta] 90 mg PO HS #90 capsule. 03/19/20 Aspirin EC [Ecotrin Low Dose] 81 mg PO DAILY #30 tab 09/30/20 Losartan Potassium [Cozaar] 100 mg PO DAILY #30 tab 09/30/20 Meclizine [Antivert] 25 mg PO TID PRN #20 tab 11/07/20 Allergies Allergy/AdvReac Type Severity Reaction Status Date / Time Iodinated Contrast Media AdvReac Nausea & Verified 11/07/20 12:46 [Iodinated Contrast- Oral Vomiting and IV Dye] morphine AdvReac severe Verified 11/07/20 12:46 vomiting, severe flushing and sweating Review of Systems ROS Statement: Those systems with pertinent positive or pertinent negative responses have been documented in the HPI. ROS Other: All systems not noted in ROS Statement are negative. Past Medical History Past Medical History: Chest Pain / Angina, COPD, Diabetes Mellitus, GERD/Reflux, Hyperlipidemia, Hypertension Additional Past Medical History / Comment(s): Recent bilateral ear infections treated with ABX, pt states she was treated in past for blood infection with home IV antibiotics, IDDM type II, neuropathy bilateral legs/feet, bronchitis, slight anemia, pancreatitis, chronic low back pain, murmur, frequent diarrhea. History of Any Multi-Drug Resistant Organisms: None Reported Past Surgical History: Adenoidectomy, Back Surgery, Cholecystectomy, Hernia Repair, Orthopedic Surgery, Tonsillectomy, Tubal Ligation Additional Past Surgical History / Comment(s): EGD, colonoscopy, lap zulema fundoplasty, incisional hernia repair, multiple bilateral foot surgeries for "pressure pelts", low back surgery x2, ORIF R ankle, bilateral cataract lita vals/lens implants. Past Anesthesia/Blood Transfusion Reactions: Postoperative Nausea & Vomiting (PONV) Past Psychological History: Depression Smoking Status: Former smoker Past Alcohol Use History: None Reported Past Drug Use History: None Reported - Past Family History Mother Family Medical History: Blood Disorder Additional Family Medical History / Comment(s): Mother had chronic anemia Father Family Medical History: Myocardial Infarction ([place]) Additional Family Medical History / Comment(s): Father of a [place] at the age of 54 yrs General Exam Limitations: no limitations General appearance: alert, in no apparent distress Head exam: Present: atraumatic Eye exam: Present: normal appearance, PERRL, EOMI. Absent: scleral icterus, conjunctival injection ENT exam: Present: normal exam, mucous membranes moist Neck exam: Present: normal inspection, full ROM. Absent: tenderness Respiratory exam: Present: normal lung sounds bilaterally. Absent: respiratory distress, wheezes Cardiovascular Exam: Present: regular rate, normal rhythm, normal heart sounds GI/Abdominal exam: Present: soft, normal bowel sounds. Absent: distended, tenderness Neurological exam: Present: alert, oriented X3 Expanded Patient oriented to: Present: person, place, time Speech: Present: fluid speech Cranial nerves: EOM's Intact: Normal, Gag Reflex: Normal, Tongue Deviation: Normal, Nystagmus: Normal, Facial Sensation: Normal Cerebellar function: Finger to Nose: Normal, Heel to Smith: Normal Upper motor neuron: Shalom Neglect: Normal, Pronator Drift: Normal Sensory exam: Upper Extremity Light Touch: Normal, Upper Extremity Pin Prick: Normal, Lower Extremity Light Touch: Normal, Lower Extremity Pin Prick: Normal Motor strength exam: RUE: 5, LUE: 5, RLE: 5, LLE: 5 Eye Response: (4) open spontaneously Motor Response: (6) obeys commands Verbal Response: (5) oriented [place] Total: 15 Course Vital Signs 11/07/20 11:08 Temperature 98 F Pulse Rate 72 Respiratory 22 Rate Blood Pressure 165/95 O2 Sat by Pulse 98 Oximetry Medical Decision Making - Medical Decision Making Patient was recently admitted for subacute infarcts in the left cerebellar hemisphere. She did have carotid tenderness but was evaluated by vascular surgery surgical intervention not currently recommended. Patient started on Plavix and aspirin. Discharge home. 60-year-old female presents for dizziness. Patient states it started last night. Patient is stable upon arrival. NIH is 0. No focal neurologic def icits. However she is stumbling with walking. Therefore workup was initiated.Labs were unremarkable. Chest x-ray showed mild cardiomegaly without focal infiltrate or virgilio pulmonary edema. There is mild interstitial prominence that could reflect early developing vascular congestion. However pat ient does not have any shortness of breath chest pain or edema and does not clinically fit. CT brain shows no acute intracranial hemorrhage, midline shift, or mass effect. There is a slightly enlarged low attenuating lesion right frontal deep white matter that is probably related to remote lacunar infarct. Difference in size could be related to technique. Patient does not have any focal neurologic deficits. There is also low attenuating lesions in the posterior left cerebellum that could be related to remote infarct however no significant change since prior study. On previous admission patient had undergone MRI/MRA. Patient was given Antivert as her symptoms are worsening with movement. After Antivert given she had resolution of symptoms. She had no dizziness at all. She could ambulate with a normal gait, no ataxia. At this time patient can be discharged home with a likely benign vertiginous cause of dizziness she will be given Antivert. If she has any worsening symptoms she will need to return to the emergency room immediately. - Lab Data Result diagrams: 11/07/20 12:28 11/07/20 12:28 Lab Results 11/07/20 11/07/20 11/07/20 Range/Units 12:28 12:28 12:28 WBC 14.2 H (3.8-10.6) k/uL RBC 4.40 (3.80-5.40) m/uL Hgb 14.3 (11.4-16.0) gm/dL Hct 43.3 (34.0-46.0) % MCV 98.4 (80.0-100.0) fL MCH 32.5 (25.0-35.0) pg MCHC 33.0 (31.0-37.0) g/dL RDW 12.8 (11.5-15.5) % Plt Count 384 (150-450) k/uL MPV 7.9 Neutrophils % 75 % Lymphocytes % 18 % Monocytes % 4 % Eosinophils % 3 % Basophils % 1 % Neutrophils # 10.6 H (1.3-7.7) k/uL Lymphocytes # 2.5 (1.0-4.8) k/uL Monocytes # 0.5 (0-1.0) k/uL Eosinophils # 0.4 (0-0.7) k/uL Basophils # 0.1 (0-0.2) k/uL PT 9.6 (9.0-12.0) sec INR 0.9 (<1.2) APTT 21.6 L (22.0-30.0) sec Sodium 140 (137-145) mmol/L Potassium 4.2 (3.5-5.1) mmol/L Chloride 104 (98-107) mmol/L Carbon Dioxide 27 (22-30) mmol/L Anion Gap 9 mmol/L BUN 24 H (7-17) mg/dL Creatinine 1.08 H (0.52-1.04) mg/dL Est GFR (CKD-EPI)AfAm 64 (>60 ml/min/1.73 sqM) Est GFR (CKD-EPI)NonAf 55 (>60 ml/min/1.73 sqM) Glucose 155 H (74-99) mg/dL Calcium 9.7 (8.4-10.2) mg/dL Total Bilirubin 0.5 (0.2-1.3) mg/dL AST 23 (14-36) U/L ALT 17 (4-34) U/L Alkaline Phosphatase 97 (38-126) U/L Troponin I (0.000-0.034) ng/mL Total Protein 6.8 (6.3-8.2) g/dL Albumin 4.0 (3.5-5.0) g/dL 11/07/20 Range/Units 12:28 WBC (3.8-10.6) k/uL RBC (3.80-5.40) m/uL Hgb (11.4-16.0) gm/dL Hct (34.0-46.0) % MCV (80.0-100.0) fL MCH (25.0-35.0) pg MCHC (31.0-37.0) g/dL RDW (11.5-15.5) % Plt Count (150-450) k/uL MPV Neutrophils % % Lymphocytes % % Monocytes % % Eosinophils % % Basophils % % Neutrophils # (1.3-7.7) k/uL Lymphocytes # (1.0-4.8) k/uL Monocytes # (0-1.0) k/uL Eosinophils # (0-0.7) k/uL Basophils # (0-0.2) k/uL PT (9.0-12.0) sec INR (<1.2) APTT (22.0-30.0) sec Sodium (137-145) mmol/L Potassium (3.5-5.1) mmol/L Chloride (98-107) mmol/L Carbon Dioxide (22-30) mmol/L Anion Gap mmol/L BUN (7-17) mg/dL Creatinine (0.52-1.04) mg/dL Est GFR (CKD-EPI)AfAm (>60 ml/min/1.73 sqM) Est GFR (CKD-EPI)NonAf (>60 ml/min/1.73 sqM) Glucose (74-99) mg/dL Calcium (8.4-10.2) mg/dL Total Bilirubin (0.2-1.3) mg/dL AST (14-36) U/L ALT (4-34) U/L Alkaline Phosphatase (38-126) U/L Troponin I <0.012 (0.000-0.034) ng/mL Total Protein (6.3-8.2) g/dL Albumin (3.5-5.0) g/dL Disposition Clinical Impression: Dizziness Disposition: HOME SELF-CARE Condition: Good Instructions (If sedation given, give patient instructions): Dizziness (ED) Additional Instructions: Please take medication as directed. Follow up with your doctor in 1-2 days. Return to the ER for any worsening symptoms. Prescriptions: Meclizine [Antivert] 25 mg PO TID PRN #20 tab PRN Reason: dizziness Is patient prescribed a controlled substance at d/c from ED?: No Referrals: Jeison Miranda DO [Primary Care Provider] - 1-2 days Time of Disposition: 15:36
[2020-11-07] MEDS ORDERED: MECLIZINE 12.5 MG TAB PO STA (12:16)
[2020-11-07] MEDS ORDERED: SODIUM CHLORIDE 0.9% 1,000 ML IV STA (12:16)
[2020-11-07 12:54] LABS: Basophils # (A) 0.1 k/uL (0-0.2); Basophils % (A) 1 %; Eosinophils # (A) 0.4 k/uL (0-0.7); Eosinophils % (A) 3 %; HCT 43.3 % (34.0-46.0); HGB 14.3 gm/dL (11.4-16.0); Lymphocytes # (A) 2.5 k/uL (1.0-4.8); Lymphocytes % (A) 18 %; MCH 32.5 pg (25.0-35.0); MCV 98.4 fL (80.0-100.0); Mean Platelet Volume 7.9; Monocytes # (A) 0.5 k/uL (0-1.0); Monocytes % (A) 4 %; Neutrophils # (A) 10.6 k/uL (1.3-7.7); Neutrophils % (A) 75 %; Platelet Count 384 k/uL (150-450); RDW 12.8 % (11.5-15.5); WBC 14.2 k/uL (3.8-10.6)
[2020-11-07 13:05] LABS: Calcium 9.7 mg/dL (8.4-10.2); Potassium 4.2 mmol/L (3.5-5.1); Total Bilirubin 0.5 mg/dL (0.2-1.3); Total Protein 6.8 g/dL (6.3-8.2)
[2020-11-07 13:10] LABS: INR 0.9 (<1.2); Prothrombin Time 9.6 sec (9.0-12.0)
[2020-11-07 13:13] LABS: Partial Thromboplastin Time 21.6 sec (22.0-30.0)
--- NOTE | 2020-11-07 13:43 | CT ---
EXAMINATION TYPE: CT brain wo con DATE OF EXAM: 11/07/2020 COMPARISON: 09/28/2020 HISTORY: Neuro deficits TECHNIQUE: CT scan of the head performed without contrast CT DLP: 1094.4 mGycm Automated exposure control for dose reduction was used. FINDINGS: No acute intracranial hemorrhage midline shift or mass effect. Fuller-white matter differentiation is p reserved. CSF spaces and ventricles are normal in configuration. Tiny low-attenuation the right front al white matter slightly enlarged and likely represents remote lacunar infarct. Focal low attenuation is again demonstrated in the left cerebellum. Atherosclerotic calcifications are seen in the intracr anial internal carotid arteries and vertebral arteries. No acute orbital, soft tissue or osseous abno rmality. Paranasal sinuses and mastoid air cells are well aerated. IMPRESSION: NO ACUTE INTRACRANIAL HEMORRHAGE, MIDLINE SHIFT OR MASS EFFECT. SLIGHTLY ENLARGED LOW ATTENUATING LESION IN THE RIGHT FRONTAL DEEP WHITE MATTER MEASURING 0.5 CM PREV IOUSLY 0.4 CM, DIFFERENCE IN SIZE COULD BE RELATED TO TECHNIQUE, THIS IS PROBABLY RELATED TO A REMOTE LACUNAR INFARCT. LOW ATTENUATING LESIONS IN THE POSTERIOR LEFT CEREBELLUM COULD BE RELATED TO REMOTE INFARCTION PERHAP S AN UNDERLYING MASS. NO SIGNIFICANT CHANGE SINCE PRIOR STUDY.
--- NOTE | 2020-11-07 14:04 | XR ---
EXAMINATION TYPE: XR chest 2V DATE OF EXAM: 11/07/2020 COMPARISON: 09/30/2020 HISTORY: 60-year-old female confusion, altered mental status, headache and dizziness TECHNIQUE: AP and lateral views FINDINGS: Heart is mildly enlarged. Interstitial prominence. No virgilio consolidation or pleural effusion. IMPRESSION: Mild cardiomegaly. Mild interstitial prominence could reflect early developing mild pulmonary vascula r congestion. No focal infiltrate or virgilio pulmonary edema.
[2020-11-07] MEDS ORDERED: ACETAMINOPHEN TAB 500 MG TAB PO STA (14:18)
--- NOTE | 2020-11-07 14:40 | CT ---
EXAMINATION TYPE: CT angio head neck DATE OF EXAM: 11/07/2020 COMPARISON: None HISTORY: Weakness and dizziness CT DLP: 712.5 mGycm Automated exposure control for dose reduction was used. CONTRAST: Performed with IV Contrast, patient injected with 65 mL of Isovue 370. Images obtained from the aortic arch to the vertex of the brain with IV contrast. There are 3-D post processed images. There is normal branching pattern of the great vessels on the aortic arch. There is bilateral arteria l flow in the subclavian arteries. There is arterial flow in the common internal and external carotid arteries bilaterally. There is wide patency of the carotid artery bifurcations. There is arterial fl ow in both vertebral arteries. There is no evidence of carotid or vertebral artery aneurysm or dissec tion. There is no mass effect. There is no evidence of intracranial aneurysm or neovascularity. There is arterial flow in the anteri or middle and posterior cerebral arteries. There is normal enhancement of the venous sinuses. There i s no evidence of intracranial arterial stenosis. There is no mass effect. There is normal enhancement of the venous sinuses. IMPRESSION: Negative CT angiogram of the neck. Negative CT angiogram of the brain.
[2020-11-07 15:56] VITALS: BP 132/76; PULSE 90; RESP 18
== END 2020-11-07 15:55 | disposition home or self-care (01) ==
LOC: EC 10:55
DX: R42 Dizziness and giddiness (principal); I11.9 Hypertensive heart disease without heart failure; E11.40 Type 2 diabetes mellitus with diabetic neuropathy, unspecified; J44.9 Chronic obstructive pulmonary disease, unspecified; K21.9 Gastro-esophageal reflux disease without esophagitis; E78.5 Hyperlipidemia, unspecified; F32.9 Major depressive disorder, single episode, unspecified; Z79.4 Long term (current) use of insulin; Z79.82 Long term (current) use of aspirin; Z88.5 Allergy status to narcotic agent; Z90.89 Acquired absence of other organs; Z98.51 Tubal ligation status; Z87.891 Personal history of nicotine dependence; Z90.49 Acquired absence of other specified parts of digestive tract
CPT/HCPCS: 99284; 96360; 36415; 93005; 80053; 84484; 85025; 85610; 85730; 71046; 70496; 70450; 70498; Q9967

== ENCOUNTER → 2021-02-22 | Outpatient (CLI) | payer OTHER ==
[2021-02-22 15:28] LABS: ALT 18 U/L (8-44); AST 18 U/L (13-35); Albumin 4.2 g/dL (3.8-4.9); Albumin/Globulin Ratio 1.73 (1.60-3.17); Alkaline Phosphatase 96 U/L (41-126); BUN/Creat Ratio 18.17 Ratio (12.00-20.00); Blood Urea Nitrogen 19.8 mg/dL (9.0-27.0); Calcium 9.7 mg/dL (8.7-10.3); Chloride 103 mmol/L (96-109); Globulin 2.4 g/dL (1.6-3.3); Glucose 215 mg/dL (70-110); LDL Cholesterol,Calculated 151.2 mg/dL (0.0-131.0); Non-African American GFR(CKD) 54.4 (60.0-200.0); Potassium 4.5 mmol/L (3.5-5.5); Sodium 140 mmol/L (135-145); Total Protein 6.6 g/dL (6.2-8.2)
== END | disposition home or self-care (01) ==
LOC: LABWHC1 09:12
PROVIDERS: ATTEND Internal Medicine Endocrinology, Diabetes & Metabolism
DX: E11.65 Type 2 diabetes mellitus with hyperglycemia (principal)
CPT/HCPCS: 36415; 80053; 80061; 82043; 82570; 83036; 84443

== ENCOUNTER 2021-03-23 15:42 | Emergency (ER) | payer OTHER ==
[2021-03-23 16:08] VITALS: RESP 20
--- NOTE | 2021-03-23 17:17 | ED ---
General Adult HPI - General Chief complaint: Upper Respiratory Infection Stated complaint: Covid+ Time Seen by Provider: 03/23/21 17:00 Source: patient Mode of arrival: ambulatory Limitations: no limitations - History of Present Illness Initial comments: 60-year-old female with a past medical history of COPD, diabetes mellitus, hyperlipidemia, hypertension presents to the emergency room for antibody infusion. Patient states she had it at home positive Covid test this morning. Patient states she has had symptoms for one week. Patient states she has a cough congestion and body aches. She denies shortness of breath or chest pain. Patient is not vaccinated for Covid and would like antibody infusion.Patient has no other complaints at this time including shortness of breath, chest pain, abdominal pain, nausea or vomiting, headache, or visual changes. - Related Data Home Medications Medication Instructions Recorded Confirmed Atorvastatin [Lipitor] 40 mg PO HS 05/29/15 11/07/20 metFORMIN HCL [Glucophage] 1,000 mg PO AC-BID 05/29/15 11/07/20 Insulin Detemir [Levemir Flextouch 48 units SQ HS 03/17/20 11/07/20 Pen] glipiZIDE [Glucotrol] 10 mg PO AC-BID 09/28/20 11/07/20 Previous Rx's Medication Instructions Recorded DULoxetine HCL [Cymbalta] 90 mg PO HS #90 capsule. 03/19/20 Aspirin EC [Ecotrin Low Dose] 81 mg PO DAILY #30 tab 09/30/20 Losartan Potassium [Cozaar] 100 mg PO DAILY #30 tab 09/30/20 Meclizine [Antivert] 25 mg PO TID PRN #20 tab 11/07/20 Dexamethasone [Decadron] 6 mg PO DAILY #6 tablet 03/23/21 Allergies Allergy/AdvReac Type Severity Reaction Status Date / Time Iodinated Contrast Media AdvReac Nausea & Verified 03/23/21 16:05 [Iodinated Contrast- Oral Vomiting and IV Dye] morphine AdvReac severe Verified 03/23/21 16:05 vomiting, severe flushing and sweating Review of Systems ROS Statement: Those systems with pertinent positive or pertinent negative responses have been documented in the HPI. ROS Other: All systems not noted in ROS Statement are negative. Past Medical History Past Medical History: Chest Pain / Angina, COPD, Diabetes Mellitus, GERD/Reflux, Hyperlipidemia, Hypertension Additional Past Medical History / Comment(s): Recent bilateral ear infections treated with ABX, pt states she was treated in past for blood infection with home IV antibiotics, IDDM type II, neuropathy bilateral legs/feet, bronchitis, slight anemia, pancreatitis, chronic low back pain, murmur, frequent diarrhea. History of Any Multi-Drug Resistant Organisms: None Reported Past Surgical History: Adenoidectomy, Back Surgery, Cholecystectomy, Hernia Repair, Orthopedic Surgery, Tonsillectomy, Tubal Ligation Additional Past Surgical History / Comment(s): EGD, colonoscopy, lap zulema fundoplasty, incisional hernia repair, multiple bilateral foot surgeries for "pressure pelts", low back surgery x2, ORIF R ankle, bilateral cataract removals/lens implants. Past Anesthesia/Blood Transfusion Reactions: Postoperative Nausea & Vomiting (PONV) Past Psychological History: Depression Smoking Status: Former smoker Past Alcohol Use History: None Reported Past Drug Use History: None Reported - Past Family History Mother Family Medical History: Blood Disorder Additional Family Medical History / Comment(s): Mother had chronic anemia Father Family Medical History: Myocardial Infarction ([place]) Additional Family Medical History / Comment(s): Father of a [place] at the age of 54 yrs General Exam Limitations: no limitations General appearance: alert, in no apparent distress Head exam: Present: atraumatic Eye exam: Present: normal appearance, PERRL, EOMI. Absent: scleral icterus, conjunctival injection ENT exam: Present: normal exam, mucous membranes moist Neck exam: Present: normal inspection, full ROM. Absent: tenderness Respiratory exam: Present: normal lung sounds bilaterally, wheezes (mild bilat). Absent: respiratory distress Cardiovascular Exam: Present: regular rate, normal rhythm, normal heart sounds GI/Abdominal exam: Present: soft, normal bowel sounds. Absent: distended, tenderness Course Vital Signs 03/23/21 16:05 Temperature 97.4 F L Pulse Rate 72 Respiratory 20 Rate Blood Pressure 178/81 O2 Sat by Pulse 98 Oximetry Medical Decision Making - Medical Decision Making Vitals are stable. Patient is well-appearing. She is 98% on room air. She did test positive for COVID-19. She does qualify for antibody infusion given she is on vaccinated with multiple medical problems including diabetes, cardiovascular disease, and COPD. We will also start patient on Decadron given mild COPD exacerbation. At this time patient is stable for outpatient follow-up. She will return here for any worsening symptoms. - Lab Data Lab Results 03/23/21 Range/Units 16:00 Coronavirus (PCR) Detected A (Not Detectd) Disposition Clinical Impression: COVID Disposition: HOME SELF-CARE Condition: Good Instructions (If sedation given, give patient instructions): Coronavirus Disease 2019 (COVID-19) Additional Instructions: Please take vitamin C, D, and zinc [id number]. Follow-up with your doctor. Return here for any worsening symptoms such as shortness of breath. Prescriptions: Dexamethasone [Decadron] 6 mg PO DAILY #6 tablet Is patient prescribed a controlled substance at d/c from ED?: No Referrals: Jeison Miranda DO [Primary Care Provider] - 1-2 days Time of Disposition: 17:16
[2021-03-23] MEDS ORDERED: DEXAMETHASONE SOD PHOSPHATE 10 MG/ML 1 ML VIAL IVP STA (17:30)
[2021-03-23] MEDS ORDERED: SOTROVIMAB (EUA) 500 MG in SODIUM CHLORIDE 0.9% 100 ML IVPB ONE (17:45)
[2021-03-23] MEDS ORDERED: SODIUM CHLORIDE 0.9% 50 ML IVPB ONE (18:30)
[2021-03-23 19:36] VITALS: BP 165/84; PULSE 74; TEMP 97.7
== END 2021-03-23 19:37 | disposition home or self-care (01) ==
LOC: EC 15:42
DX: U07.1 COVID-19 (principal); J44.9 Chronic obstructive pulmonary disease, unspecified; E11.9 Type 2 diabetes mellitus without complications; E78.5 Hyperlipidemia, unspecified; I10 Essential (primary) hypertension; K21.9 Gastro-esophageal reflux disease without esophagitis; F32.A Depression, unspecified; Z79.84 Long term (current) use of oral hypoglycemic drugs; Z79.4 Long term (current) use of insulin; Z79.82 Long term (current) use of aspirin; Z88.5 Allergy status to narcotic agent; Z90.49 Acquired absence of other specified parts of digestive tract; Z98.51 Tubal ligation status; Z87.891 Personal history of nicotine dependence
CPT/HCPCS: 87635; 96374; 99283

== ENCOUNTER → 2021-07-09 | Outpatient (CLI) | payer OTHER ==
[2021-07-09 15:21] LABS: ALT 20 U/L (8-44); AST 19 U/L (13-35); African American GFR (CKD) 55.1 (60.0-200.0); Albumin 4.1 g/dL (3.8-4.9); Alkaline Phosphatase 105 U/L (41-126); BUN/Creat Ratio 18.02 Ratio (12.00-20.00); Blood Urea Nitrogen 21.8 mg/dL (9.0-27.0); Calcium 9.3 mg/dL (8.7-10.3); Carbon Dioxide 24.6 mmol/L (20.0-27.5); Chloride 106 mmol/L (96-109); Chol/HDL Ratio 4.55 Ratio; Globulin 2.4 g/dL (1.6-3.3); Glucose 199 mg/dL (70-110); LDL Cholesterol,Calculated 94.5 mg/dL (0.0-131.0); Non-African American GFR(CKD) 47.6 (60.0-200.0); Potassium 5.2 mmol/L (3.5-5.5); Sodium 141 mmol/L (135-145); Total Protein 6.6 g/dL (6.2-8.2)
== END | disposition home or self-care (01) ==
LOC: LABWHC1 08:13
PROVIDERS: ATTEND Internal Medicine Endocrinology, Diabetes & Metabolism
DX: E11.65 Type 2 diabetes mellitus with hyperglycemia (principal)
CPT/HCPCS: 36415; 80053; 80061; 82043; 82570; 83036; 84443

== ENCOUNTER 2021-09-10 16:04 | Inpatient (IN) | payer OTHER ==
[2021-09-10] MEDS ORDERED: SODIUM CHLORIDE 0.9% 1,000 ML IV STA (18:10)
[2021-09-10 18:47] LABS: Basophils # (A) 0.1 k/uL (0-0.2); Basophils % (A) 1 %; Eosinophils # (A) 0.7 k/uL (0-0.7); Eosinophils % (A) 6 %; HCT 40.4 % (34.0-46.0); HGB 12.9 gm/dL (11.4-16.0); Lymphocytes # (A) 2.8 k/uL (1.0-4.8); Lymphocytes % (A) 23 %; MCHC 31.9 g/dL (31.0-37.0); MCV 97.1 fL (80.0-100.0); Mean Platelet Volume 7.9; Monocytes # (A) 0.6 k/uL (0-1.0); Monocytes % (A) 5 %; Neutrophils # (A) 7.8 k/uL (1.3-7.7); Neutrophils % (A) 64 %; Platelet Count 340 k/uL (150-450); RBC 4.17 m/uL (3.80-5.40); RDW 13.2 % (11.5-15.5); WBC 12.2 k/uL (3.8-10.6)
--- NOTE | 2021-09-10 18:49 | XR ---
EXAMINATION TYPE: XR chest 2V DATE OF EXAM: 09/10/2021 COMPARISON: 11/07/2020 HISTORY: Altered mental status TECHNIQUE: FINDINGS: Heart and mediastinum are normal. Lungs are clear. Diaphragm is normal. Bony thorax is inta ct. IMPRESSION: Normal chest. No change.
[2021-09-10 18:58] LABS: Albumin 4.1 g/dL (3.5-5.0); Calcium 9.6 mg/dL (8.4-10.2); Potassium 4.5 mmol/L (3.5-5.1); Total Bilirubin 0.3 mg/dL (0.2-1.3); Total Protein 6.7 g/dL (6.3-8.2)
[2021-09-10 19:03] LABS: INR 0.8 (<1.2); Prothrombin Time 9.5 sec (9.0-12.0)
[2021-09-10 19:12] LABS: Partial Thromboplastin Time 21.3 sec (22.0-30.0)
--- NOTE | 2021-09-10 19:29 | CT ---
EXAMINATION TYPE: CT brain wo con DATE OF EXAM: 09/10/2021 COMPARISON: 11/07/2020 HISTORY: general weakness, vomiting CT DLP: 1054.4 mGycm Automated exposure control for dose reduction was used. Ventricles and sulci appear fairly normal. There is no mass effect or midline shift. No evidence of i ntracranial hemorrhage. Calvarium is intact. No evidence of cerebral edema. There is hypodensity left cerebellar hemisphere involving sharma and white matter. IMPRESSION: Old left cerebellar hemisphere infarct without change. No acute intracranial abnormality.
[2021-09-10] MEDS ORDERED: NALOXONE 0.4 MG/ML 1 ML VIAL IV PRN (20:44)
--- NOTE | 2021-09-10 20:44 | ED ---
General Adult HPI - General Chief complaint: Headache Stated complaint: headache, stroke symptoms 1 wk ago Time Seen by Provider: 09/10/21 17:12 Source: patient Mode of arrival: ambulatory Limitations: no limitations - History of Present Illness Initial comments: 61-year-old female with past medical history of COPD, diabetes, cerebellar stroke presents to the emergency department with dizziness and headache since Monday. Patient reports that she has the same symptoms are brought her into the emergency department last year she was diagnosed with a cerebellar stroke. Reports 2 dizziness upon standing and a posterior headache. Headache is not present at this time. No fevers. No head trauma. No neck pain. Admits nausea without vomiting. Patient was supposed to follow up for carotid studies and see a neurologist however reports that she never did. No other alleviating, precipitating or modifying factors - Related Data Home Medications Medication Instructions Recorded Confirmed Atorvastatin [Lipitor] 40 mg PO HS 05/29/15 09/10/21 metFORMIN HCL [Glucophage] 1,000 mg PO AC-BID 05/29/15 09/10/21 Insulin Detemir [Levemir Flextouch 58 units SQ HS 03/17/20 09/10/21 Pen] glipiZIDE [Glucotrol] 10 mg PO AC-BID 09/28/20 09/10/21 Albuterol Inhaler [Ventolin Hfa 2 puff INHALATION RT-Q4H PRN 03/23/21 09/10/21 Inhaler] DULoxetine HCL [Cymbalta] 60 mg PO DAILY 03/23/21 09/10/21 Baclofen 10 mg PO BID PRN 09/10/21 09/10/21 Previous Rx's Medication Instructions Recorded Losartan Potassium [Cozaar] 100 mg PO DAILY #30 tab 09/30/20 Aspirin 325 mg PO DAILY tab 09/14/21 Clopidogrel [Plavix] 75 mg PO DAILY tab 09/14/21 Meclizine [Antivert] 12.5 mg PO TID PRN tab 09/14/21 Allergies Allergy/AdvReac Type Severity Reaction Status Date / Time Iodinated Contrast Media AdvReac Nausea & Verified 09/10/21 20:38 [Iodinated Contrast- Oral Vomiting and IV Dye] morphine AdvReac severe Verified 09/10/21 20:38 vomiting, severe flushing and sweating Review of Systems ROS Statement: Those systems with pertinent positive or pertinent negative responses have been documented in the HPI. ROS Other: All systems not noted in ROS Statement are negative. Past Medical History Past Medical History: Chest Pain / Angina, COPD, Diabetes Mellitus, GERD/Reflux, Hyperlipidemia, Hypertension Additional Past Medical History / Comment(s): Recent bilateral ear infections treated with ABX, pt states she was treated in past for blood infection with home IV antibiotics, IDDM type II, neuropathy bilateral legs/feet, bronchitis, slight anemia, pancreatitis, chronic low back pain, murmur, frequent diarrhea. History of Any Multi-Drug Resistant Organisms: None Reported Past Surgical History: Adenoidectomy, Back Surgery, Cholecystectomy, Hernia Repair, Orthopedic Surgery, Tonsillectomy, Tubal Ligation Additional Past Surgical History / Comment(s): EGD, colonoscopy, lap zulema f undoplasty, incisional hernia repair, multiple bilateral foot surgeries for "pressure pelts", low back surgery x2, ORIF R ankle, bilateral cataract removals/lens implants. Past Anesthesia/Blood Transfusion Reactions: Postoperative Nausea & Vomiting (PONV) Past Psychological History: Depression Smoking Status: Former smoker Past Alcohol Use History: None Reported Past Drug Use History: None Reported - Past Family History Mother Family Medical History: Blood Disorder Additional Family Medical History / Comment(s): Mother had chronic anemia Father Family Medical History: Myocardial Infarction ([facility]) Additional Family Medical History / Comment(s): Father of a [facility] at the age of 54 yrs General Exam Limitations: no limitations General appearance: alert, in no apparent distress Head exam: Present: atraumatic, normocephalic, normal inspection Eye exam: Present: normal appearance, PERRL, EOMI. Absent: scleral icterus, conjunctival injection, periorbital swelling ENT exam: Present: normal exam, mucous membranes moist Neck exam: Present: normal inspection. Absent: tenderness, meningismus, lymphadenopathy Respiratory exam: Present: normal lung sounds bilaterally. Absent: respiratory distress, wheezes, rales, rhonchi, stridor Cardiovascular Exam: Present: regular rate, normal rhythm, normal heart sounds. Absent: systolic murmur, diastolic murmur, rubs, gallop, clicks GI/Abdominal exam: Present: soft, normal bowel sounds. Absent: distended, tenderness, guarding, rebound, rigid Extremities exam: Present: normal inspection, full ROM, normal capillary refill, other (finger to nose is symmetric). Absent: tenderness, pedal edema, joint swelling, calf tenderness Back exam: Present: normal inspection Neurological exam: Present: alert, oriented X3, CN II-XII intact Psychiatric exam: Present: normal affect, normal mood Skin exam: Present: warm, dry, intact, normal color. Absent: rash Course Vital Signs 09/10/21 09/10/21 09/10/21 16:30 20:56 21:00 Temperature 98.3 F 97.9 F Pulse Rate 68 61 Pulse Rate [ 64 Pulse Oximetery ] Respiratory 20 16 18 Rate Blood Pressure 164/97 165/78 Blood Pressure 179/94 [Left Arm] O2 Sat by Pulse 96 97 99 Oximetry Medical Decision Making - Medical Decision Making Upon arrival patient was placed into room 3. There are history and physical exam was performed. IV access was established. Laboratory studies were conducted and reviewed. I did perform a CT of the patient's brain without contrast as the patient does have an iodine contrast ALLERGY. CT does demonstrate old left cerebellar hemisphere infarct without acute abnormality. I did discuss this with Dr. Garcia. As the patient does have vertigo concerning for posterior stroke with history of, I will admit for neurology consultation. Patient agreed to this plan was taken before in stable condition - Lab Data Result diagrams: 09/13/21 07:18 09/13/21 07:18 Lab Results 09/10/21 09/10/21 09/10/21 Range/Units 18:29 18:29 18:29 WBC 12.2 H (3.8-10.6) k/uL RBC 4.17 (3.80-5.40) m/uL Hgb 12.9 (11.4-16.0) gm/dL Hct 40.4 (34.0-46.0) % MCV 97.1 (80.0-100.0) fL MCH 31.0 (25.0-35.0) pg MCHC 31.9 (31.0-37.0) g/dL RDW 13.2 (11.5-15.5) % Plt Count 340 (150-450) k/uL MPV 7.9 Neutrophils % 64 % Lymphocytes % 23 % Monocytes % 5 % Eosinophils % 6 % Basophils % 1 % Neutrophils # 7.8 H (1.3-7.7) k/uL Lymphocytes # 2.8 (1.0-4.8) k/uL Monocytes # 0.6 (0-1.0) k/uL Eosinophils # 0.7 (0-0.7) k/uL Basophils # 0.1 (0-0.2) k/uL PT 9.5 (9.0-12.0) sec INR 0.8 (<1.2) APTT 21.3 L (22.0-30.0) sec Sodium 137 (137-145) mmol/L Potassium 4.5 (3.5-5.1) mmol/L Chloride 105 (98-107) mmol/L Carbon Dioxide 24 (22-30) mmol/L Anion Gap 8 mmol/L BUN 33 H (7-17) mg/dL Creatinine 1.11 H (0.52-1.04) mg/dL Est GFR (CKD-EPI)AfAm 61 (>60 ml/min/1.73 sqM) Est GFR (CKD-EPI)NonAf 53 (>60 ml/min/1.73 sqM) Glucose 349 H (74-99) mg/dL POC Glucose (mg/dL) (70-110) mg/dL POC Glu Litigation Examiner ID Estimated Ave Glu mg/dL Hemoglobin A1c (0.0-6.0) % Calcium 9.6 (8.4-10.2) mg/dL Total Bilirubin 0.3 (0.2-1.3) mg/dL AST 21 (14-36) U/L ALT 18 (4-34) U/L Alkaline Phosphatase 88 (38-126) U/L Troponin I (0.000-0.034) ng/mL Total Protein 6.7 (6.3-8.2) g/dL Albumin 4.1 (3.5-5.0) g/dL Triglycerides (0.00-149.00) mg/dL Cholesterol (0.00-200.00) mg/dL LDL Cholesterol, Calc (0.0-131.0) mg/dL VLDL Cholesterol, Calc (5.00-40.00) mg/dL HDL Cholesterol (40.00-60.00) mg/dL Cholesterol/HDL Ratio Ratio Vitamin B12 (200.0-944.0) pg/mL Folate (4.40-31.00) ng/mL 09/10/21 09/10/21 09/11/21 Range/Units 18:29 21:00 06:31 WBC (3.8-10.6) k/uL RBC (3.80-5.40) m/uL Hgb (11.4-16.0) gm/dL Hct (34.0-46.0) % MCV (80.0-100.0) fL MCH (25.0-35.0) pg MCHC (31.0-37.0) g/dL RDW (11.5-15.5) % Plt Count (150-450) k/uL MPV Neutrophils % % Lymphocytes % % Monocytes % % Eosinophils % % Basophils % % Neutrophils # (1.3-7.7) k/uL Lymphocytes # (1.0-4.8) k/uL Monocytes # (0-1.0) k/uL Eosinophils # (0-0.7) k/uL Basophils # (0-0.2) k/uL PT (9.0-12.0) sec INR (<1.2) APTT (22.0-30.0) sec Sodium (137-145) mmol/L Potassium (3.5-5.1) mmol/L Chloride (98-107) mmol/L Carbon Dioxide (22-30) mmol/L Anion Gap mmol/L BUN (7-17) mg/dL Creatinine (0.52-1.04) mg/dL Est GFR (CKD-EPI)AfAm (>60 ml/min/1.73 sqM) Est GFR (CKD-EPI)NonAf (>60 ml/min/1.73 sqM) Glucose (74-99) mg/dL POC Glucose (mg/dL) 254 H 139 H (70-110) mg/dL POC Glu Litigation Examiner ID Winnie Gina Kenisha Brewer [address] Glu mg/dL Hemoglobin A1c (0.0-6.0) % Calcium (8.4-10.2) mg/dL Total Bilirubin (0.2-1.3) mg/dL AST (14-36) U/L ALT (4-34) U/L Alkaline Phosphatase (38-126) U/L Troponin I <0.012 (0.000-0.034) ng/mL Total Protein (6.3-8.2) g/dL Albumin (3.5-5.0) g/dL Triglycerides (0.00-149.00) mg/dL Cholesterol (0.00-200.00) mg/dL LDL Cholesterol, Calc (0.0-131.0) mg/dL VLDL Cholesterol, Calc (5.00-40.00) mg/dL HDL Cholesterol (40.00-60.00) mg/dL Cholesterol/HDL Ratio Ratio Vitamin B12 (200.0-944.0) pg/mL Folate (4.40-31.00) ng/mL 09/11/21 09/11/21 09/11/21 Range/Units 07:34 07:34 07:34 WBC 11.8 H (3.8-10.6) k/uL RBC 4.60 (3.80-5.40) m/uL Hgb 14.8 (11.4-16.0) gm/dL Hct 45.8 (34.0-46.0) % MCV 99.5 (80.0-100.0) fL MCH 32.2 (25.0-35.0) pg MCHC 32.4 (31.0-37.0) g/dL RDW 13.5 (11.5-15.5) % Plt Count 342 (150-450) k/uL MPV 7.8 Neutrophils % 63 % Lymphocytes % 23 % Monocytes % 4 % Eosinophils % 7 % Basophils % 1 % Neutrophils # 7.4 (1.3-7.7) k/uL Lymphocytes # 2.7 (1.0-4.8) k/uL Monocytes # 0.5 (0-1.0) k/uL Eosinophils # 0.8 H (0-0.7) k/uL Basophils # 0.1 (0-0.2) k/uL PT (9.0-12.0) sec INR (<1.2) APTT (22.0-30.0) sec Sodium 143 (137-145) mmol/L Potassium 4.2 (3.5-5.1) mmol/L Chloride 110 H (98-107) mmol/L Carbon Dioxide 22 (22-30) mmol/L Anion Gap 11 mmol/L BUN 29 H (7-17) mg/dL Creatinine 0.95 (0.52-1.04) mg/dL Est GFR (CKD-EPI)AfAm 74 (>60 ml/min/1.73 sqM) Est GFR (CKD-EPI)NonAf 64 (>60 ml/min/1.73 sqM) Glucose 187 H (74-99) mg/dL POC Glucose (mg/dL) (70-110) mg/dL POC Glu Litigation Examiner ID Estimated Ave Glu mg/dL 234 Hemoglobin A1c 9.8 H (0.0-6.0) % Calcium 9.6 (8.4-10.2) mg/dL Total Bilirubin (0.2-1.3) mg/dL AST (14-36) U/L ALT (4-34) U/L Alkaline Phosphatase (38-126) U/L Troponin I (0.000-0.034) ng/mL Total Protein (6.3-8.2) g/dL Albumin (3.5-5.0) g/dL Triglycerides (0.00-149.00) mg/dL Cholesterol (0.00-200.00) mg/dL LDL Cholesterol, Calc (0.0-131.0) mg/dL VLDL Cholesterol, Calc (5.00-40.00) mg/dL HDL Cholesterol (40.00-60.00) mg/dL Cholesterol/HDL Ratio Ratio Vitamin B12 (200.0-944.0) pg/mL Folate (4.40-31.00) ng/mL 09/11/21 09/11/21 09/11/21 Range/Units 07:34 11:51 16:38 WBC (3.8-10.6) k/uL RBC (3.80-5.40) m/uL Hgb (11.4-16.0) gm/dL Hct (34.0-46.0) % MCV (80.0-100.0) fL MCH (25.0-35.0) pg MCHC (31.0-37.0) g/dL RDW (11.5-15.5) % Plt Count (150-450) k/uL MPV Neutrophils % % Lymphocytes % % Monocytes % % Eosinophils % % Basophils % % Neutrophils # (1.3-7.7) k/uL Lymphocytes # (1.0-4.8) k/uL Monocytes # (0-1.0) k/uL Eosinophils # (0-0.7) k/uL Basophils # (0-0.2) k/uL PT (9.0-12.0) sec INR (<1.2) APTT (22.0-30.0) sec Sodium (137-145) mmol/L Potassium (3.5-5.1) mmol/L Chloride (98-107) mmol/L Carbon Dioxide (22-30) mmol/L Anion Gap mmol/L BUN (7-17) mg/dL Creatinine (0.52-1.04) mg/dL Est GFR (CKD-EPI)AfAm (>60 ml/min/1.73 sqM) Est GFR (CKD-EPI)NonAf (>60 ml/min/1.73 sqM) Glucose (74-99) mg/dL POC Glucose (mg/dL) 138 H 188 H (70-110) mg/dL POC Glu Litigation Examiner TEJA Hughes, Gala Hughes, Gala [address] Glu mg/dL Hemoglobin A1c (0.0-6.0) % Calcium (8.4-10.2) mg/dL Total Bilirubin (0.2-1.3) mg/dL AST (14-36) U/L ALT (4-34) U/L Alkaline Phosphatase (38-126) U/L Troponin I (0.000-0.034) ng/mL Total Protein (6.3-8.2) g/dL Albumin (3.5-5.0) g/dL Triglycerides 228.00 H (0.00-149.00) mg/dL Cholesterol 188.00 (0.00-200.00) mg/dL LDL Cholesterol, Calc 109.3 (0.0-131.0) mg/dL VLDL Cholesterol, Calc 45.60 H (5.00-40.00) mg/dL HDL Cholesterol 33.10 L (40.00-60.00) mg/dL Cholesterol/HDL Ratio 5.68 Ratio Vitamin B12 (200.0-944.0) pg/mL Folate (4.40-31.00) ng/mL 09/11/21 09/12/21 09/12/21 Range/Units 20:28 06:36 11:49 WBC (3.8-10.6) k/uL RBC (3.80-5.40) m/uL Hgb (11.4-16.0) gm/dL Hct (34.0-46.0) % MCV (80.0-100.0) fL MCH (25.0-35.0) pg MCHC (31.0-37.0) g/dL RDW (11.5-15.5) % Plt Count (150-450) k/uL MPV Neutrophils % % Lymphocytes % % Monocytes % % Eosinophils % % Basophils % % Neutrophils # (1.3-7.7) k/uL Lymphocytes # (1.0-4.8) k/uL Monocytes # (0-1.0) k/uL Eosinophils # (0-0.7) k/uL Basophils # (0-0.2) k/uL PT (9.0-12.0) sec INR (<1.2) APTT (22.0-30.0) sec Sodium (137-145) mmol/L Potassium (3.5-5.1) mmol/L Chloride (98-107) mmol/L Carbon Dioxide (22-30) mmol/L Anion Gap mmol/L BUN (7-17) mg/dL Creatinine (0.52-1.04) mg/dL Est GFR (CKD-EPI)AfAm (>60 ml/min/1.73 sqM) Est GFR (CKD-EPI)NonAf (>60 ml/min/1.73 sqM) Glucose (74-99) mg/dL POC Glucose (mg/dL) 164 H 128 H 143 H (70-110) mg/dL POC Glu Litigation Examiner Willis Cornejo, Beatriz Da Silva [address] Glu mg/dL Hemoglobin A1c (0.0-6.0) % Calcium (8.4-10.2) mg/dL Total Bilirubin (0.2-1.3) mg/dL AST (14-36) U/L ALT (4-34) U/L Alkaline Phosphatase (38-126) U/L Troponin I (0.000-0.034) ng/mL Total Protein (6.3-8.2) g/dL Albumin (3.5-5.0) g/dL Triglycerides (0.00-149.00) mg/dL Cholesterol (0.00-200.00) mg/dL LDL Cholesterol, Calc (0.0-131.0) mg/dL VLDL Cholesterol, Calc (5.00-40.00) mg/dL HDL Cholesterol (40.00-60.00) mg/dL Cholesterol/HDL Ratio Ratio Vitamin B12 (200.0-944.0) pg/mL Folate (4.40-31.00) ng/mL 09/12/21 09/12/21 09/13/21 Range/Units 16:45 20:19 06:19 WBC (3.8-10.6) k/uL RBC (3.80-5.40) m/uL Hgb (11.4-16.0) gm/dL Hct (34.0-46.0) % MCV (80.0-100.0) fL MCH (25.0-35.0) pg MCHC (31.0-37.0) g/dL RDW (11.5-15.5) % Plt Count (150-450) k/uL MPV Neutrophils % % Lymphocytes % % Monocytes % % Eosinophils % % Basophils % % Neutrophils # (1.3-7.7) k/uL Lymphocytes # (1.0-4.8) k/uL Monocytes # (0-1.0) k/uL Eosinophils # (0-0.7) k/uL Basophils # (0-0.2) k/uL PT (9.0-12.0) sec INR (<1.2) APTT (22.0-30.0) sec Sodium (137-145) mmol/L Potassium (3.5-5.1) mmol/L Chloride (98-107) mmol/L Carbon Dioxide (22-30) mmol/L Anion Gap mmol/L BUN (7-17) mg/dL Creatinine (0.52-1.04) mg/dL Est GFR (CKD-EPI)AfAm (>60 ml/min/1.73 sqM) Est GFR (CKD-EPI)NonAf (>60 ml/min/1.73 sqM) Glucose (74-99) mg/dL POC Glucose (mg/dL) 125 H 263 H 121 H (70-110) mg/dL POC Glu Litigation Examiner ID Trey, Yoly Sampson, Sadie Reddy [address] Glu mg/dL Hemoglobin A1c (0.0-6.0) % Calcium (8.4-10.2) mg/dL Total Bilirubin (0.2-1.3) mg/dL AST (14-36) U/L ALT (4-34) U/L Alkaline Phosphatase (38-126) U/L Troponin I (0.000-0.034) ng/mL Total Protein (6.3-8.2) g/dL Albumin (3.5-5.0) g/dL Triglycerides (0.00-149.00) mg/dL Cholesterol (0.00-200.00) mg/dL LDL Cholesterol, Calc (0.0-131.0) mg/dL VLDL Cholesterol, Calc (5.00-40.00) mg/dL HDL Cholesterol (40.00-60.00) mg/dL Cholesterol/HDL Ratio Ratio Vitamin B12 (200.0-944.0) pg/mL Folate (4.40-31.00) ng/mL 09/13/21 09/13/21 09/13/21 Range/Units 07:18 07:18 07:18 WBC 9.6 (3.8-10.6) k/uL RBC 4.75 (3.80-5.40) m/uL Hgb 14.7 (11.4-16.0) gm/dL Hct 46.7 H (34.0-46.0) % MCV 98.3 (80.0-100.0) fL MCH 31.0 (25.0-35.0) pg MCHC 31.6 (31.0-37.0) g/dL RDW 13.1 (11.5-15.5) % Plt Count 337 (150-450) k/uL MPV 7.6 Neutrophils % 66 % Lymphocytes % 23 % Monocytes % 5 % Eosinophils % 4 % Basophils % 1 % Neutrophils # 6.4 (1.3-7.7) k/uL Lymphocytes # 2.2 (1.0-4.8) k/uL Monocytes # 0.5 (0-1.0) k/uL Eosinophils # 0.4 (0-0.7) k/uL Basophils # 0.1 (0-0.2) k/uL PT (9.0-12.0) sec INR (<1.2) APTT (22.0-30.0) sec Sodium 140 (137-145) mmol/L Potassium 4.2 (3.5-5.1) mmol/L Chloride 108 H (98-107) mmol/L Carbon Dioxide 26 (22-30) mmol/L Anion Gap 6 mmol/L BUN 21 H (7-17) mg/dL Creatinine 0.96 (0.52-1.04) mg/dL Est GFR (CKD-EPI)AfAm 73 (>60 ml/min/1.73 sqM) Est GFR (CKD-EPI)NonAf 63 (>60 ml/min/1.73 sqM) Glucose 117 H (74-99) mg/dL POC Glucose (mg/dL) (70-110) mg/dL POC Glu Litigation Examiner ID Estimated Ave Glu mg/dL Hemoglobin A1c (0.0-6.0) % Calcium 8.9 (8.4-10.2) mg/dL Total Bilirubin (0.2-1.3) mg/dL AST (14-36) U/L ALT (4-34) U/L Alkaline Phosphatase (38-126) U/L Troponin I (0.000-0.034) ng/mL Total Protein (6.3-8.2) g/dL Albumin (3.5-5.0) g/dL Triglycerides (0.00-149.00) mg/dL Cholesterol (0.00-200.00) mg/dL LDL Cholesterol, Calc (0.0-131.0) mg/dL VLDL Cholesterol, Calc (5.00-40.00) mg/dL HDL Cholesterol (40.00-60.00) mg/dL Cholesterol/HDL Ratio Ratio Vitamin B12 263.0 (200.0-944.0) pg/mL Folate (4.40-31.00) ng/mL 09/13/21 09/13/21 09/13/21 Range/Units 07:18 11:33 16:54 WBC (3.8-10.6) k/uL RBC (3.80-5.40) m/uL Hgb (11.4-16.0) gm/dL Hct (34.0-46.0) % MCV (80.0-100.0) fL MCH (25.0-35.0) pg MCHC (31.0-37.0) g/dL RDW (11.5-15.5) % Plt Count (150-450) k/uL MPV Neutrophils % % Lymphocytes % % Monocytes % % Eosinophils % % Basophils % % Neutrophils # (1.3-7.7) k/uL Lymphocytes # (1.0-4.8) k/uL Monocytes # (0-1.0) k/uL Eosinophils # (0-0.7) k/uL Basophils # (0-0.2) k/uL PT (9.0-12.0) sec INR (<1.2) APTT (22.0-30.0) sec Sodium (137-145) mmol/L Potassium (3.5-5.1) mmol/L Chloride (98-107) mmol/L Carbon Dioxide (22-30) mmol/L Anion Gap mmol/L BUN (7-17) mg/dL Creatinine (0.52-1.04) mg/dL Est GFR (CKD-EPI)AfAm (>60 ml/min/1.73 sqM) Est GFR (CKD-EPI)NonAf (>60 ml/min/1.73 sqM) Glucose (74-99) mg/dL POC Glucose (mg/dL) 228 H 157 H (70-110) mg/dL POC Glu Litigation Examiner Mami Weber Katie [address] Glu mg/dL Hemoglobin A1c (0.0-6.0) % Calcium (8.4-10.2) mg/dL Total Bilirubin (0.2-1.3) mg/dL AST (14-36) U/L ALT (4-34) U/L Alkaline Phosphatase (38-126) U/L Troponin I (0.000-0.034) ng/mL Total Protein (6.3-8.2) g/dL Albumin (3.5-5.0) g/dL Triglycerides (0.00-149.00) mg/dL Cholesterol (0.00-200.00) mg/dL LDL Cholesterol, Calc (0.0-131.0) mg/dL VLDL Cholesterol, Calc (5.00-40.00) mg/dL HDL Cholesterol (40.00-60.00) mg/dL Cholesterol/HDL Ratio Ratio Vitamin B12 (200.0-944.0) pg/mL Folate 17.50 (4.40-31.00) ng/mL 09/13/21 09/14/21 Range/Units 19:52 06:10 WBC (3.8-10.6) k/uL RBC (3.80-5.40) m/uL Hgb (11.4-16.0) gm/dL Hct (34.0-46.0) % MCV (80.0-100.0) fL MCH (25.0-35.0) pg MCHC (31.0-37.0) g/dL RDW (11.5-15.5) % Plt Count (150-450) k/uL MPV Neutrophils % % Lymphocytes % % Monocytes % % Eosinophils % % Basophils % % Neutrophils # (1.3-7.7) k/uL Lymphocytes # (1.0-4.8) k/uL Monocytes # (0-1.0) k/uL Eosinophils # (0-0.7) k/uL Basophils # (0-0.2) k/uL PT (9.0-12.0) sec INR (<1.2) APTT (22.0-30.0) sec Sodium (137-145) mmol/L Potassium (3.5-5.1) mmol/L Chloride (98-107) mmol/L Carbon Dioxide (22-30) mmol/L Anion Gap mmol/L BUN (7-17) mg/dL Creatinine (0.52-1.04) mg/dL Est GFR (CKD-EPI)AfAm (>60 ml/min/1.73 sqM) Est GFR (CKD-EPI)NonAf (>60 ml/min/1.73 sqM) Glucose (74-99) mg/dL POC Glucose (mg/dL) 187 H 79 (70-110) mg/dL POC Glu Litigation Examiner Amelia Vargas Isabelle [address] Glu mg/dL Hemoglobin A1c (0.0-6.0) % Calcium (8.4-10.2) mg/dL Total Bilirubin (0.2-1.3) mg/dL AST (14-36) U/L ALT (4-34) U/L Alkaline Phosphatase (38-126) U/L Troponin I (0.000-0.034) ng/mL Total Protein (6.3-8.2) g/dL Albumin (3.5-5.0) g/dL Triglycerides (0.00-149.00) mg/dL Cholesterol (0.00-200.00) mg/dL LDL Cholesterol, Calc (0.0-131.0) mg/dL VLDL Cholesterol, Calc (5.00-40.00) mg/dL HDL Cholesterol (40.00-60.00) mg/dL Cholesterol/HDL Ratio Ratio Vitamin B12 (200.0-944.0) pg/mL Folate (4.40-31.00) ng/mL Disposition Clinical Impression: Vertigo Disposition: ADMITTED IP TO THIS [facility] Condition: Stable Is patient prescribed a controlled substance at d/c from ED?: No Time of Disposition: 20:43 Decision to Admit Reason: Admit from EC Decision Date: 09/10/21 Decision Time: 20:43
[2021-09-10] MEDS ORDERED: ASPIRIN 325 MG TAB PO STA (20:47)
[2021-09-10] MEDS ORDERED: ALBUTEROL NEBULIZED 2.5 MG/3 ML INHALATION PRN (20:48)
[2021-09-10 21:01] LABS: Glucose,Whole Blood 254 mg/dL (70-110)
[2021-09-10] MEDS: INSULIN ASPART (NovoLOG) 100 UNIT/ML VIAL SQ SCH (21:12)
[2021-09-10] MEDS: ATORVASTATIN 40 MG TAB PO SCH (21:12)
[2021-09-10] MEDS: INSULIN DETEMIR (LEVEMIR) 100 UNIT/ML SYR SQ SCH (21:30)
[2021-09-10] MEDS: BACLOFEN 10 MG TAB PO PRN (22:09)
[2021-09-11 06:32] LABS: Glucose,Whole Blood 139 mg/dL (70-110)
[2021-09-11] MEDS: glipiZIDE 10 MG TAB PO SCH ×2 (06:36→16:47)
[2021-09-11] MEDS: metFORMIN 500 MG TAB PO SCH ×2 (06:36→16:47)
[2021-09-11] MEDS: INSULIN ASPART (NovoLOG) 100 UNIT/ML VIAL SQ SCH ×4 (06:36→21:51)
[2021-09-11 07:52] LABS: Basophils # (A) 0.1 k/uL (0-0.2); Basophils % (A) 1 %; Eosinophils # (A) 0.8 k/uL (0-0.7); Eosinophils % (A) 7 %; HCT 45.8 % (34.0-46.0); HGB 14.8 gm/dL (11.4-16.0); Lymphocytes # (A) 2.7 k/uL (1.0-4.8); Lymphocytes % (A) 23 %; MCH 32.2 pg (25.0-35.0); MCHC 32.4 g/dL (31.0-37.0); MCV 99.5 fL (80.0-100.0); Mean Platelet Volume 7.8; Monocytes # (A) 0.5 k/uL (0-1.0); Monocytes % (A) 4 %; Neutrophils # (A) 7.4 k/uL (1.3-7.7); Neutrophils % (A) 63 %; Platelet Count 342 k/uL (150-450); RDW 13.5 % (11.5-15.5); WBC 11.8 k/uL (3.8-10.6)
[2021-09-11 08:12] LABS: Calcium 9.6 mg/dL (8.4-10.2); Potassium 4.2 mmol/L (3.5-5.1)
[2021-09-11] MEDS: ASPIRIN 325 MG TAB PO SCH (08:59)
[2021-09-11] MEDS: LOSARTAN 50 MG TAB PO SCH (08:59)
[2021-09-11] MEDS: DULoxetine HCL 60 MG CAPSULE.DR PO SCH (08:59)
[2021-09-11] MEDS: BACLOFEN 10 MG TAB PO PRN ×2 (09:10→23:28)
[2021-09-11] MEDS ORDERED: MECLIZINE 12.5 MG TAB PO PRN (10:32)
--- NOTE | 2021-09-11 10:34 | P.CNNES ---
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 Patient noticed that she's been having dizziness since this past Monday where she was at [employer] and felt off and felt like she was almost about to pass out because of her dizziness but she did not. She delivered dizziness is at rest and with position. She did have nausea. She denies any ringing in the ears or hearing loss. Denies any recent fevers or coughs. She feels her entire body feels generalized weak. Denies any focal weakness. But she does fe el her left side is more painful recently. Patient is on ASA 81mg daily at home as well as Lipitor 40 mg daily at bedtime. Patient does not follow up with a neurologist as an outpatient. Patient had a stroke over the left cerebellar region in September 2020 and she was evaluated by Dr. Schuler. Please refer to his notes for further details. Some other workup in our facility consisted of: CT of the head is reported as old left cerebellar hemispheric infarct without change. No acute intracranial abnormality. Patient sugar on initial presentation is 349 creatinine is 1.10 but then the creatinine that has improved. Otherwise rest of the chemistry panel as the normal Patient did not get that CT angiography of the head and neck since the patient has contrast by done per the ED team. No IV TPA since last normal has been at least 5 days out and the risk outweighed the benefit. Review of Systems Review of system: The 12 point system was reviewed and apparent positive and negative per HPI. Past Medical History Past Medical History: Chest Pain / Angina, COPD, Diabetes Mellitus, GERD/Reflux, Hyperlipidemia, Hypertension Additional Past Medical History / Comment(s): Recent bilateral ear infections treated with ABX, pt states she was treated in past for blood infection with home IV antibiotics, IDDM type II, neuropathy bilateral legs/feet, bronchitis, slight anemia, pancreatitis, chronic low back pain, murmur, frequent diarrhea. History of Any Multi-Drug Resistant Organisms: None Reported Past Surgical History: Adenoidectomy, Back Surgery, Cholecystectomy, Hernia Repair, Orthopedic Surgery, Tonsillectomy, Tubal Ligation Additional Past Surgical History / Comment(s): EGD, colonoscopy, lap zulema fundoplasty, incisional hernia repair, multiple bilateral foot surgeries for "pressure pelts", low back surgery x2, ORIF R ankle, bilateral cataract removals/lens implants. Past Anesthesia/Blood Transfusion Reactions: Postoperative Nausea & Vomiting (PONV) Past Psychological History: Depression Smoking Status: Former smoker Past Alcohol Use History: None Reported Past Drug Use History: None Reported - Past Family History Mother Family Medical History: Blood Disorder Additional Family Medical History / Comment(s): Mother had chronic anemia Father Family Medical History: Myocardial Infarction ([place]) Additional Family Medical History / Comment(s): Father of a [place] at the age of 54 yrs Medications and Allergies Home Medications Medication Instructions Recorded Confirmed Type Atorvastatin [Lipitor] 40 mg PO HS 05/29/15 09/10/21 History metFORMIN HCL [Glucophage] 1,000 mg PO AC-BID 05/29/15 09/10/21 History Insulin Detemir [Levemir Flextouch 58 units SQ HS 03/17/20 09/10/21 History Pen] glipiZIDE [Glucotrol] 10 mg PO AC-BID 09/28/20 09/10/21 History Losartan Potassium [Cozaar] 100 mg PO DAILY #30 tab 09/30/20 09/10/21 Rx Albuterol Inhaler [Ventolin Hfa 2 puff INHALATION RT-Q4H PRN 03/23/21 09/10/21 History Inhaler] DULoxetine HCL [Cymbalta] 60 mg PO DAILY 03/23/21 09/10/21 History Baclofen 10 mg PO BID PRN 09/10/21 09/10/21 History Allergies Allergy/AdvReac Type Severity Reaction Status Date / Time Iodinated Contrast Media AdvReac Nausea & Verified 09/10/21 20:38 [Iodinated Contrast- Oral Vomiting and IV Dye] morphine AdvReac severe Verified 09/10/21 20:38 vomiting, severe flushing and sweating Physical Examination - Vital Signs Vital Signs: Vital Signs Temp Pulse Pulse Resp BP BP Pulse Ox 09/11/21 08:00 98.0 F 59 L 18 196/75 99 09/11/21 03:14 97.8 F 75 20 178/91 99 07/22/22 23:35 98.1 F 50 L 16 162/85 97 09/10/21 22:07 97.9 F 64 18 179/94 97 09/10/21 21:00 61 18 165/78 99 09/10/21 20:56 97.9 F 64 16 179/94 97 09/10/21 16:30 98.3 F 68 20 164/97 96 Intake and Output 09/10/21 09/11/21 09/11/21 22:59 06:59 14:59 Intake Total 250 Output Total 0 Balance 250 Intake: Oral 250 Output: Stool 0 Other: Voiding Method Toilet Toilet # Voids 1 Weight 91.626 kg GENERAL: The patient is lying in bed and is not in acute distress. Is very anxious and in tears. CHEST: The heart rate is regular rate rhythm. No murmurs to auscultation. No carotid bruit bilaterally. LUNG: Clear to auscultation bilaterally no wheezing noted throughout. Not labored breathing. ABDOMEN/GI: Bowel sounds present in all 4 quadrants. No tenderness to palpation throughout. NEUROLOGICAL: Higher mental function: The patient is awake, alert, oriented to self, place and time. Patient is following commands. No aphasia and no neglect. Cranial nerves: The pupils are round, equal and reactive to light. Has ptosis over the right eye (stated old). Visual davila are full to confrontation throughout. Extraocular movement is intact no nystagmus is noted. Facial sensation is normal to touch throughout. The facial strength is normal throughout. Hearing is normal bilaterally to hand rub. Tongue is midline and moved [id number] without any difficulty. No dysarthria is noted. Shoulder shrug is normal bilaterally. Motor: Gait is normal. The strength is hard to assess individual muscles because felt left forearm extension is 4+ but limited because of pain. Patient feels left side if pain to touch. Normal tone and bulk. Has some tremor at rest and with action on uppers. Cerebellum: Normal finger to nose bilaterally. Sensation: Sensation is normal to touch throughout. Reflexes (right/left): 2+ throughout. Plantars are mute bilaterally. Results - Laboratory Findings CBC and BMP: 09/11/21 07:34 09/11/21 07:34 Abnormal Lab Findings: Abnormal Labs 09/10/21 09/10/21 09/10/21 18:29 18:29 18:29 WBC 12.2 H Neutrophils # 7.8 H Eosinophils # APTT 21.3 L Chloride BUN 33 H Creatinine 1.11 H Glucose 349 H POC Glucose (mg/dL) 09/10/21 09/11/21 09/11/21 21:00 06:31 07:34 WBC 11.8 H Neutrophils # Eosinophils # 0.8 H APTT Chloride BUN Creatinine Glucose POC Glucose (mg/dL) 254 H 139 H 09/11/21 07:34 WBC Neutrophils # Eosinophils # APTT Chloride 110 H BUN 29 H Creatinine Glucose 187 H POC Glucose (mg/dL) Assessment and Plan Assessment: Acute vertigo, nausea (since this past Monday). Rule out new posterior circulation stroke. History of left cerebellar stroke (09/2020) Diabetes mellitus Hypertension and seems uncontrolled Diabetic neuropathy X tobacco use Plan: I ordered MRI of the brain and MRA of the head. I also ordered carotid duplex Patient was started on aspirin 325 daily in the ED (was on home ASA 81mg daily). I also added Plavix 75mg daily. Continue Lipitor 40 mg daily at bedtime Ordered 2-D echo, lipid panel, hemoglobin A1c. Placed on antivert 12.5mg 1 tab tid PRN. And zofran 4mg every 6 hours PRN. Continue neuro checks On cardiac monitoring Consulted PT and OT For DVT prophylaxis I started the patient on subcu heparin 5000 units every 12 hours We'll defer the rest of the medical measure the primary team The plan is discussed with patient's nurse. Thank you for the consultation. Salvador Kong M.D. [facility] Time with Patient: Greater than 30
[2021-09-11] MEDS: CLOPIDOGREL 75 MG TAB PO SCH (11:10)
[2021-09-11] MEDS: HEPARIN SODIUM,PORCINE/PF 5,000 UNIT/0.5 ML SYRINGE SQ SCH ×2 (11:10→20:05)
--- NOTE | 2021-09-11 11:32 | US ---
EXAMINATION TYPE: US carotid duplex BILAT DATE OF EXAM: 09/11/2021 COMPARISON: CTA 11/07/20 CLINICAL HISTORY: stroke. EXAM MEASUREMENTS: RIGHT: Peak Systolic Velocity (PSV) cm/sec ----- Right CCA: 75.5 ----- Right ICA: 110.4 ----- Right ECA: 130.7 ICA/CCA ratio: 1.5 RIGHT: End Diastole cm/sec ----- Right CCA: 12.9 ----- Right ICA: 30.7 ----- Right ECA: 16.6 LEFT: Peak Systolic Velocity (PSV) cm/sec ----- Left CCA: 73.3 ----- Left ICA: 123.9 ----- Left ECA: 129.8 ICA/CCA ratio: 1.7 LEFT: End Diastole cm/sec ----- Left CCA: 15.0 ----- Left ICA: 39.2 ----- Left ECA: 21.5 VERTEBRALS (direction of flow): Right Vertebral: Antegrade Left Vertebral: Antegrade Rhythm: Normal No plaque seen bilaterally IMPRESSION: No ultrasound evidence of hemodynamically significant carotid artery stenosis bilaterall y.
[2021-09-11 11:53] LABS: Glucose,Whole Blood 138 mg/dL (70-110)
[2021-09-11] MEDS: ONDANSETRON 4 MG/2 ML VIAL IVP PRN (14:04)
[2021-09-11 16:39] LABS: Glucose,Whole Blood 188 mg/dL (70-110)
[2021-09-11 17:16] LABS: Chol/HDL Ratio 5.68 Ratio; LDL Cholesterol,Calculated 109.3 mg/dL (0.0-131.0)
[2021-09-11] MEDS: hydrALAZINE HCL 20 MG/ML 1 ML VIAL IVP PRN (20:04)
[2021-09-11] MEDS: ATORVASTATIN 40 MG TAB PO SCH (20:05)
[2021-09-11] MEDS: INSULIN DETEMIR (LEVEMIR) 100 UNIT/ML SYR SQ SCH (20:05)
[2021-09-11 20:30] LABS: Glucose,Whole Blood 164 mg/dL (70-110)
[2021-09-12] MEDS: hydrALAZINE HCL 20 MG/ML 1 ML VIAL IVP PRN ×2 (03:03→12:04)
[2021-09-12 06:38] LABS: Glucose,Whole Blood 128 mg/dL (70-110)
[2021-09-12] MEDS: metFORMIN 500 MG TAB PO SCH ×2 (06:38→17:58)
[2021-09-12] MEDS: glipiZIDE 10 MG TAB PO SCH ×2 (06:38→17:58)
[2021-09-12] MEDS: INSULIN ASPART (NovoLOG) 100 UNIT/ML VIAL SQ SCH ×4 (06:39→20:31)
[2021-09-12] MEDS: CLOPIDOGREL 75 MG TAB PO SCH (10:31)
[2021-09-12] MEDS: ASPIRIN 325 MG TAB PO SCH (10:31)
[2021-09-12] MEDS: HEPARIN SODIUM,PORCINE/PF 5,000 UNIT/0.5 ML SYRINGE SQ SCH ×2 (10:32→20:03)
[2021-09-12] MEDS: LOSARTAN 50 MG TAB PO SCH (10:32)
[2021-09-12] MEDS: DULoxetine HCL 60 MG CAPSULE.DR PO SCH (10:32)
[2021-09-12] MEDS: BACLOFEN 10 MG TAB PO PRN (10:56)
--- NOTE | 2021-09-12 11:27 | CA ---
Transthoracic Echo Report Name: Laura Nicole Age: 61 Gender: F : 1960 Exam Date: 09/11/2021 14:41 Exam Location: [place] [facility] Ht (in): 64 Wt (lb): 202 Ordering Physician: Salvador Kong MD Attending/Referring Phys: Classified Ad Clerk Nata Combs RDCS Procedure CPT: Indications: stroke Cardiac Hx: Technical Quality: Fair Contrast 1: Total Dose (mL): Contrast 2: Total Dose (mL): MEASUREMENTS (Male / Female) Normal Values 2D ECHO LV Diastolic Diameter PLAX 4.4 cm 4.2 - 5.9 / 3.9 - 5.3 cm LV Systolic Diameter PLAX 2.9 cm IVS Diastolic Thickness 1.4 cm 0.6 - 1.0 / 0.6 - 0.9 cm LVPW Diastolic Thickness 1.3 cm 0.6 - 1.0 / 0.6 - 0.9 cm LV Relative Wall Thickness 0.6 RV Internal Dim ED PLAX 3.4 cm LA Volume 31.5 cm??? 18 - 58 / 22 - 52 cm??? M-MODE Aortic Root Diameter MM 2.9 cm LA Systolic Diameter MM 3.0 cm LA Ao Ratio MM 1.1 AV Cusp Separation MM 1.9 cm DOPPLER AV Peak Velocity 148.7 cm/s AV Peak Gradient 8.8 mmHg AI Peak Velocity 438.7 cm/s AI Peak Gradient 77.0 mmHg AI Pressure Half Time 456.9 ms MV Area PHT 2.7 cm??? Mitral E Point Velocity 46.1 cm/s Mitral A Point Velocity 99.9 cm/s Mitral E to A Ratio 0.5 MV Deceleration Time 280.3 ms TR Peak Velocity 264.2 cm/s TR Peak Gradient 27.9 mmHg Right Ventricular Systolic Press 32.2 mmHg FINDINGS Left Ventricle Moderately increased left ventricular wall thickness. Normal left ventricular systolic function with no obvious regional wall motion abnormalities. Left ventricular ejection fraction is estimated at 55-60 %. Right Ventricle Mild right ventricular dilatation. Right ventricular systolic pressure within normal limits. Right Atrium Normal right atrial size. Left Atrium Normal left atrial size. No evidence for an atrial septal defect. Mitral Valve Mild mitral regurgitation. Aortic Valve Mild aortic regurgitation. Tricuspid Valve Mild tricuspid regurgitation. Pulmonic Valve Structurally normal pulmonic valve. Pericardium No pericardial effusion. Aorta Normal size aortic root and proximal ascending aorta. CONCLUSIONS Normal LV systolic function Mild mitral regurgitation Mild aortic regurgitation Previewed by: Dr. Kristopher Hanna MD (Electronically Signed) Final Date: 12 September 2021 11:26
[2021-09-12 11:53] LABS: Glucose,Whole Blood 143 mg/dL (70-110)
[2021-09-12] MEDS: ACETAMINOPHEN TAB 325 MG TAB PO PRN (12:03)
--- NOTE | 2021-09-12 14:18 | P.PN ---
Subjective Progress Note Date: 09/12/21 Patient seen at bedside and she continues about the same. She continues to have some dizziness. She said that she could not get MRI yesterday because she was very nauseous. Objective - Vital Signs Vital signs: Vital Signs Temp 98.2 F 09/12/21 10:04 Pulse 78 09/12/21 10:04 Resp 14 09/12/21 10:04 BP 158/77 09/12/21 10:04 Pulse Ox 98 09/12/21 10:04 FiO2 Intake & Output 09/11/21 09/12/21 09/12/21 18:59 06:59 18:59 Intake Total 250 Balance 250 Intake: Oral 250 Other: Voiding Method Toilet Toilet # Voids 1 1 - Exam GENERAL: The patient is lying in bed and is not in acute distress. Is very anxious and in tears. NEUROLOGICAL: Higher mental function: The patient is awake, alert, oriented to self, place and time. Patient is following commands. No aphasia and no neglect. Cranial nerves: The pupils are round, equal and reactive to light. Has ptosis over the right eye (stated old). Visual davila are full to confrontation throughout. Extraocular movement is intact no nystagmus is noted. Facial sensation is normal to touch throughout. The facial strength is normal throughout. Hearing is normal bilaterally to hand rub. Tongue is midline and moved [id number] without any difficulty. No dysarthria is noted. Shoulder shrug is normal bilaterally. Motor: Gait is deferred. The strength is hard to assess individual muscles because felt left forearm extension is 4+ but limited because of pain. Patient feels left side if pain to touch. Normal tone and bulk. Has some tremor at rest and with action on uppers. Cerebellum: Normal finger to nose bilaterally. Sensation: Sensation is normal to touch throughout. Reflexes (right/left): 2+ throughout. Plantars are mute bilaterally. Some other workup in our facility consisted of: Lipid panel is triglyceride of 228, cholesterol is 188 at LDLs 109 and HDL is 33. Hemoglobin A1c is 9.8 CT of the head is reported as old left cerebellar hemispheric infarct without change. No acute intracranial abnormality. Carotid duplex was reported as no ultrasound evidence for hemodynamically significant carotid stenosis bilaterally. The echo was reported as normal left ventricle systolic function. Normal left atrial size. No evidence for atrial septal defect. - Labs CBC & Chem 7: 09/11/21 07:34 09/11/21 07:34 Labs: Abnormal Lab Results - Last 24 Hours (Table) 09/11/21 09/11/21 09/11/21 Range/Units 07:34 07:34 16:38 POC Glucose (mg/dL) 188 H (70-110) mg/dL Hemoglobin A1c 9.8 H (0.0-6.0) % Triglycerides 228.00 H (0.00-149.00) mg/dL VLDL Cholesterol, Calc 45.60 H (5.00-40.00) mg/dL HDL Cholesterol 33.10 L (40.00-60.00) mg/dL 09/11/21 09/12/21 09/12/21 Range/Units 20:28 06:36 11:49 POC Glucose (mg/dL) 164 H 128 H 143 H (70-110) mg/dL Hemoglobin A1c (0.0-6.0) % Triglycerides (0.00-149.00) mg/dL VLDL Cholesterol, Calc (5.00-40.00) mg/dL HDL Cholesterol (40.00-60.00) mg/dL Assessment and Plan Assessment: Acute vertigo, nausea (since this past Monday). Rule out new posterior circulation stroke. History of left cerebellar stroke (09/2020) Uncontrolled Diabetes mellitus (HbA1c 9.8) Dyslipidemia Hypertension and seems uncontrolled Diabetic neuropathy X tobacco use Plan: Pending MRI of the brain and MRA of the head. Continue Aspirin 325mg daily (was on home ASA 81mg daily) and started her on Pl avix 75mg daily. Continue Lipitor 40 mg daily at bedtime Placed on antivert 12.5mg 1 tab tid PRN. And zofran 4mg every 6 hours PRN. Continue neuro checks On cardiac monitoring Consulted PT and OT For DVT prophylaxis: on subcu heparin 5000 units every 12 hours We'll defer the rest of the medical measure the primary team The plan is discussed with patient's nurse. Dr. Schuler will start neurology service tomorrow Roro Kong M.D. [facility] Time with Patient: Less than 30
[2021-09-12 16:46] LABS: Glucose,Whole Blood 125 mg/dL (70-110)
--- NOTE | 2021-09-12 19:54 | P.HPIM ---
History of Present Illness H&P Date: 09/11/21 Chief Complaint: Headache/stroke symptoms 61-year-old female with past medical history of COPD, diabetes, cerebellar stroke presents to the emergency department with dizziness and headache since Monday. Patient reports that she has the same symptoms are brought her into the emergency department last year she was diagnosed with a cerebellar stroke. Reports 2 dizziness upon standing and a posterior headache. Headache is not present at this time. No fevers. No head trauma. No neck pain. Admits nausea without vomiting. Patient was supposed to follow up for carotid studies and see a neurologist however reports that she never did. No other alleviating, precipitating or modifying factors CT of the head is reported as old left cerebellar hemispheric infarct without change. No acute intracranial abnormality. Patient sugar on initial presentation is 349 creatinine is 1.10 but then the creatinine that has improved. Otherwise rest of the chemistry panel as the n ormal Patient did not get that CT angiography of the head and neck since the patient has contrast by done per the ED team. No IV TPA since last normal has been at least 5 days out and the risk outweighed the benefit. Review of Systems REVIEW OF SYSTEMS: CONSTITUTIONAL: No fever, no malaise, no fatigue. HEENT: No recent visual problems or hearing problems. Denied any sore throat. CARDIOVASCULAR: No chest pain, orthopnea, PND, no palpitations, no syncope. PULMONARY: No shortness of breath, no cough, no hemoptysis. GASTROINTESTINAL: No diarrhea, no nausea, no vomiting, no abdominal pain. NEUROLOGICAL: No headaches, no weakness, no numbness. HEMATOLOGICAL: Denies any bleeding or petechiae. GENITOURINARY: Denies any burning micturition, frequency, or urgency. MUSCULOSKELETAL/RHEUMATOLOGICAL: Denies any joint pain, swelling, or any muscle pain. ENDOCRINE: Denies any polyuria or polydipsia. The rest of the 14-point review of systems is negative. Past Medical History Past Medical History: Chest Pain / Angina, COPD, Diabetes Mellitus, GERD/Reflux, Hyperlipidemia, Hypertension Additional Past Medical History / Comment(s): Recent bilateral ear infections treated with ABX, pt states she was treated in past for blood infection with home IV antibiotics, IDDM type II, neuropathy bilateral legs/feet, bronchitis, slight anemia, pancreatitis, chronic low back pain, murmur, frequent diarrhea. History of Any Multi-Drug Resistant Organisms: None Reported Past Surgical History: Adenoidectomy, Back Surgery, Cholecystectomy, Hernia Repair, Orthopedic Surgery, Tonsillectomy, Tubal Ligation Additional Past Surgical History / Comment(s): EGD, colonoscopy, lap zulema fundoplasty, incisional hernia repair, multiple bilateral foot surgeries for "pressure pelts", low back surgery x2, ORIF R ankle, bilateral cataract removals/lens implants. Past Anesthesia/Blood Transfusion Reactions: Postoperative Nausea & Vomiting (PONV) Past Psychological History: Depression Smoking Status: Former smoker Past Alcohol Use History: None Reported Past Drug Use History: None Reported - Past Family History Mother Family Medical History: Blood Disorder Additional Family Medical History / Comment(s): Mother had chronic anemia Father Family Medical History: Myocardial Infarction ([place]) Additional Family Medical History / Comment(s): Father of a [place] at the age of 54 yrs Medications and Allergies Home Medications Medication Instructions Recorded Confirmed Type Atorvastatin [Lipitor] 40 mg PO HS 05/29/15 09/10/21 History metFORMIN HCL [Glucophage] 1,000 mg PO AC-BID 05/29/15 09/10/21 History Insulin Detemir [Levemir Flextouch 58 units SQ HS 03/17/20 09/10/21 History Pen] glipiZIDE [Glucotrol] 10 mg PO AC-BID 09/28/20 09/10/21 History Losartan Potassium [Cozaar] 100 mg PO DAILY #30 tab 09/30/20 09/10/21 Rx Albuterol Inhaler [Ventolin Hfa 2 puff INHALATION RT-Q4H PRN 03/23/21 09/10/21 History Inhaler] DULoxetine HCL [Cymbalta] 60 mg PO DAILY 03/23/21 09/10/21 History Baclofen 10 mg PO BID PRN 09/10/21 09/10/21 History Allergies Allergy/AdvReac Type Severity Reaction Status Date / Time Iodinated Contrast Media AdvReac Nausea & Verified 09/10/21 20:38 [Iodinated Contrast- Oral Vomiting and IV Dye] morphine AdvReac severe Verified 09/10/21 20:38 vomiting, severe flushing and sweating Physical Exam Vitals: Vital Signs Temp Pulse Pulse Resp BP BP Pulse Ox 09/11/21 08:00 98.0 F 59 L 18 196/75 99 09/11/21 03:14 97.8 F 75 20 178/91 99 09/10/21 23:35 98.1 F 50 L 16 162/85 97 09/10/21 22:07 97.9 F 64 18 179/94 97 09/10/21 21:00 61 18 165/78 99 09/10/21 20:56 97.9 F 64 16 179/94 97 09/10/21 16:30 98.3 F 68 20 164/97 96 Intake and Output 09/10/21 09/11/21 09/11/21 22:59 06:59 14:59 Intake Total 250 Output Total 0 Balance 250 Intake: Oral 250 Output: Stool 0 Other: Voiding Method Toilet Toilet # Voids 1 Weight 91.626 kg General appearance: Present: average body habitus, cooperative, no acute distress Eyes: Present: anicteric sclerae, EOMI, PERRLA, normal appearance Neck: Present: normal ROM. Absent: lymphadenopathy, rigidity, thyromegaly Carotids: negative: bruit present Thyroid: bilateral: normal size, negative: enlarged, nodule Respiratory: bilateral: CTA, negative: rales, rhonchi, wheezing Cardiovascular: regular; normal: S1, S2 Abnormal Heart Sounds: Absent: systolic murmur, diastolic murmur Gastrointestinal: normal bowel sounds, soft. Absent: distended, organomegaly, tenderness Genitourinary Comment(s): deferred Integumentary: Present: normal turgor. Absent: jaundiced, rash, ulcer Neurologic: Present: CNII-XII intact. Absent: focal deficits Musculoskeletal: Present: gait normal, strength equal bilaterally Results CBC & Chem 7: 09/11/21 07:34 09/11/21 07:34 Labs: Abnormal Lab Results - Last 24 Hours (Table) 09/10/21 09/10/21 09/10/21 Range/Units 18:29 18:29 18:29 WBC 12.2 H (3.8-10.6) k/uL Neutrophils # 7.8 H (1.3-7.7) k/uL Eosinophils # (0-0.7) k/uL APTT 21.3 L (22.0-30.0) sec Chloride (98-107) mmol/L BUN 33 H (7-17) mg/dL Creatinine 1.11 H (0.52-1.04) mg/dL Glucose 349 H (74-99) mg/dL POC Glucose (mg/dL) (70-110) mg/dL 09/10/21 09/11/21 09/11/21 Range/Units 21:00 06:31 07:34 WBC 11.8 H (3.8-10.6) k/uL Neutrophils # (1.3-7.7) k/uL Eosinophils # 0.8 H (0-0.7) k/uL APTT (22.0-30.0) sec Chloride (98-107) mmol/L BUN (7-17) mg/dL Creatinine (0.52-1.04) mg/dL Glucose (74-99) mg/dL POC Glucose (mg/dL) 254 H 139 H (70-110) mg/dL 09/11/21 Range/Units 07:34 WBC (3.8-10.6) k/uL Neutrophils # (1.3-7.7) k/uL Eosinophils # (0-0.7) k/uL APTT (22.0-30.0) sec Chloride 110 H (98-107) mmol/L BUN 29 H (7-17) mg/dL Creatinine (0.52-1.04) mg/dL Glucose 187 H (74-99) mg/dL POC Glucose (mg/dL) (70-110) mg/dL Thrombosis Risk Factor Assmnt - Choose All That Apply Each Factor Represents 1 point: Obesity (BMI >25) Each Risk Factor Represents 2 Points: Age 61-74 years Other congenital or acquired thrombophilia - If yes, enter type in comment: No Thrombosis Risk Factor Assessment Total Risk Factor Score: 3 Thrombosis Risk Factor Assessment Level: Moderate Risk Assessment and Plan Assessment: 1. Acute vertigo; rule out posterior circulation CVA - Patient does have history of acute cerebellar stroke in September 2020 - Patient is being evaluated by urology and is recommended MRI of the brain along with MRA of head and neck - Patient isn't placed on aspirin and Plavix 75 mg daily; Lipitor 40 mg daily at bedtime - Neuro checks every 4 hours 2. Acute vertigo; possible benign positional - Patient remains on Antivert 12.5 mg 3 times a day when necessary; Zofran 4 mg every 6 hours when necessary 3. Uncontrolled diabetes mellitus; last A1c was 9.8; patient has been placed on glipizide 10 mg by mouth twice a day along with Levemir 58 units subcu daily at bedtime, metformin thousand milligrams by mouth twice a day 4. Uncontrolled hypertension; losartan 100 mg daily; we will add IV hydralazine to be used when necessary and make further adjustments accordingly 5. Hyperlipidemia; Lipitor 40 mg by mouth daily at bedtime DVT prophylaxis; SCDs/subcu heparin CODE STATUS; full code
--- NOTE | 2021-09-12 19:59 | P.PN ---
Subjective Progress Note Date: 09/12/21 Principal diagnosis: Acute vertigo; rule out posterior circulation CVA Uncontrolled hypertension Uncontrolled diabetes mellitus 61-year-old female with past medical history of COPD, diabetes, cerebellar stroke presents to the emergency department with dizziness and headache since Monday. Patient reports that she has the same symptoms are brought her into the emergency department last year she was diagnosed with a cerebellar stroke. Reports 2 dizziness upon standing and a posterior headache. Headache is not present at this time. No fevers. No head trauma. No neck pain. Admits nausea without vomiting. Patient was supposed to follow up for carotid studies and see a neurologist however reports that she never did. No other alleviating, prec ipitating or modifying factors CT of the head is reported as old left cerebellar hemispheric infarct without change. No acute intracranial abnormality. Patient sugar on initial presentation is 349 creatinine is 1.10 but then the creatinine that has improved. Otherwise rest of the chemistry panel as the normal Patient did not get that CT angiography of the head and neck since the patient has contrast by done per the ED team. No IV TPA since last normal has been at least 5 days out and the risk outweighed the benefit. 09/12/2021 Patient is seen and evaluated in room at bedside; continues to have dizziness; was unable to complete MRI yesterday because of nausea Vital signs are reviewed and are and revealing. Blood pressure 158/76 Patient remains on aspirin 325 mg daily which has been escalated from home dose of 81 mg daily prior neurology recommendations; continue with Plavix 75 mg daily; Lipitor 40 mg by mouth daily at bedtime Patient remains on neuro checks; MRI of the brain and MRA head and neck is still pending - PT/OT consulted and await recommendations Objective - Vital Signs Vital signs: Vital Signs Temp 98.0 F 09/12/21 11:59 Pulse 74 09/12/21 11:59 Resp 14 09/12/21 11:59 BP 183/87 09/12/21 11:59 Pulse Ox 98 09/12/21 11:59 FiO2 Intake & Output 09/11/21 09/12/21 09/12/21 18:59 06:59 18:59 Intake Total 250 Balance 250 Intake: Oral 250 Other: Voiding Method Toilet Toilet # Voids 1 1 1 - Exam General appearance: Present: average body habitus, cooperative, no acute distress Eyes: Present: anicteric sclerae, EOMI, PERRLA, normal appearance Neck: Present: normal ROM. Absent: lymphadenopathy, rigidity, thyromegaly Carotids: negative: bruit present Thyroid: bilateral: normal size, negative: enlarged, nodule Respiratory: bilateral: CTA, negative: rales, rhonchi, wheezing Cardiovascular: regular; normal: S1, S2 Abnormal Heart Sounds: Absent: systolic murmur, diastolic murmur Gastrointestinal: normal bowel sounds, soft. Absent: distended, organomegaly, tenderness Genitourinary Comment(s): deferred Integumentary: Present: normal turgor. Absent: jaundiced, rash, ulcer Neurologic: Present: CNII-XII intact. Absent: focal deficits Musculoskeletal: Present: gait normal, strength equal bilaterally - Labs CBC & Chem 7: 09/11/21 07:34 09/11/21 07:34 Labs: Abnormal Lab Results - Last 24 Hours (Table) 09/11/21 09/11/21 09/11/21 Range/Units 07:34 07:34 16:38 POC Glucose (mg/dL) 188 H (70-110) mg/dL Hemoglobin A1c 9.8 H (0.0-6.0) % Triglycerides 228.00 H (0.00-149.00) mg/dL VLDL Cholesterol, Calc 45.60 H (5.00-40.00) mg/dL HDL Cholesterol 33.10 L (40.00-60.00) mg/dL 09/11/21 09/12/21 09/12/21 Range/Units 20:28 06:36 11:49 POC Glucose (mg/dL) 164 H 128 H 143 H (70-110) mg/dL Hemoglobin A1c (0.0-6.0) % Triglycerides (0.00-149.00) mg/dL VLDL Cholesterol, Calc (5.00-40.00) mg/dL HDL Cholesterol (40.00-60.00) mg/dL Assessment and Plan Assessment: 1. Acute vertigo; rule out posterior circulation CVA - Patient does have history of acute cerebellar stroke in September 2020 - Patient is being evaluated by urology and is recommended MRI of the brain along with MRA of head and neck - Patient isn't placed on aspirin and Plavix 75 mg daily; Lipitor 40 mg daily at bedtime - Neuro checks every 4 hours 2. Acute vertigo; possible benign positional - Patient remains on Antivert 12.5 mg 3 times a day when necessary; Zofran 4 mg every 6 hours when necessary 3. Uncontrolled diabetes mellitus; last A1c was 9.8; patient has been placed on glipizide 10 mg by mouth twice a day along with Levemir 58 units subcu daily at bedtime, metformin thousand milligrams by mouth twice a day 4. Uncontrolled hypertension; losartan 100 mg daily; we will add IV hydralazine to be used when necessary and make further adjustments accordingly 5. Hyperlipidemia; Lipitor 40 mg by mouth daily at bedtime DVT prophylaxis; SCDs/subcu heparin CODE STATUS; full code
[2021-09-12] MEDS: ATORVASTATIN 40 MG TAB PO SCH (20:03)
[2021-09-12 20:21] LABS: Glucose,Whole Blood 263 mg/dL (70-110)
[2021-09-12] MEDS: INSULIN DETEMIR (LEVEMIR) 100 UNIT/ML SYR SQ SCH (20:31)
[2021-09-12] MEDS: ONDANSETRON 4 MG/2 ML VIAL IVP PRN (22:33)
[2021-09-13] MEDS: metFORMIN 500 MG TAB PO SCH ×2 (04:33→19:02)
[2021-09-13 06:20] LABS: Glucose,Whole Blood 121 mg/dL (70-110)
[2021-09-13] MEDS: INSULIN ASPART (NovoLOG) 100 UNIT/ML VIAL SQ SCH ×4 (06:28→21:01)
[2021-09-13] MEDS: glipiZIDE 10 MG TAB PO SCH ×2 (06:30→19:02)
[2021-09-13 07:43] LABS: Basophils # (A) 0.1 k/uL (0-0.2); Basophils % (A) 1 %; Eosinophils # (A) 0.4 k/uL (0-0.7); Eosinophils % (A) 4 %; HCT 46.7 % (34.0-46.0); HGB 14.7 gm/dL (11.4-16.0); Lymphocytes # (A) 2.2 k/uL (1.0-4.8); Lymphocytes % (A) 23 %; MCHC 31.6 g/dL (31.0-37.0); MCV 98.3 fL (80.0-100.0); Mean Platelet Volume 7.6; Monocytes # (A) 0.5 k/uL (0-1.0); Monocytes % (A) 5 %; Neutrophils # (A) 6.4 k/uL (1.3-7.7); Neutrophils % (A) 66 %; Platelet Count 337 k/uL (150-450); RBC 4.75 m/uL (3.80-5.40); RDW 13.1 % (11.5-15.5); WBC 9.6 k/uL (3.8-10.6)
[2021-09-13 07:53] LABS: Calcium 8.9 mg/dL (8.4-10.2); Potassium 4.2 mmol/L (3.5-5.1)
[2021-09-13] MEDS: HEPARIN SODIUM,PORCINE/PF 5,000 UNIT/0.5 ML SYRINGE SQ SCH ×2 (10:38→21:03)
[2021-09-13] MEDS: DULoxetine HCL 60 MG CAPSULE.DR PO SCH (10:38)
[2021-09-13] MEDS: CLOPIDOGREL 75 MG TAB PO SCH (10:38)
[2021-09-13] MEDS: LOSARTAN 50 MG TAB PO SCH (10:38)
[2021-09-13] MEDS: ASPIRIN 325 MG TAB PO SCH (10:38)
[2021-09-13 11:32] VITALS: BMI 33.5
[2021-09-13 11:35] LABS: Glucose,Whole Blood 228 mg/dL (70-110)
[2021-09-13] MEDS: BACLOFEN 10 MG TAB PO PRN (13:56)
[2021-09-13] MEDS: ONDANSETRON 4 MG/2 ML VIAL IVP PRN (15:40)
--- NOTE | 2021-09-13 16:47 | MR ---
EXAMINATION TYPE: MR angio head wo con DATE OF EXAM: 09/13/2021 COMPARISON: MRI 09/29/2020 HISTORY: Vertigo, stroke TECHNIQUE: Time of flight images focusing on the [place] were performed without contrast. Th ree-dimensional reconstructions performed on an alternate workstation and FINDINGS: No significant interval change. Left vertebral artery is dominant. Anterior and posterior c irculation are patent. No evident aneurysm, dissection, stenosis, or embolus. Fenestration is noted o f the left A1 segment, stable IMPRESSION: No significant interval change. No abnormality evident to account for patient's symptoms.
[2021-09-13 16:55] LABS: Glucose,Whole Blood 157 mg/dL (70-110)
--- NOTE | 2021-09-13 17:23 | MR ---
EXAMINATION TYPE: MR brain wo con DATE OF EXAM: 09/13/2021 5:09 PM COMPARISON: MR brain 09/29/2020 CT brain 09/10/2021. CLINICAL INDICATION:Female, 61 years old with history of stroke. vertigo.; TECHNIQUE: Multi planar, multi sequence imaging was performed through the brain including: T1, T2, Di ffusion weighted imaging, and gradient echo imaging. No gadolinium was given. FINDINGS: The sharma-white junctions, ventricular system, and cisterns appear unremarkable. Old left cerebellar i nfarct scattered high T2 signal. Subtle areas of high T2 signal intensity are seen within the deep wh ite matter. Midline structures show no abnormality. Diffusion-weighted imaging shows no evidence of r estricted diffusion. The bone marrow signal is within normal limits. The paranasal sinuses demonstrate Mild mucosal thicke cole. The lenses are not in the globes. IMPRESSION: 1. No evidence of intracranial mass or acute/subacute infarct. 2. Old left cerebellar injury along with Nonspecific white matter changes, likely secondary to small vessel ischemic disease.
--- NOTE | 2021-09-13 18:00 | P.PN ---
Subjective Progress Note Date: 09/13/21 Patient was initially seen by Dr. Salvador Kong. Please refer to his note for details. Patient is a 61-year-old female, known to me from previous admission to the hospital in September 2020,, who came because of cephalgia, generalized weakness, and also recurrent episodes of vertigo, lasting for about 10-15 minutes. Patient was not very clear about the frequency and duration of vertigo. Patient claims that her blood pressure was running high, but nods much better. The vertigo was occurring not in relation to body position. Could happen while she is just sitting. Patient has history of posterior circulation stroke. Patient taking aspirin 81 mg daily regularly. Patient states the vertigo has resolved. She feels better. Patient has history of tobacco use, quit 4 years ago. I reviewed patient's computed tomography scan of the head which revealed no paranasal sinus disease, and EAC was clear. Objective - Vital Signs Vital signs: Vital Signs Temp 98.2 F 09/13/21 12:27 Pulse 78 09/13/21 13:58 Resp 18 09/13/21 12:27 BP 125/85 09/13/21 12:27 Pulse Ox 96 09/13/21 12:27 FiO2 Intake & Output 09/12/21 09/13/21 09/13/21 18:59 06:59 18:59 Intake Total 360 350 Output Total 0 0 Balance 360 350 Weight 88.7 kg 88.7 kg Intake: Oral 360 350 Output: Stool 0 0 Other: Voiding Method Toilet Toilet Toilet # Voids 1 1 1 - Exam Patient's mental status, speech and language functions are normal. No aphasia or dysarthria. 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 Visual davila are full. Face is symmetric and tongue protrudes the midline. Muscle strength is normal in the arms and legs. No ataxia although patient is tremulous for [id number] testing bilaterally. No ataxia of the lower extremities. - Labs CBC & Chem 7: 09/13/21 07:18 09/13/21 07:18 Labs: Abnormal Lab Results - Last 24 Hours (Table) 09/12/21 09/12/21 09/13/21 Range/Units 16:45 20:19 06:19 Hct (34.0-46.0) % Chloride (98-107) mmol/L BUN (7-17) mg/dL Glucose (74-99) mg/dL POC Glucose (mg/dL) 125 H 263 H 121 H (70-110) mg/dL 09/13/21 09/13/21 09/13/21 Range/Units 07:18 07:18 11:33 Hct 46.7 H (34.0-46.0) % Chloride 108 H (98-107) mmol/L BUN 21 H (7-17) mg/dL Glucose 117 H (74-99) mg/dL POC Glucose (mg/dL) 228 H (70-110) mg/dL Assessment and Plan Assessment: * Cephalgia, generalized weakness and recurrent episodes of vertigo with nausea. Unclear cause. Rule out peripheral versus central cause. Patient believes her symptoms for almost like last year when she suffered from stroke. TIA definitely in the differential. Patient has multiple vascular risk factors. * History of left cerebellar CVA(09/2020) * Hypertension * Diabetes, poorly controlled * Diabetic neuropathy * Dyslipidemia * X tobacco use Plan: * Await MRI of the brain, MRA head. * Continue Aspirin 325mg daily (was on home ASA 81mg daily) and started her on Plavix 75mg daily. * Placed on antivert 12.5mg 1 tab tid PRN. And zofran 4mg every 6 hours PRN. * Carotid Doppler revealed no significant stenosis of either ICA. Antegrade flow in both vertebral arteries. * 2-D echo revealed normal left ventricular systolic function, with the EF 55- 60%. Mild MR, AR. Normal left atrial size. No evidence of ASD. * Hemoglobin A1c 9.8. Recommend optimize control of diabetes to target A1c <7.0. * Optimize control of blood pressure to target <130/80 * Lipid panel with cholesterol 188, LDL 109, HDL 33 triglycerides 228. Continue Lipitor 40 mg. * On cardiac monitoring * Consulted PT and OT * For DVT prophylaxis: on subcu heparin 5000 units every 12 hours * We'll defer the rest of the medical measure the primary team. Addendum 5:30 PM: MRI of the brain revealed no evidence of intracranial mass or acute/subacute infarct. Old left cerebellar injury along with nonspecific white matter changes, likely secondary to small vessel ischemic disease. I personally r mercediewed MRI of the brain, agree with the findings. No acute ischemic stroke. MRA of the brain showed no significant interval change. No intracranial stenosis. Recommend aggressive control of all stroke risk factors as mentioned above. Suggest continuing aspirin 81 mg daily and Plavix 75 mg daily for 21 days, then stop aspirin and continue Plavix 75 mg. Check B12, folate. Neurologically clear for discharge. Suggest patient follow-up with Dr. Kong as outpatient in 2-4 weeks.
[2021-09-13 19:54] LABS: Glucose,Whole Blood 187 mg/dL (70-110)
[2021-09-13] MEDS: INSULIN DETEMIR (LEVEMIR) 100 UNIT/ML SYR SQ SCH (21:03)
[2021-09-13] MEDS: ATORVASTATIN 40 MG TAB PO SCH (21:03)
[2021-09-14] MEDS: metFORMIN 500 MG TAB PO SCH (04:29)
[2021-09-14 06:12] LABS: Glucose,Whole Blood 79 mg/dL (70-110)
[2021-09-14] MEDS: INSULIN ASPART (NovoLOG) 100 UNIT/ML VIAL SQ SCH (06:15)
[2021-09-14] MEDS: glipiZIDE 10 MG TAB PO SCH (06:28)
[2021-09-14] MEDS: ACETAMINOPHEN TAB 325 MG TAB PO PRN (09:38)
[2021-09-14] MEDS: ASPIRIN 325 MG TAB PO SCH (09:38)
[2021-09-14] MEDS: LOSARTAN 50 MG TAB PO SCH (09:38)
[2021-09-14] MEDS: DULoxetine HCL 60 MG CAPSULE.DR PO SCH (09:38)
[2021-09-14] MEDS: CLOPIDOGREL 75 MG TAB PO SCH (09:38)
[2021-09-14] MEDS: HEPARIN SODIUM,PORCINE/PF 5,000 UNIT/0.5 ML SYRINGE SQ SCH (09:39)
[2021-09-14] MEDS: BACLOFEN 10 MG TAB PO PRN (09:42)
[2021-09-14 09:51] VITALS: BP 145/69; PULSE 79; RESP 16; TEMP 98.4
[2021-09-14 11:50] LABS: Glucose,Whole Blood 185 mg/dL (70-110)
[2021-09-14] MEDS ORDERED: CYANOCOBALAMIN 1,000 MCG/ML 1 ML VIAL IM ONE (13:30)
[2021-09-15] MEDS ORDERED: CYANOCOBALAMIN 500 MCG TAB PO SCH (09:00)
--- NOTE | 2021-11-17 18:31 | P.PN ---
Subjective Progress Note Date: 09/13/21 Patient seen with TIA she's feeling better today she has no headache she's seen currently by neurology . Patient Awaits MRI Denies Any Fever. Objective - Vital Signs Vital signs: Vital Signs Temp 98.3 F 09/13/21 23:43 Pulse 80 09/13/21 23:43 Resp 16 09/13/21 23:43 BP 118/65 09/13/21 23:43 Pulse Ox 96 09/13/21 23:43 FiO2 Intake & Output 09/13/21 09/13/21 09/14/21 06:59 18:59 06:59 Intake Total 360 350 240 Output Total 0 0 Balance 360 350 240 Weight 88.7 kg 88.7 kg Intake: Oral 360 350 240 Output: Stool 0 0 Other: Voiding Method Toilet Toilet Toilet # Voids 1 1 1 - Exam GENERAL: This is a 61-year-old in no apparent distress at the time of examination. Pleasant and cooperative. HEENT: Head is atraumatic, normocephalic. Pupils are equal, round, and reactive to light. Sclerae anicteric. Conjunctivae are clear. Mucus membranes of the mouth are moist. Neck is supple. RESPIRATORY: Clear to auscultation. No wheezes, rales, or rhonchi. No use of accessory muscles. Patient maintaining oxygen saturation greater than 92%. No chest wall tenderness is noted on palpation or with deep breathing. CARDIOVASCULAR: Regular rate and rhythm. S1 and S2 noted. No systolic or diastolic murmur auscultated. No JVD noted. No S3 or S4 noted. GASTROINTESTINAL: No distention noted. Abdomen soft and round. Normal active bowel sounds auscultated x 4 quadrants. No pain or tenderness noted upon palpation. INTEGUMENTARY: No cyanosis. No jaundice. No rashes noted. No cellulitis noted. EXTREMITIES: 2+ peripheral pulses. No evidence of peripheral edema. No calf tenderness noted. NEUROLOGIC: Cranial nerves II-XII intact. PSYCHIATRIC: Awake, alert, and oriented X 3. Appropriate affect. Intact judgement and insight. - Labs CBC & Chem 7: 09/13/21 07:18 09/13/21 07:18 Labs: Abnormal Lab Results - Last 24 Hours (Table) 09/13/21 09/13/21 09/13/21 Range/Units 06:19 07:18 07:18 Hct 46.7 H (34.0-46.0) % Chloride 108 H (98-107) mmol/L BUN 21 H (7-17) mg/dL Glucose 117 H (74-99) mg/dL POC Glucose (mg/dL) 121 H (70-110) mg/dL 09/13/21 09/13/21 09/13/21 Range/Units 11:33 16:54 19:52 Hct (34.0-46.0) % Chloride (98-107) mmol/L BUN (7-17) mg/dL Glucose (74-99) mg/dL POC Glucose (mg/dL) 228 H 157 H 187 H (70-110) mg/dL Assessment and Plan (1) Acute ischemic stroke Status: Acute Code(s): I63.9 - CEREBRAL INFARCTION, UNSPECIFIED SNOMED Co de(s): 995422291 (2) Dehydration Status: Acute Code(s): E86.0 - DEHYDRATION SNOMED Code(s): 22647800 (3) Dizziness Status: Acute Code(s): R42 - DIZZINESS AND GIDDINESS SNOMED Code(s): 658954780 (4) Malaise Status: Acute Code(s): R53.81 - OTHER MALAISE SNOMED Code(s): 343247717 Plan: Plan is to undergo neurological testing including an MRI.
--- NOTE | 2021-11-17 18:34 | P.DS ---
Providers Date of admission: 09/14/21 07:16 Expected date of discharge: 09/14/21 Attending physician: Jeison Miranda Consults: 09/10/21 20:44 Consult Physician Urgent Consulting Provider: Salvador Kong Consult Reason/Comments: acute vertiginous symptoms, hx cerebellar stroke Do you want consulting provider notified?: Yes Primary care physician: Jeison Miranda - Discharge Diagnosis(es) (1) TIA (transient ischemic attack) Status: Acute (2) Vertigo Status: Acute (3) Dizziness Status: Acute Hospital Course: Patient was admitted and seen by neurology services Dr. Whitten acute hemorrhagic or ischemic stroke was ruled out there was evidence of old stroke. MRI was stable for discharge. Patient Condition at Discharge: Stable Plan - Discharge Summary Discharge Rx Participant: Yes New Discharge Prescriptions: New Meclizine [Antivert] 12.5 mg PO TID PRN tab PRN Reason: Vertigo Aspirin 325 mg PO DAILY tab Clopidogrel [Plavix] 75 mg PO DAILY tab Continue Atorvastatin [Lipitor] 40 mg PO HS metFORMIN HCL [Glucophage] 1,000 mg PO AC-BID Insulin Detemir [Levemir Flextouch Pen] 58 units SQ HS glipiZIDE [Glucotrol] 10 mg PO AC-BID Losartan Potassium [Cozaar] 100 mg PO DAILY #30 tab Albuterol Inhaler [Ventolin Hfa Inhaler] 2 puff INHALATION RT-Q4H PRN PRN Reason: Shortness Of Breath DULoxetine HCL [Cymbalta] 60 mg PO DAILY Baclofen 10 mg PO BID PRN PRN Reason: Muscle Pain Discharge Medication List Atorvastatin [Lipitor] 40 mg PO HS 05/29/15 [History] metFORMIN HCL [Glucophage] 1,000 mg PO AC-BID 05/29/15 [History] Insulin Detemir [Levemir Flextouch Pen] 58 units SQ HS 03/17/20 [History] glipiZIDE [Glucotrol] 10 mg PO AC-BID 09/28/20 [History] Losartan Potassium [Cozaar] 100 mg PO DAILY #30 tab 09/30/20 [Rx] Albuterol Inhaler [Ventolin Hfa Inhaler] 2 puff INHALATION RT-Q4H PRN 03/23/21 [History] DULoxetine HCL [Cymbalta] 60 mg PO DAILY 03/23/21 [History] Baclofen 10 mg PO BID PRN 09/10/21 [History] Aspirin 325 mg PO DAILY tab 09/14/21 [Rx] Clopidogrel [Plavix] 75 mg PO DAILY tab 09/14/21 [Rx] Meclizine [Antivert] 12.5 mg PO TID PRN tab 09/14/21 [Rx] Follow up Appointment(s)/Referral(s): Jeison Miranda DO [Primary Care Provider] - 09/23/21 3:20 pm Salvador Kong MD [STAFF PHYSICIAN] - 2 Weeks ([id number] [place], [place] [phone] (Neurology)) Patient Instructions/Handouts: Transient Ischemic Attack (DC), Vertigo (DC) Discharge Disposition: HOME SELF-CARE
== END 2021-09-14 12:56 | disposition home or self-care (01) | DRG 69 ==
LOC: EC 16:04 → 3SCARD 20:44 → OBSVTOIN 09-14 07:16
PROVIDERS: ADMIT Family Medicine; ATTEND Family Medicine
DX: G45.9 Transient cerebral ischemic attack, unspecified (principal); R42 Dizziness and giddiness; E11.65 Type 2 diabetes mellitus with hyperglycemia; E11.40 Type 2 diabetes mellitus with diabetic neuropathy, unspecified; E78.5 Hyperlipidemia, unspecified; F32.A Depression, unspecified; E53.8 Deficiency of other specified B group vitamins; I10 Essential (primary) hypertension; I49.1 Atrial premature depolarization; I45.4 Nonspecific intraventricular block; R00.0 Tachycardia, unspecified; I49.3 Ventricular premature depolarization; J44.9 Chronic obstructive pulmonary disease, unspecified; G89.29 Other chronic pain; M54.50 Low back pain, unspecified; E66.9 Obesity, unspecified; Z96.1 Presence of intraocular lens; Z28.310 Unvaccinated for COVID-19; Z71.3 Dietary counseling and surveillance; Z68.33 Body mass index [BMI] 33.0-33.9, adult; Z87.891 Personal history of nicotine dependence; Z91.041 Radiographic dye allergy status; Z88.6 Allergy status to analgesic agent; Z86.19 Personal history of other infectious and parasitic diseases; Z79.4 Long term (current) use of insulin; Z79.84 Long term (current) use of oral hypoglycemic drugs; Z79.02 Long term (current) use of antithrombotics/antiplatelets; Z79.82 Long term (current) use of aspirin; Z79.899 Other long term (current) drug therapy; Z82.41 Family history of sudden cardiac death; Z82.49 Family history of ischemic heart disease and other diseases of the circulatory system
CPT/HCPCS: 36415; 70450; 70544; 70551; 71046; 80048; 80053; 80061; 82607; 82746; 83036; 84484; 85025; 85610; 85730; 93306; 93880; 99285

== ENCOUNTER → 2021-10-29 | Outpatient (CLI) | payer OTHER ==
[2021-10-29 15:15] LABS: ALT 32 U/L (8-44); AST 28 U/L (13-35); African American GFR (CKD) 54.1 (60.0-200.0); Albumin 4.4 g/dL (3.8-4.9); Albumin/Globulin Ratio 1.54 (1.60-3.17); Alkaline Phosphatase 92 U/L (41-126); BUN/Creat Ratio 12.68 Ratio (12.00-20.00); Blood Urea Nitrogen 15.6 mg/dL (9.0-27.0); Calcium 9.5 mg/dL (8.7-10.3); Carbon Dioxide 25.8 mmol/L (20.0-27.5); Chloride 105 mmol/L (96-109); Chol/HDL Ratio 5.58 Ratio; Globulin 2.8 g/dL (1.6-3.3); Glucose 136 mg/dL (70-110); LDL Cholesterol,Calculated 139.7 mg/dL (0.0-131.0); Non-African American GFR(CKD) 46.6 (60.0-200.0); Potassium 5.3 mmol/L (3.5-5.5); Sodium 142 mmol/L (135-145); Total Protein 7.2 g/dL (6.2-8.2)
== END | disposition home or self-care (01) ==
LOC: LABWHC1 08:29
PROVIDERS: ATTEND Internal Medicine Endocrinology, Diabetes & Metabolism
DX: E11.65 Type 2 diabetes mellitus with hyperglycemia (principal)
CPT/HCPCS: 36415; 80053; 80061; 82043; 82570; 83036; 84443

== ENCOUNTER → 2021-12-24 | Outpatient (CLI) | payer OTHER ==
[2021-12-24 18:11] LABS: Calcium 9.4 mg/dL (8.7-10.3); Magnesium 1.9 mg/dL (1.5-2.4); Potassium 4.5 mmol/L (3.5-5.5); Vitamin B12 >2000.0 pg/mL (200.0-944.0)
== END | disposition home or self-care (01) ==
LOC: LABWHC1 13:38
PROVIDERS: ATTEND Psychiatry & Neurology Neurology
DX: M62.838 Other muscle spasm (principal)
CPT/HCPCS: 36415; 82310; 82607; 83735; 84100; 84132

== ENCOUNTER → 2022-02-11 | Outpatient (CLI) | payer OTHER ==
[2022-02-11 15:35] LABS: ALT 18 U/L (8-44); AST 16 U/L (13-35); African American GFR (CKD) 47.9 (60.0-200.0); Albumin 4.3 g/dL (3.8-4.9); Albumin/Globulin Ratio 1.84 (1.60-3.17); Alkaline Phosphatase 118 U/L (41-126); BUN/Creat Ratio 24.63 Ratio (12.00-20.00); Blood Urea Nitrogen 33.5 mg/dL (9.0-27.0); Calcium 9.4 mg/dL (8.7-10.3); Carbon Dioxide 22.9 mmol/L (20.0-27.5); Chloride 108 mmol/L (96-109); Globulin 2.4 g/dL (1.6-3.3); Glucose 219 mg/dL (70-110); LDL Cholesterol,Calculated 108.4 mg/dL (0.0-131.0); Non-African American GFR(CKD) 41.3 (60.0-200.0); Potassium 5.2 mmol/L (3.5-5.5); Sodium 141 mmol/L (135-145); Total Bilirubin <0.15 mg/dL (0.30-1.20); Total Protein 6.7 g/dL (6.2-8.2)
== END | disposition home or self-care (01) ==
LOC: LABWHC1 08:21
PROVIDERS: ATTEND Internal Medicine Endocrinology, Diabetes & Metabolism
DX: E11.65 Type 2 diabetes mellitus with hyperglycemia (principal)
CPT/HCPCS: 36415; 80053; 80061; 82043; 82570; 83036; 84443

== ENCOUNTER → 2022-05-13 | Outpatient (CLI) | payer OTHER ==
[2022-05-13 19:01] LABS: ALT 23 U/L (8-44); AST 20 U/L (13-35); African American GFR (CKD) 50.6 (60.0-200.0); Albumin 4.4 g/dL (3.8-4.9); Albumin/Globulin Ratio 1.57 (1.60-3.17); Alkaline Phosphatase 116 U/L (41-126); BUN/Creat Ratio 19.62 Ratio (12.00-20.00); Blood Urea Nitrogen 25.5 mg/dL (9.0-27.0); Calcium 9.5 mg/dL (8.7-10.3); Carbon Dioxide 20.3 mmol/L (20.0-27.5); Chloride 108 mmol/L (96-109); Globulin 2.8 g/dL (1.6-3.3); Glucose 167 mg/dL (70-110); LDL Cholesterol,Calculated 87.2 mg/dL (0.0-131.0); Non-African American GFR(CKD) 43.6 (60.0-200.0); Potassium 5.7 mmol/L (3.5-5.5); Sodium 140 mmol/L (135-145); Total Bilirubin <0.15 mg/dL (0.30-1.20); Total Protein 7.2 g/dL (6.2-8.2)
== END | disposition home or self-care (01) ==
LOC: LABWHC1 08:09
PROVIDERS: ATTEND Internal Medicine Endocrinology, Diabetes & Metabolism
DX: E11.65 Type 2 diabetes mellitus with hyperglycemia (principal)
CPT/HCPCS: 36415; 80053; 80061; 82043; 82570; 83036; 84443

== ENCOUNTER 2022-08-29 09:49 | Observation (INO) | payer OTHER ==
[2022-08-29] MEDS ORDERED: SODIUM CHLORIDE 0.9% 500 ML 500 ML IV STA (10:15)
[2022-08-29] MEDS ORDERED: LORazepam 2 MG/ML INJ IV STA ×2 (10:15→12:38)
--- NOTE | 2022-08-29 10:20 | ED ---
General Adult HPI - General Chief complaint: Recheck/Abnormal Lab/Rx Stated complaint: hypertension, headache Time Seen by Provider: 08/29/22 10:00 Source: patient, RN notes reviewed, old records reviewed Mode of arrival: ambulatory Limitations: no limitations - History of Present Illness Initial comments: This is a 62-year-old patient. Patient complaining that her blood pressure has been elevated all weekend and she also has significant frontal headache. Patient states she's also under quite a bit of stress at home and she is tearful throughout her whole interview. Patient denies numbness weakness. Patient is chest pain palpitations difficulty breathing first breath. Patient has any recent fever chills or cough per patient denies any abdominal pain patient is any back pain patient denies any nausea vomiting diarrhea. - Related Data Home Medications Medication Instructions Recorded Confirmed Atorvastatin [Lipitor] 40 mg PO HS 05/29/15 08/29/22 metFORMIN HCL [Glucophage] 1,000 mg PO AC-BID 05/29/15 08/29/22 Insulin Detemir [Levemir Flextouch 50 units SQ HS 03/17/20 08/29/22 Pen] glipiZIDE [Glucotrol] 10 mg PO AC-BID 09/28/20 08/29/22 DULoxetine HCL [Cymbalta] 60 mg PO DAILY 03/23/21 08/29/22 Previous Rx's Medication Instructions Recorded Losartan Potassium [Cozaar] 100 mg PO DAILY #30 tab 09/30/20 Clopidogrel [Plavix] 75 mg PO DAILY tab 09/14/21 Allergies Allergy/AdvReac Type Severity Reaction Status Date / Time Iodinated Contrast Media AdvReac Nausea & Verified 08/29/22 14:21 [Iodinated Contrast- Oral Vomiting and IV Dye] morphine AdvReac severe Verified 08/29/22 14:21 vomiting, severe flushing and sweating Review of Systems ROS Statement: Those systems with pertinent positive or pertinent negative responses have been documented in the HPI. ROS Other: All systems not noted in ROS Statement are negative. Past Medical History Past Medical History: Chest Pain / Angina, COPD, Diabetes Mellitus, GERD/Reflux, Hyperlipidemia, Hypertension Additional Past Medical History / Comment(s): Recent bilateral ear infections treated with ABX, pt states she was treated in past for blood infection with home IV antibiotics, IDDM type II, neuropathy bilateral legs/feet, bronchitis, slight anemia, pancreatitis, chronic low back pain, murmur, frequent diarrhea. History of Any Multi-Drug Resistant Organisms: None Reported Past Surgical History: Adenoidectomy, Back Surgery, Cholecystectomy, Hernia Repair, Orthopedic Surgery, Tonsillectomy, Tubal Ligation Additional Past Surgical History / Comment(s): EGD, colonoscopy, lap zulema fundoplasty, incisional hernia repair, multiple bilateral foot surgeries for "pressure pelts", low back surgery x2, ORIF R ankle, bilateral cataract removals/lens implants. Past Anesthesia/Blood Transfusion Reactions: Postoperative Nausea & Vomiting (PONV) Past Psychological History: Depression Smoking Status: Former smoker Past Alcohol Use History: None Reported Past Drug Use History: None Reported - Past Family History Mother Family Medical History: Blood Disorder Additional Family Medical History / Comment(s): Mother had chronic anemia Father Family Medical History: Myocardial Infarction (OR) Additional Family Medical History / Comment(s): Father of a OR at the age of 54 yrs General Exam - General Exam Comments Initial Comments: GENERAL: Patient is well-developed and well-nourished. Patient is nontoxic and well- hydrated and is in mild distress. ENT: Neck is soft and supple. No significant lymphadenopathy is noted. Oropharynx is clear. Moist mucous membranes. Neck has full range of motion without eliciting any pain. EYES: The sclera were anicteric and conjunctiva were pink and moist. Extraocular movements were intact and pupils were equal round and reactive to light. Eyelids were unremarkable. PULMONARY: Unlabored respirations. Good breath sounds bilaterally. No audible rales rhonchi or wheezing was noted. CARDIOVASCULAR: There is a regular rate and rhythm without any murmurs gallops or rubs. ABDOMEN: Soft and nontender with normal bowel sounds. SKIN: Skin is clear with no lesions or rashes and otherwise unremarkable. NEUROLOGIC: Patient is alert and oriented x3. Cranial nerves II through XII are grossly intact. Motor and sensory are also intact. Normal speech, volume and content. Symmetrical smile. MUSCULOSKELETAL: Normal extremities with adequate strength and full range of motion. LYMPHATICS: No significant lymphadenopathy is noted PSYCHIATRIC: Normal psychiatric evaluation. Limitations: no limitations Course Vital Signs 08/29/22 08/29/22 08/29/22 10:00 10:55 11:43 Temperature 98 F Pulse Rate 81 67 Pulse Rate [ 100 Apical] Respiratory 20 19 Rate Blood Pressure 169/113 188/78 O2 Sat by Pulse 99 Oximetry 08/29/22 08/29/22 08/29/22 11:50 12:20 12:30 Temperature Pulse Rate 72 78 80 Pulse Rate [ Apical] Respiratory 10 L 12 8 L Rate Blood Pressure 188/78 O2 Sat by Pulse Oximetry 08/29/22 08/29/22 08/29/22 12:40 12:50 13:00 Temperature Pulse Rate 75 70 68 Pulse Rate [ Apical] Respiratory 16 11 L 16 Rate Blood Pressure 177/74 O2 Sat by Pulse Oximetry 08/29/22 08/29/22 08/29/22 13:10 13:20 13:30 Temperature Pulse Rate 72 63 71 Pulse Rate [ Apical] Respiratory 23 15 Rate Blood Pressure 166/80 O2 Sat by Pulse Oximetry 08/29/22 08/29/22 08/29/22 13:40 13:50 14:00 Temperature Pulse Rate 70 67 69 Pulse Rate [ Apical] Respiratory 24 22 12 Rate Blood Pressure 178/81 O2 Sat by Pulse Oximetry 08/29/22 08/29/22 08/29/22 14:10 14:20 14:30 Temperature Pulse Rate 70 67 70 Pulse Rate [ Apical] Respiratory 19 19 12 Rate Blood Pressure 170/79 153/63 153/63 O2 Sat by Pulse Oximetry 08/29/22 08/29/22 14:40 15:00 Temperature Pulse Rate 77 Pulse Rate [ Apical] Respiratory 27 H Rate Blood Pressure 152/57 120/61 O2 Sat by Pulse Oximetry Medical Decision Making - Medical Decision Making EKG was reviewed by myself shows a sinus rhythm at 74 bpm NV interval 272 QRS is under 57 QT intervals 429 QTC is 457. Patient's right bundle branch block. Was pt. sent in by a medical professional or institution (, PA, CEREAL SUPERVISOR, urgent care, hospital, or care home...) When possible be specific @ -No Did you speak to anyone other than the patient for history (EMS, parent, family, police, friend...)? What history was obtained from this source @ -No Did you review nursing and triage notes (agree or disagree)? Why? @ -I reviewed and agree with nursing and triage notes Were old charts reviewed (outside hosp., previous admission, EMS record, old EKG, old radiological studies, urgent care reports/EKG's, care home records)? Report findings @ -No old charts were reviewed Differential Diagnosis (chest pain, altered mental status, abdominal pain women, abdominal pain men, vaginal bleeding, weakness, fever, dyspnea, syncope, headache, dizziness, GI bleed, back pain, seizure, CVA, palpatations, mental health, musculoskeletal)? @ -Differential Headache: Migraine, tension, cluster, carbon monoxide, central venous thrombosis, pension karma temporal arteritis, acute closure glaucoma, intercranial hemorrhage, mast oiditis, sinusitis, head injury, this is not meant to be an all-inclusive list. EKG interpreted by me (3pts min.). @ -As above X-rays interpreted by me (1pt min.). @ -Chest x-ray Shows no acute abnormality CT interpreted by me (1pt min.). @ -CT of the brain shows no acute abnormality U/S interpreted by me (1pt. min.). @ -None done What testing was considered but not performed or refused? (CT, X-rays, U/S, labs)? Why? @ -None What meds were considered but not given or refused? Why? @ -None Did you discuss the management of the patient with other professionals (professionals i.e. , PA, CEREAL SUPERVISOR, lab, RT, psych nurse, social contact worker, urban renewal manager, teacher, [place] police officer, shoe caser)? Give summary @ -No Was smoking cessation discussed for >3mins.? @ -No Was critical care preformed (if so, how long)? @ -No Were there social determinants of health that impacted care today? How? (Homelessness, low income, unemployed, alcoholism, drug addiction, transportation, low edu. Level, literacy, decrease access to med. care, residential, rehab)? @ -No Was there de-escalation of care discussed even if they declined (Discuss DNR or withdrawal of care, Hospice)? DNR status @ -No What co-morbidities impacted this encounter? (DM, HTN, Smoking, COPD, CAD, Cancer, CVA, ARF, Chemo, Hep., AIDS, mental health diagnosis, sleep apnea, morbid obesity)? @ -None Was patient admitted / discharged? Hospital course, mention meds given and route, prescriptions, significant lab abnormalities, going to [place] and other pertinent info. @ -Patient was given Ativan for relaxation because she was very anxious. Patient was also given hydralazine patient had a CAT scan of the brain showed no acute normalities chest x-ray showed no acute abnormality. Patient was given Toradol and Tylenol for headache reexamine the patient on 3 different occasions she was improving each time and the last time I saw her she was having almost no headache and her blood pressure was down. Patient denies any chest pain difficulty breathing. Patient was still very upset about having to go home and deal with some of the anxiety around the house and she will follow-up with Dr. Miranda in the near future. Patient got up to go home and she was so weak she didn't feel so she can be safe going home so I Dr. Willam Quarles he agreed to admit the patient admitted the patient wrote admitting orders Undiagnosed new problem with uncertain prognosis? @ -No Drug Therapy requiring intensive monitoring for toxicity (Heparin, Nitro, Insulin, Cardizem)? @ -No Were any procedures done? @ -No Diagnosis/symptom? @ -Hypertensive urgency Acute, or Chronic, or Acute on Chronic? @ -Acute Uncomplicated (without systemic symptoms) or Complicated (systemic symptoms)? @ -Complicated Side effects of treatment? @ -No Exacerbation, Progression, or Severe Exacerbation? @ -No Poses a threat to life or bodily function? How? (Chest pain, [place], [place], pneumonia, PE, COPD, DKA, ARF, appy, cholecystitis, CVA, Diverticulitis, Homicidal, Suicidal, threat to staff... and all critical care pts) @ -No Diagnosis/symptom? @ -Anxiety Acute, or Chronic, or Acute on Chronic? @ -Acute Uncomplicated (without systemic symptoms) or Complicated (systemic symptoms)? @ -Uncomplicated Side effects of treatment? @ -none Exacerbation, Progression, or Severe Exacerbation] @ -no Poses a threat to life or bodily function? @ -no Diagnosis/symptom? @ -Generalized weakness Acute, or Chronic, or Acute on Chronic? @ -Acute Uncomplicated (without systemic symptoms) or Complicated (systemic symptoms)? @ -Complicated Side effects of treatment? @ -none Exacerbation, Progression, or Severe Exacerbation] @ -no Poses a threat to life or bodily function? @ -no - Lab Data Result diagrams: 08/29/22 11:35 08/29/22 11:35 Lab Results 08/29/22 08/29/22 08/29/22 Range/Units 11:35 11:35 11:35 WBC 11.7 H (3.8-10.6) k/uL RBC 4.83 (3.80-5.40) m/uL Hgb 15.3 (11.4-16.0) gm/dL Hct 46.4 H (34.0-46.0) % MCV 96.2 (80.0-100.0) fL MCH 31.6 (25.0-35.0) pg MCHC 32.9 (31.0-37.0) g/dL RDW 13.3 (11.5-15.5) % Plt Count 380 (150-450) k/uL MPV 7.7 Neutrophils % 72 % Lymphocytes % 19 % Monocytes % 4 % Eosinophils % 4 % Basophils % 1 % Neutrophils # 8.4 H (1.3-7.7) k/uL Lymphocytes # 2.3 (1.0-4.8) k/uL Monocytes # 0.4 (0-1.0) k/uL Eosinophils # 0.4 (0-0.7) k/uL Basophils # 0.1 (0-0.2) k/uL PT 9.6 (9.0-12.0) sec INR 0.9 (<1.2) APTT 22.1 (22.0-30.0) sec Sodium 143 (137-145) mmol/L Potassium 4.3 (3.5-5.1) mmol/L Chloride 110 H (98-107) mmol/L Carbon Dioxide 20 L (22-30) mmol/L Anion Gap 13 mmol/L BUN 24 H (7-17) mg/dL Creatinine 1.06 H (0.52-1.04) mg/dL Est GFR (CKD-EPI)AfAm 64 (>60 ml/min/1.73 sqM) Est GFR (CKD-EPI)NonAf 56 (>60 ml/min/1.73 sqM) Glucose 180 H (74-99) mg/dL Calcium 9.4 (8.4-10.2) mg/dL Magnesium 1.9 (1.6-2.3) mg/dL Total Bilirubin 0.5 (0.2-1.3) mg/dL AST 26 (14-36) U/L ALT 27 (4-34) U/L Alkaline Phosphatase 105 (38-126) U/L Troponin I (0.000-0.034) ng/mL Total Protein 7.6 (6.3-8.2) g/dL Albumin 4.5 (3.5-5.0) g/dL 08/29/22 Range/Units 11:35 WBC (3.8-10.6) k/uL RBC (3.80-5.40) m/uL Hgb (11.4-16.0) gm/dL Hct (34.0-46.0) % MCV (80.0-100.0) fL MCH (25.0-35.0) pg MCHC (31.0-37.0) g/dL RDW (11.5-15.5) % Plt Count (150-450) k/uL MPV Neutrophils % % Lymphocytes % % Monocytes % % Eosinophils % % Basophils % % Neutrophils # (1.3-7.7) k/uL Lymphocytes # (1.0-4.8) k/uL Monocytes # (0-1.0) k/uL Eosinophils # (0-0.7) k/uL Basophils # (0-0.2) k/uL PT (9.0-12.0) sec INR (<1.2) APTT (22.0-30.0) sec Sodium (137-145) mmol/L Potassium (3.5-5.1) mmol/L Chloride (98-107) mmol/L Carbon Dioxide (22-30) mmol/L Anion Gap mmol/L BUN (7-17) mg/dL Creatinine (0.52-1.04) mg/dL Est GFR (CKD-EPI)AfAm (>60 ml/min/1.73 sqM) Est GFR (CKD-EPI)NonAf (>60 ml/min/1.73 sqM) Glucose (74-99) mg/dL Calcium (8.4-10.2) mg/dL Magnesium (1.6-2.3) mg/dL Total Bilirubin (0.2-1.3) mg/dL AST (14-36) U/L ALT (4-34) U/L Alkaline Phosphatase (38-126) U/L Troponin I <0.012 (0.000-0.034) ng/mL Total Protein (6.3-8.2) g/dL Albumin (3.5-5.0) g/dL Disposition Clinical Impression: Hypertensive urgency, Anxiety, Weakness Disposition: ADMITTED IP TO THIS HOSP Referrals: Jeison Miranda DO [Primary Care Provider] - 1-2 days Time of Disposition: 14:30
[2022-08-29 11:46] LABS: Basophils # (A) 0.1 k/uL (0-0.2); Basophils % (A) 1 %; Eosinophils # (A) 0.4 k/uL (0-0.7); Eosinophils % (A) 4 %; HCT 46.4 % (34.0-46.0); HGB 15.3 gm/dL (11.4-16.0); Lymphocytes # (A) 2.3 k/uL (1.0-4.8); Lymphocytes % (A) 19 %; MCH 31.6 pg (25.0-35.0); MCHC 32.9 g/dL (31.0-37.0); MCV 96.2 fL (80.0-100.0); Mean Platelet Volume 7.7; Monocytes # (A) 0.4 k/uL (0-1.0); Monocytes % (A) 4 %; Neutrophils # (A) 8.4 k/uL (1.3-7.7); Neutrophils % (A) 72 %; Platelet Count 380 k/uL (150-450); RBC 4.83 m/uL (3.80-5.40); RDW 13.3 % (11.5-15.5); WBC 11.7 k/uL (3.8-10.6)
--- NOTE | 2022-08-29 12:08 | CT ---
EXAMINATION TYPE: CT brain wo con DATE OF EXAM: 08/29/2022 COMPARISON: 09/10/2021 HISTORY: Hypertension with headache CT DLP: 1099.[address] of the brain was performed. The ventricles, basal cisterns and sulci overlying the cerebral convexities demonstrate mild enlargem ent. There is no evidence for intracranial hemorrhage or sulcal effacement. There is decreased attenuation about the periventricular white matter and deep white matter of both c erebral hemispheres, compatible with chronic small vessel ischemia. Differential diagnosis does inclu de demyelination. No mass effects are seen.No midline shift. Osseous calvarium is intact. If symptoms persist consider MRI. IMPRESSION: 1. Age related atrophic and chronic small vessel ischemic change without acute intracranial process s een at this time.
[2022-08-29 12:15] LABS: INR 0.9 (<1.2); Partial Thromboplastin Time 22.1 sec (22.0-30.0); Prothrombin Time 9.6 sec (9.0-12.0)
[2022-08-29 12:25] LABS: ALT 27 U/L (4-34); AST 26 U/L (14-36); African American GFR (CKD) 64 (>60 ml/min/1.73 sqM); Albumin 4.5 g/dL (3.5-5.0); Alkaline Phosphatase 105 U/L (38-126); Anion Gap 13 mmol/L; Blood Urea Nitrogen 24 mg/dL (7-17); Calcium 9.4 mg/dL (8.4-10.2); Carbon Dioxide 20 mmol/L (22-30); Chloride 110 mmol/L (98-107); Glucose 180 mg/dL (74-99); Magnesium 1.9 mg/dL (1.6-2.3); Non-African American GFR(CKD) 56 (>60 ml/min/1.73 sqM); Potassium 4.3 mmol/L (3.5-5.1); Sodium 143 mmol/L (137-145); Total Bilirubin 0.5 mg/dL (0.2-1.3); Total Protein 7.6 g/dL (6.3-8.2)
--- NOTE | 2022-08-29 12:28 | XR ---
EXAMINATION TYPE: XR chest 2V DATE OF EXAM: 08/29/2022 12:24 PM COMPARISON: Chest radiographs from 09/10/2021 TECHNIQUE: XR chest 2V Frontal and lateral views of the chest. CLINICAL INDICATION:Female, 62 years old with history of Chest Pain; FINDINGS: Lungs/Pleura: There is no evidence of pleural effusion, focal consolidation, or pneumothorax. Pulmonary vascularity: Unremarkable. Heart/mediastinum: Cardiomediastinal silhouette is unremarkable. Musculoskeletal: No acute osseous pathology. IMPRESSION: No acute cardiopulmonary disease/process.
[2022-08-29] MEDS ORDERED: ONDANSETRON 4 MG/2 ML VIAL IVP STA (12:33)
[2022-08-29] MEDS ORDERED: hydrALAZINE HCL 20 MG/ML 1 ML VIAL IVP STA (13:07)
[2022-08-29] MEDS ORDERED: KETOROLAC 15 MG/ML 1 ML VIAL IVP STA (13:07)
[2022-08-29] MEDS ORDERED: ACETAMINOPHEN TAB 500 MG TAB PO STA (13:07)
[2022-08-29] MEDS ORDERED: SODIUM CHLORIDE 0.9% 1,000 ML IV ONE (15:40)
[2022-08-29 20:31] LABS: Appearance,Urine Clear (Clear); Bilirubin,Urine Negative (Negative); Blood,Urine Negative (Negative); Color,Urine Yellow; Glucose,Urine (UA) Negative (Negative); Ketones,Urine Negative (Negative); Leukocyte Esterase,Urine Negative (Negative); Mucus,Urine Rare /hpf; Nitrite,Urine Negative (Negative); PH, Urine 5.5 (5.0-8.0); Protein,Urine 3+ (Negative); RBC,Urine 1 /hpf (0-5); Specific Gravity,Urine 1.022 (1.001-1.035); Squamous Epithelial Cell,Urine 4 /hpf (0-4); Urobilinogen,Urine <2.0 mg/dL (<2.0); WBC,Urine 1 /hpf (0-5)
[2022-08-29] MEDS ORDERED: ALPRAZolam 0.5 MG TAB PO PRN (22:58)
[2022-08-29] MEDS ORDERED: ATORVASTATIN 40 MG TAB PO SCH (23:00)
[2022-08-29] MEDS ORDERED: INSULIN DETEMIR (LEVEMIR) 100 UNIT/ML SYR SQ SCH (23:00)
[2022-08-29 23:40] LABS: Glucose,Whole Blood 285 mg/dL (70-110)
[2022-08-29] MEDS: glipiZIDE 10 MG TAB PO SCH (23:40)
[2022-08-29] MEDS: metFORMIN 500 MG TAB PO SCH (23:40)
[2022-08-30] MEDS ORDERED: ACETAMINOPHEN TAB 325 MG TAB PO PRN (06:52)
[2022-08-30] MEDS: glipiZIDE 10 MG TAB PO SCH ×2 (08:12→18:01)
[2022-08-30] MEDS: metFORMIN 500 MG TAB PO SCH ×2 (08:12→18:01)
[2022-08-30] MEDS ORDERED: LOSARTAN 50 MG TAB PO SCH (09:00)
[2022-08-30] MEDS ORDERED: DULoxetine HCL 60 MG CAPSULE.DR PO SCH (09:00)
[2022-08-30] MEDS ORDERED: CLOPIDOGREL 75 MG TAB PO SCH (09:00)
[2022-08-30] MEDS ORDERED: busPIRone HCl 5 MG TAB PO SCH (09:00)
[2022-08-30 10:36] VITALS: RESP 16
[2022-08-30 11:21] LABS: Glucose,Whole Blood 135 mg/dL (70-110)
[2022-08-30] MEDS ORDERED: amLODIPine 5 MG TAB PO SCH (11:43)
[2022-08-30 14:20] VITALS: PULSE 78
[2022-08-30] MEDS ORDERED: hydrALAZINE HCL 25 MG TAB PO SCH (14:30)
--- NOTE | 2022-08-30 14:37 | P.HPIM ---
History of Present Illness H&P Date: 08/30/22 Chief Complaint: High blood pressure, anxiety, stress This is a 62-year-old female with past medical history significant for anxiety,angina, COPD, diabetes mellitus, hypertension, prior nicotine dependence, obesity and multiple other medical issues presented to the ER with complaints of headache, high blood pressure, a lot of stress at home and multiple other medical issues. Denies chest pain, palpitations or shortness of breath. Denies nausea, vomiting or diarrhea. Denies abdominal pain. Reports that her kids with her grandchildren and their dogs are living at her house and it's causing her enormous stress. Reports her stress was so severe, she has no energy. Received Ativan, Tylenol and Toradol in the ER. Brain CT reported no acute abnormalities. Chest x-ray reported no acute abnormalities. This morning, headache has resolved, hypertensive with systolic blood pressure reported in the 200s currently down to the 170s. Headache resolved. Review of Systems ROS Statement: Those systems with pertinent positive or pertinent negative responses have been documented in the HPI. ROS Other: All systems not noted in ROS Statement are negative. Past Medical History Past Medical History: Chest Pain / Angina, COPD, Diabetes Mellitus, GERD/Reflux, Hyperlipidemia, Hypertension Additional Past Medical History / Comment(s): Recent bilateral ear infections treated with ABX, pt states she was treated in past for blood infection with home IV antibiotics, IDDM type II, neuropathy bilateral legs/feet, bronchitis, slight anemia, pancreatitis, chronic low back pain, murmur, frequent diarrhea. History of Any Multi-Drug Resistant Organisms: None Reported Past Surgical History: Adenoidectomy, Back Surgery, Cholecystectomy, Hernia Repair, Orthopedic Surgery, Tonsillectomy, Tubal Ligation Additional Past Surgical History / Comment(s): EGD, colonoscopy, lap zulema fundoplasty, incisional hernia repair, multiple bilateral foot surgeries for "pressure pelts", low back surgery x2, ORIF R ankle, bilateral cataract removals/lens implants. Past Anesthesia/Blood Transfusion Reactions: Postoperative Nausea & Vomiting (PONV) Smoking Status: Former smoker - Past Family History Mother Family Medical History: Blood Disorder Additional Family Medical History / Comment(s): Mother had chronic anemia Father Family Medical History: Myocardial Infarction (ND) Additional Family Medical History / Comment(s): Father of a ND at the age of 54 yrs Medications and Allergies Home Medications Medication Instructions Recorded Confirmed Type Atorvastatin [Lipitor] 40 mg PO HS 05/29/15 08/29/22 History metFORMIN HCL [Glucophage] 1,000 mg PO AC-BID 05/29/15 08/29/22 History Insulin Detemir [Levemir Flextouch 50 units SQ HS 03/17/20 08/29/22 History Pen] glipiZIDE [Glucotrol] 10 mg PO AC-BID 09/28/20 08/29/22 History Losartan Potassium [Cozaar] 100 mg PO DAILY #30 tab 09/30/20 08/29/22 Rx DULoxetine HCL [Cymbalta] 60 mg PO DAILY 03/23/21 08/29/22 History Clopidogrel [Plavix] 75 mg PO DAILY tab 09/14/21 08/29/22 Rx busPIRone HCl [Buspar] 5 mg PO BID #28 tab 08/30/22 Rx Allergies Allergy/AdvReac Type Severity Reaction Status Date / Time Iodinated Contrast Media AdvReac Nausea & Verified 08/29/22 14:21 [Iodinated Contrast- Oral Vomiting and IV Dye] morphine AdvReac severe Verified 08/29/22 14:21 vomiting, severe flushing and sweating Physical Exam Vitals: Vital Signs Temp Pulse Pulse Resp BP BP Pulse Ox 08/30/22 08:00 81 16 08/30/22 06:22 97.9 F 78 12 189/83 98 08/30/22 02:00 98.1 F 63 16 151/62 98 08/29/22 21:10 80 16 149/65 08/29/22 21:00 86 24 08/29/22 20:50 73 17 08/29/22 20:40 85 21 170/85 08/29/22 20:30 78 20 08/29/22 20:20 78 15 08/29/22 20:10 71 19 160/66 08/29/22 20:00 70 12 08/29/22 19:50 80 15 08/29/22 19:40 71 19 182/90 08/29/22 19:37 99.0 F 08/29/22 19:30 69 19 179/71 08/29/22 19:20 73 18 08/29/22 19:10 79 10 L 179/71 08/29/22 19:00 75 11 L 08/29/22 18:50 70 17 08/29/22 18:40 71 16 183/72 08/29/22 18:30 67 12 08/29/22 18:20 68 12 08/29/22 18:10 89 24 167/66 08/29/22 18:00 64 18 08/29/22 17:50 75 12 08/29/22 17:40 83 18 188/115 08/29/22 17:30 74 18 08/29/22 17:20 77 15 08/29/22 17:10 84 25 H 171/73 08/29/22 17:00 76 22 08/29/22 16:50 80 15 08/29/22 15:10 146/58 08/29/22 15:00 120/81 08/29/22 14:40 77 27 H 152/57 08/29/22 14:30 70 12 153/63 08/29/22 14:20 67 19 153/63 Intake and Output 08/29/22 08/30/22 08/30/22 22:59 06:59 14:59 Intake Total 750 Balance 750 Intake: Intake, IV Titration 750 Amount Sodium Chloride 0.9% 1, 750 000 ml @ 75 mls/hr IV . [id number] ONE Rx#:[id number] Other: Voiding Method Bedpan Toilet # Voids 1 Weight 86.183 kg GENERAL: This is a 62-year-old , alert and oriented 3 with significant stress, anxiety, crying, sitting up at bedside. HEENT: Head is atraumatic, normocephalic. Pupils are equal, round, and reactive to light. Sclerae anicteric. Conjunctivae are clear. Mucus membranes of the mouth are moist. Neck is supple. RESPIRATORY: Clear to auscultation. No wheezes, rales, or rhonchi. No use of accessory muscles. Patient maintaining oxygen saturation greater than 92%. No chest wall tenderness is noted on palpation or with deep breathing. CARDIOVASCULAR: Regular rate and rhythm. S1 and S2 noted. No systolic or diastolic murmur auscultated. No JVD noted. No S3 or S4 noted. GASTROINTESTINAL: No distention noted. Abdomen soft and round. Normal active bowel sounds auscultated x 4 quadrants. No pain or tenderness noted upon palpation. INTEGUMENTARY: No cyanosis. No jaundice. No rashes noted. No cellulitis noted. EXTREMITIES: 2+ peripheral pulses. No evidence of peripheral edema. No calf tenderness noted. NEUROLOGIC: Cranial nerves II-XII intact. Results CBC & Chem 7: 08/29/22 11:35 08/29/22 11:35 Labs: Abnormal Lab Results - Last 24 Hours (Table) 08/29/22 08/29/22 08/30/22 Range/Units 19:42 23:39 11:19 POC Glucose (mg/dL) 285 H 135 H (70-110) mg/dL Urine Protein 3+ H (Negative) Urine Mucus Rare H (None) /hpf Assessment and Plan Assessment: Hypertensive urgency, in a patient with high stress and anxiety History of CVA, left cerebellar ischemic Diabetes mellitus type 2, uncontrolled, hyperglycemic, hemoglobin A1c 7.6 Gastroesophageal reflux disease Hypertension Hyperlipidemia COPD, stable Obesity, BMI 33.1 Anxiety, depression Former nicotine dependence Plan: Continue on current medication regime ,monitoring and symptomatic t reatment. Antihypertensives further adjusted, BuSpar added to med regimen. Patient does not wish to follow with the counselor outpatient, therefore patient has been advised to follow in clinic with PCP for weekly counseling. Discharge planning in progress for later this afternoon pending blood pressure, anxiety better controlled, in a stable condition with guarded prognosis. The impression and plan of care has been dictated as directed. : I performed a history and examination of this patient, discussed the same with the dictator. I agree with the dictator's note ,documented as a scribe. Any additional findings or plans will be noted.
[2022-08-30 15:00] VITALS: TEMP 97.5
[2022-08-30 16:19] VITALS: BP 162/84
== END 2022-08-30 18:37 | disposition home or self-care (01) ==
LOC: EC 09:49 → 6NMEDSUR 15:41 → 1SOBS 08-30 05:43
PROVIDERS: ADMIT Family Medicine; ATTEND Family Medicine
DX: I16.0 Hypertensive urgency (principal); J44.9 Chronic obstructive pulmonary disease, unspecified; E11.65 Type 2 diabetes mellitus with hyperglycemia; K21.9 Gastro-esophageal reflux disease without esophagitis; E78.5 Hyperlipidemia, unspecified; I10 Essential (primary) hypertension; E11.40 Type 2 diabetes mellitus with diabetic neuropathy, unspecified; I45.10 Unspecified right bundle-branch block; F41.9 Anxiety disorder, unspecified; E66.9 Obesity, unspecified; D64.9 Anemia, unspecified; M54.50 Low back pain, unspecified; G89.29 Other chronic pain; F32.A Depression, unspecified; Z87.891 Personal history of nicotine dependence; Z90.49 Acquired absence of other specified parts of digestive tract; Z98.51 Tubal ligation status; Z79.899 Other long term (current) drug therapy; Z79.84 Long term (current) use of oral hypoglycemic drugs; Z79.4 Long term (current) use of insulin; Z79.02 Long term (current) use of antithrombotics/antiplatelets; Z88.5 Allergy status to narcotic agent; Z91.041 Radiographic dye allergy status; Z98.42 Cataract extraction status, left eye; Z98.41 Cataract extraction status, right eye; Z96.1 Presence of intraocular lens; Z82.49 Family history of ischemic heart disease and other diseases of the circulatory system; Z83.2 Family history of diseases of the blood and blood-forming organs and certain disorders involving the immune mechanism; Z68.33 Body mass index [BMI] 33.0-33.9, adult
CPT/HCPCS: 96361 ×2; 96376; 96374; 96375; 99285; 36415; 93005; 80053; 83735; 84484; 85025; 85610; 85730; 81001; 71046; 70450; G0378 ×2; J2060; J0360; J2405; J1885

== ENCOUNTER → 2022-10-03 | Outpatient (CLI) | payer OTHER ==
[2022-10-03 15:27] LABS: ALT 20 U/L (8-44); AST 16 U/L (13-35); Albumin 4.5 d/dL (3.8-4.9); Albumin/Globulin Ratio 1.88 Ratio (1.60-3.17); Alkaline Phosphatase 106 U/L (41-126); BUN/Creat Ratio 25.71 Ratio (12.00-20.00); Calcium 9.1 mg/dL (8.7-10.3); Carbon Dioxide 20.7 mmol/L (21.6-31.8); Chloride 111 mmol/L (96-109); Chol/HDL Ratio 5.03 Ratio; Globulin 2.4 d/dL (1.6-3.3); Glucose 235 mg/dL (70-110); LDL Cholesterol,Calculated 103.4 mg/dL (0.0-131.0); Potassium 4.8 mmol/L (3.5-5.5); Sodium 143 mmol/L (135-145); Total Bilirubin <0.2 mg/dL (0.3-1.2); Total Protein 6.9 d/dL (6.2-8.2)
== END | disposition home or self-care (01) ==
LOC: LABWHC1 07:36
PROVIDERS: ATTEND Internal Medicine Endocrinology, Diabetes & Metabolism
DX: E11.65 Type 2 diabetes mellitus with hyperglycemia (principal)
CPT/HCPCS: 36415; 80053; 80061; 82043; 82570; 83036; 84443

== ENCOUNTER → 2023-05-29 | Outpatient (CLI) | payer OTHER ==
[2023-05-29 11:19] LABS: ALT 35 U/L (8-44); AST 34 U/L (13-35); Albumin 4.1 g/dL (3.8-4.9); Albumin/Globulin Ratio 1.71 Ratio (1.60-3.17); Alkaline Phosphatase 100 U/L (41-126); BUN/Creat Ratio 12.17 Ratio (12.00-20.00); Blood Urea Nitrogen 14.6 mg/dL (9.0-27.0); Calcium 9.1 mg/dL (8.7-10.3); Carbon Dioxide 21.4 mmol/L (21.6-31.8); Chloride 108 mmol/L (96-109); Chol/HDL Ratio 4.21 Ratio; Globulin 2.4 g/dL (1.6-3.3); Glucose 137 mg/dL (70-110); LDL Cholesterol,Calculated 124.7 mg/dL (0.0-131.0); Potassium 4.6 mmol/L (3.5-5.5); Sodium 140 mmol/L (135-145); Total Bilirubin 0.3 mg/dL (0.3-1.2); Total Protein 6.5 g/dL (6.2-8.2)
== END | disposition home or self-care (01) ==
LOC: LABWHC1 08:07
PROVIDERS: ATTEND Internal Medicine Endocrinology, Diabetes & Metabolism
DX: E11.65 Type 2 diabetes mellitus with hyperglycemia (principal)
CPT/HCPCS: 36415; 80053; 80061; 82043; 82570; 83036; 84443

== ENCOUNTER → 2023-07-26 | Outpatient (CLI) | payer OTHER ==
--- NOTE | 2023-07-26 12:10 | XR ---
EXAMINATION TYPE: XR lumbar spine 3V DATE OF EXAM: 07/26/2023 Comparison: 09/03/2009 Clinical History: 63-year-old female R52 PAIN Findings: 5 lumbar type vertebral bodies. L4-L5 posterior and interbody lumbar fusion with laminectomy. Moderat e degenerative disc disease above the fusion at L3-L4 with grade 1 retrolisthesis, both progressed fr om 2009. Vertebral body heights are preserved. Impression: 1. Status post L4-L5 posterior and interbody fusion with laminectomy. 2. Moderate degenerative disc disease and grade 1 retrolisthesis above the fusion at L3-L4, both new from 2009.
== END | disposition home or self-care (01) ==
LOC: RADXRMAIN 10:31
PROVIDERS: ATTEND Family Medicine
DX: M51.36 Other intervertebral disc degeneration, lumbar region (principal); M43.16 Spondylolisthesis, lumbar region
CPT/HCPCS: 72100

== ENCOUNTER → 2024-02-19 | Outpatient (CLI) | payer OTHER ==
[2024-02-19 15:47] LABS: ALT 16 U/L (8-44); AST 20 U/L (13-35); Albumin 4.3 g/dL (3.8-4.9); Albumin/Globulin Ratio 1.59 Ratio (1.60-3.17); Alkaline Phosphatase 113 U/L (41-126); BUN/Creat Ratio 12.93 Ratio (12.00-20.00); Blood Urea Nitrogen 18.1 mg/dL (9.0-27.0); Calcium 9.6 mg/dL (8.7-10.3); Chloride 102 mmol/L (96-109); Chol/HDL Ratio 5.06 Ratio; Globulin 2.7 g/dL (1.6-3.3); Glucose 374 mg/dL (70-110); LDL Cholesterol,Calculated 128.7 mg/dL (0.0-131.0); Potassium 4.9 mmol/L (3.5-5.5); Sodium 137 mmol/L (135-145); Total Bilirubin 0.4 mg/dL (0.3-1.2)
[2024-02-19 19:49] LABS: Microalbumin Creatinine Ratio >1329 mg/g Cr (0-30)
== END | disposition home or self-care (01) ==
LOC: LABWHC1 08:23
PROVIDERS: ATTEND Internal Medicine Endocrinology, Diabetes & Metabolism
DX: E11.65 Type 2 diabetes mellitus with hyperglycemia (principal)
CPT/HCPCS: 36415; 80053; 80061; 82043; 82570; 83036; 84443

== ENCOUNTER → 2024-05-07 | Outpatient (CLI) | payer OTHER ==
[2024-05-07 15:43] LABS: Basophils # (A) 0.15 X 10*3/uL (0.00-0.10); Basophils % (A) 1.3 %; Eosinophils % (A) 3.4 %; HCT 45.7 % (37.2-46.3); HGB 14.5 g/dL (12.0-15.0); Lymphocytes # (A) 1.89 X 10*3/uL (0.90-5.00); Lymphocytes % (A) 16.3 %; MCH 31.3 pg (27.0-32.0); MCHC 31.7 g/dL (32.0-37.0); MCV 98.5 FL (80.0-97.0); Mean Platelet Volume 10.4 FL (9.5-12.2); Monocytes # (A) 0.65 X 10*3/uL (0.20-1.00); Monocytes % (A) 5.6 %; NRBC Per 100 WBC 0 X 10*3/uL (0.00-0.01); Neutrophils # (A) 8.47 X 10*3/uL (1.80-7.70); Neutrophils % (A) 73.1 %; Platelet Count 393 X 10*3/uL (140-440); RBC 4.64 X 10*6/uL (4.10-5.20); RDW 13.1 % (11.5-14.5)
[2024-05-07 16:21] LABS: Anion Gap 11.3 mmol/L (4.00-12.00); Carbon Dioxide 24.7 mmol/L (21.6-31.8); Potassium 4.5 mmol/L (3.5-5.5)
== END | disposition home or self-care (01) ==
LOC: LABWHC1 08:10
PROVIDERS: ATTEND Orthopaedic Surgery
DX: Z01.818 Encounter for other preprocedural examination (principal); I45.10 Unspecified right bundle-branch block; I51.89 Other ill-defined heart diseases; I51.7 Cardiomegaly; R94.31 Abnormal electrocardiogram [ECG] [EKG]
CPT/HCPCS: 80051; 85025; 93005

== ENCOUNTER 2024-05-23 11:27 | Day surgery (SDC) | payer OTHER ==
[2024-05-20 14:39] VITALS: BMI 32.5
--- NOTE | 2024-05-22 14:01 | HP ---
HISTORY AND PHYSICAL DATE OF SURGERY: 05/23/2024. HISTORY OF PRESENT ILLNESS: Laura Nicole is a 63-year-old patient seen with progressive left knee pain. After treatment options were discussed, she elected to proceed with left knee arthroscopy. Consent was obtained. PAST MEDICAL HISTORY: Hypertension, insulin-dependent diabetes, hyperlipidemia. PAST SURGICAL HISTORY: Ankle surgery, herniorrhaphy. DAILY MEDICATIONS: 1. Atorvastatin. 2. Farxiga. 3. Glipizide. 4. Lantus insulin. 5. Losartan. ALLERGIES: None. SOCIAL HISTORY: She denies tobacco use. PHYSICAL EVALUATION OF THE LEFT KNEE: Her range of motion is -1/2 to 110 degrees. She has tenderness along the medial and lateral joint lines with positive medial Bridger's. Ligaments stable. Hip rotation without pain. Distal neurovascular exam is intact. IMAGING STUDIES: Radiographs of the left knee revealed moderate medial compartment osteoarthritis. MRI of left knee revealed a complex medial meniscal tear along with a Pepper cyst. IMPRESSION: 1. Internal derangement of left knee with medial meniscal tear. 2. Hypertension. 3. Hyperlipidemia. 4. Insulin-dependent diabetes. PLAN: Left knee arthroscopy with partial medial meniscectomy and debridement. MMODL / IJN: [id number] /
[~2024-05-23 11:27] MED LIST changes: -DEXAMETHASONE SOD PHOSPHATE 10 MG/ML 1 ML VIAL IV ONE; -HEPARIN SODIUM,PORCINE 5,000 UNIT/ML 1 ML VIAL SQ ONE; +LACTATED RINGERS 1,000 ML IV SCH; +LIDOCAINE 1% (10MG/ML) FOR IV START INTRADERMA PRN; -ONDANSETRON 4 MG/2 ML VIAL IVP ONE; -ceFAZolin IN SWFI 2 GM/20 ML SYRINGE IVP ONE; +droPERidol 2.5 MG/ML VIAL IVP ONE; +fentaNYL (PF) 50 MCG/ML 2 ML AMP IV PRN
[2024-05-23] MEDS: IV FLUID CONTINUATION 1,000 ML IV ONE (11:41)
[2024-05-23 11:56] VITALS: TEMP 98.9
[2024-05-23 12:06] LABS: Glucose,Whole Blood 109 mg/dL (70-110)
[2024-05-23] MEDS: ONDANSETRON 4 MG/2 ML VIAL IVP ONE (12:11)
[2024-05-23] MEDS: DEXAMETHASONE SOD PHOSPHATE 4 MG/ML 1 ML VIAL IV ONE (12:11)
[2024-05-23] MEDS ORDERED: fentaNYL (PF) 50 MCG/ML 2 ML AMP ONE (12:34)
[2024-05-23] MEDS ORDERED: LIDOCAINE 1% INJ 10MG/ML (20 ML MDV) ONE (12:34)
[2024-05-23] MEDS ORDERED: PHENYLEPHRINE 10 MG/ML VIAL ONE (12:34)
[2024-05-23] MEDS ORDERED: SUCCINYLCHOLINE CHLORIDE 200 MG/10 ML VIAL IV ONE (12:34)
[2024-05-23] MEDS ORDERED: GLYCOPYRROLATE 0.2 MG/ML 2 ML VIAL ONE (12:34)
[2024-05-23] MEDS ORDERED: LIDOCAINE 4% LTA KIT (4 ML) TOPICAL ONE (12:34)
[2024-05-23] MEDS ORDERED: PROPOFOL 10 MG/ML 20 ML VIAL IV ONE (12:34)
[2024-05-23] MEDS ORDERED: MIDAZOLAM 2 MG/2 ML VIAL ONE (12:34)
[2024-05-23] MEDS ORDERED: HYDROmorphone (PF) 1 MG/ML ONE (12:34)
[2024-05-23] MEDS ORDERED: diphenhydrAMINE 50 MG/ML 1 ML VIAL ONE (12:34)
[2024-05-23] MEDS: BUPIVACAINE (PF) 0.25% 30 ML VIAL SQ ONE ×2 (12:49→13:02)
--- NOTE | 2024-05-23 13:42 | P.OP ---
Date of Procedure: 05/23/24 Preoperative Diagnosis: Internal derangement left knee Postoperative Diagnosis: 1. Tear medial and lateral meniscus left knee 2. Grade IV chondromalacia femoral sulcus left knee 3. Reactive synovitis medial, lateral and suprapatellar compartments left knee Procedure(s) Performed: 1. Arthroscopic partial medial and lateral meniscectomy left knee 2. Arthroscopic microfracture femoral sulcus left knee 3. Arthroscopic partial synovectomy medial, lateral and suprapatellar compartments left knee Anesthesia: GETA, local Surgeon: Yony Ayala Estimated Blood Loss (ml): 5 Pathology: none sent Condition: stable Disposition: PACU Indications for Procedure: 63-year-old patient seen with progressive left knee pain. After having treatment options discussed, she elected to proceed with arthroscopy. Operative Findings: See description of procedure Description of Procedure: Patient was taken to the operative suite. Patient underwent a general anesthetic by the department of anesthesia. Patient was given preoperative antibiotics. The left lower extremity was placed in a well-padded arthroscopic leg theodore. The left leg was prepped and draped in the normal sterile orthopedic fashion. A lateral parapatellar and suprapatellar incision was made. Trochars were inserted. Arthroscopy was initiated. Suprapatellar pouch revealed diffuse thick reactive synovitis. The patellofemoral joint appeared to articulate congruently. There was grade I chondromalacia patella and 1 area of grade III/IV chondromalacia of the femoral sulcus medially with some osteochondral flap tears present. The scope was guided into the medial gutter. No loose bodies or plica were identified. The scope was then guided into the medial compartment. A medial parapatellar incision was made. Trocar inserted followed by probe. There was a complex tear involving the posterior horn medial meniscus which extended to the mid body area. There were grade I chondromalacia changes medial compartment without tears. There was some thick reactive synovitis anteriorly. I performed a partial medial meniscectomy getting down to stable meniscal tissue. I performed a partial synovectomy decompressing the thick reactive synovitis. The residual meniscus was stable. There was good decompression of the synovitis. Scope and probe were then guided into the intercondylar notch. Cruciates were identified, probed and found to be stable. The scope and probe were then guided into lateral compartment. There was a radial tear along the anterior horn lateral meniscus. There were grade I chondromalacia changes lateral compartment with no tears. There was some thick reactive synovitis anteriorly. I performed a partial lateral meniscectomy getting down to stable meniscal tissue. I performed a partial synovectomy decompressing that reactive synovitis. The residual meniscus was stable. There was good decompression of the synovitis. The scope was in guided back into the suprapatellar compartment. I reduced a motorized shaver into the suprapatellar compartment. I debrided some piecemeal fragments of meniscus that I encountered. I performed a partial synovectomy. I now performed a chondroplasty of the medial femoral sulcus getting down to stable osteochondral tissue. I did note an area of grade IV chondromalacia involving the femoral sulcus with exposed bone measuring less than a centimeter. I introduced a microfracture awl and I performed a microfracture to that area of exposed bone penetrating the bone with resultant bleeding at the microfracture site. The residual osteochondral surface was now probed and was found to be stable. I now took 1 more look around the entire knee, no residual debris. Instruments were now removed from the joint. The joint was infiltrated with .25% Marcaine. Steri-Strips were applied to the portal sites. Sterile dressings were applied. The patient was placed into a RACHAEL hose. No tourniquet was utilized. The patient was awakened, transferred to a bed and taken to recovery stable satisfactory condition.
[2024-05-23] MEDS: HYDROcodone/APAP 5-325MG 1 EACH TAB PO STA (14:27)
[2024-05-23 14:39] VITALS: RESP 18
[2024-05-23 15:12] VITALS: BP 139/64; PULSE 74
== END 2024-05-23 15:40 | disposition home or self-care (01) ==
LOC: OR 11:27
PROVIDERS: ATTEND Orthopaedic Surgery
DX: S83.242A Other tear of medial meniscus, current injury, left knee, initial encounter (principal); S83.282A Other tear of lateral meniscus, current injury, left knee, initial encounter; M65.862 Other synovitis and tenosynovitis, left lower leg; M94.262 Chondromalacia, left knee; I10 Essential (primary) hypertension; E78.5 Hyperlipidemia, unspecified; E11.40 Type 2 diabetes mellitus with diabetic neuropathy, unspecified; I25.10 Atherosclerotic heart disease of native coronary artery without angina pectoris; J44.9 Chronic obstructive pulmonary disease, unspecified; K21.9 Gastro-esophageal reflux disease without esophagitis; F32.A Depression, unspecified; M54.50 Low back pain, unspecified; Z87.891 Personal history of nicotine dependence; Z88.5 Allergy status to narcotic agent; Z91.041 Radiographic dye allergy status; Z79.4 Long term (current) use of insulin; Z79.02 Long term (current) use of antithrombotics/antiplatelets; Z79.899 Other long term (current) drug therapy; X58.XXXA Exposure to other specified factors, initial encounter
CPT/HCPCS: 29880; 29876; 29879; J2250; J0330; J1200; J1100; J0690; J2405; J2003; J3010; J1171; J2704; J2371; J0665; J1596